=== PATIENT | female | born 1960 | race Caucasian/White ===

== ENCOUNTER 2023-12-28 15:01 | Inpatient (IN) | payer OTHER, MEDICARE, SELFPAY ==
[2023-12-28 15:03] VITALS: BP 130/53; PULSE 87; RESP 14; TEMP 36.1; O2SAT 96; BMI 45.8
--- NOTE | 2023-12-28 15:16 | ED.VIS.FALL ---
HPI <SAMREEN Guerrero - Last Filed: 12/28/23 17:33> HPI - Fall History of Present Illness Chief Complaint: Fall Narrative Narrative: Patient was cooking and cleaning in her kitchen when she slipped on the floor landing on her left hip. No head injury or LOC. She was on the floor for about 45 minutes and called out and the neighbor boy who was mowing her lawn came in and called the paramedics. Patient states she only injured her left hip and she has not been able to get up since then. She has no weakness or paresthesias. She is not on blood thinners. [facility] <SAMREEN Guerrero - Last Filed: 12/28/23 17:33> [facility] Medical History (Updated 12/28/23 @ 17:[address] Sean Velasquez, DO) Diabetes mellitus Hypertension Rheumatoid arthritis Sjogrens syndrome Home Medications albuterol sulfate 90 mcg/actuation aerosol inhaler 2 puff inhalation Q6H PRN wheezing 12/28/23 [History Last Taken Unknown] celecoxib 200 mg capsule 200 mg PO DAILY 12/28/23 [History Last Taken Unknown] cyclobenzaprine 10 mg tablet 10 mg PO QHS 12/28/23 [History Last Taken Unknown] dulaglutide 3 mg/0.5 mL subcutaneous pen injector (Trulicity) 3 mg subcut QWEEK 12/28/23 [History Last Taken Unknown] eszopiclone 2 mg tablet 2 mg PO QHS 12/28/23 [History Last Taken Unknown] hydroxyzine HCl 25 mg tablet 25 mg PO DAILY 12/28/23 [History Last Taken Unknown] levothyroxine 137 mcg tablet 137 mcg PO DAILY 12/28/23 [History Last Taken Unknown] metformin 500 mg tablet,extended release 24 hr 500 mg PO BID 12/28/23 [History Last Taken Unknown] omeprazole 20 mg capsule,delayed release 20 mg PO BID 12/28/23 [History Last Taken Unknown] simvastatin 40 mg tablet 40 mg PO QHS 12/28/23 [History Last Taken Unknown] Allergy/AdvReac Type Severity Reaction Status Date / Time acetaminophen [From Vicodin] Allergy Intermediate SOB Verified 12/28/23 15:08 butorphanol [From Stadol] Allergy Intermediate SOB Verified 12/28/23 15:08 hydrocodone [From Vicodin] Allergy Intermediate SOB Verified 12/28/23 15:08 Surgical History H/O thyroidectomy Social History Smoking Status: Former smoker ROS <SAMREEN Guerrero - Last Filed: 12/28/23 17:33> ROS ED ROS Narrative CVS: Negative for chest pain Respiratory: Negative for shortness of breath. GI: Negative for abdominal pain. Neuro: Negative for motor/sensory dysfunction. Skin: Negative for wound. Musc: Positive for left hip pain, trauma. EXAM <SAMREEN Guerrero - Last Filed: 12/28/23 17:33> Physical Exam Narrative Exam Narrative: CONST: Patient sitting in no acute distress. EYES: Normal inspection. HEAD: Head normocephalic atraumatic, no raccoon eyes or escalante sign, no hemotympanum, no nasal septal hematoma, no CSF otorrhea or rhinorrhea. NECK: Normal inspection. RESP: No respiratory distress, CTAB. Chest wall nontender. CVS: Regular rate and rhythm, no murmur, no gallop. ABD: Soft and nontender, no guarding or rebound, nondistended. Back: Normal inspection, no midline tenderness. SKIN: Color normal, no rash, warm, dry, intact. EXTREMITIES: Full ROM upper extremities, nontender, 2+ radial pulses. Pelvis stable, left leg slightly shortened and rotated with left hip pain with logroll. No tenderness of knee ankle or foot. 5/5 dorsiflexion/plantarflexion, sensation intact, 2+ DP pulses. NEURO: Alert and answering questions appropriately. PSYCH: Normal affect. Const Vital Signs: 12/28/23 15:03 12/28/23 15:08 12/28/23 17:02 Temperature 97.0 F L Temperature Source Temporal Pulse Rate 87 88 Respiratory Rate 14 16 Respiratory Effort Normal Respiratory Depth Normal Respiratory Pattern Normal Blood Pressure 130/53 H 146/64 H Blood Pressure Mean 78 91 Pulse Ox 96 96 Oxygen Delivery Method Room Air Room Air Room Air 12/28/23 17:22 Temperature 98.4 F Temperature Source Pulse Rate 92 Respiratory Rate 16 Respiratory Effort Respiratory Depth Respiratory Pattern Blood Pressure 140/91 H Blood Pressure Mean 107 Pulse Ox 97 Oxygen Delivery Method <Dr. Sean Velasquez DO - Last Filed: 12/28/23 17:26> Physical Exam Const Vital Signs: 12/28/23 15:03 12/28/23 15:08 12/28/23 17:02 Temperature 97.0 F L Temperature Source Temporal Pulse Rate 87 88 Respiratory Rate 14 16 Respiratory Effort Normal Respiratory Depth Normal Respiratory Pattern Normal Blood Pressure 130/53 H 146/64 H Blood Pressure Mean 78 91 Pulse Ox 96 96 Oxygen Delivery Method Room Air Room Air Room Air 12/28/23 17:22 Temperature 98.4 F Temperature Source Pulse Rate 92 Respiratory Rate 16 Respiratory Effort Respiratory Depth Respiratory Pattern Blood Pressure 140/91 H Blood Pressure Mean 107 Pulse Ox 97 Oxygen Delivery Method MDM <SAMREEN uGerrero - Last Filed: 12/28/23 17:33> [facility] MDM Narrative Medical decision making narrative: History gathered from: Patient and EMS Differential: Contusion versus pelvic or hip fracture Consults: Orthopedics, hospitalist Patient had a mechanical fall onto her left hip and was unable to get up. She has a stable pelvis with left lower extremity shortening and rotation. Distal pulses intact. There are no other injuries. X-ray shows left femoral neck fracture. Case was discussed with Dr. Temple and patient will be admitted to the medical team for care and planned surgery. Lab Data Labs: Laboratory Results - last 24 hr 12/28/23 15:58 WBC 12.0 H RBC 5.03 Hgb 14.2 Hct 43.5 MCV 86.5 MCH 28.2 MCHC 32.6 RDW Std Deviation 42.8 RDW Coeff of Tenisha 13.6 Plt Count 191 MPV 11.3 Immature Gran % (Auto) 0.700 Neut % (Auto) 85.0 H Lymph % (Auto) 9.0 L [place] % (Auto) 4.4 Eos % (Auto) 0.6 Baso % (Auto) 0.3 Absolute Neuts (auto) 10.2 H Absolute Lymphs (auto) 1.08 Nucleated RBC % 0 PT 12.7 INR 1.0 APTT 23.2 L Sodium 140 Potassium 3.8 Chloride 106 Carbon Dioxide 27.0 Anion Gap 7 BUN 25 H Creatinine 0.90 Estim Creat Clear Calc 88.66 Est GFR (MDRD) Af Amer 81 Est GFR (MDRD) Non-Af 67 BUN/Creatinine Ratio 27.9 H Glucose 165 H Calcium 9.4 Total Bilirubin 0.40 AST 27 ALT 35 Alkaline Phosphatase 108 Total Protein 7.7 Albumin 3.8 Globulin 3.9 Albumin/Globulin Ratio 1.0 Radiography Diagnostic Testing: Clinical Impression(s) from Imaging Studies Hip/Pelvis X-Ray 12/28/23 16:19 IMPRESSION: Left femoral neck fracture which is displaced. Electronically Signed: Michael Toussaint MD at 17:17 EDT , ED attending interpretation of left hip and pelvis shows a left femoral neck fracture. <Dr. Sean Velasquez, DO - Last Filed: 12/28/23 17:26> [facility] Lab Data Attestation: I reviewed the patient's lab results. Labs: Laboratory Results - last 24 hr 12/28/23 15:58 WBC 12.0 H RBC 5.03 Hgb 14.2 Hct 43.5 MCV 86.5 MCH 28.2 MCHC 32.6 RDW Std Deviation 42.8 RDW Coeff of Tenisha 13.6 Plt Count 191 MPV 11.3 Immature Gran % (Auto) 0.700 Neut % (Auto) 85.0 H Lymph % (Auto) 9.0 L [place] % (Auto) 4.4 Eos % (Auto) 0.6 Baso % (Auto) 0.3 Absolute Neuts (auto) 10.2 H Absolute Lymphs (auto) 1.08 Nucleated RBC % 0 PT 12.7 INR 1.0 APTT 23.2 L Sodium 140 Potassium 3.8 Chloride 106 Carbon Dioxide 27.0 Anion Gap 7 BUN 25 H Creatinine 0.90 Estim Creat Clear Calc 88.66 Est GFR (MDRD) Af Amer 81 Est GFR (MDRD) Non-Af 67 BUN/Creatinine Ratio 27.9 H Glucose 165 H Calcium 9.4 Total Bilirubin 0.40 AST 27 ALT 35 Alkaline Phosphatase 108 Total Protein 7.7 Albumin 3.8 Globulin 3.9 Albumin/Globulin Ratio 1.0 Radiography Diagnostic Testing: Clinical Impression(s) from Imaging Studies Hip/Pelvis X-Ray 12/28/23 16:19 IMPRESSION: Left femoral neck fracture which is displaced. Electronically Signed: Michael Toussaint MD at 17:17 EDT , EKG Initial EKG: Attestation: I personally reviewed and interpreted this EKG as follows: Comments: Normal sinus rhythm ventricular rate of 88 bpm Treatment and Re-Evaluation Narrative: I have personally performed a face to face assessment of the patient and have reviewed the TENA Note. I performed a substantive portion of the visit including all aspects of the following. My quigley findings include: History is 63-year-old female slipped and fell on some water in her kitchen. She landed on her left hip. She is unable to get up. She notes pain in the left hip with any type of movement. She denies other injuries. She is not on blood thinner. Exam is obese female laying on the bed. Left leg/hip is rotated laterally and held with flexion at the knee. Neurovascular intact. No open wounds noted. Medical Decison Making my independent interpretation of the plain films of the left hip and pelvis is an acute femoral neck fracture. Patient received pain medication. Preoperative labs will be obtained. Case will be discussed both with orthopedics and with medicine plan is admission. Discharge Plan Dx/Rx/DC Orders Clinical Impression: Closed fracture of left hip, Diabetes mellitus, Fall, Obesity Disposition Disposition: Acute Care Hospital [facility]
[2023-12-28] MEDS: Ondansetron 4 MG/2 ML Vial IV (15:57)
[2023-12-28] MEDS: Morphine 4 MG/ML Syringe IV ×2 (15:57→17:18)
--- NOTE | 2023-12-28 16:19 | RAD_ITS ---
EXAM: XR LEFT HIP WITH PELVIS WHEN PERFORMED, 2 OR 3 VIEWS CLINICAL INDICATION: pain TECHNIQUE: Two or three views of the left hip with pelvis when performed. COMPARISON: No relevant prior studies available. FINDINGS: BONES/JOINTS: Left femoral neck fracture which is displaced. Degenerative findings in the lumbar spine. No destructive or sclerotic lesions. Note that overlapping bowel shadows may however obscure fine detail. Sacroiliac joint is unremarkable. No widening of the pubic symphysis. SOFT TISSUES: Unremarkable. No soft tissue swelling or gas. RAD/HIP, UNI W/ Pelvis 2-3 Views IMPRESSION: Left femoral neck fracture which is displaced. Electronically Signed: Michael Toussaint MD at 17:17 EDT Reading Location ID and State: [facility] / [place] , Service support ,
--- NOTE | 2023-12-28 16:26 | EKG12_ITS ---
Test Reason : FALL Blood Pressure : / mmHG Vent. Rate : 088 BPM Atrial Rate : 088 BPM P-R Int : 144 ms QRS Dur : 084 ms QT Int : 376 ms P-R-T Axes : 048 038 050 degrees QTc Int : 454 ms Normal sinus rhythm Normal ECG Confirmed by George Moreau ([id number]), food editor RUBEN CLAUDIO ([id number]) on 12/30/2023 10:49:49 AM Referred By: WICHO Confirmed By:George Moreau
[2023-12-28 16:35] LABS: Absolute Lymphocyte Count 1.08 X10^3/uL (0.83-4.51); Absolute Neutrophil Count 10.2 X10^3/uL (2.0-7.7); Basophil# 0.03 X10^3/uL; Basophil% 0.3 % (0-1); Eosinophil# 0.07 X10^3/uL; Eosinophils% 0.6 % (0-5); Hematocrit 43.5 % (37-47); Hemoglobin 14.2 g/dL (12.0-15.0); Lymphocyte # 1.08 X10^3/ul (0.83-4.51); Mean Corp Hgb Conc 32.6 g/dL (32-36); Mean Corpuscular Hgb 28.2 pg (27.0-32.0); Mean Corpuscular Volume 86.5 fL (81-99); Mean Platelet Vol. 11.3 fl (6.2-12.0); Monocyte# 0.53 X10^3/uL; Monocyte% 4.4 % (0-10); NRBC Flagged by Analyzer 0 % (0-5); Platelet Count 191 K/mm3 (150-450); RBC Distribution Width CV 13.6 % (11.6-14.6); RBC Distribution Width SD 42.8 fl (35.1-43.9); Red Blood Count 5.03 M/mm3 (4.2-5.4)
[2023-12-28 16:49] LABS: AST(SGOT) 27 U/L (15-37); Alanine Aminotransfer ALT/SGPT 35 U/L (13-56); Albumin, Serum 3.8 g/dL (3.2-5.0); Alkaline Phosphatase 108 U/L (45-117); Anion Gap 7 (5-15); BUN 25 mg/dL (7-18); BUN/Creat Ratio 27.9 RATIO (10-20); Calcium,Total 9.4 mg/dL (8.5-10.1); Chloride 106 mmol/L (98-107); EST Glomerular Filtration Rate 67 mL/min (>60); Est Glom Filt Rate - Afr Amer 81 mL/min (>60); Estimated Creatinine Clearance 88.66 ml/min; Globulin 3.9 g/dL (2.2-4.2); Glucose 165 mg/dL (74-106); Potassium 3.8 mmol/L (3.5-5.1); Protein, Total 7.7 g/dL (6.4-8.2); Sodium Level 140 mmol/L (136-145)
[2023-12-28 17:02] VITALS: BP 146/64; PULSE 88; RESP 16; O2SAT 96
--- NOTE | 2023-12-28 17:21 | HP.PCM.HOS_ITS ---
HPI - General General Date of Admission: 12/28/23 Date of Service: 12/28/23 Chief Complaint: Left hip pain HPI Narrative JULIANNE CHUNG, is a 63 F who presents who presents with left hip pain. Patient was in her usual state of health till the afternoon of her presentation when she slipped and fell in her kitchen. Subsequently developed significant left hip pain. Presented to the emergency department imaging studies demonstrated left femoral neck fracture displaced. Patient did receive pain medication orthopedic surgeon on-call Dr. Goins was notified. Patient denied experiencing any lightheadedness prior to the fall. [facility] Medical History Diabetes mellitus Hypertension Rheumatoid arthritis Sjogrens syndrome Home Medications albuterol sulfate 90 mcg/actuation aerosol inhaler 2 puff inhalation Q6H PRN wheezing 12/28/23 [History Last Taken Unknown] celecoxib 200 mg capsule 200 mg PO DAILY 12/28/23 [History Last Taken Unknown] cyclobenzaprine 10 mg tablet 10 mg PO QHS 12/28/23 [History Last Taken Unknown] dulaglutide 3 mg/0.5 mL subcutaneous pen injector (Trulicity) 3 mg subcut QWEEK 12/28/23 [History Last Taken Unknown] eszopiclone 2 mg tablet 2 mg PO QHS 12/28/23 [History Last Taken Unknown] hydroxyzine HCl 25 mg tablet 25 mg PO DAILY 12/28/23 [History Last Taken Unknown] levothyroxine 137 mcg tablet 137 mcg PO DAILY 12/28/23 [History Last Taken Unknown] metformin 500 mg tablet,extended release 24 hr 500 mg PO BID 12/28/23 [History Last Taken Unknown] omeprazole 20 mg capsule,delayed release 20 mg PO BID 12/28/23 [History Last Taken Unknown] simvastatin 40 mg tablet 40 mg PO QHS 12/28/23 [History Last Taken Unknown] Allergy/AdvReac Type Severity Reaction Status Date / Time acetaminophen [From Vicodin] Allergy Intermediate SOB Verified 12/28/23 15:08 butorphanol [From Stadol] Allergy Intermediate SOB Verified 12/28/23 15:08 hydrocodone [From Vicodin] Allergy Intermediate SOB Verified 12/28/23 15:08 Surgical History H/O thyroidectomy Social History Smoking Status: Former smoker ROS ROS Narrative GENERAL: denies fever, chills, night sweats, weight loss, anorexia HEENT: denies headache, sinus congestion, or drainage, dysphagia RESPIRATORY: denies cough, sputum production, shortness of breath, dyspnea on exertion CARDIAC: denies chest pain, palpitations, orthopnea, PND GASTROINTESTINAL: denies abdominal pain, nausea, vomiting, melena, GENITOURINARY: denies dysuria, urgency, frequency, heamaturia EXTREMITY: denies swelling MUSCULOSKELETAL: Left hip pain NEUROLOGIC: denies focal numbness, weakness, tingling HEMATOLOGIC: denies easy bruising and/or hemorrhage INTEGUMENT: denies rashes PSYCHIATRIC: denies suicidal or homicidal ideation Vital Signs Vital Signs Vital Signs: 12/28/23 15:03 12/28/23 15:08 12/28/23 17:02 Temperature 97.0 F L Temperature Source Temporal Pulse Rate 87 88 Respiratory Rate 14 16 Respiratory Effort Normal Respiratory Depth Normal Respiratory Pattern Normal Blood Pressure 130/53 H 146/64 H Blood Pressure Mean 78 91 Pulse Ox 96 96 Oxygen Delivery Method Room Air Room Air Room Air Weight Weight: 132.9 kg Body Mass Index (BMI) 45.8 Physical Exam Narrative GENERAL: cooperative HEENT: Atraumatic; normocephalic EYES; Anicteric, Normal Conjunctiva NECK; supple, normal thyroid, RESPIRATORY: Diminished to auscultation CARDIOVASCULAR: Regular S1 S2, GI: soft, normoactive bowel sounds, : No Renal angle tenderness; EXTREMITIES: No edema, no clubbing, MUSCULOSKELETAL: Left lower extremity externally rotated NEURO: Awake; no lateralizing signs. SKIN: No Rash PSYCH; Flat affect Results Lab / Micro Data 12/28/23 15:58 12/28/23 15:58 Labs: Laboratory Results - last 24 hr 12/28/23 15:58: WBC 12.0 H, RBC 5.03, Hgb 14.2, Hct 43.5, MCV 86.5, MCH 28.2, MCHC 32.6, RDW Std Deviation 42.8, RDW Coeff of Tenisha 13.6, Plt Count 191, MPV 11.3, Immature Gran % (Auto) 0.700, Neut % (Auto) 85.0 H, Lymph % (Auto) 9.0 L, [place] % (Auto) 4.4, Eos % (Auto) 0.6, Baso % (Auto) 0.3, Absolute Neuts (auto) 10.2 H, Absolute Lymphs (auto) 1.08, Nucleated RBC % 0, Sodium 140, Potassium 3.8, Chloride 106, Carbon Dioxide 27.0, Anion Gap 7, BUN 25 H, Creatinine 0.90, Estim Creat Clear Calc 88.66, Est GFR (MDRD) Af Amer 81, Est GFR (MDRD) Non-Af 67, BUN/Creatinine Ratio 27.9 H, Glucose 165 H, Calcium 9.4, Total Bilirubin 0.40, AST 27, ALT 35, Alkaline Phosphatase 108, Total Protein 7.7, Albumin 3.8, Globulin 3.9, Albumin/Globulin Ratio 1.0 Imaging Radiology Impression Hip/Pelvis X-Ray 12/28/23 16:19 IMPRESSION: Left femoral neck fracture which is displaced. Electronically Signed: Michael Toussaint MD at 17:17 EDT Reading Location ID and State: [facility] / [place] , Service support , Assessment & Plan Assessment/Plan (1) Closed fracture of left hip: PLAN: Plan Patient is a 63-year-old lady who presented with left hip pain following fall 1. Fall with displaced left femoral neck fracture ? Patient has been admitted to regular nursing floor managed with immobilization, pain meds with consultation placed to orthopedic surgeon Dr. Temple. Plan is for patient to undergo surgical intervention in a.m. Patient perioperative risk with regards to morbidities and mortality deemed to be medium will advise proceeding with surgery without any further intervention 2. Hypothyroidism ? Iatrogenic following thyroid resection for thyroid cancer patient is on levothyroxine did continue home dose 3. Diabetes mellitus type II -patient's oral hypoglycemics held. Placed on long acting insulin, Accu-Cheks a.c. and at bedtime and covered with sliding scale insulin 4. History of breast cancer ? Status post partial right breast lumpectomy with lymph node dissection. Patient has remained in remission 5. Class III obesity with a BMI of 45.9 ? Complicating care weight loss advised 6. Generalized osteoarthritis ? With history of bilateral knee replacement 7. GERD ? Patient is on omeprazole did continue 8. Dyslipidemia -Patient is on statin therapy, continued at home dose 9. DVT prophylaxis ? SCDs for now with plans to initiate chemoprophylaxis following patient surgical intervention Time spent in the patient's overall evaluation,decision-making process, review of diagnostic data, adjustment of management, discussion with other providers, nursing nursing and ancillary staff involved in patient's care documentation,75 Minutes Advance planning; did discuss with the patient and family regarding advanced directives as well as CODE STATUS. Did explain the various scenarios involved ( FULL CODE, DNR CCA, DNR CCA with no intubation, and DNR CC and what each meant) patient elected remain full code with CPR intervention if needed. Order was placed. Time spent on discussion 18 minutes. Charges/Coding Visit Charges Inpatient E&M: 67174 Init Hosp L3 Procedures Hospitalists Procedures: 62171 Advncd Care Plan 30 Min
[2023-12-28 17:22] VITALS: BP 140/91; PULSE 92; RESP 16; TEMP 36.9; O2SAT 97
[2023-12-28 17:22] LABS: Prothrombin Time (Protime)PT. 12.7 SECONDS (11.7-14.9)
[2023-12-28 17:23] LABS: Partial Thromboplast Time 23.2 Seconds (24.1-36.2)
--- NOTE | 2023-12-28 17:57 | CONS.ORTHO ---
HPI Consult Data Date of Consult: 12/28/23 HPI Narrative HPI Narrative: JULIANNE CHUNG, is a 63 F who presents with left NOF. Fell in the kitchen. Unable to ambulate. per ED providers 63 F who presents who presents with left hip pain. Patient was in her usual state of health till the afternoon of her presentation when she slipped and fell in her kitchen. Subsequently developed significant left hip pain. Presented to the emergency department imaging studies demonstrated left femoral neck fracture displaced. Concur with the history. Here with and son who is a nurse. [facility] Medical History Diabetes mellitus Hypertension Rheumatoid arthritis Sjogrens syndrome Home Medications atenolol 25 mg tablet 25 mg PO DAILY 12/28/23 [History Last Taken Unknown] cyclobenzaprine 10 mg tablet 10 mg PO QHS 12/28/23 [History Last Taken Unknown] dulaglutide 3 mg/0.5 mL subcutaneous pen injector (Trulicity) 3 mg subcut QWEEK 12/28/23 [History Last Taken 12/21/23] eszopiclone 2 mg tablet 2 mg PO QHS 12/28/23 [History Last Taken Unknown] hydroxyzine HCl 25 mg tablet 25 mg PO DAILY PRN itching 12/28/23 [History Last Taken Unknown] levothyroxine 137 mcg tablet 137 mcg PO DAILY 12/28/23 [History Last Taken Unknown] metformin 1,000 mg 24 hr tablet,extended release (gastric reten.) (Glumetza) 1,000 mg PO DAILY 12/28/23 [History Last Taken Unknown] metformin 500 mg tablet,extended release 24 hr 500 mg PO QHS 12/28/23 [History Last Taken Unknown] omeprazole 20 mg capsule,delayed release 20 mg PO BID 12/28/23 [History Last Taken Unknown] simvastatin 40 mg tablet 40 mg PO QHS 12/28/23 [History Last Taken Unknown] triamterene 37.5 mg-hydrochlorothiazide 25 mg capsule 1 cap PO DAILY 12/28/23 [History Last Taken Unknown] Allergy/AdvReac Type Severity Reaction Status Date / Time acetaminophen [From Vicodin] Allergy Intermediate SOB Verified 12/28/23 15:08 butorphanol [From Stadol] Allergy Intermediate SOB Verified 12/28/23 15:08 hydrocodone [From Vicodin] Allergy Intermediate SOB Verified 12/28/23 15:08 Surgical History H/O thyroidectomy Social History Smoking Status: Former smoker Vital Signs Vital Signs Vital Signs: 12/28/23 15:03 12/28/23 15:08 12/28/23 17:02 Temperature 97.0 F L Temperature Source Temporal Pulse Rate 87 88 Respiratory Rate 14 16 Respiratory Effort Normal Respiratory Depth Normal Respiratory Pattern Normal Blood Pressure 130/53 H 146/64 H Blood Pressure Mean 78 91 Pulse Ox 96 96 Oxygen Delivery Method Room Air Room Air Room Air 12/28/23 17:22 Temperature 98.4 F Temperature Source Pulse Rate 92 Respiratory Rate 16 Respiratory Effort Respiratory Depth Respiratory Pattern Blood Pressure 140/91 H Blood Pressure Mean 107 Pulse Ox 97 Oxygen Delivery Method Weight Weight: 292 lb 15.909 oz Body Mass Index (BMI) 45.8 Physical Exam Const alert, oriented x3, no apparent distress and well nourished Constitutional Narrative: obese Resp normal respiratory effort Effort and Inspection: able to speak in complete sentences Extremity normal capillary refill and no clubbing, cyanosis or edema Extremity Narrative: normally has peripheral neuropathy, but no change to sensation. normal DP pulse, marked. wiggles toes and df/pf ankle. closed, external rotation and left hip pain. marked. Lab / Micro Data 12/28/23 15:58 12/28/23 15:58 Labs: Laboratory Results - last 24 hr 12/28/23 15:58: WBC 12.0 H, RBC 5.03, Hgb 14.2, Hct 43.5, MCV 86.5, MCH 28.2, MCHC 32.6, RDW Std Deviation 42.8, RDW Coeff of Tenisha 13.6, Plt Count 191, MPV 11.3, Immature Gran % (Auto) 0.700, Neut % (Auto) 85.0 H, Lymph % (Auto) 9.0 L, [place] % (Auto) 4.4, Eos % (Auto) 0.6, Baso % (Auto) 0.3, Absolute Neuts (auto) 10.2 H, Absolute Lymphs (auto) 1.08, Nucleated RBC % 0, PT 12.7, INR 1.0, APTT 23.2 L, Sodium 140, Potassium 3.8, Chloride 106, Carbon Dioxide 27.0, Anion Gap 7, BUN 25 H, Creatinine 0.90, Estim Creat Clear Calc 88.66, Est GFR (MDRD) Af Amer 81, Est GFR (MDRD) Non-Af 67, BUN/Creatinine Ratio 27.9 H, Glucose 165 H, Calcium 9.4, Total Bilirubin 0.40, AST 27, ALT 35, Alkaline Phosphatase 108, Total Protein 7.7, Albumin 3.8, Globulin 3.9, Albumin/Globulin Ratio 1.0 Imaging Radiology Impression Hip/Pelvis X-Ray 12/28/23 16:19 IMPRESSION: Left femoral neck fracture which is displaced. Electronically Signed: Michael Toussaint MD at 17:17 EDT Reading Location ID and State: [facility] / [place] , Service support , agree displaced base of neck fracture L hip. Assessment & Plan Assessment/Plan (1) Closed fracture of left hip: PLAN: 63-year-old female with a displaced left femoral neck fracture. Discussed the injury the pros and cons risk and benefits of nonoperative versus operative treatment of this. Discussed postoperative recovery. Typically these are indicated for surgery as the risks of nonoperative management generally outweigh the risks of surgery. Risks of nonoperative management would be pneumonia blood clots and other risks of the hip fracture not healing. That being said surgery has risks as well which are elevated in this patient with an elevated BMI and peripheral neuropathy and diabetes among other problems. Plan to have the patient be admitted under the hospitalist service bedrest for now. Diet as tolerated for now but n.p.o. overnight for planning for surgery. I marked the left hip. Explained to the patient as well as her family about surgery generally this should be done within 48 hours. Patient wants to go ahead and in my hands that would be in the form of left hip hemiarthroplasty. I generally do this cemented through a lateral approach there is a controversy among the approach, cementing vs not, as well as a hemiarthroplasty versus total hip but generally this is my preferred management. They understood wished to proceed signed the consent form for surgery left hip hemiarthroplasty. Let the nurse supervisor shaving and splitting Wilbert know as well as anesthesia plan for tomorrow at 9am. Pros and cons risks and benefits were discussed with the patient including but not limited to infection, pain, stiffness, bleeding, damage to surrounding structures, neurovascular injury, recurrence or retear, failure or wear of hardware or fixation, instability, fracture, deep vein thrombosis and pulmonary embolism, anesthetic risks, , patient dissatisfaction, need for further surgery and other risks. Patient understood and wished to proceed with surgery, and signed the informed consent documentation. (2) Obesity: (3) Fall: (4) Diabetes mellitus:
[2023-12-28 18:14] VITALS: BMI 41.5
[2023-12-28 18:30] VITALS: BP 117/80; PULSE 91; RESP 16; TEMP 36.4; O2SAT 95
[2023-12-28] MEDS: Lactated Ringers 1,000 ML 100 ML IV (18:51)
[2023-12-28] MEDS: oxyCODONE 5 MG Tablet 10 MG PO (18:54)
[2023-12-28 21:55] VITALS: BP 115/68; PULSE 82; RESP 18; TEMP 36.9; O2SAT 96
[2023-12-28] MEDS: Acetaminophen 500 MG Tablet 1000 MG PO (22:01)
[2023-12-28] MEDS: HYDROmorphone 1 MG/ML Syringe IV (22:16)
[2023-12-28] MEDS: 0.9% Saline Lock 10 ML Syringe IV (22:16)
[2023-12-28 22:53] LABS: Bedside Glucose 133 mg/dL (74-106)
[2023-12-29] VITALS (15 sets, daily range): BP systolic 114–174; BP diastolic 62–98; PULSE 70–99; RESP 12–20; TEMP 36–36.9; O2SAT 92–100; BMI 42.1; BMI 42.0
[2023-12-29] MEDS: oxyCODONE 5 MG Tablet 10 MG PO ×2 (02:59→22:10)
[2023-12-29] MEDS: Lactated Ringers 1,000 ML 100 ML IV ×3 (03:12→22:16)
[2023-12-29 05:24] LABS: Absolute Lymphocyte Count 1.91 X10^3/uL (0.83-4.51); Basophil# 0.03 X10^3/uL; Basophil% 0.3 % (0-1); Eosinophil# 0.13 X10^3/uL; Eosinophils% 1.5 % (0-5); Hematocrit 42.3 % (37-47); Hemoglobin 13.4 g/dL (12.0-15.0); Lymphocyte # 1.91 X10^3/ul (0.83-4.51); Lymphocyte % 21.7 % (19-41); Mean Corp Hgb Conc 31.7 g/dL (32-36); Mean Corpuscular Hgb 27.3 pg (27.0-32.0); Mean Corpuscular Volume 86.3 fL (81-99); Mean Platelet Vol. 10.7 fl (6.2-12.0); Monocyte# 0.75 X10^3/uL; Monocyte% 8.5 % (0-10); NRBC Flagged by Analyzer 0 % (0-5); Neutrophil # 5.96 X10^3/uL (2.7-7.7); Neutrophil % 67.8 % (47-70); Platelet Count 173 K/mm3 (150-450); RBC Distribution Width CV 13.8 % (11.6-14.6); White Blood Count 8.8 K/mm3 (4.4-11.0)
[2023-12-29 05:43] LABS: Anion Gap 5 (5-15); BUN 19 mg/dL (7-18); BUN/Creat Ratio 23.5 RATIO (10-20); Calcium,Total 9.4 mg/dL (8.5-10.1); Chloride 106 mmol/L (98-107); Creatinine, Serum 0.81 mg/dL (0.55-1.02); EST Glomerular Filtration Rate 75 mL/min (>60); Est Glom Filt Rate - Afr Amer 91 mL/min (>60); Estimated Creatinine Clearance 92.96 ml/min; Glucose 120 mg/dL (74-106); Magnesium 1.7 mg/dL (1.6-2.6); Sodium Level 140 mmol/L (136-145)
[2023-12-29 06:12] LABS: Phosphorus 3.2 mg/dL (2.5-4.9); Thyroid Stim Hormone (TSH) 0.99 uIU/mL (0.358-3.74)
[2023-12-29 07:14] LABS: Bedside Glucose 134 mg/dL (74-106)
--- NOTE | 2023-12-29 07:23 | PCM.PN.HOSP ---
Reason for Visit Reason for Visit: Diagnoses Type 2 diabetes mellitus without complications (12/28/23) Obesity, unspecified (12/28/23) Fracture of unspecified part of neck of left femur, initial encounter for closed fracture (12/28/23) Unspecified fall, initial encounter (12/28/23) Subjective Subjective Patient is a 63-year-old lady who presented with left hip pain following fall. Imaging studies demonstrated displaced left femoral neck fracture. Admitted to regular nursing floor with plans for patient to undergo ORIF Objective Data Objective Data Vital Signs: Vital Signs Temp Pulse Resp BP Pulse Ox O2 Del Method 98.2 F 77 18 118/72 94 Room Air 12/29/23 06:30 12/29/23 06:30 12/29/23 06:30 12/29/23 06:30 12/29/23 06:30 12/29/23 06:30 Oxygen Delivery Method Room Air Weight: 121.9 kg Body Mass Index (BMI) 42.1 Intake & Output: Intake and Output for Last 24 Hours 12/27/23 12/28/23 12/29/23 23:59 23:59 23:59 Intake Total 400 / 400 835 / 835 Output Total 600 / 600 650 / 650 Balance -200 / -200 185 / 185 Lab / Micro Data 12/29/23 04:55 12/29/23 04:55 Labs: Laboratory Results - last 24 hr 12/28/23 15:58: WBC 12.0 H, RBC 5.03, Hgb 14.2, Hct 43.5, MCV 86.5, MCH 28.2, MCHC 32.6, RDW Std Deviation 42.8, RDW Coeff of Tenisha 13.6, Plt Count 191, MPV 11.3, Immature Gran % (Auto) 0.700, Neut % (Auto) 85.0 H, Lymph % (Auto) 9.0 L, [place] % (Auto) 4.4, Eos % (Auto) 0.6, Baso % (Auto) 0.3, Absolute Neuts (auto) 10.2 H, Absolute Lymphs (auto) 1.08, Nucleated RBC % 0, PT 12.7, INR 1.0, APTT 23.2 L, Sodium 140, Potassium 3.8, Chloride 106, Carbon Dioxide 27.0, Anion Gap 7, BUN 25 H, Creatinine 0.90, Estim Creat Clear Calc 88.66, Est GFR (MDRD) Af Amer 81, Est GFR (MDRD) Non-Af 67, BUN/Creatinine Ratio 27.9 H, Glucose 165 H, Calcium 9.4, Total Bilirubin 0.40, AST 27, ALT 35, Alkaline Phosphatase 108, Total Protein 7.7, Albumin 3.8, Globulin 3.9, Albumin/Globulin Ratio 1.0, Blood Type O NEGATIVE, Antibody Screen NEGATIVE 12/28/23 21:58: POC Glucose 133 H 12/29/23 04:55: WBC 8.8, RBC 4.90, Hgb 13.4, Hct 42.3, MCV 86.3, MCH 27.3, MCHC 31.7 L, RDW Std Deviation 44.0 H, RDW Coeff of Tenisha 13.8, Plt Count 173, MPV 10.7, Immature Gran % (Auto) 0.200, Neut % (Auto) 67.8, Lymph % (Auto) 21.7, [place] % (Auto) 8.5, Eos % (Auto) 1.5, Baso % (Auto) 0.3, Absolute Neuts (auto) 6.0, Absolute Lymphs (auto) 1.91, Nucleated RBC % 0, Sodium 140, Potassium 4.0, Chloride 106, Carbon Dioxide 29.0, Anion Gap 5, BUN 19 H, Creatinine 0.81, Estim Creat Clear Calc 92.96, Est GFR (MDRD) Af Amer 91, Est GFR (MDRD) Non-Af 75, BUN/Creatinine Ratio 23.5 H, Glucose 120 H, Calcium 9.4, Phosphorus 3.2, Magnesium 1.7, TSH 0.99 12/29/23 06:28: POC Glucose 134 H Radiography Diagnostic Testing: Radiology Impression Hip/Pelvis X-Ray 12/28/23 16:19 IMPRESSION: Left femoral neck fracture which is displaced. Electronically Signed: Michael Toussaint MD at 17:17 EDT , Physical Exam Narrative GENERAL: cooperative HEENT: Atraumatic; normocephalic EYES; Anicteric, Normal Conjunctiva NECK; supple, normal thyroid, RESPIRATORY: Diminished to auscultation CARDIOVASCULAR: Regular S1 S2, GI: soft, normoactive bowel sounds, : No Renal angle tenderness; EXTREMITIES: No edema, no clubbing, MUSCULOSKELETAL: Left lower extremity externally rotated NEURO: Awake; no lateralizing signs. SKIN: No Rash PSYCH; Flat affect Assessment & Plan Assessment/Plan (1) Closed fracture of left hip: PLAN: Plan Patient is a 63-year-old lady who presented with left hip pain following fall 1. Fall with displaced left femoral neck fracture ? Patient has been admitted to regular nursing floor managed with immobilization, pain meds with consultation placed to orthopedic surgeon Dr. Temple. Plan is for patient to undergo surgical intervention in a.m. Patient perioperative risk with regards to morbidities and mortality deemed to be medium will advise proceeding with surgery without any further intervention ? 12/29/2023; patient scheduled to undergo surgical intervention by Dr. Manas Temple 2. Hypothyroidism ? Iatrogenic following thyroid resection for thyroid cancer patient is on levothyroxine did continue home dose 3. Diabetes mellitus type II -patient's oral hypoglycemics held. Placed on long acting insulin, Accu-Cheks a.c. and at bedtime and covered with sliding scale insulin 4. History of breast cancer ? Status post partial right breast lumpectomy with lymph node dissection. Patient has remained in remission 5. Class III obesity with a BMI of 45.9 ? Complicating care weight loss advised 6. Generalized osteoarthritis ? With history of bilateral knee replacement 7. GERD ? Patient is on omeprazole did continue 8. Dyslipidemia -Patient is on statin therapy, continued at home dose 9. DVT prophylaxis ? SCDs for now with plans to initiate chemoprophylaxis following patient surgical intervention Time spent in the patient's overall evaluation,decision-making process, review of diagnostic data, adjustment of management, discussion with other providers, nursing nursing and ancillary staff involved in patient's care documentation 50 minutes Charges/Coding Visit Charges Inpatient E&M: 40774 [facility] L3
[2023-12-29] MEDS: 0.9% Saline Lock 10 ML Syringe IV (07:48)
[2023-12-29] MEDS: HYDROmorphone 1 MG/ML Syringe IV (07:48)
[2023-12-29] MEDS: Levothyroxine 137 MCG Tablet PO (07:55)
[2023-12-29 08:32] LABS: Hemoglobin A1c 6.4 % (3.8-5.6)
--- NOTE | 2023-12-29 08:44 | PCM.PN.ORT ---
Subjective Subjective no concerns or further questions from the patient or family. Objective Data Objective Data Vital Signs: Vital Signs Temp Pulse Resp BP Pulse Ox O2 Del Method 98.2 F 77 18 118/72 94 Room Air 12/29/23 06:30 12/29/23 06:30 12/29/23 06:30 12/29/23 06:30 12/29/23 06:30 12/29/23 07:45 Oxygen Delivery Method Room Air Weight: 268 lb 11.896 oz Body Mass Index (BMI) 42.0 Intake & Output: Intake and Output for Last 24 Hours 12/27/23 12/28/23 12/29/23 23:59 23:59 23:59 Intake Total 400 / 400 835 / 835 Output Total 600 / 600 650 / 650 Balance -200 / -200 185 / 185 Lab / Micro Data 12/29/23 04:55 12/29/23 04:55 Labs: Laboratory Results - last 24 hr 12/28/23 15:58: WBC 12.0 H, RBC 5.03, Hgb 14.2, Hct 43.5, MCV 86.5, MCH 28.2, MCHC 32.6, RDW Std Deviation 42.8, RDW Coeff of Tenisha 13.6, Plt Count 191, MPV 11.3, Immature Gran % (Auto) 0.700, Neut % (Auto) 85.0 H, Lymph % (Auto) 9.0 L, [place] % (Auto) 4.4, Eos % (Auto) 0.6, Baso % (Auto) 0.3, Absolute Neuts (auto) 10.2 H, Absolute Lymphs (auto) 1.08, Nucleated RBC % 0, PT 12.7, INR 1.0, APTT 23.2 L, Sodium 140, Potassium 3.8, Chloride 106, Carbon Dioxide 27.0, Anion Gap 7, BUN 25 H, Creatinine 0.90, Estim Creat Clear Calc 88.66, Est GFR (MDRD) Af Amer 81, Est GFR (MDRD) Non-Af 67, BUN/Creatinine Ratio 27.9 H, Glucose 165 H, Calcium 9.4, Total Bilirubin 0.40, AST 27, ALT 35, Alkaline Phosphatase 108, Total Protein 7.7, Albumin 3.8, Globulin 3.9, Albumin/Globulin Ratio 1.0, Blood Type O NEGATIVE, Antibody Screen NEGATIVE 12/28/23 21:58: POC Glucose 133 H 12/29/23 04:55: WBC 8.8, RBC 4.90, Hgb 13.4, Hct 42.3, MCV 86.3, MCH 27.3, MCHC 31.7 L, RDW Std Deviation 44.0 H, RDW Coeff of Tenisha 13.8, Plt Count 173, MPV 10.7, Immature Gran % (Auto) 0.200, Neut % (Auto) 67.8, Lymph % (Auto) 21.7, [place] % (Auto) 8.5, Eos % (Auto) 1.5, Baso % (Auto) 0.3, Absolute Neuts (auto) 6.0, Absolute Lymphs (auto) 1.91, Nucleated RBC % 0, Sodium 140, Potassium 4.0, Chloride 106, Carbon Dioxide 29.0, Anion Gap 5, BUN 19 H, Creatinine 0.81, Estim Creat Clear Calc 92.96, Est GFR (MDRD) Af Amer 91, Est GFR (MDRD) Non-Af 75, BUN/Creatinine Ratio 23.5 H, Glucose 120 H, Hemoglobin A1c 6.4 H, Calcium 9.4, Phosphorus 3.2, Magnesium 1.7, TSH 0.99 12/29/23 06:28: POC Glucose 134 H Radiography Diagnostic Testing: Radiology Impression Hip/Pelvis X-Ray 12/28/23 16:19 IMPRESSION: Left femoral neck fracture which is displaced. Electronically Signed: Michael Toussaint MD at 17:17 EDT Reading Location ID and State: [facility] / [place] , Service support , Assessment & Plan Assessment/Plan (1) Closed fracture of left hip: PLAN: Will proceed with left hip nelda arthroplasty.
[2023-12-29] MEDS: Sugammadex Sodium 200 MG/2 ML VIAL IV (10:33)
[2023-12-29] MEDS: Bupivacaine 0.25% 30 ML Vial (11:38)
--- NOTE | 2023-12-29 11:43 | OP.PCM_ITS ---
Problems Associated Problem List Diagnoses (1) Closed fracture of left hip: Report of Operation Date of Procedure: 12/29/23 Pre-Operative Diagnosis: L NOF fracture Post-Operative Diagnosis: same Surgery/Procedure Performed:: L hip cemented nelda arthroplasty Surgeon: Manas Temple Type of Anesthesia: General and Local Anesthesiologist: Manas Andino Estimated Blood Loss (mL): 150 Description of Procedure: Patient brought to the operating room theater. Placed lateral decubitus [place] hip positioner. General anesthesia induced. 3 g IV Ancef administered prior to start the case. All bony prominences padded. SCDs on the legs. Left lower extremity prepped and draped in the usual sterile fashion allowing over 3 minutes drying time prior to draping. Preoperative timeout performed to confirm the site patient and surgery. Began by making a standard lateral approach to the proximal hip. Carried dissection down through skin and subcutaneous tissue achieved meticulous hemostasis. Incised the tensor fascia alfa in line with the skin incision. Sharply released the anterior one third of the abductors of the hip. Made a T- shaped capsulotomy tagged each limb with #1 Vicryl suture. Made my femoral neck cut approximately 10 mm above the level lesser trochanter. Remove the femoral head with the corkscrew device. Measured this to be a 50 mm. Next I flex the hip externally rotated it. Use sequential broaching up to a size 7 stem. Lateralized using box osteotome. I trialed with a size 7 stem +0 mm offset standard neck with a 50 mm head this was stable and solid in all directions normal shuck test normal leg lengths and equal on both sides no impingement. Thoroughly irrigated the acetabulum. Removed trials. Irrigated the femoral canal. Used Irrisept. Used pulse lavage. Use the padded suction device as well as the distal cement restrictor 15 mm placed that down distally 1 to 2 cm below the planned tip of the implant. Mixed cement using third- generation cement mixing technique. Cement to the canal. Patient stable throughout cementing. Place centralizer on implant, size 7, then implanted in appropriate version down to the calcar. Held firm until cement cured. Clean the trunion using wet and dry dressing followed by impaction to the Mosley taper of the +0 mm bipolar head with 50 mm outer head. Reduce this again and felt to be stable through range of motion normal leg lengths and no impingement. T shaped capsulotomy repaired with #1 Vicryl sutures as well as the abductors repaired using #2 FiberWire suture through bone tunnels. I then repaired the tensor fascia alfa using a running strata fix suture. Wound thoroughly irrigated throughout. Subcutaneous tissue closed with 2-0 Vicryl suture and skin with running 3-0 Monocryl. Skin cleaned with wet dry dressing 20 cc of quarter percent bupivacaine instilled in around the incision followed by cleaning of the skin Steri-Strips and silver Mepilex border dressing. Patient woken up from the general anesthetic transferred off the operating table and taken to postanesthetic care unit in stable condition. All sponge needle instrument counts were correct no complications. cpt 90058? Complications none Admit VTE Documentation VTE Present on Admission: No VTE Mechan Device Prophylaxis: SCD's VTE Pharm Prophylaxis ordered?: Yes Procedures Musculoskeletal [id number]-29xxx: Other Procedure See Report
--- NOTE | 2023-12-29 12:05 | RAD_ITS ---
INDICATION: post op nelda 1 view only AP EXAMINATION/TECHNIQUE: X-RAY - left hip 1 view COMPARISON: Prior study dated: 12/28/2023 FINDINGS: HIPS: Status post partial left hip arthroplasty. The alignment is grossly unremarkable as seen on this single view. SOFT TISSUES: Soft tissue swelling consistent with recent surgery. RAD/Hip 1 view with Pelvis IMPRESSION: Status post left hip arthroplasty. Electronically Signed: Frank Hazel MD at 12:43 EDT ,
[2023-12-29 12:31] LABS: Bedside Glucose 205 mg/dL (74-106)
[2023-12-29] MEDS: Acetaminophen 500 MG Tablet 1000 MG PO ×2 (13:32→22:12)
[2023-12-29] MEDS: Triamterene 37.5MG/Hctz 25MG Capsule 1 CAP PO (13:32)
[2023-12-29] MEDS: Atenolol 25 MG Tablet PO (13:32)
[2023-12-29 14:09] LABS: Bedside Glucose 183 mg/dL (74-106)
[2023-12-29 16:40] LABS: Bedside Glucose 176 mg/dL (74-106)
[2023-12-29] MEDS: Insulin Lispro 100 UNIT/ML INSULN.PEN SC ×2 (17:26→22:13)
[2023-12-29] MEDS: Zolpidem Tartrate 5 MG Tablet PO (22:10)
[2023-12-29] MEDS: Pantoprazole Sodium 20 MG Tablet PO (22:13)
[2023-12-29] MEDS: Atorvastatin Calcium 20 MG Tablet PO (22:13)
[2023-12-29] MEDS: cycloBENZAPRine HCl 10 MG Tablet PO (22:13)
[2023-12-30] VITALS (12 sets, daily range): BP systolic 102–126; BP diastolic 57–74; PULSE 81–94; RESP 16–18; TEMP 36.6–37.7; O2SAT 92–98
--- NOTE | 2023-12-30 | HIP_PTH ---
PATIENT: JULIANNE CHUNG LOC: MS3 U#:[id number] AGE/SX: 63/F ROOM: LA321 RE12/28/[address]: Dr. Nemesio Saravia MD : 1960 BED: 1 DIS: 12/31/2023 SPEC #: [id number] RECD: 12/30/23 12:56 STATUS: SHELBI REConstanza #: [id number] JULES: 12/30/23 00:[address]: Manas Temple DEPT: SURGICAL PATHOLOGY RECD BY: Lamin Moore ENTERED: 12/30/23 12:56 SP TYPE: TOTAL HIP OTHR DR: MD Dr. Moises Thapa MD Dr. Prakash Chand, MD Dr. Scott Mollison, MD Tissues: Hip, NOS Procedures: Decalcification bone/plaque Surgery Specimen Level IV Comments: @ Ordering doctor for DEC edited from to @ by REJI at 01/03/24 0859 @ Ordering doctor for SUIV edited from to @ by REJI at 01/03/24 0859 @ Submitting doctor edited from to @ brien MENDOZA at 01/03/24 0859 HEADER OPERATION: Hemiarthroplasty, Hip posterior PRE-OP DIAGNOSIS: Closed fracture of left hip TISSUE SUBMITTED: Left femoral head MICROSCOPIC DIAGNOSIS Left hip bone and soft tissue, total hip replacement/resection: Femoral head with focal area of hemorrhage, clinically fracture of left hip. SJ: 01/02/24 MICROSCOPIC DESCRIPTION Slides are reviewed. GROSS DESCRIPTION Received is one container labeled with the patient's name and designated femoral head and tissue. The specimen consists of a mcgill femoral head measuring 5.0 x 4.8 x 4.5 cm. The articular surface is grossly unremarkable. The non-articular surface is hemorrhagic and irregular consistent with fracture site. Clip Wrapper sections are submitted in two cassettes after decalcification. AM/ 12/30/23 TC:5 CPT: 93284, 13789
[2023-12-30 01:16] LABS: Bedside Glucose 193 mg/dL (74-106)
[2023-12-30 05:41] LABS: Absolute Lymphocyte Count 1.16 X10^3/uL (0.83-4.51); Absolute Neutrophil Count 9.2 X10^3/uL (2.0-7.7); Basophil# 0.04 X10^3/uL; Basophil% 0.4 % (0-1); Eosinophil# 0.04 X10^3/uL; Eosinophils% 0.4 % (0-5); Hematocrit 34.6 % (37-47); Lymphocyte # 1.16 X10^3/ul (0.83-4.51); Lymphocyte % 10.2 % (19-41); Mean Corp Hgb Conc 31.8 g/dL (32-36); Mean Corpuscular Hgb 27.5 pg (27.0-32.0); Mean Corpuscular Volume 86.5 fL (81-99); Mean Platelet Vol. 10.7 fl (6.2-12.0); Monocyte# 0.88 X10^3/uL; Monocyte% 7.8 % (0-10); NRBC Flagged by Analyzer 0 % (0-5); Neutrophil % 80.9 % (47-70); Platelet Count 193 K/mm3 (150-450); RBC Distribution Width CV 13.8 % (11.6-14.6); RBC Distribution Width SD 43.8 fl (35.1-43.9); White Blood Count 11.4 K/mm3 (4.4-11.0)
[2023-12-30 06:03] LABS: Anion Gap 4 (5-15); BUN 15 mg/dL (7-18); BUN/Creat Ratio 20.7 RATIO (10-20); Calcium,Total 8.7 mg/dL (8.5-10.1); Chloride 106 mmol/L (98-107); Creatinine, Serum 0.72 mg/dL (0.55-1.02); EST Glomerular Filtration Rate 86 mL/min (>60); Est Glom Filt Rate - Afr Amer 104 mL/min (>60); Estimated Creatinine Clearance 94.87 ml/min; Glucose 140 mg/dL (74-106); Potassium 3.9 mmol/L (3.5-5.1); Sodium Level 138 mmol/L (136-145)
[2023-12-30] MEDS: Levothyroxine 137 MCG Tablet PO (06:31)
[2023-12-30] MEDS: Acetaminophen 500 MG Tablet 1000 MG PO ×3 (06:31→21:14)
[2023-12-30] MEDS: Lactated Ringers 1,000 ML 100 ML IV (06:42)
[2023-12-30] MEDS: oxyCODONE 5 MG Tablet 10 MG PO ×3 (06:49→22:49)
[2023-12-30 06:56] LABS: Bedside Glucose 143 mg/dL (74-106)
[2023-12-30] MEDS: Triamterene 37.5MG/Hctz 25MG Capsule 1 CAP PO (08:50)
[2023-12-30] MEDS: Pantoprazole Sodium 20 MG Tablet PO ×2 (08:50→21:16)
[2023-12-30] MEDS: Atenolol 25 MG Tablet PO (08:51)
[2023-12-30] MEDS: Insulin Lispro 100 UNIT/ML INSULN.PEN SC ×3 (11:48→21:28)
[2023-12-30] MEDS: Senna/Docusate Sodium 1 Tablet 2 TABLET PO ×2 (11:53→21:14)
[2023-12-30] MEDS: Polyethylene Glycol 3350 17 GM PACKET PO ×2 (11:53→21:16)
[2023-12-30 11:54] LABS: Bedside Glucose 192 mg/dL (74-106)
--- NOTE | 2023-12-30 13:21 | CASEMGMT ---
PEEWEE AMBRIZ Assessment Face to Face with patient for initial transition planning/care coordination assessment. PEEWEE AMBRIZ introduced self and role at [facility], pt voices understanding. Pt is A&Ox4 and is resting comfortably in the chair and is calm. Care providers, pharmacy, and demographics verified. Admitting dx: Lt Hip Fx PCP: Palma Bruno Specialists: Denies Preferred Pharmacy: [facility] Insurance: MMO, MCR A Only Prescription Benefit: Yes LNOK: Lj De Souza (H), Vikas De Souza (Son) Living Arrangements: Pt lives with her in a single story home with a BM with a FFSU and a ramp to enter. ADLs/IADLs: Normally ind Transportation: Self, DME: Working [employer] and enough supplies. 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 Pt is requesting a FWW at time of DC. See below. HHC/SNF: [facility] (PT) x 15 years ago. History at [facility] Pt?s goal: Home with HHC (PT and OT) and FWW Plan: Pt 6-Click is 16. PT is recommending HHC. Pt states that she is agreeable with getting HHC set up. Pt denies wanting to see a list of local in-network HHC companies and states that she would prefer [facility] HH (PT and OT). TC to [facility]HC and referral made to [facility] at this time. Awaiting return call. In regard to the FWW, a verbal list of local in-network DME companies provided to the pt at this time, pt states she would like to go through [facility] for the DME. PEEWEE Ball CM updated. CM to follow for safe DC from [facility]. Arlyn Patel RN, CM
--- NOTE | 2023-12-30 13:28 | PN.HOSP_ITS ---
Reason for Visit Reason for Visit: Diagnoses Type 2 diabetes mellitus without complications (12/28/23) Obesity, unspecified (12/28/23) Fracture of unspecified part of neck of left femur, initial encounter for closed fracture (12/28/23) Unspecified fall, initial encounter (12/28/23) Objective Data Objective Data Vital Signs: Vital Signs Temp Pulse Resp BP Pulse Ox O2 Del Method O2 Flow Rate 98.3 F 85 18 112/74 92 Room Air 2 12/30/23 12:23 12/30/23 12:23 12/30/23 12:23 12/30/23 12:23 12/30/23 12:23 12/30/23 12:23 12/30/23 06:29 FiO2 97 12/29/23 12:57 Oxygen Flow Rate (L/min) 2 Oxygen Delivery Method Room Air Weight: 268 lb 11.896 oz Body Mass Index (BMI) 42.0 Intake & Output: Intake and Output for Last 24 Hours 12/28/23 12/29/23 12/30/23 23:59 23:59 23:59 Intake Total 400 / 400 3200 / 3200 1743.33 / 1743.33 Output Total 600 / 600 2250 / 2250 Balance -200 / -200 950 / 950 1743.33 / 1743.33 Lab / Micro Data 12/30/23 05:11 12/30/23 05:11 Labs: Laboratory Results - last 24 hr 12/29/23 13:46: POC Glucose 183 H 12/29/23 16:19: POC Glucose 176 H 12/29/23 22:00: POC Glucose 193 H 12/30/23 05:11: WBC 11.4 H, RBC 4.00 L, Hgb 11.0 L, Hct 34.6 L, MCV 86.5, MCH 27.5, MCHC 31.8 L, RDW Std Deviation 43.8, RDW Coeff of Tenisha 13.8, Plt Count 193, MPV 10.7, Immature Gran % (Auto) 0.300, Neut % (Auto) 80.9 H, Lymph % (Auto) 10.2 L, [place] % (Auto) 7.8, Eos % (Auto) 0.4, Baso % (Auto) 0.4, Absolute Neuts (auto) 9.2 H, Absolute Lymphs (auto) 1.16, Nucleated RBC % 0, Sodium 138, Potassium 3.9, Chloride 106, Carbon Dioxide 28.0, Anion Gap 4 L, BUN 15, Creatinine 0.72, Estim Creat Clear Calc 94.87, Est GFR (MDRD) Af Amer 104, Est GFR (MDRD) Non-Af 86, BUN/Creatinine Ratio 20.7 H, Glucose 140 H, Calcium 8.7 12/30/23 06:28: POC Glucose 143 H 12/30/23 11:26: POC Glucose 192 H Physical Exam Narrative Seen and examined. Patient is hard of hearing. Patient not moved bowel for last 2 days. Had left hip surgery. Physical exam General: Alert, Oriented x3, Cooperative HEENT: Atraumatic, PERRLA, EOMI, Normocephalic Oral: Oral mucosa moist. No Gingival or Mucosal Lesions/ Ulcerations Neck: Supple, No JVD, Negative Carotid Bruits Chest wall/Lungs: Air entry diminished in bilateral lung bases. No crepitation/rhonchi Cardiovascular: Regular rate, Regular Rhythm, Normal S1, Normal S2, No M/G/R Abdomen: Bowel Sounds Present, Soft, Non Tender, Non-Distended : No dysuria. No renal angle tenderness. No suprapubic tenderness. Extremities: No edema, Capillary Refill Less than 3 Seconds Skin: Left hip surgical dressing is dry. No hematoma or bruise. Musculoskeletal: Tenderness present over left hip surgical region. ROM restrict ed mild due to pain and stiffness, postop. Neurological: Cranial nerves II-XII grossly intact, DTR 2+/4. No acute focal neurological deficit. Psych/Mental Status: Normal Affect, Appropriate. Assessment & Plan Assessment/Plan (1) Closed fracture of left hip: PLAN: Plan Patient is a 63-year-old lady who presented with left hip pain following fall 1. Fall with displaced left femoral neck fracture ? Patient has been admitted to regular nursing floor managed with immobilization, pain meds with consultation placed to orthopedic surgeon Dr. Temple. Plan is for patient to undergo surgical intervention in a.m. Patient perioperative risk with regards to morbidities and mortality deemed to be medium will advise proceeding with surgery without any further intervention ? 12/29/2023; patient scheduled to undergo surgical intervention by Dr. Manas Temple 12/29: Patient had left hip cemented hemiarthroplasty. Patient doing well but has pain, stiffness postop. Undergoing physical therapy. Pain is controlled. Mild constipation. On senna S and MiraLAX. 2. Hypothyroidism ? Iatrogenic following thyroid resection for thyroid cancer patient is on levothyroxine did continue home dose 3. Diabetes mellitus type II -patient's oral hypoglycemics held. Placed on long acting insulin, Accu-Cheks a.c. and at bedtime and covered with sliding scale insulin 4. History of breast cancer ? Status post partial right breast lumpectomy with lymph node dissection. Patient has remained in remission 5. Class III obesity with a BMI of 45.9 ? Complicating care weight loss advised 6. Generalized osteoarthritis ? With history of bilateral knee replacement 7. GERD ? Patient is on omeprazole did continue 8. Dyslipidemia -Patient is on statin therapy, continued at home dose 9. DVT prophylaxis ? On rivaroxaban 10 mg daily Charges/Coding Visit Charges Inpatient E&M: 24025 Subs Hosp L2
--- NOTE | 2023-12-30 14:01 | CASEMGMT ---
Advance Directive Validation: This RN CM met with pt face to face at bedside. Pt states she has living will and HPOA documents at home. This travel writer encouraged pt to have these brought into the hospital to be scanned into her EMR. Pt expressed understanding and states she will do so. Lou Sheridan RN [facility]
[2023-12-30] MEDS: HYDROmorphone 1 MG/ML Syringe IV (14:25)
[2023-12-30] MEDS: 0.9% Saline Lock 10 ML Syringe IV (14:25)
--- NOTE | 2023-12-30 14:36 | CASEMGMT ---
Received tc from Eleonora at [facility], they will accept pt for SOC on Saturday.
--- NOTE | 2023-12-30 15:04 | CASEMGMT ---
PEEWEE CM into pt room, pt aware that [facility] has accepted her for services to start on Saturday.
[2023-12-30] MEDS: Rivaroxaban 10 MG Tablet PO (16:59)
[2023-12-30 17:12] LABS: Bedside Glucose 181 mg/dL (74-106)
[2023-12-30] MEDS: Atorvastatin Calcium 20 MG Tablet PO (21:15)
[2023-12-30] MEDS: cycloBENZAPRine HCl 10 MG Tablet PO (21:15)
[2023-12-30] MEDS: Zolpidem Tartrate 5 MG Tablet PO (21:28)
[2023-12-31] MEDS: HYDROmorphone 1 MG/ML Syringe IV (00:01)
[2023-12-31 00:24] LABS: Bedside Glucose 164 mg/dL (74-106)
[2023-12-31 02:10] VITALS: BMI 42.1
[2023-12-31 02:30] VITALS: BP 117/56; PULSE 95; RESP 16; TEMP 37; O2SAT 94
[2023-12-31] MEDS: Levothyroxine 137 MCG Tablet PO (05:39)
[2023-12-31] MEDS: Acetaminophen 500 MG Tablet 1000 MG PO ×2 (05:39→13:52)
[2023-12-31 05:48] VITALS: BP 112/65; PULSE 103; RESP 16; TEMP 37.3; O2SAT 91
[2023-12-31 05:49] VITALS: PULSE 103; RESP 16
[2023-12-31] MEDS: Insulin Lispro 100 UNIT/ML INSULN.PEN SC ×2 (06:54→12:23)
[2023-12-31 07:12] LABS: Bedside Glucose 162 mg/dL (74-106)
[2023-12-31 08:00] VITALS: BP 109/65; PULSE 91; RESP 15; TEMP 36.8; O2SAT 93
[2023-12-31] MEDS: Pantoprazole Sodium 20 MG Tablet PO (08:01)
[2023-12-31] MEDS: Senna/Docusate Sodium 1 Tablet 2 TABLET PO (08:01)
[2023-12-31] MEDS: Triamterene 37.5MG/Hctz 25MG Capsule 1 CAP PO (08:01)
[2023-12-31] MEDS: Atenolol 25 MG Tablet PO (08:01)
[2023-12-31] MEDS: Polyethylene Glycol 3350 17 GM PACKET PO (08:02)
[2023-12-31] MEDS: oxyCODONE 5 MG Tablet 10 MG PO ×2 (08:06→12:22)
--- NOTE | 2023-12-31 11:07 | DCINST_ITS ---
Discharge Instructions Diet Discharge Diet: No restrictions Activity Discharge Activity: Return to Normal Activity Weight Bearing Status: Weight bearing as tolerated Dressing / Incision Call your doctor if you observe: Fever of 101 or Higher, Coldness, Increased Pain, Numbness or Tingling, Change in Color, Inability to urinate, Inability to have a bowel movement, Using more than 1 pad per hour, Shortness of breath, Dizziness, Fainting spells, Swelling in the ankles, Chest pain, Prolonged hiccupping, Increased palpitations (irregular heartbeat) and Calf discomfort Follow Up Care When: IN 2 WEEKS Test Results: Test results from this visit will be discussed in further detail at your follow- up appointment, if applicable. Discharge Plan Admission Admit Date/Time: 12/28/23 17:17 Primary Reason for Your Visit: Left hip fracture. Attending Provider: Nemesio Saravia Primary Care Provider: Palma Bruno Consulting Providers: Manas Temple; Moises Coughlin Instructions Additional Instructions / Restrictions: Senna S, polyethylene glycol and Dulcolax suppository are available [id number] therefore prescription are given. Discharge Orders/Prescriptions Prescriptions: New acetaminophen 500 mg Tablet 1,000 mg PO Q8 Qty: 0 0RF sennosides-docusate sodium [Stool Softener-Stimulant Laxat] 8.6-50 mg Tablet 2 tab PO BID Qty: 0 0RF Rx Instructions: Osjl-nvo-pzhuiwn stool softener. Xarelto 10 mg Tablet 10 mg PO DINNER 30 Days Qty: 30 0RF oxycodone 5 mg Tablet 2.5 - 5 mg PO Q4H PRN PRN (Reason: Pain Score 4-10) 3 Days Qty: 10 0RF Rx Instructions: Oxycodone 2.5 mg for moderate pain and 5 mg for severe pain respectively. polyethylene glycol 3350 [Gavilax] 17 gram/dose powder 17 g PO DAILY 30 Days Qty: 510 0RF Rx Instructions: Idwf-xss-fpfzibe. bisacodyl [Dulcolax (bisacodyl)] 10 mg suppository 10 mg SC DAILY PRN (Reason: constipation) Qty: 30 0RF Continued cyclobenzaprine 10 mg tablet 10 mg PO QHS hydroxyzine HCl 25 mg tablet 25 mg PO DAILY PRN (Reason: itching) Patient Comments: RARELY TAKES eszopiclone 2 mg tablet 2 mg PO QHS Trulicity 3 mg/0.5 mL pen injector 3 mg subcut QWEEK Patient Comments: DUE TODAY (12/28/2023) levothyroxine 137 mcg tablet 137 mcg PO DAILY simvastatin 40 mg tablet 40 mg PO QHS omeprazole 20 mg capsule,delayed release(DR/EC) 20 mg PO BID metformin 500 mg tablet extended release 24 hr 500 mg PO QHS atenolol 25 mg tablet 25 mg PO DAILY triamterene-hydrochlorothiazid 37.5-25 mg capsule 1 cap PO DAILY metformin [Glumetza] 1,000 mg tablet,ER ronit.retention 24 hr 1,000 mg PO DAILY Referrals / Follow Up: Palma Bruno MD [Primary Care Provider] - Within 2 Weeks Manas Temple MD [Med Staff - Active Staff] - Within 2 Weeks (About 10 days) Disposition Disposition (needs filled in before D/C Order can be placed): Home Health Service
--- NOTE | 2023-12-31 11:17 | DS.PCM_ITS ---
Providers Date of Admission: 12/28/23 Date of Discharge: 12/31/23 Primary Care Physician: Dr. Palma Bruno MD Consultations 12/28/23 18:10 Consult: Orthopedics Routine Consulting Provider: Manas Temple Reason for Consult: Left hip fracture EMERGENT Consult: No MD Notified: Yes Date Notified: 12/28/23 Time Notified: 17:20 Method of Notification: ED Physician Initiated Reason For Visit: LEFT HIP FRACTURE Diagnosis Discharge Diagnosis (1) Closed fracture of left hip: Status: Acute Code(s): S72.002A - Fracture of unspecified part of neck of left femur, initial encounter for closed fracture Plan Patient is a 63-year-old lady who presented with left hip pain following fall 1. Fall with displaced left femoral neck fracture ? Patient has been admitted to regular nursing floor managed with immobilization, pain meds with consultation placed to orthopedic surgeon Dr. Temple. Plan is for patient to undergo surgical intervention in a.m. Patient perioperative risk with regards to morbidities and mortality deemed to be medium will advise proceeding with surgery without any further intervention ? 12/29/2023; patient scheduled to undergo surgical intervention by Dr. Manas Temple 12/29: Patient had left hip cemented hemiarthroplasty. Patient doing well but has pain, stiffness postop. Undergoing physical therapy. Pain is controlled. Mild constipation. On senna S and MiraLAX. 12/30:Patient is initiated on small bowel for 3 days even on MiraLAX and senna S. Dulcolax 10 mg oral 1 dose given. Patient is discharged on MiraLAX, senna S and Dulcolax suppository. Advised to follow with PCP. Patient had similar problem of constipation after previous surgery. Abdomen is soft and nontender. 2. Hypothyroidism ? Iatrogenic following thyroid resection for thyroid cancer patient is on levothyroxine did continue home dose 3. Diabetes mellitus type II -patient's oral hypoglycemics held. Placed on long acting insulin, Accu-Cheks a.c. and at bedtime and covered with sliding scale insulin 12/30: Glucose is reasonably well controlled. 4. History of breast cancer ? Status post partial right breast lumpectomy with lymph node dissection. P atient has remained in remission 5. Class III obesity with a BMI of 45.9 ? Complicating care weight loss advised 6. Generalized osteoarthritis ? With history of bilateral knee replacement 7. GERD ? Patient is on omeprazole did continue 8. Dyslipidemia -Patient is on statin therapy, continued at home dose 9. DVT prophylaxis ? On rivaroxaban 10 mg daily. Prescription given for apixaban Prescriptions given for oxycodone 2.5 mg for moderate pain and 5 mg for severe pain respectively, total 10 tablets. OARRS report checked. Unintentional overdose risk 200 below average. Advised to take Tylenol 1 g every 8 hourly for 1 week and then as needed. Stool softeners MiraLAX, senna as suppository available [id number]. Discharge medication reconciliation done. Discharge follow-up instructions completed. Discharge home with home health PT. Discharge process discussed with the patient and all questions were answered to patient's satisfaction. Follow with PCP in 1 to 2 weeks Total time spent, exact 35 minutes on discharge meds reconciliation, examination, coordination of care with nurses and ancillary staff, review of imaging and blood test and discussion with the patient on follow-up instructions. Medications at Discharge Home Medications atenolol 25 mg tablet 25 mg PO DAILY 12/28/23 cyclobenzaprine 10 mg tablet 10 mg PO QHS 12/28/23 dulaglutide 3 mg/0.5 mL subcutaneous pen injector (Trulicity) 3 mg subcut QWEEK 12/28/23 eszopiclone 2 mg tablet 2 mg PO QHS 12/28/23 hydroxyzine HCl 25 mg tablet 25 mg PO DAILY PRN itching 12/28/23 levothyroxine 137 mcg tablet 137 mcg PO DAILY 12/28/23 metformin 1,000 mg 24 hr tablet,extended release (gastric reten.) (Glumetza) 1,000 mg PO DAILY 12/28/23 metformin 500 mg tablet,extended release 24 hr 500 mg PO QHS 12/28/23 omeprazole 20 mg capsule,delayed release 20 mg PO BID 12/28/23 simvastatin 40 mg tablet 40 mg PO QHS 12/28/23 triamterene 37.5 mg-hydrochlorothiazide 25 mg capsule 1 cap PO DAILY 12/28/23 acetaminophen 500 mg tablet 1,000 mg (2 x 500 mg) PO Q8 #0 tabs 12/31/23 bisacodyl 10 mg rectal suppository (Dulcolax (bisacodyl)) 10 mg [place] DAILY PRN constipation #30 ea 12/31/23 oxycodone 5 mg tablet 2.5 - 5 mg (0.5 - 1 x 5 mg) PO Q4H PRN PRN Pain Score 4-10 3 days #10 tabs 12/31/23 polyethylene glycol 3350 17 gram/dose oral powder (Gavilax) 17 g PO DAILY 1 month #510 grams 12/31/23 rivaroxaban 10 mg tablet (Xarelto) 10 mg PO DINNER 1 month #30 tabs 12/31/23 sennosides 8.6 mg-docusate sodium 50 mg tablet (Stool Softener-Stimulant Laxative) 2 tab PO BID #0 tabs 12/31/23 Physical Exam Narrative Seen and examined on the day of discharge. Patient is hard of hearing. Patient not moved bowel for last 3 days. Had left hip surgery. Patient walked in the hallway. Physical exam General: Alert, Oriented x3, Cooperative HEENT: Atraumatic, PERRLA, EOMI, Normocephalic Oral: Oral mucosa moist. No Gingival or Mucosal Lesions/ Ulcerations Neck: Supple, No JVD, Negative Carotid Bruits Chest wall/Lungs: Air entry diminished in bilateral lung bases. No crepitation/rhonchi Cardiovascular: Regular rate, Regular Rhythm, Normal S1, Normal S2, No M/G/R Abdomen: Bowel Sounds Present, Soft, Non Tender, Non-Distended. No palpable mass. : No dysuria. No renal angle tenderness. No suprapubic tenderness. Extremities: No edema, Capillary Refill Less than 3 Seconds Skin: Left hip surgical dressing is dry. No hematoma or bruise. Musculoskeletal: Tenderness present over left hip surgical region. ROM restricted because of mild pain. Neurological: Cranial nerves II-XII grossly intact, DTR 2+/4. No acute focal neurological deficit. Psych/Mental Status: Normal Affect, Appropriate. Weight / BMI Weight Weight: 268 lb 8.368 oz Body Mass Index (BMI) 42.1 ABG / Lab / Microbiology Data 12/30/23 05:11 12/30/23 05:11 Laboratory: Laboratory Results - last 24 hr 12/30/23 11:26: POC Glucose 192 H 12/30/23 16:54: POC Glucose 181 H 12/30/23 21:28: POC Glucose 164 H 12/31/23 06:52: POC Glucose 162 H D/C Instructions Discharge Diet: No restrictions Weight Bearing Status: Weight bearing as tolerated Call your doctor if you observe: Fever of 101 or Higher, Coldness, Increased Pain, Numbness or Tingling, Change in Color, Inability to urinate, Inability to have a bowel movement, Using more than 1 pad per hour, Shortness of breath, Dizziness, Fainting spells, Swelling in the ankles, Chest pain, Prolonged hiccupping, Increased palpitations (irregular heartbeat) and Calf discomfort When: IN 2 WEEKS Meaningful Use Info Meaningful Use Diagnoses (Choose all that apply): None applicable Discharge Plan Admission Admit Date/Time: 12/28/23 17:17 Primary Reason for Your Visit: Left hip fracture. Attending Provider: Nemesio Saravia Primary Care Provider: Palma Bruno Consulting Providers: Manas Temple; Moises Coughlin Instructions Additional Instructions / Restrictions: Senna S, polyethylene glycol and Dulcolax suppository are available ov [id number] therefore prescription are given. Discharge Orders/Prescriptions Prescriptions: New acetaminophen 500 mg Tablet 1,000 mg PO Q8 Qty: 0 0RF sennosides-docusate sodium [Stool Softener-Stimulant Laxat] 8.6-50 mg Tablet 2 tab PO BID Qty: 0 0RF Rx Instructions: [id number]-pwy-[id number] stool softener. Xarelto 10 mg Tablet 10 mg PO DINNER 30 Days Qty: 30 0RF oxycodone 5 mg Tablet 2.5 - 5 mg PO Q4H PRN PRN (Reason: Pain Score 4-10) 3 Days Qty: 10 0RF Rx Instructions: Oxycodone 2.5 mg for moderate pain and 5 mg for severe pain respectively. polyethylene glycol 3350 [Gavilax] 17 gram/dose powder 17 g PO DAILY 30 Days Qty: 510 0RF Rx Instructions: Xxva-jqy-zomrxfw. bisacodyl [Dulcolax (bisacodyl)] 10 mg suppository 10 mg [place] DAILY PRN (Reason: constipation) Qty: 30 0RF Continued cyclobenzaprine 10 mg tablet 10 mg PO QHS hydroxyzine HCl 25 mg tablet 25 mg PO DAILY PRN (Reason: itching) Patient Comments: RARELY TAKES eszopiclone 2 mg tablet 2 mg PO QHS Trulicity 3 mg/0.5 mL pen injector 3 mg subcut QWEEK Patient Comments: DUE TODAY (12/28/2023) levothyroxine 137 mcg tablet 137 mcg PO DAILY simvastatin 40 mg tablet 40 mg PO QHS omeprazole 20 mg capsule,delayed release(DR/EC) 20 mg PO BID metformin 500 mg tablet extended release 24 hr 500 mg PO QHS atenolol 25 mg tablet 25 mg PO DAILY triamterene-hydrochlorothiazid 37.5-25 mg capsule 1 cap PO DAILY metformin [Glumetza] 1,000 mg tablet,ER ronit.retention 24 hr 1,000 mg PO DAILY Referrals / Follow Up: Palma Bruno MD [Primary Care Provider] - Within 2 Weeks Manas Temple MD [Med Staff - Active Staff] - Within 2 Weeks (About 10 days) Disposition Disposition (needs filled in before D/C Order can be placed): Home Health Service Charges/Coding Visit Charges Inpatient E&M: 40961 Disch Hosp >30min
--- NOTE | 2023-12-31 11:28 | CASEMGMT ---
Addendum entered by Lizzy Pendleton 12/31/23 11:50: TC to [facility] Retail, cost of pt dheeraj is $67.66 per Sep. Original Note: Updated Eleonora at [facility] that pt will dc today. Referral [place] to [facility] via [facility] for [facility]WW with request to take from stock. [employer] delivered FWW to pt room, pt signed consignment form. Pt is aware that HHC will start tomorrow. Pt denies any further homegoing needs at this time.
--- NOTE | 2023-12-31 11:38 | PHA.DC_ITS ---
Pharmacy [facility] has performed discharge medication reconciliation and counseling for this patient. The patient's discharge medication list was reviewed for discrepancies and discrepancies were resolved. The patient was counseled on the following discharge medications and changes in medications for homegoing were reviewed. The Reason for Use, instructions for use, and potential side effects were reviewed for all new medications. The patient's questions regarding all of their medications were answered. 1. Acetaminophen 1000 mg PO Q8H 2. Oxycodone 2.5-5 mg PO Q4H PRN pain 3. Senna/docusate 2 tablets PO BID 4. Polyethylene glycol 17 grams PO daily 5. Bisacodyl suppository 10 mg RC daily PRN constipation 6. Xarelto 10 mg PO daily The patient was able to verbally demonstrate an understanding of their discharge medications. Medications at Discharge Home Medications atenolol 25 mg tablet 25 mg PO DAILY 12/28/23 cyclobenzaprine 10 mg tablet 10 mg PO QHS 12/28/23 dulaglutide 3 mg/0.5 mL subcutaneous pen injector (Trulicity) 3 mg subcut QWEEK 12/28/23 eszopiclone 2 mg tablet 2 mg PO QHS 12/28/23 hydroxyzine HCl 25 mg tablet 25 mg PO DAILY PRN itching 12/28/23 levothyroxine 137 mcg tablet 137 mcg PO DAILY 12/28/23 metformin 1,000 mg 24 hr tablet,extended release (gastric reten.) (Glumetza) 1,000 mg PO DAILY 12/28/23 metformin 500 mg tablet,extended release 24 hr 500 mg PO QHS 12/28/23 omeprazole 20 mg capsule,delayed release 20 mg PO BID 12/28/23 simvastatin 40 mg tablet 40 mg PO QHS 12/28/23 triamterene 37.5 mg-hydrochlorothiazide 25 mg capsule 1 cap PO DAILY 12/28/23 acetaminophen 500 mg tablet 1,000 mg (2 x 500 mg) PO Q8 #0 tabs 12/31/23 bisacodyl 10 mg rectal suppository (Dulcolax (bisacodyl)) 10 mg [place] DAILY PRN constipation #30 ea 12/31/23 oxycodone 5 mg tablet 2.5 - 5 mg (0.5 - 1 x 5 mg) PO Q4H PRN PRN Pain Score 4-10 3 days #10 tabs 12/31/23 polyethylene glycol 3350 17 gram/dose oral powder (Gavilax) 17 g PO DAILY 1 month #510 grams 12/31/23 rivaroxaban 10 mg tablet (Xarelto) 10 mg PO DINNER 1 month #30 tabs 12/31/23 sennosides 8.6 mg-docusate sodium 50 mg tablet (Stool Softener-Stimulant Laxative) 2 tab PO BID #0 tabs 12/31/23
[2023-12-31] MEDS: Bisacodyl 5 MG Tablet 10 MG PO (12:17)
[2023-12-31 12:36] LABS: Bedside Glucose 202 mg/dL (74-106)
== END 2023-12-31 14:08 | disposition home health service (06) | DRG 522 ==
LOC: ED 17:37 → MS3 17:41
PROVIDERS: Emergency Medicine; Orthopaedic Surgery Sports Medicine; Admitting Provider Internal Medicine; Emergency Provider Emergency Medicine; PCP Internal Medicine; Visit Provider Internal Medicine
PROC: 0SRS019 Replacement of Left Hip Joint, Femoral Surface with Metal Synthetic Substitute, Cemented, Open Approach (ICD-10-PCS; CPT 27125; principal; 2023-12-29 09:00)
DX: S72.042A Displaced fracture of base of neck of left femur, initial encounter for closed fracture (principal); Z68.41 Body mass index [BMI] 40.0-44.9, adult; E66.01 Morbid (severe) obesity due to excess calories; E11.42 Type 2 diabetes mellitus with diabetic polyneuropathy; I10 Essential (primary) hypertension; E89.0 Postprocedural hypothyroidism; E78.5 Hyperlipidemia, unspecified; K21.9 Gastro-esophageal reflux disease without esophagitis; K59.09 Other constipation; W01.0XXA Fall on same level from slipping, tripping and stumbling without subsequent striking against object, initial encounter; Z96.653 Presence of artificial knee joint, bilateral; Z79.84 Long term (current) use of oral hypoglycemic drugs; Z79.85 Long-term (current) use of injectable non-insulin antidiabetic drugs; Z79.899 Other long term (current) drug therapy; Z85.3 Personal history of malignant neoplasm of breast; Z87.891 Personal history of nicotine dependence
CPT/HCPCS: 36415; 73501; 73502; 80048; 80053; 82962; 83036; 83735; 84100; 84443; 85025; 85610; 85730; 86850; 86900; 86901; 88305; 88311; 93005; 94668; 97162; 97166; 99285; C1776; J7120; A4216; J2405

== ENCOUNTER → 2024-02-04 | Outpatient (CLI) | payer OTHER, SELFPAY ==
[2024-02-04 12:26] LABS: Absolute Lymphocyte Count 1.58 X10^3/uL (0.83-4.51); Absolute Neutrophil Count 6.5 X10^3/uL (2.0-7.7); Basophil# 0.05 X10^3/uL; Basophil% 0.6 % (0-1); Eosinophil# 0.14 X10^3/uL; Eosinophils% 1.6 % (0-5); Hematocrit 41.9 % (37-47); Hemoglobin 12.5 g/dL (12.0-15.0); Lymphocyte # 1.58 X10^3/ul (0.83-4.51); Lymphocyte % 17.5 % (19-41); Mean Corp Hgb Conc 29.8 g/dL (32-36); Mean Corpuscular Hgb 25.6 pg (27.0-32.0); Mean Corpuscular Volume 85.9 fL (81-99); Mean Platelet Vol. 10.4 fl (6.2-12.0); Monocyte# 0.74 X10^3/uL; Monocyte% 8.2 % (0-10); NRBC Flagged by Analyzer 0 % (0-5); Neutrophil # 6.46 X10^3/uL (2.7-7.7); Neutrophil % 71.5 % (47-70); Platelet Count 378 K/mm3 (150-450); RBC Distribution Width CV 14.6 % (11.6-14.6); RBC Distribution Width SD 45.5 fl (35.1-43.9); Red Blood Count 4.88 M/mm3 (4.2-5.4)
== END | disposition home or self-care (01) ==
PROVIDERS: PCP Internal Medicine; Referring Provider Orthopaedic Surgery Sports Medicine; Visit Provider Orthopaedic Surgery Sports Medicine
DX: T81.89XA Other complications of procedures, not elsewhere classified, initial encounter (principal); X58.XXXA Exposure to other specified factors, initial encounter
CPT/HCPCS: 36415; 85025; 86140; 87070; 87075; 87077; 87186; 87205

== ENCOUNTER 2024-02-20 13:30 | Outpatient (RCR) | payer OTHER, SELFPAY ==
[2024-02-06 14:22] VITALS: BP 117/78; PULSE 79; RESP 18; TEMP 36.4; BMI 40.7
--- NOTE | 2024-02-06 16:57 | PCM.WC.HP ---
History of Present Illness Date of Service: 02/06/24 Chief Complaint: L hip postoperative wound History of Wound: Ever De Souza is a 63 y/o female who presents to the wound center today for evaluation and management of a L hip wound. She is accompanied to her appointment today by her who helps with wound care. She had a partial L hip replacement on 12/29/[address] Temple due to a displaced left femoral neck fracture she sustained when she fell at home. About 1-2 weeks after the surgery, the distal portion of this incision dehisced and drained copiously. This area then appeared to heal over before again re-opening a couple weeks ago and has again been draining copiously since then. The rest of the incision is well healed. She reports the drainage has been significant enough that a few nights ago it soaked through the dressing, through her clothes, and soaked her bed sheets. The drainage is mostly straw-colored, sometimes a pink/red tinge, but they have never noticed any purulence. They deny any associated foul odor. There is redness around the dehiscence. She has been closely following with Dr. Temple. She saw him in the office a few days ago and he treated the area with silver nitrate and Gabrieal packing. Since then, she has just been covering with a dry dressing. Dr. Temple did obtain wound cultures. She is currently on empiric Keflex. She did also have a CBC which showed normal WBC. She is diabetic, last A1c 6.4 in December. She does not smoke. [facility] Medical History (Updated 02/07/24 @ 07:35 by SAMREEN Izquierdo) Drainage from surgical wound Closed fracture of left hip Diabetes mellitus Hypertension Rheumatoid arthritis Sjogrens syndrome Home Medications ?Medication ?Instructions ?Recorded ?Last Taken ?Type atenolol 25 mg tablet 25 mg PO DAILY 12/28/23 Unknown History cyclobenzaprine 10 mg tablet 10 mg PO QHS 12/28/23 Unknown History dulaglutide 3 mg/0.5 mL 3 mg subcut QWEEK 12/28/23 12/21/23 History subcutaneous pen injector (Trulicity) eszopiclone 2 mg tablet 2 mg PO QHS 12/28/23 Unknown History hydroxyzine HCl 25 mg tablet 25 mg PO DAILY PRN itching 12/28/23 Unknown History levothyroxine 137 mcg tablet 137 mcg PO DAILY 12/28/23 Unknown History metformin 1,000 mg 24 hr 1,000 mg PO DAILY 12/28/23 Unknown History tablet,extended release (gastric reten.) (Glumetza) metformin 500 mg tablet,extended 500 mg PO QHS 12/28/23 Unknown History release 24 hr omeprazole 20 mg capsule,delayed 20 mg PO BID 12/28/23 Unknown History release simvastatin 40 mg tablet 40 mg PO QHS 12/28/23 Unknown History triamterene 37.5 1 cap PO DAILY 12/28/23 Unknown History mg-hydrochlorothiazide 25 mg capsule acetaminophen 500 mg tablet 1,000 mg (2 x 500 mg) PO Q8 #0 tabs 12/31/23 Unknown Rx bisacodyl 10 mg rectal suppository 10 mg [place] DAILY PRN constipation 12/31/23 Unknown Rx (Dulcolax (bisacodyl)) #30 ea polyethylene glycol 3350 17 17 g PO DAILY 1 month #510 grams 12/31/23 Unknown Rx gram/dose oral powder (Gavilax) rivaroxaban 10 mg tablet (Xarelto) 10 mg PO DINNER 1 month #30 tabs 12/31/23 Unknown Rx sennosides 8.6 mg-docusate sodium 2 tab PO BID #0 tabs 12/31/23 Unknown Rx 50 mg tablet (Stool Softener-Stimulant Laxative) cephalexin 500 mg capsule 500 mg PO Q6H infection 7 days #28 02/04/24 Unknown Rx caps sulfamethoxazole 800 1 tab PO BID 14 days #28 tabs 02/06/24 Unknown Rx mg-trimethoprim 160 mg tablet (Bactrim DS) Allergy/AdvReac Type Severity Reaction Status Date / Time acetaminophen (From Vicodin) Allergy Intermediate SOB Verified 02/04/24 09:45 butorphanol (From Stadol) Allergy Intermediate SOB Verified 02/04/24 09:45 hydrocodone (From Vicodin) Allergy Intermediate SOB Verified 02/04/24 09:45 Surgical History History of hip surgery H/O thyroidectomy Social History household members: spouse Smoking Status: Former smoker Vital Signs Vital Signs Vital Signs: 02/06/24 14:22 Temperature 97.6 F L Temperature Source Temporal Pulse Rate 79 Respiratory Rate 18 Blood Pressure 117/78 Blood Pressure Mean 91 Blood Pressure Source Monitor Weight Weight: 260 lb 3.23 oz Body Mass Index (BMI) 40.7 Physical Exam Const alert, oriented x3 and no apparent distress General Appearance: cooperative and comfortable HEENT normocephalic, head/scalp atraumatic and hearing grossly normal bilaterally Head and Scalp: normal to inspection and atraumatic Eyes EOMs intact bilaterally General Eye: normal appearance of both eyes Neck General: normal visual inspection and trachea midline Resp normal respiratory effort, normal air movement, no retractions and no use of accessory muscles Effort and Inspection: able to speak in complete sentences; Negative for labored, grunting, stridor or audible wheezes Cardio regular rate and regular rhythm Skin Wounds: wounds noted Wound Narrative: L hip with surgical incision which is well-healed with the exception of the most distal portion. This distal portion has dehisced with an open area of 0.7 x 0.5 cm which probes to a depth of 2.0 cm. Moderate serous drainage was noted, but no purulence was able to be expressed. There is erythema and slight induration around the wound, but no fluctuance. There is no foul odor. Neuro oriented x3, CN's II-XII intact bilaterally, moves all extremities and no focal motor deficits Speech: speech normal Debridement Note Debridement Note No debridement was completed: No debridement was completed today Post-Debridement Measurements and Additional Note: Post-Debridement Measurements/Treatment WC - Nurse 1 - General Ulcer Assessment Start: 02/06/24 14:22 Freq: Status: Active Protocol: GEE Activity Type Activity Date Activity User E-sign Co-sign Detail Recorded Client Recorded Date Recorded By Document 02/06/24 14:22 [email or web address] 02/06/24 14:37 DL 02/06/24 14:22 - Today's Visit Information Type of service Initial Visit Arrival Mode Ambulatory, Walker Transfer Assistance None Patient Identification Verified (Name & Yes ) Patient Requires Transmission-Based No Precautions Height and Weight Height 5 ft 7 in Weight 260 lb 3.23 oz Weight in Pounds 260.2 lbs Body Mass Index (BMI) 40.7 BMI Classification Obese BSA - Lisandra 2.26 Vital Signs Temperature (97.8 F-99.1 F) 97.6 F L Temperature Source Temporal Pulse Rate (60-100) 79 Pulse Location Monitor Respiratory Rate (12-18) 18 Respiratory rate source Observation Blood Pressure (90/60-120/80) 117/78 Blood Pressure Mean 91 Source Monitor Pain Scale: 0-10 Numeric Is Patient Pain Free? Yes Communication Assessment Preferred language Ukrainian Able to Read Yes Able to Write Yes Communication Tools None Right Hearing Abillity Use of Hearing Aid Left Hearing Abillity Use of Hearing Aid Visual Assistive Devices Glasses Teaching Assessment Preferences Verbal,Written Barriers to Learning None Readiness To Learn Good Willingness to Engage in Self Management Med Activies Readiness to Engage in Self Management Med Activities Anxiety Level Calm Cooperation Cooperative Perception Coherent Interest in Health Problem Asks Questions Education Importance Acknowledges Need Does Patient Smoke tobacco or other No substances Smoking Status Former smoker Is Patient Diabetic Yes Functional Assessment Recent Decline in Ability to Perform Denies Any Declines Culture/Muslim/Tower Helper Cultural/Muslim Needs that may affect No Treatment Plan Would you allow our [facility] drawing machine operator to No meet you for the purpose of spiritual/ emotional support? Tower Helper to contact place of jainism No Teaching: Wound Center Dressing Your Wound -Person Taught Patient *Welcome to the Wound Center -Person Taught Patient WC - Nurse 1 - General Ulcer Measurement Start: 02/06/24 14:22 Freq: Status: Active Protocol: Activity Type Activity Date Activity User E-sign Co-sign Detail Recorded Client Recorded Date Recorded By Document 02/06/24 14:22 DL [email or web address] 02/06/24 14:37 DL 02/06/24 14:22 Wound Center Nurse 1 #1 L Hip -Current Size (cm) - Length 0.8 -Current Size (cm) - Width 0.5 -Current Size (cm) - Depth 2 -Total Square Cm 0.40 -Photo Taken Yes -Maximum Distance #2 (cm) 0.5 -Circular Undermining Yes -Classification - Thickness Full Thickness without Exposed Support Structure -Exudate Amt Large -Exudate Type Serosanguineous -Wound Margin Distinct, Outline Attached -Granulation Amt Small (1-33%) -Granulation Quality Red -Necrosis Amt Small (1-33%) -Necrotic Tissue Type Adherent Slough -Structure Exposed N/A -Texture (Shelli-wound Skin Appearance) Localized Edema ,Scarring -Moisture (Shelli-wound Skin Appearance) No Abnormality -Color (Shelli-wound Skin Appearance) Erythema -Temperature (Shelli-wound Skin No Abnormality Appearance) (Pt Warm) -Tenderness on Palpation (Shelli-wound No Skin Appearance) -Ulcer Cleansing Soap and Water -Foul Odor after Cleansing No -Anesthetic Used 5% Lidocaine Gel - Nurse 2 - General Ulcer CM Notes Start: 02/06/24 14:22 Freq: Status: Active Protocol: Activity Type Activity Date Activity User E-sign Co-sign Detail Recorded Client Recorded Date Recorded By Document 02/06/24 14:55 [id number] 02/06/24 15:14 02/06/24 14:55 Wound Center Nurse 2 -Time 14:56 -Correct Patient Yes -Correct Side, Site, Position Yes -Tunneling No -Undermining/Tunneling No -Circular Undermining No -Wound/Ulcer Outcome Not Healed -Wound Comment(s) Wound is 0.7 x 0.5 x 2.0 Pain Scale: 0-10 Numeric Is Patient Pain Free? Yes - Nurse 3 - General Ulcer D/C NN Start: 02/06/24 14:22 Freq: Status: Active Protocol: Activity Type Activity Date Activity User E-sign Co-sign Detail Recorded Client Recorded Date Recorded By Document 02/06/24 15:18 [id number] 02/06/24 15:19 02/06/24 15:18 Wound Care Center Nurse 3 #1 L Hip -Ulcer Cleansing Rinsed/ Irrigated with Saline -Primary Dressing Applied Hysept ($), Mepilex Border, Nugauze, Iodoform 1/4in -Mepilex Border 1 -Nugauze, Iodoform 1/4in 1 Pain Scale: 0-10 Numeric Is Patient Pain Free? Yes - Visit Discharge Discharge Condition Stable Ambulatory Status Walker Transportation Private Auto Accompanied by Medication Reconcilliation completed & No provided to patient/care provider Clinical Summary of Care Provided Yes Charges/Coding Visit Charges Office Visits / Consults: [id number] OV L3 New 30min Assessment/Plan Assessment/Plan (1) Postoperative wound dehiscence: CODE(S): T81.31XA - Disruption of external operation (surgical) wound, not elsewhere classified, initial encounter PLAN: Plan There was no significant slough or nonviable tissue noted in the wound today so debridement was not performed. The drainage is serous consistent with suspected postoperative seroma. For wound care, I recommend packing with 1/2 inch Nugauze moistened with Dakins then cover with a super-absorbent dressing. The packing should be changed once daily, change the outer dressing more often as needed if it becomes soaked/soiled. Her and her son will be changing her dressings. Her son is an ICU nurse so as long as his schedule allows he will be more than capable of helping with her wound care. However, I did advise that if there were any difficulties, we could arrange for either nurse visits here or try to set up [facility] to help support wound care. I recommend protecting this area during showers to keep it dry. She does have a removable shower head so this will make it much easier. Always cleanse around the wound with antibacterial soap and water, pat well to dry, and change the dressings (packing and outer) after showers. Wound cultures were reviewed. Showed 3+ Staph aureus. Per sensitivity results, will treat with Bactrim DS BID x 14 days. She may stop the Keflex once she initiates Bactrim. Wound care supplies will be delivered to their home, typically this takes 3-4 days. They are advised to contact the wound center if they do not receive supplies by next Saturday or if they run out in the meantime. Please return to see me in 1 week. She will also continue follow-up with Dr. Temple's office.
[2024-02-13 13:42] VITALS: BP 125/77; PULSE 81; RESP 18; BMI 40.7
--- NOTE | 2024-02-13 16:48 | PCM.WC.PN ---
History of Present Illness Date of Service: 02/13/24 Chief Complaint: L hip postoperative wound History of Wound: Ever De Souza is a 63 y/o female who presents to the wound center today for evaluation and management of a L hip wound. She is accompanied to her appointment today by her who helps with wound care. She had a partial L hip replacement on 12/29/[address] Temple due to a displaced left femoral neck fracture she sustained when she fell at home. About 1-2 weeks after the surgery, the distal portion of this incision dehisced and drained copiously. This area then appeared to heal over before again re-opening a couple weeks ago and has again been draining copiously since then. The rest of the incision is well healed. She reports the drainage has been significant enough that a few nights ago it soaked through the dressing, through her clothes, and soaked her bed sheets. The drainage is mostly straw-colored, sometimes a pink/red tinge, but they have never noticed any purulence. They deny any associated foul odor. There is redness around the dehiscence. She has been closely following with Dr. Temple. She saw him in the office a few days ago and he treated the area with silver nitrate and Gabriela packing. Since then, she has just been covering with a dry dressing. Dr. Temple did obtain wound cultures. She is currently on empiric Keflex. She did also have a CBC which showed normal WBC. She is diabetic, last A1c 6.4 in December. She does not smoke. Subjective Subjective They have done well with dressing changes over the last week. They have noticed that the drainage seems to be slowing down. The redness also appears to be improving. They received supplies yesterday. She has been taking Bactrim as prescribed. She denies any GI upset or other side effects. Objective Data Objective Data Vital Signs: Vital Signs Temp Pulse Resp BP O2 Del Method 97.6 F L 81 18 125/77 H Room Air 02/06/24 14:22 02/13/24 13:42 02/13/24 13:42 02/13/24 13:42 02/13/24 13:42 Oxygen Delivery Method Room Air Weight: 260 lb 3.23 oz Body Mass Index (BMI) 40.7 Charges/Coding Procedures Integumentary 111xxx-113xx: [address] [place] musc/fascia 20 sq cm/< Physical Exam Const alert, oriented x3 and no apparent distress General Appearance: cooperative and comfortable HEENT normocephalic, head/scalp atraumatic and hearing grossly normal bilaterally Head and Scalp: normal to inspection and atraumatic Eyes EOMs intact bilaterally General Eye: normal appearance of both eyes Neck General: normal visual inspection and trachea midline Resp normal respiratory effort, normal air movement, no retractions and no use of accessory muscles Effort and Inspection: able to speak in complete sentences; Negative for labored, grunting, stridor or audible wheezes Cardio regular rate and regular rhythm Skin Wounds: wounds noted Wound Narrative: L hip with surgical incision which is well-healed with the exception of the most distal portion. This distal portion has dehisced with an open area which is enlarged this week to of 0.7 x 1.5 cm and which probes to a depth of 1.5 cm which is improved from last week. On exam today, a spitting suture was visible within the wound. This was removed easily Neuro oriented x3, CN's II-XII intact bilaterally, moves all extremities and no focal motor deficits Speech: speech normal Debridement Note Debridement Note Wound debrided: L hip Laterality: Left Type of Debridement: Excisional debridement Anesthesia Used: 5% Lidocaine Gel Depth: Down to and including healthy tissue, in the subcutaneous layer and to muscle Percentage of wound debrided: 100 Instrument Used: 5mm curette and Forceps Amount of bleeding with debridement: Mild Bleeding Controlled with: Pressure Patient tolerated procedure: Patient tolerated procedure well Post-Debridement Measurements and Additional Note: Post-Debridement Measurements/Treatment - Nurse 1 - General Ulcer Assessment Start: 02/06/24 14:22 Freq: Status: Active Protocol: GEE Activity Type Activity Date Activity User E-sign Co-sign Detail Recorded Client Recorded Date Recorded By Document 02/06/24 14:22 DL [email or web address] 02/06/24 14:37 DL Document 02/13/24 13:42 wound center 02/13/24 13:48 KW 02/06/24 02/13/24 14:22 13:42 - Today's Visit Information Type of service Initial Visit Follow-up Visit (Physician/BEAUTY DIRECTOR ) Arrival Mode Ambulatory, Ambulatory,Cane Walker Transfer Assistance None Accompanied by Patient Identification Verified (Name & Yes Yes ) Patient Requires Transmission-Based No Precautions Height and Weight Height 5 ft 7 in Weight 260 lb 3.23 oz Weight in Pounds 260.2 lbs Body Mass Index (BMI) 40.7 40.7 BMI Classification Obese Obese BSA - Lisandra 2.26 Vital Signs Temperature (97.8 F-99.1 F) 97.6 F L Temperature Source Temporal Pulse Rate (60-100) 79 81 Pulse Location Monitor Monitor Respiratory Rate (12-18) 18 18 Respiratory rate source Observation Observation Oxygen Delivery Method Room Air Blood Pressure (90/60-120/80) 117/78 125/77 H Blood Pressure Mean (mm Hg) 91 93 Source Monitor Monitor Position Sitting Blood Pressure Location Left Arm History Since Last Visit- (Skip if this is Patient's initial visit) Have you changed medications since your No last visit? Any new allergies or adverse reactions No Had a fall/change in ADL's that may No increase risk of falls Signs or symptoms of abuse and/or No neglect since last visit Have you been in the hospital since your No last visit? Has dressing in place as prescribed Yes Has compression in place as prescribed N/A Has offloadiing in place as prescribed N/A Experienced any changes in pain level or No management Left Footwear Regular Shoe Right Footwear Regular Shoe Pain Scale: 0-10 Numeric Is Patient Pain Free? Yes Yes Communication Assessment Preferred language Irish Able to Read Yes Able to Write Yes Communication Tools None Right Hearing Abillity Use of Hearing Aid Left Hearing Abillity Use of Hearing Aid Visual Assistive Devices Glasses Teaching Assessment Preferences Verbal,Written Barriers to Learning None Readiness To Learn Good Willingness to Engage in Self Management Med Activies Readiness to Engage in Self Management Med Activities Anxiety Level Calm Cooperation Cooperative Perception Coherent Interest in Health Problem Asks Questions Education Importance Acknowledges Need Does Patient Smoke tobacco or other No substances Smoking Status Former smoker Is Patient Diabetic Yes Functional Assessment Recent Decline in Ability to Perform Denies Any Declines 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 Mixer Operator to contact place of restorationist No Teaching: Wound Center Dressing Your Wound -Person Taught Patient *Welcome to the Wound Center -Person Taught Patient WC - Nurse 1 - General Ulcer Measurement Start: 02/06/24 14:22 Freq: Status: Active Protocol: Activity Type Activity Date Activity User E-sign Co-sign Detail Recorded Client Recorded Date Recorded By Document 02/06/24 14:22 DL [email or web address] 02/06/24 14:37 DL Document 02/13/24 13:42 KW wound center 02/13/24 13:48 KW 02/06/24 02/13/24 14:22 13:42 Wound Center Nurse 1 #1 L Hip -Current Size (cm) - Length 0.8 1.5 -Current Size (cm) - Width 0.5 0.6 -Current Size (cm) - Depth 2 1.8 -Total Square Cm 0.40 0.90 -Photo Taken Yes -Maximum Distance #2 (cm) 0.5 -Circular Undermining Yes -Classification - Thickness Full Thickness without Exposed Support Structure -Exudate Amt Large Small -Exudate Type Serosanguineous Serosanguineous -Wound Margin Distinct, Distinct, Outline Outline Attached Attached -Granulation Amt Small (1-33%) Medium (34-66%) -Granulation Quality Red Red -Necrosis Amt Small (1-33%) Medium (34-66%) -Necrotic Tissue Type Adherent Slough Adherent Slough -Structure Exposed N/A -Texture (Shelli-wound Skin Appearance) Localized Edema Assessed ,Scarring -Moisture (Shelli-wound Skin Appearance) No Abnormality Assessed -Color (Shelli-wound Skin Appearance) Erythema Assessed, Erythema -Temperature (Shelli-wound Skin No Abnormality No Abnormality Appearance) (Pt Warm) (Pt Warm) -Tenderness on Palpation (Shelli-wound No No Skin Appearance) -Ulcer Cleansing Soap and Water Rinsed/ Irrigated with Saline -Foul Odor after Cleansing No No -Anesthetic Used 5% Lidocaine 5% Lidocaine Gel Gel WC - Nurse 2 - General Ulcer CM Notes Start: 02/06/24 14:22 Freq: Status: Active Protocol: Activity Type Activity Date Activity User E-sign Co-sign Detail Recorded Client Recorded Date Recorded By Document 02/06/24 14:55 [id number] 02/06/24 15:14 Document 02/13/24 14:07 wound center 02/13/24 14:09 02/06/24 02/13/24 14:55 14:07 Wound Center Nurse 2 #1 L Hip -Time 14:56 14:08 -Correct Patient Yes Yes -Correct Side, Site, Position Yes Yes -Correct Procedure Yes -Procedure Performed Yes -Type of Procedure Debridement -Clinical Debridement Subcutaneous -Tissue Removed Subcutaneous -Post Debridement (cm) - Length 0.7 -Post Debridement (cm) - Width 1.5 -Post Debridement (cm) - Depth 1.7 -Total Square (Post) (cm) 1.05 -Area of Debridement (cm) - Length 0.7 -Area of Debridement (cm) - Width 1.5 -Total Square (Area) (cm) 1.05 -Tunneling No No -Undermining/Tunneling No No -Circular Undermining No No -Wound/Ulcer Outcome Not Healed Not Healed -Ulcer Cleansing Rinsed/ Irrigated with Saline -Foul Odor after Cleansing No -Bioengineered Tissue No -Bleeding Controlled with Pressure -Treatment Response Procedure Tolerated Well -Debridement - Subq, 1st 20sq cm Yes -Wound Comment(s) Wound is 0.7 x 0.5 x 2.0 Pain Scale: 0-10 Numeric Is Patient Pain Free? Yes Yes - Nurse 3 - General Ulcer D/C NN Start: 02/06/24 14:22 Freq: Status: Active Protocol: Activity Type Activity Date Activity User E-sign Co-sign Detail Recorded Client Recorded Date Recorded By Document 02/06/24 15:18 [id number] 02/06/24 15:19 KW Document 02/13/24 14:34 KW wound center 02/13/24 14:35 KW 02/06/24 02/13/24 15:18 14:34 Wound Care Center Nurse 3 #1 L Hip -Ulcer Cleansing Rinsed/ Irrigated with Saline -Primary Dressing Applied Hysept ($), Mepilex Border, Mepilex Border, Nugauze, Plain Nugauze, 1/2in Iodoform 1/4in -Mepilex Border 1 1 -Nugauze, Iodoform 1/4in 1 -Nugauze, Plain 1/2in 1 Pain Scale: 0-10 Numeric Is Patient Pain Free? Yes Yes - Visit Discharge Discharge Condition Stable Stable Ambulatory Status Walker Ambulatory Transportation Private Auto Private Auto Accompanied by Medication Reconcilliation completed & No No provided to patient/care provider Clinical Summary of Care Provided Yes Yes Assessment/Plan Assessment/Plan (1) Postoperative wound dehiscence: CODE(S): T81.31XA - Disruption of external operation (surgical) wound, not elsewhere classified, initial encounter PLAN: Plan Debridement was performed today to remove slough/nonviable tissue from the wound bed. Additionally, a spitting suture was removed. She tolerated this well. The base of the wound is noted to be pink and well-bleeding. There was no significant drainage noted on exam today. The erythema around the wound is improved from last week. For wound care, continue to pack with 1/2 inch Nugauze moistened with Dakins then cover with a super-absorbent dressing. The packing should be changed once daily, change the outer dressing more often as needed if it becomes soaked/soiled. I recommend protecting this area during showers to keep it dry. She does have a removable shower head so this will make it much easier. Always cleanse around the wound with antibacterial soap and water, pat well to dry, and change the dressings (packing and outer) after showers. Continue Bactrim. Will reassess next week and determine if continued antibiotic therapy past 14 days is appropriate. Please return to see me in 1 week.
[2024-02-20 13:36] VITALS: BP 125/77; PULSE 86; RESP 18; TEMP 36.2; BMI 40.7
--- NOTE | 2024-02-20 17:02 | PN.PCM_ITS ---
History of Present Illness Date of Service: 02/20/24 Chief Complaint: L hip postoperative wound History of Wound: Ever De Souza is a 63 y/o female who presents to the wound center today for evaluation and management of a L hip wound. She is accompanied to her appointment today by her who helps with wound care. She had a partial L hip replacement on 12/29/[address] Temple due to a displaced left femoral neck fracture she sustained when she fell at home. About 1-2 weeks after the surgery, the distal portion of this incision dehisced and drained copiously. This area then appeared to heal over before again re-opening a couple weeks ago and has again been draining copiously since then. The rest of the incision is well healed. She reports the drainage has been significant enough that a few nights ago it soaked through the dressing, through her clothes, and soaked her bed sheets. The drainage is mostly straw-colored, sometimes a pink/red tinge, but they have never noticed any purulence. They deny any associated foul odor. There is redness around the dehiscence. She has been closely following with Dr. Temple. She saw him in the office a few days ago and he treated the area with silver nitrate and Gabriela packing. Since then, she has just been covering with a dry dressing. Dr. Temple did obtain wound cultures. She is currently on empiric Keflex. She did also have a CBC which showed normal WBC. She is diabetic, last A1c 6.4 in December. She does not smoke. Subjective Subjective Unfortunately, this week she has developed increased redness/swelling/warmth now along the superior aspect of her incision. They have noticed it develop over the last 3 days. The swelling/redness/warmth remains resolved around the inferior wound we have been caring for. Drainage also remains significantly lessened from her initial visit. She has not had any fevers, chills, nausea, vomiting. She just finished Bactrim today. Objective Data Objective Data Vital Signs: Vital Signs Temp Pulse Resp BP O2 Del Method 97.2 F L 86 18 125/77 H Room Air 02/20/24 13:36 02/20/24 13:36 02/20/24 13:36 02/20/24 13:36 02/13/24 13:42 Oxygen Delivery Method Room Air Weight: 260 lb 3.23 oz Body Mass Index (BMI) 40.7 Charges/Coding Visit Charges Office Visits / Consults: 54514 OV L3 Est 20min Physical Exam Const alert, oriented x3 and no apparent distress General Appearance: cooperative and comfortable HEENT normocephalic, head/scalp atraumatic and hearing grossly normal bilaterally Head and Scalp: normal to inspection and atraumatic Eyes EOMs intact bilaterally General Eye: normal appearance of both eyes Neck General: normal visual inspection and trachea midline Resp normal respiratory effort, normal air movement, no retractions and no use of accessory muscles Effort and Inspection: able to speak in complete sentences; Negative for labored, grunting, stridor or audible wheezes Cardio regular rate and regular rhythm Skin Wounds: wounds noted Wound Narrative: L hip with surgical incision with dehisced/open area 0.7 x 1.5 cm and which probes to a depth of 0.7 cm which is improved from last week. There was a long track noted this week following superficially along the incision which may be typical postoperative change but will monitor. There is no drainage noted on exam today. There is no surrounding erythema, warmth, focal swelling. There is now an area of erythema, warmth, induration along the superior aspect of the incision. No significant fluctuance today. No skin opening or drainage today. Neuro oriented x3, CN's II-XII intact bilaterally, moves all extremities and no focal motor deficits Speech: speech normal Debridement Note Debridement Note No debridement was completed: No debridement was completed today Post-Debridement Measurements and Additional Note: Post-Debridement Measurements/Treatment WC - Nurse 1 - General Ulcer Assessment Start: 02/06/24 14:22 Freq: Status: Active Protocol: GEE Activity Type Activity Date Activity User E-sign Co-sign Detail Recorded Client Recorded Date Recorded By Document 02/06/24 14:22 DL 10..25.7 02/06/24 14:37 DL Document 02/13/24 13:42 KW wound center 02/13/24 13:48 KW Document 02/20/24 13:36 DL 10..25.7 02/20/24 13:44 DL 02/06/24 02/13/24 02/20/24 14:22 13:42 13:36 - Today's Visit Information Type of service Initial Visit Follow-up Visit Follow-up Visit (Physician/IS/IT PROJECT MANAGER (Physician/IS/IT PROJECT MANAGER ) ) Arrival Mode Ambulatory, Ambulatory,Cane Ambulatory,Cane Walker Transfer Assistance None None Accompanied by Patient Identification Verified (Name & Yes Yes Yes ) Patient Requires Transmission-Based No No Precautions Height and Weight Height 5 ft 7 in Weight 260 lb 3.23 oz Weight in Pounds 260.2 lbs Body Mass Index (BMI) 40.7 40.7 40.7 BMI Classification Obese Obese Obese BSA - Lisandra 2.26 Vital Signs Temperature (97.8 F-99.1 F) 97.6 F L 97.2 F L Temperature Source Temporal Temporal Pulse Rate (60-100) 79 81 86 Pulse Location Monitor Monitor Monitor Respiratory Rate (12-18) 18 18 18 Respiratory rate source Observation Observation Observation Oxygen Delivery Method Room Air Blood Pressure (90/60-120/80) 117/78 125/77 H 125/77 H Blood Pressure Mean (mm Hg) 91 93 93 Source Monitor Monitor Monitor Position Sitting Blood Pressure Location Left Arm History Since Last Visit- (Skip if this is Patient's initial visit) Have you changed medications since your No No last visit? Any new allergies or adverse reactions No No Had a fall/change in ADL's that may No No increase risk of falls Signs or symptoms of abuse and/or No No neglect since last visit Have you been in the hospital since your No No last visit? Has dressing in place as prescribed Yes Yes Has compression in place as prescribed N/A Has offloadiing in place as prescribed N/A Yes Experienced any changes in pain level or No No management Left Footwear Regular Shoe Right Footwear Regular Shoe Pain Scale: 0-10 Numeric Is Patient Pain Free? Yes Yes Yes Communication Assessment Preferred language Kinyarwanda Able to Read Yes Able to Write Yes Communication Tools None Right Hearing Abillity Use of Hearing Aid Left Hearing Abillity Use of Hearing Aid Visual Assistive Devices Glasses Teaching Assessment Preferences Verbal,Written Barriers to Learning None Readiness To Learn Good Willingness to Engage in Self Management Med Activies Readiness to Engage in Self Management Med Activities Anxiety Level Calm Cooperation Cooperative Perception Coherent Interest in Health Problem Asks Questions Education Importance Acknowledges Need Does Patient Smoke tobacco or other No substances Smoking Status Former smoker Is Patient Diabetic Yes Functional Assessment Recent Decline in Ability to Perform Denies Any Declines Culture/Baptist/General Store Manager Cultural/Baptist Needs that may affect No Treatment Plan Would you allow our hospital technology integration specialist to No meet you for the purpose of spiritual/ emotional support? General Store Manager to contact place of mu-ism No Teaching: Wound Center Dressing Your Wound -Person Taught Patient *Welcome to the Wound Center -Person Taught Patient WC - Nurse 1 - General Ulcer Measurement Start: 02/06/24 14:22 Freq: Status: Active Protocol: Activity Type Activity Date Activity User E-sign Co-sign Detail Recorded Client Recorded Date Recorded By Document 02/06/24 14:22 DL [email or web address] 02/06/24 14:37 DL Document 02/13/24 13:42 KW wound center 02/13/24 13:48 KW Document 02/20/24 13:36 DL [email or web address] 02/20/24 13:44 DL 02/06/24 02/13/24 02/20/24 14:22 13:42 13:36 Wound Center Nurse 1 #1 L Hip -Current Size (cm) - Length 0.8 1.5 1.8 -Current Size (cm) - Width 0.5 0.6 0.8 -Current Size (cm) - Depth 2 1.8 1.1 -Total Square Cm 0.40 0.90 1.44 -Photo Taken Yes Yes -Tunneling Position (O'clock) 12 -Tunneling Distance (cm) 8 -Maximum Distance #2 (cm) 0.5 0.2 -Circular Undermining Yes Yes -Classification - Thickness Full Thickness without Exposed Support Structure -Exudate Amt Large Small Medium -Exudate Type Serosanguineous Serosanguineous Serosanguineous -Wound Margin Distinct, Distinct, Distinct, Outline Outline Outline Attached Attached Attached -Granulation Amt Small (1-33%) Medium (34-66%) Medium (34-66%) -Granulation Quality Red Red Red -Necrosis Amt Small (1-33%) Medium (34-66%) Medium (34-66%) -Necrotic Tissue Type Adherent Slough Adherent Slough Adherent Slough -Structure Exposed N/A N/A -Texture (Shelli-wound Skin Appearance) Localized Edema Assessed Localized Edema ,Scarring ,Scarring -Moisture (Shelli-wound Skin Appearance) No Abnormality Assessed No Abnormality -Color (Shelli-wound Skin Appearance) Erythema Assessed, Erythema Erythema -Temperature (Shelli-wound Skin No Abnormality No Abnormality No Abnormality Appearance) (Pt Warm) (Pt Warm) (Pt Warm) -Tenderness on Palpation (Shelli-wound No No No Skin Appearance) -Ulcer Cleansing Soap and Water Rinsed/ Soap and Water Irrigated with Saline -Foul Odor after Cleansing No No No -Anesthetic Used 5% Lidocaine 5% Lidocaine 5% Lidocaine Gel Gel Gel - Nurse 2 - General Ulcer CM Notes Start: 02/06/24 14:22 Freq: Status: Active Protocol: Activity Type Activity Date Activity User E-sign Co-sign Detail Recorded Client Recorded Date Recorded By Document 02/06/24 14:55 [id number] 02/06/24 15:14 Document 02/13/24 14:07 wound center 02/13/24 14:09 Document 02/20/24 13:49 [facility] 02/20/24 13:56 02/06/24 02/13/24 02/20/24 14:55 14:07 13:49 Wound Center Nurse 2 #1 L Hip -Time 14:56 14:08 13:49 -Correct Patient Yes Yes Yes -Correct Side, Site, Position Yes Yes Yes -Correct Procedure Yes -Procedure Performed Yes -Type of Procedure Debridement -Clinical Debridement Subcutaneous -Tissue Removed Subcutaneous -Post Debridement (cm) - Length 0.7 0.7 -Post Debridement (cm) - Width 1.5 1.8 -Post Debridement (cm) - Depth 1.7 0.7 -Total Square (Post) (cm) 1.05 1.26 -Area of Debridement (cm) - Length 0.7 -Area of Debridement (cm) - Width 1.5 -Total Square (Area) (cm) 1.05 -Tunneling No No Yes -Tunneling Position (O'clock) 3 -Tunneling Distance (cm) 1.8 -Undermining/Tunneling No No -Circular Undermining No No -Wound/Ulcer Outcome Not Healed Not Healed Not Healed -Ulcer Cleansing Rinsed/ Irrigated with Saline -Foul Odor after Cleansing No -Bioengineered Tissue No -Bleeding Controlled with Pressure -Treatment Response Procedure Tolerated Well -Debridement - Subq, 1st 20sq cm Yes -Wound Comment(s) Wound is 0.7 x wound not 0.5 x 2.0 debrided Pain Scale: 0-10 Numeric Is Patient Pain Free? Yes Yes Yes TAISHA - Nurse 3 - General Ulcer D/C NN Start: 02/06/24 14:22 Freq: Status: Active Protocol: Activity Type Activity Date Activity User E-sign Co-sign Detail Recorded Client Recorded Date Recorded By Document 02/06/24 15:18 [id number] 02/06/24 15:19 KW Document 02/13/24 14:34 KW wound center 02/13/24 14:35 KW Document 02/20/24 14:04 [facility] 02/20/24 14:08 02/06/24 02/13/24 02/20/24 15:18 14:34 14:04 Wound Care Center Nurse 3 #1 L Hip -Ulcer Cleansing Rinsed/ Not Cleansed Irrigated with Saline -Foul Odor after Cleansing No -Primary Dressing Applied Hysept ($), Mepilex Border, Mepilex Border, Mepilex Border, Nugauze, Plain Nugauze, Nugauze, 1/2in Iodoform 1in Iodoform 1/4in -Mepilex Border 1 1 1 -Nugauze, Iodoform 1/4in 1 -Nugauze, Iodoform 1in 1 -Nugauze, Plain 1/2in 1 Pain Scale: 0-10 Numeric Is Patient Pain Free? Yes Yes Yes WC - Visit Discharge Discharge Condition Stable Stable Stable Ambulatory Status Walker Ambulatory Ambulatory Transportation Private Auto Private Auto Private Auto Accompanied by Medication Reconcilliation completed & No No provided to patient/care provider Clinical Summary of Care Provided Yes Yes Yes Assessment/Plan Assessment/Plan (1) Postoperative wound dehiscence: CODE(S): T81.31XA - Disruption of external operation (surgical) wound, not elsewhere classified, initial encounter PLAN: Plan The base of the wound is noted to be pink and well-bleeding. There was no significant drainage noted on exam today. No debridement was needed today. For wound care, continue to pack with 1/2 inch Nugauze moistened with Dakins then cover with a super-absorbent dressing. The packing should be changed once daily, change the outer dressing more often as needed if it becomes soaked/soiled. I recommend protecting this area during showers to keep it dry. She does have a removable shower head so this will make it much easier. Always cleanse around the wound with antibacterial soap and water, pat well to dry, and change the dressings (packing and outer) after showers. She just completed Bactrim. There is a new area concerning for cellulitis or possible deeper infection on the superior aspect of the incision site. There is no open area/draiange to culture. This has developed despite her being on Bactrim so I have elected to switch to Clindamycin at this time for broader coverage include both staph (which was cultured from the dehisced portion) and strep. Dr. Temple's office has referred her to ID for their input. Please return to see me in 1 week. Please keep your appt with Dr. Temple next week as well. Please call/return sooner if needed. We also discussed signs/sy mptoms of progressive infection which should lead her to present to the ER.
== END 2024-02-21 23:59 | disposition home or self-care (01) ==
LOC: WC 13:30
PROVIDERS: PCP Internal Medicine; Referring Provider Orthopaedic Surgery Sports Medicine; Visit Provider Physician Assistant
DX: T81.31XA Disruption of external operation (surgical) wound, not elsewhere classified, initial encounter (principal); M06.9 Rheumatoid arthritis, unspecified; E11.9 Type 2 diabetes mellitus without complications; Z79.01 Long term (current) use of anticoagulants; I10 Essential (primary) hypertension; Z87.891 Personal history of nicotine dependence; Z79.84 Long term (current) use of oral hypoglycemic drugs; Z79.899 Other long term (current) drug therapy; T84.021S Dislocation of internal left hip prosthesis, sequela; Y79.2 Prosthetic and other implants, materials and accessory orthopedic devices associated with adverse incidents
CPT/HCPCS: 11042; 99213; G0463

== ENCOUNTER 2024-03-16 10:30 | Inpatient (IN) | payer OTHER, MEDICARE, SELFPAY ==
[2024-03-06 10:50] LABS: Absolute Lymphocyte Count 1.58 X10^3/uL (0.83-4.51); Basophil# 0.05 X10^3/uL; Basophil% 0.5 % (0-1); Eosinophil# 0.32 X10^3/uL; Eosinophils% 3.3 % (0-5); Hematocrit 42.5 % (37-47); Hemoglobin 12.8 g/dL (12.0-15.0); Lymphocyte # 1.58 X10^3/ul (0.83-4.51); Lymphocyte % 16.3 % (19-41); Mean Corp Hgb Conc 30.1 g/dL (32-36); Mean Corpuscular Hgb 24.6 pg (27.0-32.0); Mean Corpuscular Volume 81.6 fL (81-99); Mean Platelet Vol. 10.3 fl (6.2-12.0); Monocyte% 7.2 % (0-10); NRBC Flagged by Analyzer 0 % (0-5); Neutrophil % 72.4 % (47-70); Platelet Count 324 K/mm3 (150-450); RBC Distribution Width CV 14.4 % (11.6-14.6); Red Blood Count 5.21 M/mm3 (4.2-5.4); White Blood Count 9.7 K/mm3 (4.4-11.0)
[2024-03-06 11:27] LABS: Albumin, Serum 3.3 g/dL (3.2-5.0); Anion Gap 12 (5-15); BUN 29 mg/dL (7-18); BUN/Creat Ratio 36.9 RATIO (10-20); Chloride 101 mmol/L (98-107); Creatinine, Serum 0.78 mg/dL (0.55-1.02); EST Glomerular Filtration Rate 78 mL/min (>60); Est Glom Filt Rate - Afr Amer 94 mL/min (>60); Glucose 144 mg/dL (74-106); Potassium 3.4 mmol/L (3.5-5.1); Sodium Level 139 mmol/L (136-145)
[2024-03-06 11:36] LABS: Magnesium 1.7 mg/dL (1.6-2.6); Thyroid Stim Hormone (TSH) 1.38 uIU/mL (0.358-3.74)
[2024-03-06 21:12] LABS: Hemoglobin A1c 6.2 % (3.8-5.6)
--- NOTE | 2024-03-12 15:49 | HP.PCM_ITS ---
History and Physical History and Physical Patient Name: Ever De Souza : 1960From:? CADE HIGH PA-C DATE OF PRE-OPERATIVE EXAM: 03/11/2024 DATE OF SURGERY:? 03/16/2024 SCHEDULED PROCEDURE:? Removal previous left total hip replacement with irrigation debridement of left hip and placement of left hip articulating antibiotic spacer HISTORY OF PRESENT ILLNESS: Preoperative history and physical exam was performed on March 11, 2024.? This is a 63-year-old female who was being treated by outside orthopedic provider at [facility] Dr. Temple.? Patient had a cemented hemiarthroplasty on December 29, 2023.? She had drainage postoperatively and the wound postsurgically.? After 2 weeks postoperatively she did develop a draining sinus.? She was sent to the wound center for wound care at that time.? They have been doing wound changes daily.? Patient does have an open wound and she has been on oral and about a clindamycin.? She was initially on Bactrim and other antibiotic.? She does complain that the antibiotic does upset her stomach.? She has also had intermittent fevers over the past several weeks.? Patient also has previous history of bilateral total knee arthroplasty done by Dr. Roberts in [facility].? She does report requiring transfusions after those surgeries.? Patient states she has continued pain in her left hip.? She has been using a walker.? Patient's pain can reach 6/10.? She has obtain surgical clearance from the primary care provider Palma Bruno.? Patient has medical history pertinent for gastroesophageal reflux disease, type 2 diabetes mellitus, hypertension, hypercholesterolemia, rheumatoid arthritis, thyroid disease, history of stomach and esophageal ulcers, Sjogren syndrome, Lawrence's esophagitis.? Patient denies past history of DVT or pulmonary embolism.? She denies any recent chest pain, shortness of breath, or calf pain.? After failing conservative measures and discussion was Dr. Man Cary, the patient does wish to proceed with the removal previous total hip arthroplasty and irrigation debridement left hip with placement of left hip articulating antibiotic spacer. REVIEW OF SYSTEMS: Review Of Systems: Constitutional: Reports change in appetite, but denies fever and weight change. Cardiovasular: Denies chest pain, heart murmur and irregular heartbeat. Respiratory: Denies cough, pneumonia, shortness of breath, tuberculosis and wheezing. Gastrointestinal: Reports constipation, heartburn, nausea and vomiting, but denies diarrhea, rectal itching and bloody stools. Genitourinary: Reports daytime and nighttime incontinence. Musculoskeletal: Reports leg swelling, pain, trouble walking and weakness. Skin: Reports tattoo, but denies Raynaud's and history of shingles. Neurological: Reports ambulatory dysfunction but denies dizziness, numbness/tingling and tremor. Psychiatric: Denies anxiety, insomnia and stress. Hematologic/Lymphatic: Reports anemia and past transfusion, but denies bleeding/bruising tendency. Reviewed and updated. PAST MEDICAL HISTORY: Advance Care Plan: Other Directive, LIVING WILL Effective Date: 02/28/2024 Other Directive, POA Effective Date: 02/28/2024 Past Medical History: Medical Problems: Acid Reflux, Arthritis Cancer - history of breast cancer Diabetes, Hard of Hearing, High Blood Pressure, Hypercholesterolemia, Osteoporosis, Rheumatoid Arthritis, Thyroid Disease Ulcers - stomach and esophagus Covid-19 Vaccine, Covid- 19, sjogren syndrome, Lawrence's esophagus history of a previous blood transfusion - (2008) after bilateral total knee arthroplasties Accidents: Fracture - left hip 12-28-23 Surgical Hx: Section, Mastectomy, Tubal Ligation Hip Replacement Lt - (12/2023) Knee Replacement Lt - (2008) Knee Replacement Rt - (2008) thyroidectomy - (2008) Anesthesia Complications: None Assistive Devices: Cane, Glasses, Contacts, Hearing Aid Reviewed and updated. 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 Personal Habits:? Cigarette Use: Former.Smokeless Tobacco: Never Used Smokeless Tobacco.E-Cigarette Use: Never used.Alcohol: Denies use.Drug Use: Denies Use.Enjoy Exercising: Exercises 1-3 x/month. Reviewed, no changes. VITALS: Ht: 67 Wt: 242lb Wt k.771 BMI: 37.9 BP: 124/76 Pulse: 92 Resp: 16 T: 97.6 T: 36.4C Pain Level: 6 O2SatR: 98 ALLERGIES: Stadol Hydrocodone MEDICATIONS: Hydroxyzine HCL 25 mg prn, Levothyroxine Sodium 137 mcg daily, Atenolol 25 mg daily, Cyclobenzaprine HCL 10 mg daily, Eszopiclone 2 mg daily, Metformin HCL 500 mg 1 by mouth every day, Doxycycline Hyclate 100 mg 1 by mouth twice a day, Ozempic (0.25 Or 0.5 MG/Dose) 2 mg/3ml once weekly, Omeprazole 20 mg 1 po tid, Vitamin D3 25 mcg (1000 Ut) 1 a day, Celebrex 50 mg 1 x day prn, Triamterene/Hydrochlorothiazide 37.5-25 mg 1 by mouth every day, Hydrocortisone 1 % prn, Ondansetron HCL 4 mg 1q 8 hours as needed nausea, Senna-Docusate Sodium 8.6-50 mg 1 po qdaily, Acetaminophen 500 mg 2 tablets as needed PRE-OP EXAM: General appearance:NORMAL? Other: Eyes: Conjunctivae and lids: NORMAL? Pupils: ERR Ears, Nose, Mouth, and Throat: NORMAL? Other: Inspection of lips, teeth and gums: NORMAL?? Other: Neck: Examination of neck: no masses noted. Respiratory: Assessment of respiratory effort: NORMAL?? Other: ? Auscultation of lungs: clear to auscultation no wheezes, rhonchi or rales. Cardiovascular:? Auscultation of heart: regular rate and rhythm, positive systolic murmur PHYSICAL EXAMINATION: On exam patient is currently using a walker.? The overall left hip is without significant erythema however she does have 2 areas of drainage from open wound.? There is a draining sinus in the midportion of the incision.? There is minimal erythema surrounding the incision.? She has pain with any associated range of motion of the left hip.? Sensation intact to light touch. IMAGING STUDIES: Previous x-rays reveal a cemented left hip hemiarthroplasty.? There is significant long cement mantle.? No appreciable fractures or bony lesions. IMPRESSION: 1.? 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 Hypertension 3.? Type 2 diabetes mellitus 4.? Hypercholesterolemia 5.? Rheumatoid arthritis 6.? Thyroid disease 7.? Sjogren syndrome 8.? Lawrence's esophagitis 9.? History of previous breast cancer 10.? History of previous blood transfusion after bilateral total knee 11.? Obesity with BMI 37.9 PLAN: Dr. Man Cary did discuss and review with the patient all treatment options including surgical versus nonsurgical options.? Patient does wish to proceed with the above-stated procedure.? Potential risks, benefits, and complications of the procedure were discussed in detail including but not limited to , infection, nerve and blood vessel damage, persistent pain, numbness, tingling, paresthesias, blood clot, pulmonary embolism, and requirement for possible further surgery.? The patient expressed full understanding and has no further questions for the doctor.? Patient does agree to proceed with the above-stated procedure and has signed the surgery consent form. POST-OP MEDICATION PLAN: Pain Medications:? Postoperative pain regimen will be initiated by Dr. Man Cary in the hospital.? Patient was advised on postoperative course of treatment involving IV antibiotics and consultation with infectious disease.? I did explain to the patient that infectious disease will ultimately be involved for appropriate IV antibiotics.? She will require assistance post whether home health versus custodial facility.? I did discuss with him case management/social worker masters will be involved with appropriate discharge planning.? She does have a walker that she will bring to the hospital for postoperative use. DVT Prophylaxis:? Aspirin 81 mg twice daily for 4 weeks postoperatively.? Denies past history of DVT or pulmonary embolism This dictation was created using voice recognition software. Phonetic and/or grammatical errors may exist. ___? I have re-examined the patient.? There are no clinical changes since date of exam. ___? See progress notes for changes. ___? Dictated on admission Date: ? Time: Signature:
[2024-03-16] VITALS (15 sets, daily range): BP systolic 110–146; BP diastolic 70–90; PULSE 78–86; RESP 16–18; TEMP 36.2–36.9; O2SAT 96–100; BMI 40.5
--- NOTE | 2024-03-16 | BON_PTH ---
PATIENT: JULIANNE CHUNG LOC: [facility] U#:[id number] AGE/SX: 63/F [place] [facility] [place]03/16/[address]: Dr. Man Cary MD : 1960 BED: 1 DIS: 03/18/2024 SPEC #: [id number] RECD: 03/16/24 16:10 STATUS: SHELBI HENSLEY #: [id number] JULES: 03/16/24 00:[address]: Man Cary DEPT: SURGICAL PATHOLOGY RECD BY: Arlene Garcia ENTERED: 03/17/24 08:48 SP TYPE: Bone OTHR DR: MD Dr. Dayan Thapa MD Dr. Robert Leininger, MD Tissues: A - Hip, NOS B - Hip, NOS Procedures: Decalcification bone/plaque Surgery Specimen Level IV HEADER OPERATION: ERAS, removal previous total hip replacement, irrigation PRE-OP DIAGNOSIS: Infected left hip hemiarthroplasty with draining TISSUE SUBMITTED: A. Left hip proximal sinus, B. Left hip distal sinus MICROSCOPIC DIAGNOSIS A. Left hip proximal sinus, excision: Consistent with sinus tract with associated acute and chronic inflammation. B. Left hip distal sinus, excision: Consistent with sinus tract with associated acute and chronic inflammation. [facility] 03/18/2024 MICROSCOPIC DESCRIPTION Slides are reviewed. GROSS DESCRIPTION A. Received in fixative is one container labeled with the patient's name and designated Left hip proximal sinus. The specimen consists of a piece of skin with underlying tissue measuring 5.0 x 1.5cm and up to 2.5cm in thickness. A congested area is noted on the surface measuring 1.0cm in diameter. Sections do not reveal any mass lesions. Catalyst Plant Supervisor sections are submitted in two cassettes. B. Received in fixative is one container labeled with the patient's name and designated Left hip distal sinus. The specimen consists of a piece of mcgill-white skin with underlying tissue measuring 3.0 x 1.0cm and up to 1.5cm in thickness. A central area of ulceration is noted with underlying sinus tract. No mass lesion is identified. Catalyst Plant Supervisor sections are submitted in two cassettes. [facility] 03/17/2024 TC:5 CPT:10451p7
[2024-03-16] MEDS: Magnesium 2 GM for ERAS IV (11:17)
[2024-03-16] MEDS: Gabapentin 600 MG Tablet PO (11:17)
[2024-03-16] MEDS: Lactated Ringers 1,000 ML 999 ML IV (11:17)
[2024-03-16] MEDS: Celecoxib 200 MG Capsule 400 MG PO (11:17)
[2024-03-16] MEDS: Acetaminophen 500 MG Tablet 1000 MG PO ×2 (11:18→22:13)
--- NOTE | 2024-03-16 12:02 | PRE.ANES_ITS ---
ASA Classification* ASA Classification ASA Classification: 3 Assessment & Plan Anesthesia* Anesthesia Assessment Anesthesia Assessment: Discussed sedation and/or anesthesia options, risks, benefits, and alternatives with patient/parents/legal guardian/POA. Questions invited. The patient/parents/legal guardian/POA seems to understand and agrees to proceed with anesthesia plan. Reviewed the physical assessment, medical history, allergy history and patient home medications list prior to surgery/procedure/anesthetic and documented any changes. Performed airway and anesthesia risk assessments. Anesthesia Type Anesthesia Type: General History Source History Obtained from:: Patient and Chart Pre-Assessment Diagnosis/Proposed Procedure Planned Operative Procedure(s): REMOVAL PREVIOUS LEFT TOTAL HIP REPLACEMENT,I&D LEFT HIP,AND PLACEMENT OF LEFT HIP ARTICULATION ANTIBIOTIC SPACER Anesthesia History Anesthesia History - bed placement coordinator: Anesthesia History - bed placement coordinator Hx Hospitalization No 03/05/24 08:25 Any Problems With Anesthesia Yes: N,V 03/05/24 08:25 Cholinesterase deficiency No 03/05/24 08:25 You/Your Family Experience No 03/05/24 08:25 fever (hyperthermia) with Relationship Recent Exposure to Contagious No 03/16/24 11:21 Disease Does patient have nerve No 03/05/24 08:25 stimulator Patient instructed to have device shut off --Does patient have Pacemaker No 03/16/24 11:21 or ICD? When Was Last Pacemaker Check QUESTION #4 FULL TEXT: You/Your Family Experience fever (hyperthermia) with Anesthesia Last Oral Intake Last Oral intake: Last Oral Intake NPO since 00:00 03/16/24 11:21 Meds taken in AM with sips of Yes 03/16/24 11:21 water? Meds patient instructed to take am of surgery PONV PONV - bed placement coordinator: PONV - bed placement coordinator Female Yes 03/05/24 08:25 HX of Motion Sickness No 03/05/24 08:25 HX of N/V After Surgery Yes 03/05/24 08:25 Non-Smoker Yes 03/05/24 08:25 Duration of Surgery greater Yes 03/05/24 08:25 than 60 minutes Number of Risk Factors 4 03/05/24 08:25 PONV Score Severe Risk 03/05/24 08:25 Height & Weight Height & Weight: Anesthesia: Height & Weight Height 5 ft 7 in 03/16/24 11:21 Weight: 117.344 kg 03/16/24 11:21 Body Mass Index (BMI) 40.5 03/16/24 11:21 Respiratory Assessment Respiratory Assessment - bed placement coordinator: Respiratory Tract Infection Hx - bed placement coordinator Hx Respiratory Tract Infection No 03/05/24 08:25 STOP Sleep Apnea STOP Sleep Apnea - bed placement coordinator: STOP Sleep Apnea - bed placement coordinator Hx Hypertension Yes: CONTROLLED WITH MED 03/05/24 08:25 Hx Sleep Apnea No 03/05/24 08:25 CPAP BIPAP Do you snore loudly (louder Yes 03/05/24 08:25 than talking or can be heard Do you often feel tired/ No 03/05/24 08:25 fatigued/ sleepy during daytime? Has anyone observed you stop No 03/05/24 08:25 breathing during sleep? STOP Results Positive 03/05/24 08:25 QUESTION #5 FULL TEXT : Do you snore loudly (louder than talking or can be heard through closed doors)? 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 Specify any problems UNSURE 03/05/24 08:25 Hx of Preganancy in last 3 No 03/05/24 08:25 Months Nurse Filling Out Transfusion DSCHRIBER 03/05/24 08:25 & Questions: Date: 03/05/24 03/05/24 08:25 Time: 08:27 03/05/24 08:25 Patient unable to answer at this time (ie. confused, unrespo /Reproduction History /Reproductive History - bed placement coordinator: /Reproductive Hx- bed placement coordinator Hx Now No 03/05/24 08:25 Gestational Age (in weeks): EDC: Hx Hx Para Hx Section SAB No 03/05/24 08:25 Active Medications Active Medications: Current Medications Generic Name Dose Route Start Last Admin Trade Name Mathew PRN Reason Stop Dose Admin Acetaminophen 1,000 mg 03/16/24 13:50 03/16/24 11:18 Acetaminophen 500 Mg Tablet PO 03/16/24 13:51 1,000 mg X1 ONE Administration Celecoxib 400 mg 03/16/24 13:50 03/16/24 11:17 Celecoxib 200 Mg Capsule PO 03/16/24 13:51 400 mg X1 ONE Administration Sodium Chloride 77.9 ml/ 0 ml 03/16/24 13:50 Ropivacaine 200 mg/ OPERA.SITE 03/16/24 13:51 Epinephrine HCl 0.6 mg/ X1 ONE Ketorolac Tromethamine 30 mg/ Morphine Sulfate 5 mg Dexamethasone Sodium Phosphate 10 mg 03/16/24 13:50 Dexamethasone 10 Mg/Ml Vial IV 03/16/24 13:51 X1 ONE Gabapentin 600 mg 03/16/24 13:50 03/16/24 11:17 Gabapentin 600 Mg Tablet PO 03/16/24 13:51 600 mg X1 ONE Administration Cefazolin Sodium 2 gm/ Sodium 110 mls @ 150 mls/hr 03/16/24 13:50 Chloride IV 03/16/24 14:33 PREOP ONE Tranexamic Acid 1,000 mg/ 110 mls @ 660 mls/hr 03/16/24 13:50 Sodium Chloride IV 03/16/24 13:59 X1 ONE Tranexamic Acid 1,000 mg/ 110 mls @ 660 mls/hr 03/16/24 13:50 Sodium Chloride IV 03/16/24 13:59 X1 ONE Lactated Ringer's 1,000 mls @ 999 mls/hr 03/16/24 13:50 03/16/24 11:17 IV 03/16/24 14:50 999 mls/hr .Q1H1M ROBERTA Administration Lactated Ringer's 1,000 mls @ 125 mls/hr 03/16/24 13:50 IV 03/16/24 21:49 .Q8H ROBERTA Magnesium Sulfate 2 gm/ 104 mls @ 208 mls/hr 03/16/24 13:50 03/16/24 11:17 Dextrose IV 03/16/24 14:19 208 mls/hr X1 ONE Administration Insulin Human Lispro 1 - 6 unit 03/16/24 13:50 Insulin Lispro 100 Unit/Ml Insuln.Pen SC 03/16/24 18:00 Q4H PRN PRN BG>/= 180, SEE PROTOCOL Protocol Sodium Chloride 5 - 15 ml 03/16/24 13:50 0.9% Nacl Peripheral Flush Adult/Peds IV UD PRN SALINE FLUSH Anesthesia Focused Assessment* Temperature: 98.5 F Pulse Rate: 84 Blood Pressure: 110/78 Respiratory Rate: 16 Pulse Ox: 100 Oxygen Delivery Method: Room Air Airway Assessment Mouth opens: >3 cm Mallampati Score: IV Teeth Condition: Caps/Crowns (Several crowns all tight) Neck Range of motion (ROM): Limited ROM (Slightly decreased extension) Pertinent Findings EKG Pertinent Findings:: December 28, 2023 normal sinus rhythm Focused Labs Anesthesia Preop lab: CBC WBC 9.7 K/mm3 (4.4-11.0) 03/06/24 10:22 RBC 5.21 M/mm3 (4.2-5.4) 03/06/24 10:22 Hgb 12.8 g/dL (12.0-15.0) 03/06/24 10:22 Hct 42.5 % (37-47) 03/06/24 10:22 Plt Count 324 K/mm3 (150-450) 03/06/24 10:22 CHEMISTRY Potassium 3.4 mmol/L (3.5-5.1) L 03/06/24 10:22 Sodium 139 mmol/L (136-145) 03/06/24 10:22 Magnesium 1.7 mg/dL (1.6-2.6) 03/06/24 10:22 Phosphorus 3.2 mg/dL (2.5-4.9) 12/29/23 04:55 BUN 29 mg/dL (7-18) H 03/06/24 10:22 Creatinine 0.78 mg/dL (0.55-1.02) 03/06/24 10:22 Glucose 144 mg/dL (74-106) H 03/06/24 10:22 POC Glucose 202 mg/dL (74-106) H 12/31/23 12:17 TSH 1.38 uIU/mL (0.358-3.74) 03/06/24 10:22 COAG PT 12.7 SECONDS (11.7-14.9) 12/28/23 15:58 Review of Systems (Anesthesia) ROS Narrative System reviewed and no additional complaints, except as documented. [facility] Medical History (Updated 03/05/24 @ 08:38 by Suki Fam) Wears hearing aid Wears glasses Post-menopausal Cancer Depression Anxiety Open wound Ambulates with cane Low iron High cholesterol Restless legs Dietary restriction History of ulceration Gastric reflux Former smoker Shortness of breath on exertion Leg cramps History of pain when walking History of edema Osteoporosis Drainage from surgical wound Closed fracture of left hip Hypertension Rheumatoid arthritis Sjogrens syndrome Home Medications ?Medication ?Instructions ?Recorded ?Last Taken ?Type atenolol 25 mg tablet 25 mg PO DAILY BP 12/28/23 03/16/24 History cyclobenzaprine 10 mg tablet 10 mg PO QHS MUSCLE SPASMS 12/28/23 03/15/24 History eszopiclone 2 mg tablet 2 mg PO QHS SLEEP 12/28/23 03/15/24 History hydroxyzine HCl 25 mg tablet 25 mg PO DAILY PRN itching 12/28/23 Unknown History levothyroxine 137 mcg tablet 137 mcg PO DAILY THYROID 12/28/23 03/16/24 History metformin 1,000 mg 24 hr 1,000 mg PO DAILY DIABETES 12/28/23 03/15/24 History tablet,extended release (gastric reten.) (Glumetza) metformin 500 mg tablet,extended 500 mg PO QHS DIABETES 12/28/23 03/15/24 History release 24 hr omeprazole 20 mg capsule,delayed 20 mg PO BID GERD 12/28/23 03/16/24 History release simvastatin 40 mg tablet 40 mg PO QHS CHOLESTEROL 12/28/23 03/15/24 History triamterene 37.5 1 cap PO DAILY BP 12/28/23 03/15/24 History mg-hydrochlorothiazide 25 mg capsule celecoxib 200 mg capsule 200 mg PO DAILY ARTHRITIS 03/05/24 03/02/24 History polyethylene glycol 3350 17 17 g PO DAILY PRN PRN constipation 03/05/24 Unknown History gram/dose oral powder (Gavilax) semaglutide 1 mg/dose (4 mg/3 mL) 1 mg subcut SA DIABETES 03/05/24 03/08/24 History subcutaneous pen injector (Ozempic) Allergy/AdvReac Type Severity Reaction Status Date / Time butorphanol (From Stadol) Allergy Intermediate SOB Verified 03/16/24 11:14 hydrocodone (From Vicodin) Allergy Intermediate SOB Verified 03/16/24 11:14 Surgical History (Updated 03/05/24 @ 08:38 by Suki aFm) History of esophagogastroduodenoscopy (EGD) Hx of colonoscopy Hx of total knee arthroplasty Hx of right mastectomy Hx of tubal ligation History of Hx of total hip arthroplasty H/O thyroidectomy Social History household members: spouse Smoking Status: Former smoker
[2024-03-16 12:24] LABS: Bedside Glucose 116 mg/dL (74-106)
[2024-03-16] MEDS: Cefazolin 2 GM in 0.9% Normal Saline (100mL Bag) 100 ML IV (12:54)
[2024-03-16] MEDS: dexAMETHasone 10 MG/ML Vial IV (13:18)
[2024-03-16] MEDS: TXA 1000mg in NS100 100ml (IVPB at Closure) 660 MG IV (13:32)
[2024-03-16] MEDS: Cefazolin 1 GM/5 ML Vial 2 GM OPERA.SITE (14:00)
[2024-03-16] MEDS: Vancomycin IV 1,000 MG/20 ML Vial 2000 MG OPERA.SITE (14:38)
[2024-03-16] MEDS: TXA 1000mg in NS100 100ml (IVPB at Incision) 660 MG IV (16:24)
--- NOTE | 2024-03-16 16:55 | OP.PCM_ITS ---
Report of Operation Date of Procedure: 03/16/24 Pre-Operative Diagnosis: Periprosthetic joint infection left hip Post-Operative Diagnosis: Periprosthetic joint infection left hip Surgery/Procedure Performed:: Removal left hip replacement, placement of antibiotic spacer Description of Surgical Findings:: Patient had hemiarthroplasty. Previous similar plasty looked small did use a 1 mm size larger head. Osteotomy had to be performed due to extensive cement mantle. Stable hip. Leg lengths equal. Surgeon: [employer] plumber: Christopher Jackson Type of Anesthesia: General Anesthesiologist: Ralph Estrada Special Medications: Ancef, 1 g TXA at incision, 1 g TXA closure Specimen's removed: 3 separate specimens were sent to microbiology Estimated Blood Loss (mL): 700 Fluids Replaced: 2000 mL crystalloid Description of Procedure: On the date of the procedure patient was seen and evaluated in the preoperative area. They were then brought back to the operating room where anesthesia assu med control C-spine and airway. Patient was transferred the table in the supine position. Anesthesia administered anesthetic. All bony prominences identified well-padded. Patient was taken and placed in the lateral cubitus position. Axillary roll was placed. Pegboard was used to secure the patient appropriate position. Left lower extremities then prepped in sterile fashion Upon reentering the room the surgery was then done sterile gown and gloves and patient was draped in standard orthopedic fashion. Timeout was called and agreed upon the site, the site, the procedure to be performed, patient's identity and advice given. Incision was marked out using previous incision. Incision was then taken down through skin subtenons tissue fat down to fascia. Hemostasis was obtained as best possible due to the inflamed tissue. There were 2 sinus tracts that were excised 1 was 10 x 15 mm and was distal of the abdomen was 10 x 12 mm and was more proximal. These were ellipsed out after they were appropriate ellipsed and then dissected down and noted that they tracked through the fascia. There was direct contact with the skin and joint at this time. TFL was then identified and cleaned up and superficial debridement was performed. At this time we then incised the TFL and noted that as noted in the previous operative report there was a direct lateral approach. Previous abductors repair had failed and we elected to go to the same approach. We carefully debrided anteriorly and did a complete synovectomy. Once you are done we dislocated the hip. Trunnion was dissociated from the joint. At this time we then used osteotomes to break up the implant cement interface. Implant was removed easily however based on x-rays there was a large cement mantle. Based on the depth the cement mantle and concerns for further fractures we then elected to proceed with an osteotomy. The osteotomy was measured out to be did make the osteotomy midway down the cement mantle. The leg was internally rotated and we drilled holes posteriorly and then anteriorly and made our osteotomy. We carefully clamshell did open. We removed cement from the anterior fragment and we directed our attention to the more posterior medial fragment. Cement was removed. We then did address the canal where cement was removed we did use a centralizing drill in order to drill the central hole and make it more accessible to debriding the cement. Once all the cement was removed the cement restrictor was removed. At this time the wound was copiously irrigated with 6 L of normal saline after thorough debridement. We then used 4 cables to repair the osteotomy in anatomic position. We then broached for a size 3 44 [place] stem. Based on the length of the osteotomy redrew the longest possible stem. Cement was mixed on the back table with 2 g of Ancef and 2 g of vancomycin using tobramycin cement. Once the cement was mixed it was placed around the proximal portion of the stem and the stem was potted in place. Once the cemented cured we then trialed for a +4 mm femoral neck length which was appropriate. Prior to this we did not like the appearance of the 50 millimeter femoral head on the x- rays and elected to trial a 51 mm and 52 mm. 51 mm gave us good fit and really good suction fit. We used a 51 mm head. Once we trialed leg lengths were equal. Hip was stable with anterior posterior testing. Hip was dislocated. Final femoral head was dissociated on the back table trunnion was cleaned and femoral head was impacted in place. Wound was then copiously irrigated out with a 3 L dilute Betadine lavage we performed drill holes and repaired the abductor tendons appropriately. We did this was #2 FiberWire sutures. Once we are happy with this we then did a [id number] repair of the anterior and posterior abductors which were still in place. Once this was completed the wound was lalo. Out with a chlorhexidine solution and finally with copious amounts of saline. Fascia was closed with #1 Vicryl. Deep layer was closed with #1 Vicryl. Skin was closed using 2-0 Vicryl sutures and final closure was done with nylon sutures. Wound VAC was placed. Patient was placed in supine position. Awakened by anesthesia and transferred to the PACU for recovery. During the course of the procedure the physician steelscope operator (PE) played a vital role. Their intimate knowledge of my steps in the procedure aided in safe and expedient completion of the procedure. The PE played a vital rolls in positioning particularly in obtaining the appropriate lateral decubitus position. The PE was also vital in the retraction of soft tissues during the exposure and especially the femoral work as this is a vital part of the procedure to prevent complications and fractures. The PE was also vital and protecting soft tissues during times of bony cuts and reaming. He also played a vital role in closure with my direct supervision. The PE was also important during reduction and dislocation of the joint and trials intraoperatively. Plan: Toe-touch weightbearing for a total of 6 weeks then progressive weightbearing as x-rays permit. Initial plan was for 81 mg aspirin however with patient's limited mobility at this time we are going to use Xarelto as our DVT prophylaxis for the first 2 weeks 10 mg daily. Infectious disease will be consulted. Patient is a patient of the wound center we will appreciate help in managing her wound VAC and wound healing in this manner. Complications No intraoperative complications were encountered Admit VTE Documentation VTE Present on Admission: No VTE Mechan Device Prophylaxis: SCD's and Thigh High CAROLINE Hose VTE Pharm Prophylaxis ordered?: Yes
--- NOTE | 2024-03-16 17:57 | PCM.POST.ANE ---
Anesthesia: Postop Eval I Current Vital Signs Temperature: 97.4 F Pulse Rate: 82 Blood Pressure: 134/83 Respiratory Rate: 16 Pulse Ox: 100 Oxygen Delivery Method: Simple Mask Oxygen Flow Rate (L/min): 6 Assessment Airway patent: Yes Spontaneous unlabored respirations: Yes Mental status: Asleep nausea: No Vomiting: No Anesthesia Complication: No Fluid Hydration Crystalloid volume administer (ml): 2,000 Total IV fluid infused: 2,000 Progress Note Anesthesia document: Postop Eval 1 completed: Yes
--- NOTE | 2024-03-16 18:01 | PCM.POST.ANE ---
Anesthesia: Postop Eval I Current Vital Signs Temperature: 97.4 F Pulse Rate: 82 Blood Pressure: 134/83 Respiratory Rate: 16 Pulse Ox: 100 Oxygen Delivery Method: Simple Mask Oxygen Flow Rate (L/min): 6 Assessment Airway patent: Yes Spontaneous unlabored respirations: Yes Mental status: Asleep nausea: No Vomiting: No Anesthesia Complication: No Fluid Hydration Crystalloid volume administer (ml): 2,000 Total IV fluid infused: 2,000 Progress Note Post-operative progress note: original postop 1 note signed in error by Zev Fonseca, done by Zev Curiel CRNA Anesthesia document: Postop Eval 1 completed: Yes
--- NOTE | 2024-03-16 19:00 | RAD_ITS ---
INDICATION: Post Op -- AP both hips on single elvis/lateral of op hip PACU EXAMINATION/TECHNIQUE: X-RAY - LEFT XR Hip Unilateral with Pelvis when performed; 2-3 Views COMPARISON: 02/27/2024. FINDINGS: No acute fracture or malalignment. Status post total hip arthroplasty. No blastic or lytic lesions. No degenerative changes are seen. The soft tissues are unremarkable. RAD/Hip Min 2 Views (Portable) IMPRESSION: No acute radiographic abnormalities. Status post total hip arthroplasty. Electronically Signed: Art Olivas MD at 20:41 EDT ,
--- NOTE | 2024-03-16 19:49 | PCM.PN.HOSP ---
Reason for Visit Reason for Visit: Diagnoses Encounter for other preprocedural examination (03/16/24) Subjective Subjective Patient was seen at the request of orthopedic surgery for medical management, patient underwent a removal of left hip replacement and placement of antibiotic spacer was performed-this was due to a periprosthetic joint infection of the left hip. Medical problems include type 2 diabetes, morbid obesity, hypothyroidism, GERD, hyperlipidemia, and essential hypertension. At the time my examination, patient is in PACU and is complaining of some postop left hip pain, I talked briefly with the patient's family who were in the waiting room. Objective Data Objective Data Vital Signs: Vital Signs Temp Pulse Resp BP Pulse Ox O2 Del Method O2 Flow Rate 97.7 F L 82 16 127/90 H 97 Nasal Cannula 3 03/16/24 19:23 03/16/24 19:23 03/16/24 19:23 03/16/24 19:23 03/16/24 19:23 03/16/24 19:23 03/16/24 19:23 Oxygen Flow Rate (L/min) 3 Oxygen Delivery Method Nasal Cannula Weight: 117.344 kg Body Mass Index (BMI) 40.5 Intake & Output: Intake and Output for Last 24 Hours 03/14/24 03/15/24 03/16/24 23:59 23:59 23:59 Intake Total 1434 / 1434 Balance 1434 / 1434 Lab / Micro Data 03/06/24 10:22 03/06/24 10:22 Labs: Laboratory Results - last 24 hr 03/16/24 11:12: POC Glucose 116 H Micro: Microbiology 03/06/24 10:22 Swab (Method) Nasal Screen MRSA/MSSA - Final Physical Exam Const alert, oriented x3, no apparent distress and healthy appearing Constitutional Narrative: Patient is morbidly obese General Appearance: cooperative, well kempt and well developed Orientation / Consciousness: awake, oriented to person, oriented to place and oriented to time HEENT normocephalic, head/scalp atraumatic and moist oral mucous membranes Eyes PERRL, EOMs intact bilaterally and conjunctivae normal Neck supple, no JVD, thyroid normal and no carotid bruits General: trachea midline Resp normal respiratory effort, no retractions, no use of accessory muscles and clear to auscultation bilaterally Auscultation: Negative for rales, rhonchi or wheezes Cardio regular rate, regular rhythm, S1 normal heart sound, S2 normal heart sound, no murmurs, no rub and no gallops GI normal to inspection, nondistended, normoactive bowel sounds, soft to palpation, non-tender and non-distended Extremity no clubbing, cyanosis or edema Neuro oriented x3, CN's II-XII intact bilaterally, no focal motor deficits and no sensory deficits noted Sensorium / Orientation: awake and alert Speech: speech normal Psych affect normal Assessment & Plan Assessment/Plan (1) Diabetes mellitus: PLAN: Plan 1. Type 2 diabetes-patient is currently on metformin, she will be placed on sliding scale insulin with Humalog per fingerstick blood sugars. #2 essential hypertension-patient will remain on her home medications, medicine will be adjusted as needed #3 GERD-patient will be placed on Protonix at equivalent dosage to her omeprazole #4 hyperlipidemia-patient will remain on a statin #5 morbid obesity-complicates care, management, recovery, and prognosis #6 hypothyroidism-patient is on Synthroid Total clinical time spent by myself addressing the patient's medical issues, reviewing all of her data, and collaborating with patient's care team: 30 minutes Charges/Coding Visit Charges Office Visits / Consults: 26496 OV L4 Est 30min
[2024-03-16] MEDS: cycloBENZAPRine HCl 10 MG Tablet PO (22:11)
[2024-03-16] MEDS: Senna/Docusate Sodium 1 Tablet 2 TABLET PO (22:12)
[2024-03-16] MEDS: Atorvastatin Calcium 20 MG Tablet PO (22:12)
[2024-03-16] MEDS: Pantoprazole Sodium 20 MG Tablet PO (22:12)
[2024-03-16] MEDS: Zolpidem Tartrate 5 MG Tablet PO (22:17)
[2024-03-16] MEDS: Ketorolac 15 MG/ML Vial IV (22:51)
[2024-03-16] MEDS: Cefazolin 1 GM/50 ML BAG IV (22:51)
[2024-03-16] MEDS: oxyCODONE 5 MG Tablet PO (23:05)
[2024-03-17] MEDS: Rivaroxaban 10 MG Tablet PO (05:00)
[2024-03-17] MEDS: Cefazolin 1 GM/50 ML BAG IV (05:00)
[2024-03-17] MEDS: Levothyroxine 137 MCG Tablet PO (05:00)
[2024-03-17] MEDS: Acetaminophen 500 MG Tablet 1000 MG PO ×3 (05:00→22:41)
[2024-03-17 07:11] LABS: Bedside Glucose 170 mg/dL (74-106)
[2024-03-17 07:11] LABS: Bedside Glucose 119 mg/dL (74-106)
[2024-03-17 07:15] VITALS: O2SAT 99
[2024-03-17 08:00] VITALS: RESP 18
[2024-03-17 08:03] LABS: Anion Gap 5 (5-15); BUN 24 mg/dL (7-18); BUN/Creat Ratio 30.3 RATIO (10-20); Calcium,Total 8.7 mg/dL (8.5-10.1); Chloride 104 mmol/L (98-107); Creatinine, Serum 0.79 mg/dL (0.55-1.02); EST Glomerular Filtration Rate 77 mL/min (>60); Est Glom Filt Rate - Afr Amer 93 mL/min (>60); Estimated Creatinine Clearance 92.86 ml/min; Glucose 122 mg/dL (74-106); Potassium 4.3 mmol/L (3.5-5.1); Sodium Level 135 mmol/L (136-145)
[2024-03-17] MEDS: oxyCODONE 5 MG Tablet PO ×3 (09:55→22:40)
[2024-03-17] MEDS: Triamterene 37.5MG/Hctz 25MG Capsule 1 CAP PO (09:55)
[2024-03-17] MEDS: Famotidine 20 MG Tablet PO (09:56)
[2024-03-17] MEDS: Pantoprazole Sodium 20 MG Tablet PO ×2 (09:56→22:41)
[2024-03-17] MEDS: Celecoxib 200 MG Capsule PO (09:56)
[2024-03-17 09:57] LABS: Hemoglobin 10.6 g/dL (12.0-15.0); Mean Corp Hgb Conc 30.3 g/dL (32-36); Mean Corpuscular Volume 82.5 fL (81-99); Platelet Count 321 K/mm3 (150-450); RBC Distribution Width CV 14.7 % (11.6-14.6); RBC Distribution Width SD 44.8 fl (35.1-43.9); Red Blood Count 4.24 M/mm3 (4.2-5.4); White Blood Count 12.6 K/mm3 (4.4-11.0)
[2024-03-17] MEDS: metFORMIN (XR) 500 MG Tablet PO ×2 (10:02→18:11)
--- NOTE | 2024-03-17 10:56 | CASEMGMT ---
Discharge Planning A list of?SNF providers including quality and resource use data and consistent with the patient's preferred geographic region, medical needs, and insurance network was created in [employer].? This list was provided to the SW. Jaqui Stephens Discharge Planning Asst.
--- NOTE | 2024-03-17 11:03 | PN.HOSP_ITS ---
Reason for Visit Reason for Visit: Diagnoses Type 2 diabetes mellitus without complications (03/16/24) Encounter for other preprocedural examination (03/16/24) Subjective Subjective Patient feels like her left leg is heavy but since she feels better than she did after her initial surgery and has no other complaints at this time Objective Data Objective Data Vital Signs: Vital Signs Temp Pulse Resp BP Pulse Ox O2 Del Method O2 Flow Rate 97.8 F 84 16 127/75 H 97 Room Air 3 03/16/24 23:24 03/16/24 23:24 03/16/24 23:24 03/16/24 23:24 03/16/24 23:24 03/16/24 23:24 03/16/24 19:56 Oxygen Flow Rate (L/min) 3 Oxygen Delivery Method Room Air Weight: 117.344 kg Body Mass Index (BMI) 40.5 Intake & Output: Intake and Output for Last 24 Hours 03/15/24 03/16/24 03/17/24 23:59 23:59 23:59 Intake Total 1484 / 1484 50 / 50 Output Total 650 / 650 Balance 834 / 834 50 / 50 Lab / Micro Data 03/17/24 06:50 03/17/24 06:50 Labs: Laboratory Results - last 24 hr 03/16/24 11:12: POC Glucose 116 H 03/16/24 21:59: POC Glucose 170 H 03/17/24 06:28: POC Glucose 119 H 03/17/24 06:50: WBC 12.6 H, RBC 4.24, Hgb 10.6 L, Hct 35.0 L, MCV 82.5, MCH 25.0 L, MCHC 30.3 L, RDW Std Deviation 44.8 H, RDW Coeff of Tenihsa 14.7 H, Plt Count 321, MPV 11.0, Sodium 135 L, Potassium 4.3, Chloride 104, Carbon Dioxide 26.0, Anion Gap 5, BUN 24 H, Creatinine 0.79, Estim Creat Clear Calc 92.86, Est GFR (MDRD) Af Amer 93, Est GFR (MDRD) Non-Af 77, BUN/Creatinine Ratio 30.3 H, G lucose 122 H, Calcium 8.7 Micro: Microbiology 03/16/24 15:07 Tissue - Hip Femoral Membrane Wound Culture - Preliminary No growth-Final to follow 03/16/24 15:07 Tissue - Hip Wound Culture - Preliminary No growth-Final to follow 03/16/24 15:07 Tissue - Bursa Wound Culture - Preliminary No growth-Final to follow 03/06/24 10:22 Swab (Method) Nasal Screen MRSA/MSSA - Final Radiography Diagnostic Testing: Radiology Impression Hip X-Ray 03/16/24 19:00 IMPRESSION: No acute radiographic abnormalities. Status post total hip arthroplasty. Electronically Signed: Art Olivas MD at 20:41 EDT , Physical Exam Narrative General: Alert, oriented, no apparent distress HEENT: Atraumatic, normocephalic Eyes: Anicteric, normal conjunctiva, extraocular movements grossly intact Neck: Supple Respiratory: Clear to auscultation bilaterally, normal respiratory effort Cardiovascular: Regular rate and rhythm GI: Soft, nontender, nondistended Extremities: No edema Musculoskeletal: Left extremity laying straight in bed, SCDs noted Neuro: No overt focal neurological deficits Skin: No rashes appreciated Psych: Cooperative Assessment & Plan Assessment/Plan (1) Diabetes mellitus: PLAN: Plan #Type 2 diabetes mellitus -Glucose checks and sliding scale insulin -Additionally patient is on metformin #Hypertension -Most recent BP 127/75 -Patient is on atenolol and triamterene/hydrochlorothiazide #GERD -Continue PPI #Hypothyroidism -Continue Synthroid #Morbid obesity -BMI 40.5 kg/m? -Complicates treatment, prognosis, outcomes -Recommend weight loss and lifestyle changes # Periprosthetic joint infection of left hip -Status post left hip replacement removal and antibiotic spacer 03/16/[address] Cary -Management per primary -ID consulted -Pain control per primary -Cultures pending #DVT ppx: Per primary Dayan Marshall MD Time spent in the patient's overall evaluation,decision-making process, review of diagnostic data, adjustment of management, discussion with other providers, nursing nursing and ancillary staff involved in patient's care documentation, 26 Minutes Charges/Coding Visit Charges Inpatient E&M: 115[address] [facility] Hosp L1
--- NOTE | 2024-03-17 11:05 | POSTOPAN2_ITS ---
Anesthesia Postop Eval I Sum Postop Eval Completion status Anesthesia document: Postop Eval 1 completed: Yes Anesthesia Postop Eval I Summary Anesthesia Postop Eval I Summary: Anesthesia Postop Eval I: Assessment Summary Airway patent Yes 03/16/24 18:02 EMBOSSER [email or web address].EMANUELOBRobin Spontaneous unlabored Yes 03/16/24 18:02 TAMMIE respirations Mental status Asleep 03/16/24 18:02 EMBOSSER APPRENTICE.NAGI nausea No 03/16/24 18:02 EMBOSSER APPRENTICE.NAGI Vomiting No 03/16/24 18:02 TAMMIE Anesthesia Postop Eval I: Fluid Summary Crystalloid volume administer 2,000 03/16/24 18:02 TAMMIE (ml) Colloids volume administered ( ml) Blood Product volume administered (ml) Total IV fluid infused 2,000 03/16/24 18:02 TAMMIE Anesthesia Postop Eval I: Summary Notes Anesthesia Complication No 03/16/24 18:02 TAMMIE Anesthesia Complication Comment: Post-operative progress note original postop 1 03/16/24 18:02 TAMMIE note signed in error by Zev Fonseca, done by Zev Curiel CRNA Anesthesia: Postop Eval II Evaluation Mental status: Awake and Calm Pain Level: 2 nausea: No Vomiting: No Complications Anesthesia Complication: No
[2024-03-17 11:06] VITALS: BP 114/74; PULSE 77; RESP 18; TEMP 37.2; O2SAT 97
--- NOTE | 2024-03-17 11:28 | CASEMGMT ---
PEEWEE AMBRIZ Assessment Face to Face with patient for initial transition planning/care coordination assessment. PEEWEE AMBRIZ introduced self and role at [facility], pt voices understanding. Pt is A&Ox4 and is resting comfortably in the chair and is calm. Pt at bedside. Care providers, pharmacy, and demographics verified. Admitting dx: Type 2 diabetes mellitus without complications, Encounter for other preprocedural examination LACE Strata:1 PCP: Damion Specialists: Raeann Preferred Pharmacy: [facility] Insurance: [employer] [facility] (A) Prescription Benefit: Yes LNOK: [facility] (H) Living Arrangements: Pt lives with her in a single story home with a FFSU and a ramp to enter ADLs/IADLs: States independent at baseline. Pt is currently requiring assistance Transportation: Self, DME: Working [employer] and supplies. Lift Chair. shower bench. Grab bars. [employer] Inspector. FWW. BP Cuff. HHC/SNF: Hx with [facility] and [facility] (x15 years ago). Hx at [facility] Pt?s goal: Home Plan: Anticipate Home with IV ATBs. After PT/OT evaluation, pt appears adamant about returning home at time of DC and is refusing SNF. Pt states that she was very satisfied with the care she received from [facility] and would like their services again. Pt is planned to get a PICC line. Cx are pending. ID is consulted and to see. Pt states that she was told that she will need at least 6-weeks of IV ATB infusions after DC. A list of local in-network home infusion companies provided to the pt at this time. Pt states that she would prefer to use [facility]. Pt states that he or their son can be the teachable caregiver. Pt states that her son is a critical care nurse. DC date is TBD. CM to follow to ensure a safe DC home from [facility]. Arlyn Patel RN, CM
[2024-03-17] MEDS: Senna/Docusate Sodium 1 Tablet 2 TABLET PO ×2 (11:58→22:41)
[2024-03-17] MEDS: Atenolol 25 MG Tablet PO (11:58)
[2024-03-17] MEDS: Insulin Lispro 100 UNIT/ML INSULN.PEN SC ×2 (12:08→16:55)
[2024-03-17 12:35] LABS: Bedside Glucose 180 mg/dL (74-106)
[2024-03-17] MEDS: Cefazolin 2 GM in 0.9% Normal Saline (100mL Bag) 100 ML IV ×2 (14:44→22:41)
--- NOTE | 2024-03-17 15:14 | PCM.CONS.GEN ---
Assessment & Plan Assessment/Plan (1) Prosthetic joint infection of left hip: PLAN: Outpt cx with [facility]. On po doxy prior to surgery now. Taken to OR 03/16/[address] Cary for I&D and spacer placement. Surg cx pending. Will plan on single lumen picc and 6 weeks iv cefazolin, stop date 04/27/24 with weekly labs, ID followup in 3 weeks. Will follow, thank you HPI Consult Data Date of Consult: 03/17/24 HPI Narrative Reason for Consultation: PJI HPI Narrative: JULIANNE CHUNG, is a 63 F who had L hip replacement 12/2023, complicated by chronic drainage, pain, redness. Did not improve with several courses outpt po abx. Developed some associated chills, fatigue, nausea. Saw ID, started po doxy for past 7-10 days, then taken to OR 03/16/[address] Cary for I&D and spacer placement. Feeling ok, pain controlled, no fever. Full ROS performed and neg except as noted above. [facility] Medical History Wears hearing aid Wears glasses Post-menopausal Cancer Depression Anxiety Open wound Ambulates with cane Low iron High cholesterol Restless legs Dietary restriction History of ulceration Gastric reflux Former smoker Shortness of breath on exertion Leg cramps History of pain when walking History of edema Osteoporosis Drainage from surgical wound Closed fracture of left hip Hypertension Rheumatoid arthritis Sjogrens syndrome Home Medications ?Medication ?Instructions ?Recorded ?Last Taken ?Type atenolol 25 mg tablet 25 mg PO DAILY BP 12/28/23 03/16/24 History cyclobenzaprine 10 mg tablet 10 mg PO QHS MUSCLE SPASMS 12/28/23 03/15/24 History eszopiclone 2 mg tablet 2 mg PO QHS SLEEP 12/28/23 03/15/24 History hydroxyzine HCl 25 mg tablet 25 mg PO DAILY PRN itching 12/28/23 Unknown History levothyroxine 137 mcg tablet 137 mcg PO DAILY THYROID 12/28/23 03/16/24 History metformin 1,000 mg 24 hr 1,000 mg PO DAILY DIABETES 12/28/23 03/15/24 History tablet,extended release (gastric reten.) (Glumetza) metformin 500 mg tablet,extended 500 mg PO QHS DIABETES 12/28/23 03/15/24 History release 24 hr omeprazole 20 mg capsule,delayed 20 mg PO BID GERD 12/28/23 03/16/24 History release simvastatin 40 mg tablet 40 mg PO QHS CHOLESTEROL 12/28/23 03/15/24 History triamterene 37.5 1 cap PO DAILY BP 12/28/23 03/15/24 History mg-hydrochlorothiazide 25 mg capsule celecoxib 200 mg capsule 200 mg PO DAILY ARTHRITIS 03/05/24 03/02/24 History polyethylene glycol 3350 17 17 g PO DAILY PRN PRN constipation 03/05/24 Unknown History gram/dose oral powder (Gavilax) semaglutide 1 mg/dose (4 mg/3 mL) 1 mg subcut SA DIABETES 03/05/24 03/08/24 History subcutaneous pen injector (Ozempic) cefazolin 2 gram intravenous 2 g IV Q8H 40 days 03/17/24 Unknown Rx solution Allergy/AdvReac Type Severity Reaction Status Date / Time butorphanol (From Stadol) Allergy Intermediate SOB Verified 03/16/24 11:14 hydrocodone (From Vicodin) Allergy Intermediate SOB Verified 03/16/24 11:14 Surgical History (Updated 03/05/24 @ 08:38 by Suki Fam) History of esophagogastroduodenoscopy (EGD) Hx of colonoscopy Hx of total knee arthroplasty Hx of right mastectomy Hx of tubal ligation History of Hx of total hip arthroplasty H/O thyroidectomy Social History household members: spouse Smoking Status: Former smoker Physical Exam Const alert, oriented x3 and no apparent distress General Appearance: cooperative HEENT normocephalic and head/scalp atraumatic Eyes PERRL and EOMs intact bilaterally Neck supple and No nodes Resp normal air movement and clear to auscultation bilaterally Cardio regular rate and regular rhythm GI soft to palpation, non-tender and non-distended Extremity General Extremity: Negative for edema Skin Skin Narrative: wound vac in place, no rash Neuro CN's II-XII intact bilaterally Lab / Micro Data Attestation: I reviewed the patient's lab results. 03/17/24 06:50 03/17/24 06:50 Labs: Laboratory Results - last 24 hr 03/16/24 21:59: POC Glucose 170 H 03/17/24 06:28: POC Glucose 119 H 03/17/24 06:50: WBC 12.6 H, RBC 4.24, Hgb 10.6 L, Hct 35.0 L, MCV 82.5, MCH 25.0 L, MCHC 30.3 L, RDW Std Deviation 44.8 H, RDW Coeff of Tenisha 14.7 H, Plt Count 321, MPV 11.0, Sodium 135 L, Potassium 4.3, Chloride 104, Carbon Dioxide 26.0, Anion Gap 5, BUN 24 H, Creatinine 0.79, Estim Creat Clear Calc 92.86, Est GFR (MDRD) Af Amer 93, Est GFR (MDRD) Non-Af 77, BUN/Creatinine Ratio 30.3 H, Glucose 122 H, Calcium 8.7 03/17/24 12:07: POC Glucose 180 H Micro: Microbiology 03/16/24 15:07 Tissue - Hip Femoral Membrane Gram Stain - Final 03/16/24 15:07 Tissue - Hip Femoral Membrane Wound Culture - Preliminary No growth-Final to follow 03/16/24 15:07 Tissue - Hip Gram Stain - Final 03/16/24 15:07 Tissue - Hip Wound Culture - Preliminary No growth-Final to follow 03/16/24 15:07 Tissue - Bursa Gram Stain - Final 03/16/24 15:07 Tissue - Bursa Wound Culture - Preliminary No growth-Final to follow Imaging Radiology Impression Hip X-Ray 03/16/24 19:00 IMPRESSION: No acute radiographic abnormalities. Status post total hip arthroplasty. Electronically Signed: Art Olivas MD at 20:41 EDT ,
--- NOTE | 2024-03-17 15:24 | NURSING ---
talked with Patsy regarding picc aware will do in am since not discharging tonight.
[2024-03-17 16:00] VITALS: BP 102/58; PULSE 93; RESP 18; TEMP 37.1; O2SAT 97
--- NOTE | 2024-03-17 16:11 | CASEMGMT ---
Spoke with Christopher JOLLEY regarding pt care. PEEWEE AMBRIZ into pt room, pt states she still would like to go home with [facility]. Discussed frequency of antibiotic. Pt has a wound vac that SAMREEN states will need maintained at [place]. Pt reports she had been going to the [facility] and seeing Katia JOLLEY when under 's care. She states she is willing to return there. PEEWEE AMBRIZ to follow therapy tomorrow. Currently plan is dc home with [facility].
[2024-03-17 16:31] LABS: Bedside Glucose 219 mg/dL (74-106)
--- NOTE | 2024-03-17 16:46 | PN.ORTHO_ITS ---
Subjective Subjective The patient was sitting in bed upon examination with her present. Patient denies any chest pain, shortness of breath, dizziness, lightheadedness, nausea or vomiting, or calf pain. Pain is controlled on medications. No adverse overnight events. Patient states she did have a more difficult day especially with therapy. They are trying to make sure patient has understanding of restrictions. Patient is toe-touch weightbearing for 6 weeks postoperatively. She also has wound VAC in place. Infectious disease has been consulted. Patient is adamant that she does wish to try to go home as she does feel she can handle the restrictions and does have help with regards to her and her son who is a nurse. Case management is currently involved for home health and home health physical therapy. Objective Data Objective Data Vital Signs: Vital Signs Temp Pulse Resp BP Pulse Ox O2 Del Method O2 Flow Rate 98.9 F 77 18 114/74 97 Room Air 3 03/17/24 11:06 03/17/24 11:06 03/17/24 11:06 03/17/24 11:06 03/17/24 11:06 03/17/24 11:06 03/16/24 19:56 Oxygen Flow Rate (L/min) 3 Oxygen Delivery Method Room Air Weight: 117.344 kg Body Mass Index (BMI) 40.5 Intake & Output: Intake and Output for Last 24 Hours 03/15/24 03/16/24 03/17/24 23:59 23:59 23:59 Intake Total 1484 / 1484 50 / 50 Output Total 650 / 650 Balance 834 / 834 50 / 50 Lab / Micro Data 03/17/24 06:50 03/17/24 06:50 Labs: Laboratory Results - last 24 hr 03/16/24 21:59: POC Glucose 170 H 03/17/24 06:28: POC Glucose 119 H 03/17/24 06:50: WBC 12.6 H, RBC 4.24, Hgb 10.6 L, Hct 35.0 L, MCV 82.5, MCH 25.0 L, MCHC 30.3 L, RDW Std Deviation 44.8 H, RDW Coeff of Tenisha 14.7 H, Plt Count 321, MPV 11.0, Sodium 135 L, Potassium 4.3, Chloride 104, Carbon Dioxide 26.0, Anion Gap 5, BUN 24 H, Creatinine 0.79, Estim Creat Clear Calc 92.86, Est GFR (MDRD) Af Amer 93, Est GFR (MDRD) Non-Af 77, BUN/Creatinine Ratio 30.3 H, G lucose 122 H, Calcium 8.7 03/17/24 12:07: POC Glucose 180 H 03/17/24 16:09: POC Glucose 219 H Micro: Microbiology 03/16/24 15:07 Tissue - Hip Femoral Membrane Gram Stain - Final 03/16/24 15:07 Tissue - Hip Femoral Membrane Wound Culture - Preliminary No growth-Final to follow 03/16/24 15:07 Tissue - Hip Gram Stain - Final 03/16/24 15:07 Tissue - Hip Wound Culture - Preliminary No growth-Final to follow 03/16/24 15:07 Tissue - Bursa Gram Stain - Final 03/16/24 15:07 Tissue - Bursa Wound Culture - Preliminary No growth-Final to follow 03/06/24 10:22 Swab (Method) Nasal Screen MRSA/MSSA - Final Radiography Diagnostic Testing: Radiology Impression Hip X-Ray 03/16/24 19:00 IMPRESSION: No acute radiographic abnormalities. Status post total hip arthroplasty. Electronically Signed: Art Olivas MD at 20:41 EDT , Physical Exam Narrative Vital signs stable and afebrile. SCDs and CAROLINE hose are in place bilaterally Patient is able to plantarflex and dorsiflex actively. Sensation is intact to light touch to saphenous, sural, superficial and deep peroneal, and tibial distribution. Patient currently has wound VAC in place with no output and canister or tubing Negative Homans bilaterally, negative signs and symptoms of DVT. Const alert, oriented x3 and no apparent distress Assessment & Plan Assessment/Plan (1) Prosthetic joint infection of left hip: PLAN: 1. S/P removal left hip replacement with placement of antibiotic spacer and wound VAC POD #1 2. Continue Pain Medications: Tylenol and oxycodone 3. DVT Prophylaxis: Patient denies past history of DVT or pulmonary embolism. Initial plan was for 81 mg aspirin however due to patient's limited mobility Dr. Man Cary will place patient on Xarelto for the first 2 weeks postoperatively 10 mg daily for DVT prophylaxis. After 2 weeks she will then be placed on aspirin 81 mg twice daily for an additional 2 weeks. 4. PT/OT: Patient is currently toe-touch weightbearing for a total of 6 weeks postoperatively. Progression of weightbearing status will be determined based on x-ray findings. I did discuss this with the patient. Patient states she has been working on these restrictions preoperatively and does feel she can go home. I would like physical therapy to continue to work with her with regards to use of walker and wheelchair. 5. H & H: 10.6/35.0, asymptomatic. Labs have been reviewed 6. Reactive leukocytosis: 12.6, Afebrile. Patient did receive Decadron intraoperatively. No clinical signs of infection. 7. Continue wound VAC: Consult for wound nurse was placed. Plan will be for continuous setting at 125 mmHg. Twice weekly changes on Saturday and . Plan will be to continue with the wound VAC until no drainage for a minimum of 72 hours. Patient is a high risk due to tissue and previous draining sinuses from previous surgery and infection. 8. Appreciate consultation from infectious disease: Infectious disease is currently recommending PICC line for 6 weeks with IV cefazolin with weekly labs and follow-up with infectious disease in 3 weeks. Current cultures have no growth on preliminary findings. Will continue to monitor. 9. Encouraged Incentive Spirometry 10. Patient is aware of postoperative constipation that can occur from 1-3 days postoperatively. Will continue with senna 2 tablets twice daily until first bowel movement. Patient was advised if not having a bowel movement after day 3 she is to contact orthopedics so appropriate change can be made. Patient voiced understanding. 11. Continue postoperative medical treatment per medicine 12. Disposition: Patient will require additional night stay as patient does need established PICC line prior to discharge. Case management is currently involved for appropriate discharge planning with setting up for home health and home health physical therapy. Patient and feel they can handle the restrictions from therapy as well as managing the wound VAC and PICC line at home. Patient's son is a nurse who can also help out. I did discuss with the patient that she will require twice weekly changes with the wound VAC. She has been a patient at the wound center in which case management will assist with setting up for changes. I did approximately 20 minutes with the patient today discussing postoperative course of treatment. She is aware of the 6 weeks of IV antibiotics as well as toe-touch weightbearing. Case was discussed with Dr. Man Cary. I have reviewed the [place] Automated Rx Reporting System (OARRS) report for this patient for refill pattern and other prescriber involvement as part of the appropriate surveillance for the provision of acute and chronic controlled medications. The report was requested and reviewed on the date of this entry and was considered in the prescribing process. This dictation was created using voice recognition software. Phonetic and/or grammatical errors may exist. (2) Postoperative wound dehiscence:
[2024-03-17 17:11] VITALS: BP 102/58; PULSE 93; RESP 18; TEMP 37.1; O2SAT 98
[2024-03-17] MEDS: Ketorolac 15 MG/ML Vial IV (21:02)
[2024-03-17 22:10] VITALS: BP 116/49; PULSE 82; RESP 16; TEMP 36.7; O2SAT 100
[2024-03-17] MEDS: Zolpidem Tartrate 5 MG Tablet PO (22:41)
[2024-03-17] MEDS: cycloBENZAPRine HCl 10 MG Tablet PO (22:42)
[2024-03-17] MEDS: Atorvastatin Calcium 20 MG Tablet PO (22:42)
[2024-03-17 23:09] LABS: Bedside Glucose 112 mg/dL (74-106)
[2024-03-18 04:10] VITALS: BP 92/53; PULSE 88; RESP 18; TEMP 36.9; O2SAT 94
[2024-03-18] MEDS: Levothyroxine 137 MCG Tablet PO (06:04)
[2024-03-18] MEDS: Acetaminophen 500 MG Tablet 1000 MG PO ×2 (06:14→15:40)
[2024-03-18] MEDS: Rivaroxaban 10 MG Tablet PO (06:15)
[2024-03-18] MEDS: Cefazolin 2 GM in 0.9% Normal Saline (100mL Bag) 100 ML IV ×2 (06:15→14:41)
[2024-03-18 06:41] LABS: Bedside Glucose 117 mg/dL (74-106)
[2024-03-18 07:49] LABS: Hematocrit 31.7 % (37-47); Hemoglobin 9.5 g/dL (12.0-15.0); Mean Corpuscular Hgb 25.1 pg (27.0-32.0); Mean Corpuscular Volume 83.9 fL (81-99); Mean Platelet Vol. 10.6 fl (6.2-12.0); Platelet Count 250 K/mm3 (150-450); RBC Distribution Width CV 14.9 % (11.6-14.6); RBC Distribution Width SD 45.2 fl (35.1-43.9); Red Blood Count 3.78 M/mm3 (4.2-5.4); White Blood Count 9.3 K/mm3 (4.4-11.0)
[2024-03-18] MEDS: oxyCODONE 5 MG Tablet PO ×2 (08:36→15:37)
[2024-03-18] MEDS: hydrOXYzine PAM 25 MG Capsule PO (08:36)
[2024-03-18] MEDS: Famotidine 20 MG Tablet PO (08:37)
[2024-03-18] MEDS: metFORMIN (XR) 500 MG Tablet PO (08:37)
[2024-03-18] MEDS: Pantoprazole Sodium 20 MG Tablet PO (08:38)
[2024-03-18] MEDS: Atenolol 25 MG Tablet PO (08:38)
[2024-03-18] MEDS: Senna/Docusate Sodium 1 Tablet 2 TABLET PO (08:38)
[2024-03-18 09:00] VITALS: BP 100/56; PULSE 93; RESP 18; TEMP 36.6; O2SAT 98
--- NOTE | 2024-03-18 09:33 | CASEMGMT ---
Addendum entered by Lizzy Pendleton 03/18/24 15:54: TC to [facility], spoke with Ever, she is aware that pt can be dc'd. Requested to let Christopher JOLLEY know. Addendum entered by Lizzy Pendleton 03/18/24 15:51: Picc report and dc instructions sent to I at this time via careport. Addendum entered by Lizzy Pendleton 03/18/24 15:31: Sent IV rx to [facility] via careport at this time. Addendum entered by Lizzy Pendleton 03/18/24 14:49: Pt picc line placed. PEEWEE AMBRIZ into pt room, pt is aware that there will be no cost for IV infusion, HHC will start in the morning and the wound vac has been approved. Answered pt questions. Pt to receive the second dose of medication prior to dc. ID ok for pt to miss evening dose and HHC to start tommorrow am. TC to [facility], spoke with Ryanne, she is aware of pt dc today and that wound vac needs changed tomorrow as well as IV to start in am. Updated Christopher JOLLEY via backline. Updated [facility] of dc today as well. Addendum entered by Lizzy Pendleton 03/18/24 13:27: Received notification that pt is covered 100% for IV and supplies, [facility] can deliver tonight for SOC for HH tomorrow pending picc line insertion. Nikole wound nurse notified wound vac approved. Addendum entered by iLzzy Pendleton 03/18/24 10:57: PEEWEE AMBRIZ into pt room to make aware that [facility] has accepted her but that they do not have OT to offer currently. Pt states she is fine with this and wants to proceed with this agency and prefers to have the same therapists as before. Pt present. Discussed that we are awaiting wound vac approval, cost of med and availability for delivery from [facility] as well as her picc line. Discussed what the expectations for HH are. Pt planning on learning the IV. Answered all of pt and 's questions at this time. Wrote PEEWEE AMBRIZ contact information on pt white board for any needs. Addendum entered by Lizzy Pendleton 03/18/24 10:25: Received tc back from [facility] that they can start care tomorrow. She is aware we are pending wound vac authorization as well. Message sent to [facility] to check on benefits and question if feasible to have med delivered in the morning. Pt to get picc today. Original Note: TC to [facility], spoke with Eleon[facility], made referral for SN, PT. They do not have OT services at this time. PT will eval for OT. Will await acceptance.
--- NOTE | 2024-03-18 09:57 | WOUNDNOTE ---
Home VAC form initiated. plan is for twice weekly VAC changes over incision. Pt still in moderate pain today. no drainage noted in the canister. will monitor.
--- NOTE | 2024-03-18 11:08 | PN.HOSP_ITS ---
Reason for Visit Reason for Visit: Diagnoses Type 2 diabetes mellitus without complications (03/16/24) Disruption of external operation (surgical) wound, not elsewhere classified, initial encounter (03/16/24) Infection and inflammatory reaction due to internal left hip prosthesis, initial encounter (03/16/24) Encounter for other preprocedural examination (03/16/24) Subjective Subjective Patient was having some increased pain this morning but is improving at this time, plan is for patient to go home pending approval of her wound VAC and PICC line Objective Data Objective Data Vital Signs: Vital Signs Temp Pulse Resp BP Pulse Ox O2 Del Method O2 Flow Rate 97.8 F 93 18 100/56 L 98 Room Air 3 03/18/24 09:00 03/18/24 09:00 03/18/24 09:00 03/18/24 09:00 03/18/24 09:00 03/18/24 09:00 03/16/24 19:56 Oxygen Flow Rate (L/min) 3 Oxygen Delivery Method Room Air Weight: 117.344 kg Body Mass Index (BMI) 40.5 Intake & Output: Intake and Output for Last 24 Hours 03/16/24 03/17/24 03/18/24 23:59 23:59 23:59 Intake Total 1484 / 1484 2020 / 2020 110 / 110 Output Total 650 / 650 1500 / 1500 Balance 834 / 834 520 / 520 110 / 110 Lab / Micro Data 03/18/24 06:45 03/17/24 06:50 Labs: Laboratory Results - last 24 hr 03/17/24 12:07: POC Glucose 180 H 03/17/24 16:09: POC Glucose 219 H 03/17/24 22:10: POC Glucose 112 H 03/18/24 06:20: POC Glucose 117 H 03/18/24 06:45: WBC 9.3, RBC 3.78 L, Hgb 9.5 L, Hct 31.7 L, MCV 83.9, MCH 25.1 L , MCHC 30.0 L, RDW Std Deviation 45.2 H, RDW Coeff of Tenisha 14.9 H, Plt Count 250, MPV 10.6 Micro: Microbiology 03/16/24 15:07 Tissue - Hip Femoral Membrane Gram Stain - Final 03/16/24 15:07 Tissue - Hip Femoral Membrane Wound Culture - Preliminary No growth-Final to follow 03/16/24 15:07 Tissue - Hip Femoral Membrane Anaerobic Culture - Preliminary No growth in 48 hours. 03/16/24 15:07 Tissue - Bursa Gram Stain - Final 03/16/24 15:07 Tissue - Bursa Wound Culture - Preliminary No growth-Final to follow 03/16/24 15:07 Tissue - Bursa Anaerobic Culture - Preliminary No growth in 48 hours. 03/16/24 15:07 Tissue - Hip Gram Stain - Final 03/16/24 15:07 Tissue - Hip Wound Culture - Preliminary No growth-Final to follow 03/16/24 15:07 Tissue - Hip Anaerobic Culture - Preliminary No growth in 48 hours. 03/06/24 10:22 Swab (Method) Nasal Screen MRSA/MSSA - Final Physical Exam Narrative General: Alert, oriented, no apparent distress HEENT: Atraumatic, normocephalic Eyes: extraocular movements grossly intact Neck: Supple Respiratory: normal respiratory effort Cardiovascular: no edema appreciated GI: nondistended Extremities: Left extremity turned outward in bed and right extremity straight this time Neuro: No overt focal neurological deficits Psych: Cooperative Assessment & Plan Assessment/Plan (1) Prosthetic joint infection of left hip: (2) Postoperative wound dehiscence: (3) Diabetes mellitus: PLAN: Plan #Type 2 diabetes mellitus -Glucose checks and sliding scale insulin -Additionally patient is on metformin -03/18: Fairly good control postop, follow-up outpatient #Hypertension -Most recent BP 127/75 -Patient is on atenolol and triamterene/hydrochlorothiazide -03/18: Was somewhat low this morning, suspect this is secondary to pain medication, did hold the triamterene/hydrochlorothiazide this a.m., suspect blood pressure will increase as patient has decreased need for pain medication and when she is more mobile and further out from surgery #GERD -Continue PPI #Hypothyroidism -Continue Synthroid #Morbid obesity -BMI 40.5 kg/m? -Complicates treatment, prognosis, outcomes -Recommend weight loss and lifestyle changes # Periprosthetic joint infection of left hip -Status post left hip replacement removal and antibiotic spacer 03/16/[address] Cary -Management per primary -ID consulted -Pain control per primary -Cultures pending -03/18: Patient for PICC and antibiotics as well as wound VAC #DVT ppx: Per primary Dayan Marshall MD Time spent in the patient's overall evaluation,decision-making process, review of diagnostic data, adjustment of management, discussion with other providers, nursing nursing and ancillary staff involved in patient's care documentation, 26 Minutes Charges/Coding Visit Charges Inpatient E&M: 55175 Subs Hosp L1
[2024-03-18] MEDS: Insulin Lispro 100 UNIT/ML INSULN.PEN SC (11:59)
[2024-03-18] MEDS: Ketorolac 15 MG/ML Vial IV (12:00)
[2024-03-18] MEDS: Celecoxib 200 MG Capsule PO (12:00)
--- NOTE | 2024-03-18 12:00 | PN.ORTHO_ITS ---
Subjective Subjective The patient was sitting in bed upon examination with her and daughter present. Patient denies any chest pain, shortness of breath, dizziness, lightheadedness, nausea or vomiting, or calf pain. Patient states she let her pain get out of control overnight. She did not request for any narcotics. She states today it is getting better now that she is taking the narcotics. Patient is planned to have PICC line established today around 12. Case management has been involved and does have home health established. She is currently waiting on approval for the wound VAC. Infectious disease has established antibiotics and will continue with weekly labs. Patient did have a drop in her hemoglobin and currently 9.5. She is asymptomatic and denies any dizziness or lightheadedness. Patient does wish to go home and at this time we are awaiting approval of the wound VAC. Objective Data Objective Data Vital Signs: Vital Signs Temp Pulse Resp BP Pulse Ox O2 Del Method O2 Flow Rate 97.8 F 93 18 100/56 L 98 Room Air 3 03/18/24 09:00 03/18/24 09:00 03/18/24 09:00 03/18/24 09:00 03/18/24 09:00 03/18/24 09:00 03/16/24 19:56 Oxygen Flow Rate (L/min) 3 Oxygen Delivery Method Room Air Weight: 117.344 kg Body Mass Index (BMI) 40.5 Intake & Output: Intake and Output for Last 24 Hours 03/16/24 03/17/24 03/18/24 23:59 23:59 23:59 Intake Total 1484 / 1484 2019 / 2019 110 / 110 Output Total 650 / 650 1500 / 1500 Balance 834 / 834 520 / 520 110 / 110 Lab / Micro Data 03/18/24 06:45 03/17/24 06:50 Labs: Laboratory Results - last 24 hr 03/17/24 12:07: POC Glucose 180 H 03/17/24 16:09: POC Glucose 219 H 03/17/24 22:10: POC Glucose 112 H 03/18/24 06:20: POC Glucose 117 H 03/18/24 06:45: WBC 9.3, RBC 3.78 L, Hgb 9.5 L, Hct 31.7 L, MCV 83.9, MCH 25.1 L , MCHC 30.0 L, RDW Std Deviation 45.2 H, RDW Coeff of Tenisha 14.9 H, Plt Count 250, MPV 10.6 Micro: Microbiology 03/16/24 15:07 Tissue - Hip Femoral Membrane Gram Stain - Final 03/16/24 15:07 Tissue - Hip Femoral Membrane Wound Culture - Preliminary No growth-Final to follow 03/16/24 15:07 Tissue - Hip Femoral Membrane Anaerobic Culture - Preliminary No growth in 48 hours. 03/16/24 15:07 Tissue - Bursa Gram Stain - Final 03/16/24 15:07 Tissue - Bursa Wound Culture - Preliminary No growth-Final to follow 03/16/24 15:07 Tissue - Bursa Anaerobic Culture - Preliminary No growth in 48 hours. 03/16/24 15:07 Tissue - Hip Gram Stain - Final 03/16/24 15:07 Tissue - Hip Wound Culture - Preliminary No growth-Final to follow 03/16/24 15:07 Tissue - Hip Anaerobic Culture - Preliminary No growth in 48 hours. 03/06/24 10:22 Swab (Method) Nasal Screen MRSA/MSSA - Final Physical Exam Narrative Vital signs stable and afebrile. Patient did have soft blood pressure but currently is asymptomatic. Left thigh is soft and supple. CAROLINE hose and SCDs are in place bilaterally Patient is able to plantarflex and dorsiflex actively. Sensation is intact to light touch to saphenous, sural, superficial and deep peroneal, and tibial distribution. Wound VAC is in place with no drainage or output in the canister or tubing. Negative Homans bilaterally, negative signs and symptoms of DVT. Const alert, oriented x3 and no apparent distress Assessment & Plan Assessment/Plan (1) Prosthetic joint infection of left hip: PLAN: 1. S/P removal left hip replacement with placement of antibiotic spacer and wound VAC POD #2 2. Continue Pain Medications: Tylenol and oxycodone 3. DVT Prophylaxis: Patient denies past history of DVT or pulmonary embolism. Initial plan was for 81 mg aspirin however due to patient's limited mobility Dr. Man Cary will place patient on Xarelto for the first 2 weeks postoperatively 10 mg daily for DVT prophylaxis. After 2 weeks she will then be placed on aspirin 81 mg twice daily for an additional 2 weeks. I did recommend to the patient to avoid Celebrex while using the Xarelto due to bleeding risk. She voiced understanding. 4. PT/OT: Patient is currently toe-touch weightbearing for a total of 6 weeks postoperatively. Progression of weightbearing status will be determined based on x-ray findings. I did discuss this with the patient. Patient states she has been working on these restrictions preoperatively and does feel she can go home. I would like physical therapy to continue to work with her with regards to use of walker and wheelchair. Patient has been doing well with the pivot maneuver using walker over to wheelchair. She states she has been working on this at home as well. Patient feels comfortable that she can go home at this time. 5. H & H: 9.5/31.7, patient denies any dizziness, lightheadedness or feelings of syncope. She does have some soft blood pressures. Labs have been reviewed. Drop in her hemoglobin is most likely secondary to extent of surgery with possible from intraoperative blood loss versus dilutional component. Estimated blood loss was 700 mL with fluid replacement of 2000 mL perioperatively. We will place patient on ferrous sulfate and folic acid. Also discussed with the patient the potential for constipation with the ferrous sulfate. If she is experiencing problems with constipation I would have her reduce it from twice daily down to once daily. She will be getting follow-up labs from infectious disease for CBC. I did advise the patient that may require follow-up with the primary care physician in the future for continued management. 6. Reactive leukocytosis: Resolved currently 9.3, Afebrile. Patient did receive Decadron intraoperatively. 7. Continue wound VAC: Wound nurse was consulted. We are awaiting approval from insurance for discharge planning. There is concern with wound healing and potential drainage as preoperatively patient had to draining sinus. Plan will be for continuous setting at 125 mmHg. Twice weekly changes on Saturday and . Plan will be to continue with the wound VAC until no drainage for a minimum of 72 hours. Patient is a high risk due to tissue and previous draining sinuses from previous surgery and infection. Wound changes will be twice weekly and will be managed by home health. If there is no drainage on Saturday with wound VAC change, we will discontinue the use however they do have the ability over the next week to place the wound VAC back on if drainage would occur. Case was discussed with Dr. Man Cary. 8. Appreciate consultation from infectious disease: Infectious disease is currently recommending PICC line for 6 weeks with IV cefazolin with weekly labs and follow-up with infectious disease in 3 weeks. Current cultures have no growth on preliminary findings. Will continue to monitor. 9. Encouraged Incentive Spirometry 10. Patient is aware of postoperative constipation that can occur from 1-3 days postoperatively. Will continue with senna 2 tablets twice daily until first bowel movement. Patient was advised if not having a bowel movement after day 3 she is to contact orthopedics so appropriate change can be made. Patient voiced understanding. 11. Continue postoperative medical treatment per medicine 12. Disposition: Patient will be getting her PICC line placement today. Infectious disease has plan set forth for IV antibiotics. I would defer to infectious disease with regards to antibiotics. Patient does appear to be managing the restriction and feels comfortable going home. She would like to go home. We are awaiting approval with regards to the wound VAC. If we do get approval today plan will be for discharge home today. However this may keep her overnight if we are not able to get approval today. Patient will continue above pain medications. Patient states she let her pain get out of control and she is afraid of potential constipation. She will use the stool softeners. I did emphasize the importance of staying ahead for pain control. Patient was started on ferrous sulfate and folic acid. We will monitor these and I did advise patient she may have to see primary care physician in the future. She would like her prescriptions E scribed to [facility] in [facility]. She does have postoperative follow-up appointment scheduled. Patient was instructed to contact our office with any concerns or questions. I also advised her if she is running low on her narcotics she is to contact our office for appropriate refills. She did voiced understanding. I did have lengthy discussion with the patient and family members with regards postoperative course of treatment. She is wishing to go home as long as everything is approved. I have reviewed the [place] Automated Rx Reporting System (OARRS) report for this patient for refill pattern and other prescriber involvement as part of the appropriate surveillance for the provision of acute and chronic controlled medications. The report was requested and reviewed on the date of this entry and was considered in the prescribing process. This dictation was created using voice recognition software. Phonetic and/or grammatical errors may exist. (2) Postoperative wound dehiscence:
--- NOTE | 2024-03-18 12:14 | DCINST_ITS ---
Discharge Instructions Diet Discharge Diet: No restrictions Activity Discharge Activity: May Not Drive May shower in (days): 1 (only if incision is dry and without drainage. Do NOT soak/submerge in tub/pool/camara/stream/hot tub.)) Ice area for (Minutes): 20 (Every 1-2 hours [address] barrier between ice and skin.) Weight Bearing Status: Toe touch weight bearing (Toe-touch weightbearing with walker for 6 weeks postoperatively and further weightbearing status will be determined based on x-ray findings) Keep extremity elevated above heart level: Operative Extremity Dressing / Incision Call your doctor if your incision/area has: Continuous Slow Oozing, Sudden Increased Bleeding, Increased Pain/ Swelling, Increased Redness and Foul Smelling Discharge Call your doctor if you observe: Fever of 101 or Higher, Shortness of breath, Chest pain, Calf discomfort and Uncontrolled pain Cleanse incision/area with: Do not get Incision Wet Additional Dressing/Incision Instructions:: Continue wound VAC with twice weekly changes on Saturday and . Continuous setting at 125 mmHg. If there is no drainage on March 23, 2024 okay to discontinue the wound VAC with home health. We will still have the ability to place the wound VAC back on over the next 1 week if there would be any further drainage. Follow [facility] Post-op Instructions. Continue with CAROLINE hose/elastic stockings for 2 weeks postoperatively. May remove at nighttime but needs to be placed back on the leg during the day. Do NOT use alcohol with narcotic pain medication. Do NOT make important decisions while taking narcotic medication. If you have problems with taking your medication (rash, itching, nausea, etc.) call the office at once. Follow Up Care Test Results: Test results from this visit will be discussed in further detail at your follow- up appointment, if applicable. Discharge Plan Admission Admit Date/Time: 03/16/24 10:30 Attending Provider: Man Cary Primary Care Provider: Palma Bruno Consulting Providers: Lj Quiroga; Dayan Marshall Discharge Orders/Prescriptions Prescriptions: New cefazolin 2 gram recon soln 2 g IV Q8H 40 Days Rx Instructions: stop date 04/27/24. Dx: prosthetic joint infection. Weekly bmp, cbc, and esr. Fax to [phone]. Routine picc care per protocol. acetaminophen 500 mg Tablet 1,000 mg PO Q8 Qty: 0 0RF Rx Instructions: Do not take more than 3000 mg Tylenol in a 24-hour period. ferrous sulfate [FeroSul] 325 mg (65 mg iron) Tablet 325 mg PO 1200,1700 21 Days Qty: 42 0RF folic acid 1 mg Tablet 1 mg PO BREAKFAST 21 Days Qty: 21 0RF oxycodone 5 mg Tablet 5 - 10 mg PO Q4H PRN PRN (Reason: Pain Score 4-10) 7 Days Qty: 52 0RF sennosides-docusate sodium [Stool Softener-Stimulant Laxat] 8.6-50 mg Tablet 2 tab PO BID 5 Days Qty: 20 0RF Rx Instructions: Take until first bowel movement, then as needed Xarelto 10 mg Tablet 10 mg PO DAILY@0600 13 Days Qty: 13 0RF Rx Instructions: Take for 2 weeks postoperatively Continued cyclobenzaprine 10 mg tablet 10 mg PO QHS hydroxyzine HCl 25 mg tablet 25 mg PO DAILY PRN (Reason: itching) Patient Comments: RARELY TAKES eszopiclone 2 mg tablet 2 mg PO QHS levothyroxine 137 mcg tablet 137 mcg PO DAILY simvastatin 40 mg tablet 40 mg PO QHS omeprazole 20 mg capsule,delayed release(DR/EC) 20 mg PO BID metformin 500 mg tablet extended release 24 hr 500 mg PO QHS atenolol 25 mg tablet 25 mg PO DAILY triamterene-hydrochlorothiazid 37.5-25 mg capsule 1 cap PO DAILY metformin [Glumetza] 1,000 mg tablet,ER ronit.retention 24 hr 1,000 mg PO DAILY Ozempic 1 mg/dose (4 mg/3 mL) pen injector 1 mg subcut SA polyethylene glycol 3350 [Gavilax] 17 gram/dose powder 17 g PO DAILY PRN PRN (Reason: constipation) Rx Instructions: Gxus-ocy-bwkkrab. Held celecoxib 200 mg capsule 200 mg PO DAILY Hold Instructions: Resume on 03/31/24. Do not take Celebrex while using Xarelto. Once finished with Xarelto can resume Celebrex as needed Referrals / Follow Up: Palma Bruno MD [Primary Care Provider] - Reynaldo House PA-C [Med Staff - [facility]] - 03/30/24 10:15 am Disposition Disposition (needs filled in before D/C Order can be placed): Home Health Service
[2024-03-18 12:25] LABS: Bedside Glucose 161 mg/dL (74-106)
--- NOTE | 2024-03-18 15:26 | PRO.PCM_ITS ---
Procedure Report Date of Procedure: 03/18/24 Assessment & Plan Assessment/Plan (1) Prosthetic joint infection of left hip: QUALIFIERS: Encounter type: initial encounter Qualified Code(s): T84.52XA - Infection and inflammatory reaction due to internal left hip prosthesis, initial encounter Procedures Radiology Radiology Access Procedures: PICC Procedure Time Out Time Out Informed consent given: Yes Consent signed: Yes Time out checklist: patient, procedure, site marked/identified, positioning of patient, supplies available and allergies confirmed Time out verified: Yes Time out date: 03/18/24 Time out time: 13:45 PICC Line Consent Screening tool completed:: Yes Consent obtained:: Yes Consent given by (patient or responsible republican):: PATIENTY Line successful (if no, document why in comments):: Yes Insertion Reason for Insertion: Medical Nurse Medication Date of Insertion: 03/18/24 Ok to use: Yes Type of PICC inserted: Single Power PICC PICC Lot #: [id number] PICC Reference #: [id number] Microintroducer Used: Yes (in kit) Ultrasound/Equipment Used: Probe Cover Kit Trimmed Length (cm): 50 Insertion Length (cm): 50 Exposed Length (cm): 0 Placement Confirmation: 3CG Insertion Vein: Left Basilic Insertion Attempts: 1 Local Anesthesia Used: Lidocaine 1% (in kit) Dressing Applied: Statlock and Tegaderm CHG Arm Measurement above site (in cm): 36 Patient Tolerated Procedure: Well Threading Difficulties: No Comments Comment: Patient identity was verified with two patient identifiers. Informed consent was obtained and time-out was completed. Hands were sanitized. The patient was positioned supine with left arm at 90 degrees. The patient's upper arm vasculature was assessed using ultrasound. Patency of the left basilic vein was confirmed and the vein was externally marked. An external measurement was obtained of 50 cm. External leads were applied to the patient's right upper chest and laterally and inferior of the umbilicus on the mid axillary line. Cap, mask, and prep gloves were donned. The underdrape was placed under the patient's arm. The site was prepped with chlorhexidine, and tourniquet was loosely applied. Prep gloves were discarded, and hands were sanitized. The sterile kit was opened with additional supplies dropped in. Sterile gown and gloves were donned, and the patient was draped. The sterile kit was assembled with needle, introducer, needless connector, and catheter lumen flushed with sterile normal saline. The marked site of insertion was anesthetized with 1% lidocaine from the kit. Patient tolerated well. The left basilic vein was then accessed using ultrasound guidance and guidewire was inserted to safety patrick. The tourniquet was released. The access needle was removed while securing the guidewire in place. The site was again anesthetized with 1% lidocaine, prior to insertion of introducer sheath and dilator. Patient tolerated the insertion well. The catheter was trimmed to a length of 50 cm. Using 3C guidance, the catheter was then inserted through the introducer sheath, slowly. There was no resistance on insertion. The catheter followed the expected course of the vessel using 3CG tracking. The introducer sheath was retracted and peeled away, incrementally, while keeping the catheter secured. Maximal p-wave, without deflection, confirming placement in the cavoatrial junction, was obtained at an insertion length of 50 cm, leaving 0 cm external. The stylet was removed. A flushed needleless connector was attached to the lumen. Aspiration of the lumen was performed to remove any air and confirm blood return. Blood return was verified and the lumen was flushed with 10 ml of sterile normal saline in a pulsatile fashion. The lumen was clamped with the last pulsed flush. Total sterile flushes used for the insertion was 6 10 ml syringes, 1 from the kit. Finally, the insertion site was cleaned with chlorhexidine, and the catheter was secured using a StatLock. The site was covered with a Tegaderm CHG Dressing and disinfecting caps were applied. Baseline arm circumference was obtained at the insertion site and measured 36 cm. The patient was provided with a patient education handout on PICC line care of infection prevention, heavy lifting restriction, maintaining mobility, and watching for any signs of infection. The charge nurses aware that the PICC line is ready for use.
[2024-03-18] MEDS: Ferrous Sulfate 325 MG Tablet PO (15:37)
--- NOTE | 2024-03-18 15:46 | WOUNDNOTE ---
Home VAC approved. Pt switched over to the home unit. Reviewed alarms, how to change canister, how to return the VAC, etc. with patient and . both deny questions. plan is for home health to change the dressing tomorrow. Pt denies further needs at this time.
--- NOTE | 2024-03-18 15:56 | CASEMGMT ---
Addendum entered by Estefanía Urbina 03/18/24 16:22: Social Work Pt provided copy of health care POA naming her spouse Lj De Souza. Copy placed on pt chart. EMMA Lynne Original Note: Social Work SW met with pt to discuss advance directives.? Pt confirms she has completed a living will and health care POA naming her spouse Lj De Souza.? Pt notified that documents are not on file at [facility] and SW requested they be brought in for scanning into the EMR.? EMMA Cloud
[2024-03-18 16:03] VITALS: BP 130/70; PULSE 70; RESP 18; TEMP 36.8; O2SAT 98
== END 2024-03-18 17:25 | disposition home health service (06) | DRG 481 ==
LOC: ACINP 10:35 → MS3 16:59
PROVIDERS: Anesthesiology; Admitting Provider Specialist; PCP Internal Medicine; Referring Provider Specialist; Visit Provider Specialist
PROC: 0SHB08Z Insertion of Spacer into Left Hip Joint, Open Approach (ICD-10-PCS; CPT 20704; principal; 2024-03-16 13:25)
DX: T84.52XA Infection and inflammatory reaction due to internal left hip prosthesis, initial encounter (principal); Z68.41 Body mass index [BMI] 40.0-44.9, adult; E11.9 Type 2 diabetes mellitus without complications; E66.01 Morbid (severe) obesity due to excess calories; E78.5 Hyperlipidemia, unspecified; M35.00 Sjogren syndrome, unspecified; M06.9 Rheumatoid arthritis, unspecified; E89.0 Postprocedural hypothyroidism; I10 Essential (primary) hypertension; M19.90 Unspecified osteoarthritis, unspecified site; K22.70 Barrett's esophagus without dysplasia; K21.9 Gastro-esophageal reflux disease without esophagitis; Z96.653 Presence of artificial knee joint, bilateral; M81.0 Age-related osteoporosis without current pathological fracture; Z68.37 Body mass index [BMI] 37.0-37.9, adult; Z79.84 Long term (current) use of oral hypoglycemic drugs; H91.90 Unspecified hearing loss, unspecified ear; Z79.1 Long term (current) use of non-steroidal anti-inflammatories (NSAID); Z87.891 Personal history of nicotine dependence; Z85.3 Personal history of malignant neoplasm of breast
CPT/HCPCS: 36415; 36569; 73502; 80048; 82040; 82962; 83036; 83735; 84443; 85025; 85027; 87015; 87070; 87075; 87081; 87102; 87116; 87176; 87205; 87206; 88305; 88311; 94668; 97162; 97166; 97530; 97535; 99252; C1776; J7120; G0463; J2405

== ENCOUNTER 2024-04-16 12:17 | Outpatient (RCR) | payer OTHER, SELFPAY ==
[2024-03-25 10:51] LABS: Erythrocyte Sedimentation Rate 24 mm/hr (0-30)
[2024-03-25 10:53] LABS: Hematocrit 30.7 % (37-47); Hemoglobin 8.8 g/dL (12.0-15.0); Mean Corp Hgb Conc 28.7 g/dL (32-36); Mean Corpuscular Hgb 24.2 pg (27.0-32.0); Mean Corpuscular Volume 84.3 fL (81-99); Mean Platelet Vol. 10.1 fl (6.2-12.0); Platelet Count 343 K/mm3 (150-450); RBC Distribution Width CV 15.9 % (11.6-14.6); RBC Distribution Width SD 47.8 fl (35.1-43.9); Red Blood Count 3.64 M/mm3 (4.2-5.4); White Blood Count 11.7 K/mm3 (4.4-11.0)
[2024-03-25 11:03] LABS: Anion Gap 8 (5-15); BUN 13 mg/dL (7-18); BUN/Creat Ratio 15.3 RATIO (10-20); Calcium,Total 9.1 mg/dL (8.5-10.1); Chloride 102 mmol/L (98-107); Creatinine, Serum 0.85 mg/dL (0.55-1.02); EST Glomerular Filtration Rate 71 mL/min (>60); Est Glom Filt Rate - Afr Amer 86 mL/min (>60); Glucose 177 mg/dL (74-106); Potassium 3.6 mmol/L (3.5-5.1); Sodium Level 136 mmol/L (136-145)
[2024-04-02 17:06] LABS: ALB/GLOB Ratio 0.8 RATIO (0.9-2.4); AST(SGOT) 14 U/L (15-37); Alanine Aminotransfer ALT/SGPT 11 U/L (13-56); Albumin, Serum 3.1 g/dL (3.2-5.0); Alkaline Phosphatase 138 U/L (45-117); Anion Gap 10 (5-15); BUN 27 mg/dL (7-18); BUN/Creat Ratio 33.3 RATIO (10-20); Calcium,Total 9.3 mg/dL (8.5-10.1); Chloride 103 mmol/L (98-107); Creatinine, Serum 0.81 mg/dL (0.55-1.02); EST Glomerular Filtration Rate 75 mL/min (>60); Est Glom Filt Rate - Afr Amer 91 mL/min (>60); Globulin 3.8 g/dL (2.2-4.2); Glucose 155 mg/dL (74-106); Iron 41 ug/dL (50-170); Iron Binding Capacity,Total 355 ug/dL (250-450); Potassium 3.9 mmol/L (3.5-5.1); Protein, Total 6.9 g/dL (6.4-8.2); Sodium Level 138 mmol/L (136-145); Thyroid Stim Hormone (TSH) 4.94 uIU/mL (0.358-3.74)
[2024-04-02 19:19] LABS: Erythrocyte Sedimentation Rate 21 mm/hr (0-30)
[2024-04-03 10:44] LABS: Hematocrit 34.4 % (37-47); Hemoglobin 9.7 g/dL (12.0-15.0); Mean Corp Hgb Conc 28.2 g/dL (32-36); Mean Corpuscular Hgb 24.5 pg (27.0-32.0); Mean Corpuscular Volume 86.9 fL (81-99); Mean Platelet Vol. 10.5 fl (6.2-12.0); Platelet Count 313 K/mm3 (150-450); RBC Distribution Width SD 55.7 fl (35.1-43.9); Red Blood Count 3.96 M/mm3 (4.2-5.4); White Blood Count 10.1 K/mm3 (4.4-11.0)
[2024-04-09 13:16] LABS: Anion Gap 12 (5-15); BUN 23 mg/dL (7-18); BUN/Creat Ratio 27.3 RATIO (10-20); Calcium,Total 9.2 mg/dL (8.5-10.1); Chloride 102 mmol/L (98-107); Creatinine, Serum 0.84 mg/dL (0.55-1.02); EST Glomerular Filtration Rate 72 mL/min (>60); Est Glom Filt Rate - Afr Amer 87 mL/min (>60); Glucose 234 mg/dL (74-106); Potassium 3.8 mmol/L (3.5-5.1); Sodium Level 137 mmol/L (136-145)
[2024-04-09 21:50] LABS: Erythrocyte Sedimentation Rate 12 mm/hr (0-30)
[2024-04-09 21:52] LABS: Hematocrit 35.9 % (37-47); Hemoglobin 10.2 g/dL (12.0-15.0); Mean Corp Hgb Conc 28.4 g/dL (32-36); Mean Corpuscular Hgb 25.2 pg (27.0-32.0); Mean Corpuscular Volume 88.6 fL (81-99); Mean Platelet Vol. 10.7 fl (6.2-12.0); Platelet Count 217 K/mm3 (150-450); RBC Distribution Width SD 58.2 fl (35.1-43.9); Red Blood Count 4.05 M/mm3 (4.2-5.4); White Blood Count 7.9 K/mm3 (4.4-11.0)
[2024-04-16 13:15] LABS: Anion Gap 5 (5-15); BUN 29 mg/dL (7-18); BUN/Creat Ratio 43.8 RATIO (10-20); Calcium,Total 9.4 mg/dL (8.5-10.1); Chloride 106 mmol/L (98-107); Creatinine, Serum 0.66 mg/dL (0.55-1.02); EST Glomerular Filtration Rate 95 mL/min (>60); Est Glom Filt Rate - Afr Amer 115 mL/min (>60); Glucose 123 mg/dL (74-106); Potassium 3.7 mmol/L (3.5-5.1); Sodium Level 140 mmol/L (136-145)
[2024-04-16 13:38] LABS: Erythrocyte Sedimentation Rate 17 mm/hr (0-30)
[2024-04-16 13:39] LABS: Hematocrit 39.7 % (37-47); Hemoglobin 11.6 g/dL (12.0-15.0); Mean Corp Hgb Conc 29.2 g/dL (32-36); Mean Corpuscular Hgb 25.3 pg (27.0-32.0); Mean Corpuscular Volume 86.7 fL (81-99); Platelet Count 228 K/mm3 (150-450); RBC Distribution Width CV 17.7 % (11.6-14.6); RBC Distribution Width SD 55.5 fl (35.1-43.9); Red Blood Count 4.58 M/mm3 (4.2-5.4); White Blood Count 8.8 K/mm3 (4.4-11.0)
== END 2024-04-22 18:00 | disposition home or self-care (01) ==
LOC: HHLAB 12:17
PROVIDERS: PCP Internal Medicine
DX: T84.52XA Infection and inflammatory reaction due to internal left hip prosthesis, initial encounter (principal); Z45.2 Encounter for adjustment and management of vascular access device; Z79.2 Long term (current) use of antibiotics; E11.9 Type 2 diabetes mellitus without complications
CPT/HCPCS: 80048; 80053; 83540; 83550; 84443; 85027; 85652

== ENCOUNTER 2024-05-11 14:59 | Inpatient (IN) | payer OTHER, MEDICARE, SELFPAY ==
[2024-05-11] VITALS (13 sets, daily range): BP systolic 105–133; BP diastolic 50–83; PULSE 70–81; RESP 14–18; TEMP 36.1–36.8; O2SAT 14–100; BMI 36.6
--- NOTE | 2024-05-11 11:45 | PCM.PRE.AN2 ---
ASA Classification* ASA Classification ASA Classification: 3 Assessment & Plan Anesthesia* Anesthesia Assessment Anesthesia Assessment: Discussed sedation and/or anesthesia options, risks, benefits, and alternatives with patient/parents/legal guardian/POA. Questions invited. The patient/parents/legal guardian/POA seems to understand and agrees to proceed with anesthesia plan. Reviewed the physical assessment, medical history, allergy history and patient home medications list prior to surgery/procedure/anesthetic and documented any changes. Performed airway and anesthesia risk assessments. Anesthesia Type Anesthesia Type: General (see written pre anesthesia record for full assessment) Anesthesia Focused Assessment* Airway Assessment Mouth opens: >3 cm Mallampati Score: II Focused Labs Anesthesia Preop lab: CBC WBC 10.8 K/mm3 (4.4-11.0) 05/07/24 11:35 RBC 4.66 M/mm3 (4.2-5.4) 05/07/24 11:35 Hgb 11.7 g/dL (12.0-15.0) L 05/07/24 11:35 Hct 40.0 % (37-47) 05/07/24 11:35 Plt Count 304 K/mm3 (150-450) 05/07/24 11:35 CHEMISTRY Potassium 3.7 mmol/L (3.5-5.1) 05/07/24 11:35 Sodium 139 mmol/L (136-145) 05/07/24 11:35 Magnesium 1.7 mg/dL (1.6-2.6) 03/06/24 10:22 Phosphorus 3.2 mg/dL (2.5-4.9) 12/29/23 04:55 BUN 26 mg/dL (7-18) H 05/07/24 11:35 Creatinine 0.73 mg/dL (0.55-1.02) 05/07/24 11:35 Glucose 163 mg/dL (74-106) H 05/07/24 11:35 POC Glucose 161 mg/dL (74-106) H 03/18/24 11:58 TSH 4.94 uIU/mL (0.358-3.74) H 04/02/24 11:50 COAG PT 12.7 SECONDS (11.7-14.9) 12/28/23 15:58 Pre-Assessment Diagnosis/Proposed Procedure Planned Operative Procedure(s): I&D OF LEFT HIP WITH REPEAT ANTIBIOTIC SPACER Anesthesia History Anesthesia History - dental mechanic: Anesthesia History - dental mechanic Hx Hospitalization No 05/07/24 10:29 Any Problems With Anesthesia Yes: N,V 05/07/24 10:29 Cholinesterase deficiency No 05/07/24 10:29 You/Your Family Experience No 05/07/24 10:29 fever (hyperthermia) with Relationship Recent Exposure to Contagious No 03/16/24 11:21 Disease Does patient have nerve No 05/07/24 10:29 stimulator Patient instructed to have device shut off --Does patient have Pacemaker or ICD? When Was Last Pacemaker Check QUESTION #4 FULL TEXT: You/Your Family Experience fever (hyperthermia) with Anesthesia Last Oral Intake Last Oral intake: Last Oral Intake NPO since Meds taken in AM with sips of water? Meds patient instructed to take am of surgery PONV PONV - dental mechanic: PONV - dental mechanic Female Yes 05/07/24 10:29 HX of Motion Sickness No 05/07/24 10:29 HX of N/V After Surgery Yes 05/07/24 10:29 Non-Smoker Yes 05/07/24 10:29 Duration of Surgery greater Yes 05/07/24 10:29 than 60 minutes Number of Risk Factors 4 05/07/24 10:29 PONV Score Severe Risk 05/07/24 10:29 Height & Weight Height & Weight: Anesthesia: Height & Weight Height 5 ft 7 in 03/16/24 19:56 Respiratory Assessment Respiratory Assessment - dental mechanic: Respiratory Tract Infection Hx - dental mechanic Hx Respiratory Tract Infection No 05/07/24 10:29 STOP Sleep Apnea STOP Sleep Apnea - dental mechanic: STOP Sleep Apnea - dental mechanic Hx Hypertension Yes: CONTROLLED WITH MED 05/07/24 10:29 Hx Sleep Apnea No 05/07/24 10:29 CPAP No 05/07/24 10:29 BIPAP Do you snore loudly (louder Yes 05/07/24 10:29 than talking or can be heard Do you often feel tired/ No 05/07/24 10:29 fatigued/ sleepy during daytime? Has anyone observed you stop No 05/07/24 10:29 breathing during sleep? STOP Results Positive 05/07/24 10:29 QUESTION #5 FULL TEXT : Do you snore loudly (louder than talking or can be heard through closed doors)? 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 Specify any problems FEVER 05/07/24 10:29 Hx of Preganancy in last 3 No 05/07/24 10:29 Months Nurse Filling Out Transfusion DSCHRIBER 05/07/24 10:29 & Questions: Date: 05/07/24 05/07/24 10:29 Time: 10:31 05/07/24 10:29 Patient unable to answer at this time (ie. confused, unrespo /Reproduction History /Reproductive History - dental mechanic: /Reproductive Hx- dental mechanic Hx Now Gestational Age (in weeks): EDC: Hx Hx Para Hx Section SAB No 05/07/24 10:29 Active Medications Active Medications: Current Medications Generic Name Dose Route Start Last Admin Trade Name Freq PRN Reason Stop Dose Admin Cefazolin Sodium 2 gm/ Sodium 110 mls @ 150 mls/hr 05/11/24 11:15 Chloride IV 05/11/24 11:58 PREOP ONE Tranexamic Acid 1,000 mg/ 110 mls @ 660 mls/hr 05/11/24 12:15 Sodium Chloride IV 05/11/24 12:24 X1 ONE Lactated Ringer's 1,000 mls @ 15 mls/hr 05/11/24 11:15 IV .Q48H ROBERTA Insulin Human Lispro 1 - 6 unit 05/11/24 11:15 Insulin Lispro 100 Unit/Ml Insuln.Pen SC 05/11/24 17:15 Q4H PRN PRN BG>/= 180, SEE PROTOCOL Protocol PFSH Medical History PICC (peripherally inserted central catheter) in place Uses wheelchair Walker as ambulation aid Wears hearing aid Wears glasses Post-menopausal Cancer Depression Anxiety Open wound Low iron High cholesterol Restless legs Dietary restriction History of ulceration Gastric reflux Former smoker Shortness of breath on exertion Leg cramps History of pain when walking History of edema Osteoporosis Drainage from surgical wound Closed fracture of left hip Hypertension Rheumatoid arthritis Sjogrens syndrome Home Medications ?Medication ?Instructions ?Recorded ?Last Taken ?Type atenolol 25 mg tablet 25 mg PO DAILY BP 12/28/23 03/16/24 History eszopiclone 2 mg tablet 2 mg PO QHS SLEEP 12/28/23 03/15/24 History levothyroxine 137 mcg tablet 137 mcg PO DAILY THYROID 12/28/23 03/16/24 History metformin 500 mg tablet,extended 500 mg PO BID DIABETES 12/28/23 03/15/24 History release 24 hr omeprazole 20 mg capsule,delayed 20 mg PO BID GERD 12/28/23 03/16/24 History release simvastatin 40 mg tablet 40 mg PO QHS CHOLESTEROL 12/28/23 03/15/24 History triamterene 37.5 1 cap PO DAILY BP 12/28/23 03/15/24 History mg-hydrochlorothiazide 25 mg capsule celecoxib 200 mg capsule 200 mg PO DAILY ARTHRITIS 03/05/24 03/02/24 History polyethylene glycol 3350 17 17 g PO BID constipation 03/05/24 Unknown History gram/dose oral powder (Gavilax) semaglutide 1 mg/dose (4 mg/3 mL) 1 mg subcut SA DIABETES 03/05/24 05/02/24 History subcutaneous pen injector (Ozempic) cefazolin 2 gram intravenous 2 g IV Q8H 40 days 03/17/24 Unknown Rx solution acetaminophen 500 mg tablet 1,000 mg (2 x 500 mg) PO Q8 #0 tabs 03/18/24 Unknown Rx ferrous sulfate 325 mg (65 mg 325 mg PO 1200,1700 21 days #42 03/18/24 Unknown Rx iron) tablet (FeroSul) tabs folic acid 1 mg tablet 1 mg PO BREAKFAST 21 days #21 tabs 03/18/24 Unknown Rx oxycodone 5 mg tablet 5 - 10 mg (1 - 2 x 5 mg) PO Q4H 03/18/24 Unknown Rx PRN PRN Pain Score 4-10 7 days #52 tabs sennosides 8.6 mg-docusate sodium 2 tab PO BID 5 days #20 tabs 03/18/24 Unknown Rx 50 mg tablet (Stool Softener-Stimulant Laxative) sertraline 25 mg tablet 25 mg PO QHS 05/07/24 Unknown History Allergy/AdvReac Type Severity Reaction Status Date / Time butorphanol (From Stadol) Allergy Intermediate SOB Verified 05/07/24 10:21 hydrocodone (From Vicodin) Allergy Intermediate SOB Verified 05/07/24 10:21 Surgical History History of incision and drainage History of esophagogastroduodenoscopy (EGD) Hx of colonoscopy Hx of total knee arthroplasty Hx of right mastectomy Hx of tubal ligation History of Hx of total hip arthroplasty H/O thyroidectomy Social History household members: spouse Smoking Status: Former smoker Review of Systems (Anesthesia) ROS Narrative System reviewed and no additional complaints, except as documented.
[2024-05-11] MEDS: Lactated Ringers 1,000 ML 15 ML IV ×2 (11:49→14:02)
[2024-05-11] MEDS: Magnesium 2 GM for ERAS IV (11:49)
[2024-05-11] MEDS: Acetaminophen 500 MG Tablet 1000 MG PO ×2 (11:50→21:13)
[2024-05-11] MEDS: Gabapentin 600 MG Tablet PO (11:50)
[2024-05-11 12:15] LABS: Bedside Glucose 114 mg/dL (74-106)
--- NOTE | 2024-05-11 12:30 | TISS_PTH ---
PATIENT: JULIANNE CHUNG LOC: MS3 U#:[id number] AGE/SX: 64/F ROOM: [facility] RE05/11/[address]: Dr. Man Cary MD : 1960 BED: 1 DIS: 05/14/2024 SPEC #: [id number] RECD: 05/11/24 18:01 STATUS: SHELBI HENSLEY #: [id number] JULES: 05/11/24 12:[address]: Man Cary DEPT: SURGICAL PATHOLOGY RECD BY: Arlene Garcia ENTERED: 05/12/24 07:02 SP TYPE: Tissue Bx [facility] DR: MD Dr. Nemesio Thapa MD Dr. Robert Leininger, MD Tissues: A - TISSUE SURGICALLY REMOVED B - TISSUE SURGICALLY REMOVED Procedures: Surgery Specimen Level IV HEADER OPERATION: Irrigation and debridement of left hip with head exchange PRE-OP DIAGNOSIS: Presence of left artificial hip joint, aftercare following joint replacement surgery, pain due to internal orthopedic prosthetic devices, implants and grafts, subsequent, infection and inflammatory reaction due to internal left hip prothesis, subsequent TISSUE SUBMITTED: A- Distal sinus, B- Proximal sinus MICROSCOPIC DIAGNOSIS A. Distal sinus, excision: Skin and soft tissue with ulceration, associated with acute and chronic inflammation and granulation. Suture material. B. Proximal sinus, excision: Skin and soft tissue with ulceration, associated with acute and chronic inflammation and granulation. Suture material. [facility] 05/13/2024 MICROSCOPIC DESCRIPTION Slides are reviewed. GROSS DESCRIPTION A. Received in fixative is one container labeled with the patient's name and designated Distal sinus. The specimen consists of a piece of mcgill-white skin ellipse measuring 5.8 x 2.0cm and up to 0.7cm in thickness. Focal area of ulceration is noted and the center measuring 1.0 x 0.5cm. No mass lesion is identified. Quality Control Tester sections are submitted in two cassettes. B. Received in fixative is one container labeled with the patient's name and designated Proximal sinus. The specimen consists of a piece of skin ellipse with underlying tissue measuring 6.0 x 1.3cm and up to 3.0cm in thickness and focal area of ulceration is noted measuring 2.0 x 0.2cm. Sections reveal a sinus tract underneath the area of ulceration. No mass lesion is identified. Quality Control Tester sections are submitted in two cassettes. 05/12/2024 TC:2 CPT:[id number]
[2024-05-11] MEDS: Cefazolin 2 GM in 0.9% Normal Saline (100mL Bag) 100 ML IV ×2 (12:50→22:50)
[2024-05-11] MEDS: TXA 1000mg in NS100 100ml (IVPB at Incision) 660 MG IV (13:14)
[2024-05-11] MEDS: TXA 1000mg in NS100 100ml (IVPB at Closure) 660 MG IV (14:15)
--- NOTE | 2024-05-11 14:39 | OP.PCM_ITS ---
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 Fascia was intact. Draining sinus proximally did communicate with a superficial seroma in the mid to distal portion of the wound. There was an additional superficial seroma proximally. The seroma was communicating with the sinus tract did not communicate deep to the fascia. Surgeon: Man Cary construction scheduler: Christopher Jackson Type of Anesthesia: General Anesthesiologist: Fam Mabry Special Medications: 2 g of Ancef Specimen's removed: 2 separate spinous tracts were removed via lips. The proximal sinus tract was was 2 cm x 5 mm, the distal sinus tract was 1.5 cm x 4 mm Estimated Blood Loss (mL): 400 mL Fluids Replaced: 1200 mm crystalloid Description of Procedure: On the date of the procedure patient was seen and evaluated in the preoperative area where the left hip was marked after both parties agreed on the appropriate operative extremity. Patient was brought back to the operating room where they were transferred to the to the table in the supine position. Patient did receive anesthesia prior prior to being transferred to the table and anesthesia remained in control of the C-spine and airway after administering anesthetic. Once the patient was on the table all bony prominences identified well-padded. Patient was transferred to the lateral decubitus position with the left hip and ear. Axillary roll was placed. All bony prominences were again identified and well-padded. Patient was secured to the table using the pegboard. After patient was adequately secured left lower extremity was then prepped in sterile fashion. Mr. Mackenzie Collins reported router in the room with the assistant professor of biology the left lower extremity was draped in the standard orthopedic fashion. Incision was marked out using the previous incision and timeout was called. Upon agreed upon the side, the site, and the procedure to be performed, patient's identity and antibiotics given. Incision was taken down through skin subtenons tissue fat down to fascia. For the initial skin incision we did ellipse out 3 separate areas where there was slow wound healing and compromised skin. To these areas were deemed to be draining sinuses. The distal draining sinus had minimal tracking. The proximal draining sinus did track to a underlying seroma with serous fluid. Not grossly purulent. We carefully debrided the synovial lining around the seroma down to fatty healthy tissue. We then completed the fatty part of the incision and noted there was also a proximal seroma with some darker fluid however not grossly purulent. The fascia was intact and did not communicate with the superficial seromas. Fascia was then incised in line with the wound. Deep there was a large seroma which was evacuated again not grossly purulent fluid consistent with a deep postsurgical seroma. Synovial lining around this area was debrided and some was sent for culture. 2 more deep cultures were sent and the hip was dislocated after completing the synovectomy. The bone tamp was used to separate the femoral head from the trunnion. In doing so the femoral stem remained stable. The stem was tested and the cement mantle also remained stable. We were able to identify and review parts of the proximal osteotomy which appear to be healing well and was stable. Based on this we elected to leave the stem. The wound was copiously irrigated out with 6 L of normal saline under low-pressure lavage. After we carefully irrigated out the wound the trunnion was cleaned and the 51 mm with +4 mm head was put back in place and the hip was again reduced. At this time the wound was irrigated out with a dilute 3-minute Betadine lavage followed by chlorhexidine lavage. The anterior portions of the abductors had some torn fibers we elected to repair this with #1 Vicryl. The previous abductor takedown from her anterior lateral approach showed reconstructed atrophied abductor tendons at this point we elected not to repair these fibers. After the wound was irrigated out with chlorhexidine copious amounts of normal saline were used to irrigate out the wound and the fascia was closed initially with #1 Vicryl interrupted sutures and finally with strata fix #1 proximally and distally. The deep fatty layer was carefully closed trying to close down all areas of free space as well as we could using strata fix running sutures. Once this was completed the skin was closed using 2-0 Vicryl and final sponge was done with nylon sutures. Sterile dressing was placed. Patient was awakened anesthesia and transferred the PACU for recovery in stable condition. During the course of the procedure the physician copper plate lithographer (MARTIR) played a vital role. Their intimate knowledge of my steps in the procedure aided in safe and expedient completion of the procedure. The PE played a vital rolls in positioning particularly in obtaining the appropriate lateral decubitus position. The PE was also vital in the retraction of soft tissues during the exposure and especially the femoral work as this is a vital part of the procedure to prevent complications and fractures. The PE was also vital and protecting soft tissues during times of bony cuts and reaming. He also played a vital role in closure with my direct supervision. The PE was also important during reduction and dislocation of the joint and trials intraoperatively. Postop plan: Therapy: 50% weightbearing partial weightbearing left lower extremity patient must use walker IV antibiotics: Case was discussed infectious disease recommended Ancef and vancomycin overnight until we can identify cultures based on patient's previous staph positive cultures DVT prophylaxis: Due to patient's limited mobility Xarelto 10 mg daily for at least the following 2 weeks. Wound care: Incisional wound VAC will be placed to help with wound healing. Grafts/Implants Used: Kennedy cobalt chromium Unitrax femoral head 51 mm, 4 mm sleeve Complications No intraoperative complications were encountered Admit VTE Documentation VTE Present on Admission: No VTE Mechan Device Prophylaxis: SCD's and Thigh High CAROLINE Hose VTE Pharm Prophylaxis ordered?: Yes
--- NOTE | 2024-05-11 15:54 | PCM.POST.ANE ---
Anesthesia: Postop Eval I Current Vital Signs Temperature: 97 F Pulse Rate: 78 Blood Pressure: 128/83 Respiratory Rate: 16 Pulse Ox: 98 Oxygen Delivery Method: Room Air Assessment Airway patent: Yes Spontaneous unlabored respirations: Yes Mental status: Awake and Calm nausea: No Vomiting: No Anesthesia Complication: No Fluid Hydration Crystalloid volume administer (ml): 1,800 Total IV fluid infused: 1,800 Progress Note Anesthesia document: Postop Eval 1 completed: Yes
--- NOTE | 2024-05-11 15:55 | RAD_ITS ---
INDICATION: Post Op EXAMINATION/TECHNIQUE: X-RAY - XR Hip Unilateral with Pelvis when performed; 2-3 Views COMPARISON: Prior study dated: 03/16/2024 FINDINGS: Stable appearance left hip prosthesis without abnormal lucency or acute fracture. Persistent lucency in the fracture at the proximal femur laterally. RAD/Hip Min 2 Views (Portable) IMPRESSION: Stable examination. No acute bony abnormalities. Electronically Signed: Santiago Dennis MD at 17:21 EDT ,
--- NOTE | 2024-05-11 16:17 | PCM.POSTANE2 ---
Anesthesia Postop Eval I Sum Postop Eval Completion status Anesthesia document: Postop Eval 1 completed: Yes Anesthesia Postop Eval I Summary Anesthesia Postop Eval I Summary: Anesthesia Postop Eval I: Assessment Summary Airway patent Yes 05/11/24 15:55 [email or web address] Spontaneous unlabored Yes 05/11/24 15:55 [email or web address] respirations Mental status Awake,Calm 05/11/24 15:55 [email or web address] nausea No 05/11/24 15:55 [email or web address] Vomiting No 05/11/24 15:55 [email or web address] Anesthesia Postop Eval I: Fluid Summary Crystalloid volume administer 1,800 05/11/24 15:55 [email or web address] (ml) Colloids volume administered ( ml) Blood Product volume administered (ml) Total IV fluid infused 1,800 05/11/24 15:55 [email or web address] Anesthesia Postop Eval I: Summary Notes Anesthesia Complication No 05/11/24 15:55 [email or web address] Anesthesia Complication Comment: Post-operative progress note Anesthesia: Postop Eval II Evaluation Mental status: Awake Pain Level: 0 nausea: No Vomiting: No Complications Anesthesia Complication: No
--- NOTE | 2024-05-11 17:26 | CON.PCM.HO_ITS ---
Assessment & Plan Assessment/Plan (1) Prosthetic joint infection of left hip: QUALIFIERS: Encounter type: initial encounter Qualified Code(s): T84.52XA - Infection and inflammatory reaction due to internal left hip prosthesis, initial encounter PLAN: Plan This 64-year-old female being admitted for elective after recent prosthetic joint infection of left hip 1. Chronic draining sinus of left hip with recent prosthetic joint infection of left hip. Patient was admitted after elective irrigation and debridement of left hip with excision sinus tract x 2 with femoral head component revision of the articulating partial hip placement antibiotic spacer. Patient having muscle spasm of left hip and buttock region. Started on low-dose Zanaflex 2 mg every 8 hourly. Continue pain control. Operative tissue cultures were sent. Patient has PICC line over left arm, no signs of DVT. ID is consulted. On cefazolin 2 g IV every 8 hourly. On February 04, 2024 wound culture showed MSSA. But tissue culture from 03/16/2024 does not show any organism. AFB and fungal culture negative. 2. Type 2 diabetes mellitus: Accu-Chek before meals and at bedtime with Humalog sliding scale coverage and hypoglycemia protocol. Last glucose 163 and A1c 5.9% on 05/07/2024. 3. Hypertension: Blood pressure 109/50. Hold antihypertensive medications. Patient on atenolol and triamterene/HCTZ with holding. 4. GERD -Continue PPI 5. Hypothyroidism -Continue Synthroid 6. Morbid obesity: BMI 36.6 kg/m?. 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 HPI Consult Data Date of Consult: 05/11/24 HPI Narrative Reason for Consultation: Perioperative management of draining sinus of left hip HPI Narrative: JULIANNE BRIANNAGEORGE, is a 64 F with history of PJI left hip was found to have draining sinus of left hip. Patient was admitted after elective irrigation and debridement of left hip with excision sinus tract x 2 with femoral head component revision of the articulating partial hip placement antibiotic spacer. Patient was last admitted in February 2024 for prosthetic joint infection of left hip. At that time patient had left hip prosthetic joint removal and antibiotic spacer on 03/16/[address] Cary, ID was consulted and PICC line was placed. Patient was on antibiotic and wound VAC. Patient was discharged on 6 weeks IV cefazolin with stop date 04/27/2024. Today, patient complaining of intermittent muscle spasm of left hip and buttock region but this is her ongoing chronic problem for about 1 month. Patient is states she is not on muscle relaxant [facility] Medical History PICC (peripherally inserted central catheter) in place Uses wheelchair Walker as ambulation aid Wears hearing aid Wears glasses Post-menopausal Cancer Depression Anxiety Open wound Low iron High cholesterol Restless legs Dietary restriction History of ulceration Gastric reflux Former smoker Shortness of breath on exertion Leg cramps History of pain when walking History of edema Osteoporosis Drainage from surgical wound Closed fracture of left hip Hypertension Rheumatoid arthritis Sjogrens syndrome Home Medications ?Medication ?Instructions ?Recorded ?Last Taken ?Type atenolol 25 mg tablet 25 mg PO DAILY BP 12/28/23 05/11/24 08:00 History eszopiclone 2 mg tablet 2 mg PO QHS SLEEP 12/28/23 03/15/24 History levothyroxine 137 mcg tablet 137 mcg PO DAILY THYROID 12/28/23 05/11/24 07:30 History metformin 500 mg tablet,extended 500 mg PO BID DIABETES 12/28/23 03/15/24 History release 24 hr omeprazole 20 mg capsule,delayed 20 mg PO BID GERD 12/28/23 03/16/24 History release simvastatin 40 mg tablet 40 mg PO QHS CHOLESTEROL 12/28/23 03/15/24 History triamterene 37.5 1 cap PO DAILY BP 12/28/23 03/15/24 History mg-hydrochlorothiazide 25 mg capsule celecoxib 200 mg capsule 200 mg PO DAILY ARTHRITIS 03/05/24 03/02/24 History polyethylene glycol 3350 17 17 g PO BID constipation 03/05/24 Unknown History gram/dose oral powder (Gavilax) semaglutide 1 mg/dose (4 mg/3 mL) 1 mg subcut SA DIABETES 03/05/24 05/02/24 History subcutaneous pen injector (Ozempic) cefazolin 2 gram intravenous 2 g IV Q8H 40 days 03/17/24 Unknown Rx solution acetaminophen 500 mg tablet 1,000 mg (2 x 500 mg) PO Q8 #0 tabs 03/18/24 Unknown Rx ferrous sulfate 325 mg (65 mg 325 mg PO 1200,1700 21 days #42 03/18/24 Unknown Rx iron) tablet (FeroSul) tabs folic acid 1 mg tablet 1 mg PO BREAKFAST 21 days #21 tabs 03/18/24 Unknown Rx oxycodone 5 mg tablet 5 - 10 mg (1 - 2 x 5 mg) PO Q4H 03/18/24 Unknown Rx PRN PRN Pain Score 4-10 7 days #52 tabs sennosides 8.6 mg-docusate sodium 2 tab PO BID 5 days #20 tabs 03/18/24 Unknown Rx 50 mg tablet (Stool Softener-Stimulant Laxative) sertraline 25 mg tablet 25 mg PO QHS 05/07/24 Unknown History cholecalciferol (vitamin D3) 125 5,000 unit PO DAILY 05/11/24 Unknown History mcg (5,000 unit) tablet Allergy/AdvReac Type Severity Reaction Status Date / Time butorphanol (From Stadol) Allergy Intermediate SOB Verified 05/11/24 12:04 hydrocodone (From Vicodin) Allergy Intermediate SOB Verified 05/11/24 12:04 Surgical History History of incision and drainage History of esophagogastroduodenoscopy (EGD) Hx of colonoscopy Hx of total knee arthroplasty Hx of right mastectomy Hx of tubal ligation History of Hx of total hip arthroplasty H/O thyroidectomy Social History household members: spouse Smoking Status: Former smoker ROS ROS Narrative Constitutional: Reports chronic fatigue and weakness. No fever. HEENT: Reports systems reviewed and no addt'l complaints, except as documented Respiratory/Chest: No acute shortness of breath or respiratory distress or wheezing. CVS: No chest pain pressure or tightness. Gastrointestinal: Denies coffee ground emesis, hematemesis or vomiting Genitourinary: Denies burning urination or new urinary tract symptoms Musculoskeletal: Chronic left hip joint PJI with draining sinus as described in HPI. Neurologic: Denies seizure-like symptoms. skin: Had surgery today Endocrinology: Reports systems reviewed and no addt'l complaints, except as documented Hematologic/Lymphatic: Reports systems reviewed and no addt'l complaints, except as documented Rest 14 ROS are negative except as mentioned in HPI Physical Exam Narrative General: Alert, Oriented x3, Cooperative HEENT: Atraumatic, PERRLA, EOMI, Normocephalic Oral: Oral mucosa moist no Gingival or Mucosal Lesions/ Ulcerations Neck: Supple, No JVD, Negative Carotid Bruits Chest wall/Lungs: Air entry diminished in bilateral lung bases. No crepitation/rhonchi Cardiovascular: Regular rate, Regular Rhythm, Normal S1, Normal S2, No M/G/R Abdomen: Bowel Sounds Present, Soft, Non Tender, Non-Distended : No dysuria. No renal angle tenderness. No suprapubic tenderness. Extremities: No edema, Capillary Refill Less than 3 Seconds Skin: Surgical dressing over left hip, long incision line dry. No surrounding hematoma or bruise. Musculoskeletal: Mild muscle tenderness over left hip region. No Tenderness to Palpation of other joints or Extremities Neurological: Cranial nerves II-XII grossly intact, DTR 2+/4. No acute focal neurological deficit. Psych/Mental Status: Flat affect. Lab / Micro Data Labs: Laboratory Results - last 24 hr 05/11/24 11:44: POC Glucose 114 H Imaging Radiology Impression Hip X-Ray 05/11/24 15:55 IMPRESSION: Stable examination. No acute bony abnormalities. Electronically Signed: Santiago Dennis MD at 17:21 EDT Reading Location ID and State: [id number] / MD Tel , Service support , Charges/Coding Visit Charges Office Visits / Consults: [id number] IP Consult L4
[2024-05-11] MEDS: oxyCODONE 5 MG Tablet PO (18:46)
[2024-05-11] MEDS: Ferrous Sulfate 325 MG Tablet PO (18:47)
[2024-05-11] MEDS: Vancomycin HCl 1,500 MG in 0.9% Normal Saline (500mL Bag) 500 ML 250 MG IV (19:54)
[2024-05-11] MEDS: Polyethylene Glycol 3350 17 GM PACKET PO (21:13)
[2024-05-11] MEDS: Senna/Docusate Sodium 1 Tablet 2 TABLET PO (21:14)
[2024-05-11] MEDS: Pantoprazole Sodium 20 MG Tablet PO (21:14)
[2024-05-11] MEDS: Atorvastatin Calcium 20 MG Tablet PO (21:14)
[2024-05-11] MEDS: Sertraline 50 MG Tablet 25 MG PO (21:14)
[2024-05-11 21:16] LABS: Anion Gap 4 (5-15); BUN 17 mg/dL (7-18); BUN/Creat Ratio 20.5 RATIO (10-20); Calcium,Total 9.1 mg/dL (8.5-10.1); Chloride 103 mmol/L (98-107); Creatinine, Serum 0.83 mg/dL (0.55-1.02); EST Glomerular Filtration Rate 73 mL/min (>60); Est Glom Filt Rate - Afr Amer 88 mL/min (>60); Estimated Creatinine Clearance 83.59 ml/min; Glucose 207 mg/dL (74-106); Potassium 4.7 mmol/L (3.5-5.1); Sodium Level 135 mmol/L (136-145)
[2024-05-11] MEDS: Zolpidem Tartrate 5 MG Tablet PO (21:22)
[2024-05-11] MEDS: Morphine 2 MG/ML Syringe IV (21:23)
[2024-05-11] MEDS: Insulin Lispro 100 UNIT/ML INSULN.PEN SC (21:46)
--- NOTE | 2024-05-11 22:50 | PCM.RX.CS ---
Consult Antibiotic Management Pharmacy has been consulted to manage selected antibiotic: Vancomycin Type of Intervention Type of Consult: New start Labs Labs: Sodium 135 mmol/L (136-145) L 05/11/24 20:35 Potassium 4.7 mmol/L (3.5-5.1) 05/11/24 20:35 Chloride 103 mmol/L (98-107) 05/11/24 20:35 Carbon Dioxide 28.0 mmol/L (21.0-32.0) 05/11/24 20:35 Anion Gap 4 (5-15) L 05/11/24 20:35 BUN 17 mg/dL (7-18) 05/11/24 20:35 Creatinine 0.83 mg/dL (0.55-1.02) 05/11/24 20:35 Est GFR (MDRD) Af Amer 88 mL/min (>60) 05/11/24 20:35 Est GFR (MDRD) Non-Af 73 mL/min (>60) 05/11/24 20:35 BUN/Creatinine Ratio 20.5 RATIO (10-20) H 05/11/24 20:35 Glucose 207 mg/dL (74-106) H 05/11/24 20:35 Dosing Weight Weight used for dosin kg Estimated Creatinine Clearance Estimated Creatinine Clearance: 84 Goal Trough Goal Trough: 15-20 mcg/mL Pharmacy Plan for Drug Dosing Pharmacy Plan for Drug Dosing: Pharmacy Service will continue to monitor and adjust dosing as required. Follow-Up Labs Follow-Up Labs: Trough: Vancomycin Date/Time Labs Ordered Labs to be done on [date and time ordered]: 05/13/24 @7557
[2024-05-11 23:30] LABS: Bedside Glucose 216 mg/dL (74-106)
[2024-05-12] VITALS (12 sets, daily range): BP systolic 82–119; BP diastolic 41–81; PULSE 68–97; RESP 16–18; TEMP 36.6–37.4; O2SAT 94–100
[2024-05-12] MEDS: cycloBENZAPRine HCl 10 MG Tablet PO (00:07)
[2024-05-12] MEDS: oxyCODONE 5 MG Tablet PO ×5 (00:11→22:56)
[2024-05-12] MEDS: Morphine 2 MG/ML Syringe IV ×2 (03:51→08:44)
[2024-05-12] MEDS: Levothyroxine 137 MCG Tablet PO (06:05)
[2024-05-12] MEDS: Cefazolin 2 GM in 0.9% Normal Saline (100mL Bag) 100 ML IV (06:05)
[2024-05-12] MEDS: Rivaroxaban 10 MG Tablet PO (06:05)
[2024-05-12] MEDS: Acetaminophen 500 MG Tablet 1000 MG PO ×3 (06:06→20:59)
[2024-05-12] MEDS: tiZANidine HCl 2 MG Tablet PO ×3 (06:06→22:55)
[2024-05-12] MEDS: Insulin Lispro 100 UNIT/ML INSULN.PEN SC ×4 (06:46→21:08)
[2024-05-12] MEDS: Ketorolac 15 MG/ML Vial IV ×3 (06:50→21:09)
[2024-05-12 07:37] LABS: Hemoglobin 9.6 g/dL (12.0-15.0); Mean Corpuscular Hgb 25.7 pg (27.0-32.0); Mean Corpuscular Volume 85.6 fL (81-99); Platelet Count 337 K/mm3 (150-450); RBC Distribution Width CV 15.6 % (11.6-14.6); RBC Distribution Width SD 49.1 fl (35.1-43.9); Red Blood Count 3.74 M/mm3 (4.2-5.4)
[2024-05-12] MEDS: Vancomycin HCl 1,750 MG in 0.9% Normal Saline (500mL Bag) 500 ML 250 MG IV ×2 (07:51→20:38)
[2024-05-12] MEDS: Pantoprazole Sodium 20 MG Tablet PO ×2 (08:01→21:00)
[2024-05-12] MEDS: Folic Acid 1 MG Tablet PO (08:01)
[2024-05-12] MEDS: Cholecalciferol (Vit D3) 125 MCG CAPSULE (5,000 UNITS) PO (08:01)
[2024-05-12] MEDS: Polyethylene Glycol 3350 17 GM PACKET PO ×2 (08:01→20:59)
[2024-05-12] MEDS: Senna/Docusate Sodium 1 Tablet 2 TABLET PO ×2 (08:01→20:59)
[2024-05-12 08:02] LABS: Anion Gap 5 (5-15); BUN 16 mg/dL (7-18); BUN/Creat Ratio 22.3 RATIO (10-20); Calcium,Total 9.1 mg/dL (8.5-10.1); Chloride 104 mmol/L (98-107); Creatinine, Serum 0.72 mg/dL (0.55-1.02); EST Glomerular Filtration Rate 86 mL/min (>60); Est Glom Filt Rate - Afr Amer 104 mL/min (>60); Estimated Creatinine Clearance 86.72 ml/min; Glucose 172 mg/dL (74-106); Potassium 4.3 mmol/L (3.5-5.1); Sodium Level 137 mmol/L (136-145)
--- NOTE | 2024-05-12 08:19 | CASEMGMT ---
Social Work- SW has directives on chart naming son, daughter, spouse as agents. EMMA Albarran
--- NOTE | 2024-05-12 08:28 | PCM.PN.ORT ---
Subjective Subjective The patient was sitting in bed upon examination. Patient denies any chest pain, shortness of breath, dizziness, lightheadedness, nausea or vomiting, or calf pain. Pain is controlled on medications. No adverse overnight events. Patient has had some spasms in her left hip muscles that she has taken some muscle relaxers which has been helpful. Wound nurse is currently consulted and placement of wound VAC will occur this morning. Infectious disease is also currently on board and we appreciate recommendations with antibiotics. She currently does have a PICC line. Objective Data Objective Data Vital Signs: Vital Signs Temp Pulse Resp BP Pulse Ox O2 Del Method O2 Flow Rate 98.1 F 70 18 89/56 L 95 Room Air 2 05/12/24 08:00 05/12/24 08:00 05/12/24 08:00 05/12/24 08:00 05/12/24 08:00 05/12/24 08:00 05/12/24 03:18 Oxygen Flow Rate (L/min) 2 Oxygen Delivery Method Room Air Weight: 106.141 kg Body Mass Index (BMI) 36.6 Intake & Output: Intake and Output for Last 24 Hours 05/10/24 05/11/24 05/12/24 23:59 23:59 23:59 Intake Total 2073 / 2273 310 / 310 Output Total 0 / 250 550 / 550 Balance 2073 / 2023 -240 / -240 Lab / Micro Data 05/12/24 07:00 05/12/24 07:00 Labs: Laboratory Results - last 24 hr 05/11/24 11:44: POC Glucose 114 H 05/11/24 20:35: Sodium 135 L, Potassium 4.7, Chloride 103, Carbon Dioxide 28.0, Anion Gap 4 L, BUN 17, Creatinine 0.83, Estim Creat Clear Calc 83.59, Est GFR (MDRD) Af Amer 88, Est GFR (MDRD) Non-Af 73, BUN/Creatinine Ratio 20.5 H, Glucose 207 H, Calcium 9.1 05/11/24 21:28: POC Glucose 216 H 05/12/24 07:00: WBC 13.0 H, RBC 3.74 L, Hgb 9.6 L, Hct 32.0 L, MCV 85.6, MCH 25.7 L, MCHC 30.0 L, RDW Std Deviation 49.1 H, RDW Coeff of Tenisha 15.6 H, Plt Count 337, MPV 10.0, Sodium 137, Potassium 4.3, Chloride 104, Carbon Dioxide 28.0, Anion Gap 5, BUN 16, Creatinine 0.72, Estim Creat Clear Calc 86.72, Est GFR (MDRD) Af Amer 104, Est GFR (MDRD) Non-Af 86, BUN/Creatinine Ratio 22.3 H, Glucose 172 H, Calcium 9.1 Micro: Microbiology 05/11/24 15:32 Tissue - Hip Wound Culture - Preliminary Gram negative ana Radiography Diagnostic Testing: Radiology Impression Hip X-Ray 05/11/24 15:55 IMPRESSION: Stable examination. No acute bony abnormalities. Electronically Signed: Santiago Dennis MD at 17:21 EDT , Physical Exam Narrative Vital signs stable and afebrile. Patient has had some lower blood pressure but currently is asymptomatic. Left hip is soft and supple SCDs and CAROLINE hose are in place Patient is able to plantarflex and dorsiflex actively. Sensation is intact to light touch to saphenous, sural, superficial and deep peroneal, and tibial distribution. Dressing is clean dry and intact. Negative Homans bilaterally, negative signs and symptoms of DVT. Const alert, oriented x3 and no apparent distress Assessment & Plan Assessment/Plan (1) Postoperative wound dehiscence: PLAN: 1. S/P irrigation debridement left hip with excision sinus tract x 2 with femoral head component revision of the articulating partial hip placement antibiotic spacer POD #1 2. Continue Pain Medications: Tylenol and oxycodone 3. DVT Prophylaxis: Patient is currently on Xarelto 10 mg once daily for 2 weeks postoperatively for DVT prophylaxis. After 2 weeks patient will switch over to aspirin 81 mg twice daily for an additional 2 weeks 4. PT/OT: Patient will be 50% partial weightbearing left lower extremity with use of walker 5. H & H: 9.6/32.0, asymptomatic. Patient has been using ferrous sulfate and folic acid as she has been dealing with some postoperative anemia. Preoperatively hemoglobin/hematocrit was 11.7/40.0 and currently 9.6/32.0. She has had some soft blood pressure readings but currently is asymptomatic with no dizziness or lightheadedness. Will repeat lab work tomorrow 6. Consultation infectious disease: Patient is currently on Ancef and vancomycin while following cultures. She currently has a PICC line. Appreciate recommendations from infectious disease for discharge with antibiotics. 7. Complex wound closure: Patient will have wound VAC placed today by the wound nurse. Plan will be for changes twice weekly with wound VAC settings at 75 mmHg continuous setting. 8. Encouraged Incentive Spirometry 9. Patient is aware of postoperative constipation that can occur from 1-3 days postoperatively. Will continue with senna 2 tablets twice daily until first bowel movement. Patient was advised if not having a bowel movement after day 3 she is to contact orthopedics so appropriate change can be made. Patient voiced understanding. 10. Continue postoperative medical treatment per medicine 11. Disposition: We are currently awaiting on cultures for appropriate antibiotics. Appreciate recommendations from infectious disease with discharge planning. Case management will be on board for appropriate discharge planning as well. Patient will require wound VAC for the left hip incision which will be placed this morning. We will continue to follow the patient while in the hospital and repeat lab tomorrow. Patient will require postoperative follow-ups with infectious disease. I have reviewed the [place] Automated Rx Reporting System (OARRS) report for this patient for refill pattern and other prescriber involvement as part of the appropriate surveillance for the provision of acute and chronic controlled medications. The report was requested and reviewed on the date of this entry and was considered in the prescribing process. This dictation was created using voice recognition software. Phonetic and/or grammatical errors may exist. (2) Prosthetic joint infection of left hip: QUALIFIERS: Encounter type: initial encounter Qualified Code(s): T84.52XA - Infection and inflammatory reaction due to internal left hip prosthesis, initial encounter
[2024-05-12] MEDS: 0.9% Saline Lock 10 ML Syringe IV ×2 (08:44→13:44)
--- NOTE | 2024-05-12 09:27 | CASEMGMT ---
Addendum entered by Lizzy Pendleton 05/12/24 10:28: Spoke with ID, plan to write rx for atb tomorrow for homegoing on . TC to [facility], spoke with Eleonora, she is aware plan is for dc on with resumption of SN and adding PT and OT. Pt is getting cefazolin 2 grams IV push 3x/day at home now per Eleonora. PEEWEE AMBRIZ to coordinate tomorrow with [facility] if atb changes and when SN needed should administration type change from push. Original Note: PEEWEE AMBRIZ Assessment: Face to Face with pt for initial transition planning/care coordination assessment. PEEWEE AMBRIZ introduced self and role at [facility], pt voices understanding and consents to assessment. Pt is A&O x4 and answers all questions appropriately at this time. Pt lying in bed in no distress. Care providers, pharmacy, and demographics verified/updated. Admitting Dx: MIRA revision Strata Score: 2 PCP:Damion Specialists:antony Cary; RAJEEV Quiroga Preferred Pharmacy: [facility] Insurance: MMO, MCR A Prescription Benefit: yes LNOK: Lj De Souza, Living Arrangements: Pt lives with in a single story home with a ramp to enter. Pt reports her assists with all ADL and IADLs. Pt denies concerns at home. Transportation: Pt transports pt to medical appts. DME:walker, reachers, w/c, toilet handrails HHC/SNF: [facility] is active with SN, denies SNF stays Pt states no concerns with going home at time of dc. Pt has not yet worked with therapy. Pt is doing IV infusions at home with [employer] being the infusion company and [facility] performing labs and picc dressing changes and wound vac. Pt would like all of this to continue and denies need for a list of other options for [facility]. Pt states no further concerns/needs. CM to follow. Advised pt to ask CM if any further question/concerns/needs arise, voices understanding. Pt Goal: Home with [facility] resuming and adding therapy Plan: Home with [facility] resuming and adding therapy, follow for change in IV atb. Radha VIDES CM
--- NOTE | 2024-05-12 09:34 | WOUNDNOTE ---
wound photo: left hip
--- NOTE | 2024-05-12 10:34 | CON.PCM.ID_ITS ---
Assessment & Plan Assessment/Plan (1) Prosthetic joint infection of left hip: QUALIFIERS: Encounter type: initial encounter Qualified Code(s): T84.52XA - Infection and inflammatory reaction due to internal left hip prosthesis, initial encounter PLAN: admitted in February with L hip PJI. Had outpt cx with MSSA. On po doxy prior to being taken to OR 03/16/[address] Cary for I&D and spacer placement. Surg cx neg at that time. Discharged from here with single lumen picc and 6 weeks iv cefazolin, stop date 04/27/24 with weekly labs. Course was extended due to ongoing drainage and sinus tracts. Taken back to OR 05/11/[address] Cary for I&D, no deeper involvement seen. Now surg cx x2 with GNR. On vanc/cefazolin, will change to vanc/zosyn. Will follow, thank you HPI Consult Data Date of Consult: 05/12/24 HPI Narrative Reason for Consultation: PJI HPI Narrative: JULIANNE CHUNG, is a 64 F who was admitted in February with L hip PJI. Had outpt cx with MSSA. On po doxy prior to being taken to OR 03/16/[address] Cary for I&D and spacer placement. Surg cx neg at that time. Discharged from here with single lumen picc and 6 weeks iv cefazolin, stop date 04/27/24 with weekly labs. Course was extended due to ongoing drainage and sinus tracts. Had ongoing pain in hip, no redness, no n/v/d, no issues with picc. Taken back to OR 05/11/[address] Cary for I&D. Now c/o muscle spasms, otherwise feeling ok. Full ROS performed and neg except as noted above. [facility] Medical History PICC (peripherally inserted central catheter) in place Uses wheelchair Walker as ambulation aid Wears hearing aid Wears glasses Post-menopausal Cancer Depression Anxiety Open wound Low iron High cholesterol Restless legs Dietary restriction History of ulceration Gastric reflux Former smoker Shortness of breath on exertion Leg cramps History of pain when walking History of edema Osteoporosis Drainage from surgical wound Closed fracture of left hip Hypertension Rheumatoid arthritis Sjogrens syndrome Home Medications ?Medication ?Instructions ?Recorded ?Last Taken ?Type atenolol 25 mg tablet 25 mg PO DAILY BP 12/28/23 05/11/24 08:00 History eszopiclone 2 mg tablet 2 mg PO QHS SLEEP 12/28/23 03/15/24 History levothyroxine 137 mcg tablet 137 mcg PO DAILY THYROID 12/28/23 05/11/24 07:30 History metformin 500 mg tablet,extended 500 mg PO BID DIABETES 12/28/23 03/15/24 History release 24 hr omeprazole 20 mg capsule,delayed 20 mg PO BID GERD 12/28/23 03/16/24 History release simvastatin 40 mg tablet 40 mg PO QHS CHOLESTEROL 12/28/23 03/15/24 History triamterene 37.5 1 cap PO DAILY BP 12/28/23 03/15/24 History mg-hydrochlorothiazide 25 mg capsule celecoxib 200 mg capsule 200 mg PO DAILY ARTHRITIS 03/05/24 03/02/24 History polyethylene glycol 3350 17 17 g PO BID constipation 03/05/24 Unknown History gram/dose oral powder (Gavilax) semaglutide 1 mg/dose (4 mg/3 mL) 1 mg subcut SA DIABETES 03/05/24 05/02/24 History subcutaneous pen injector (Ozempic) cefazolin 2 gram intravenous 2 g IV Q8H 40 days 03/17/24 Unknown Rx solution acetaminophen 500 mg tablet 1,000 mg (2 x 500 mg) PO Q8 #0 tabs 03/18/24 Unknown Rx ferrous sulfate 325 mg (65 mg 325 mg PO 1200,1700 21 days #42 03/18/24 Unknown Rx iron) tablet (FeroSul) tabs folic acid 1 mg tablet 1 mg PO BREAKFAST 21 days #21 tabs 03/18/24 Unknown Rx oxycodone 5 mg tablet 5 - 10 mg (1 - 2 x 5 mg) PO Q4H 03/18/24 Unknown Rx PRN PRN Pain Score 4-10 7 days #52 tabs sennosides 8.6 mg-docusate sodium 2 tab PO BID 5 days #20 tabs 03/18/24 Unknown Rx 50 mg tablet (Stool Softener-Stimulant Laxative) sertraline 25 mg tablet 25 mg PO QHS 05/07/24 Unknown History cholecalciferol (vitamin D3) 125 5,000 unit PO DAILY 05/11/24 Unknown History mcg (5,000 unit) tablet cyclobenzaprine 10 mg tablet 10 mg PO QHS MUSCLE SPASMS 05/11/24 Unknown History Allergy/AdvReac Type Severity Reaction Status Date / Time butorphanol (From Stadol) Allergy Intermediate SOB Verified 05/11/24 12:04 hydrocodone (From Vicodin) Allergy Intermediate SOB Verified 05/11/24 12:04 Surgical History History of incision and drainage History of esophagogastroduodenoscopy (EGD) Hx of colonoscopy Hx of total knee arthroplasty Hx of right mastectomy Hx of tubal ligation History of Hx of total hip arthroplasty H/O thyroidectomy Social History household members: spouse Smoking Status: Former smoker Physical Exam Const alert, oriented x3 and no apparent distress General Appearance: cooperative HEENT normocephalic and head/scalp atraumatic Eyes PERRL and EOMs intact bilaterally Neck supple and No nodes Resp normal air movement and clear to auscultation bilaterally Cardio regular rate and regular rhythm GI soft to palpation, non-tender and non-distended Skin no rashes or lesions noted Skin Narrative: L hip wound vac in place Neuro CN's II-XII intact bilaterally Lab / Micro Data Attestation: I reviewed the patient's lab results. 05/12/24 07:00 05/12/24 07:00 Labs: Laboratory Results - last 24 hr 05/11/24 11:44: POC Glucose 114 H 05/11/24 20:35: Sodium 135 L, Potassium 4.7, Chloride 103, Carbon Dioxide 28.0, Anion Gap 4 L, BUN 17, Creatinine 0.83, Estim Creat Clear Calc 83.59, Est GFR (MDRD) Af Amer 88, Est GFR (MDRD) Non-Af 73, BUN/Creatinine Ratio 20.5 H, G lucose 207 H, Calcium 9.1 05/11/24 21:28: POC Glucose 216 H 05/12/24 07:00: WBC 13.0 H, RBC 3.74 L, Hgb 9.6 L, Hct 32.0 L, MCV 85.6, MCH 25.7 L, MCHC 30.0 L, RDW Std Deviation 49.1 H, RDW Coeff of Tenisha 15.6 H, Plt Count 337, MPV 10.0, Sodium 137, Potassium 4.3, Chloride 104, Carbon Dioxide 28.0, Anion Gap 5, BUN 16, Creatinine 0.72, Estim Creat Clear Calc 86.72, Est GFR (MDRD) Af Amer 104, Est GFR (MDRD) Non-Af 86, BUN/Creatinine Ratio 22.3 H, G lucose 172 H, Calcium 9.1 Micro: Microbiology 05/11/24 15:32 Tissue - Hip Wound Culture - Preliminary Gram negative ana 05/11/24 15:32 Tissue - Hip Aceabular Membrane Wound Culture - Preliminary Gram negative ana Imaging Radiology Impression Hip X-Ray 05/11/24 15:55 IMPRESSION: Stable examination. No acute bony abnormalities. Electronically Signed: Santiago Dennis MD at 17:21 EDT Reading Location ID and State: [facility] / [place] Tel , Service support ,
[2024-05-12] MEDS: Piperacil/Tazobactam 3.375 GM in 0.9% Normal Saline (50mL MB+) 50 ML IV ×2 (11:10→23:23)
[2024-05-12] MEDS: Ferrous Sulfate 325 MG Tablet PO ×2 (11:46→17:16)
--- NOTE | 2024-05-12 15:48 | PN.HOSP_ITS ---
Reason for Visit Reason for Visit: Diagnoses Disruption of external operation (surgical) wound, not elsewhere classified, initial encounter (05/11/24) Infection and inflammatory reaction due to internal left hip prosthesis, initial encounter (05/11/24) Subjective Subjective Patient lying in bed, reports earlier should feel little bit dizzy when she stood up but is not feeling that way while sitting down, has pain when she is moving but finds the pain been somewhat helpful Objective Data Objective Data Vital Signs: Vital Signs Temp Pulse Resp BP Pulse Ox O2 Del Method O2 Flow Rate 98.1 F 70 18 100/48 L 98 Room Air 2 05/12/24 11:53 05/12/24 11:53 05/12/24 11:53 05/12/24 11:53 05/12/24 11:53 05/12/24 11:53 05/12/24 03:18 Oxygen Flow Rate (L/min) 2 Oxygen Delivery Method Room Air Weight: 106.141 kg Body Mass Index (BMI) 36.6 Intake & Output: Intake and Output for Last 24 Hours 05/10/24 05/11/24 05/12/24 23:59 23:59 23:59 Intake Total 4 / 2274 995 / 995 Output Total 0 / 250 550 / 550 Balance 2073 / 2023 445 / 445 Lab / Micro Data 05/12/24 07:00 05/12/24 07:00 Labs: Laboratory Results - last 24 hr 05/11/24 20:35: Sodium 135 L, Potassium 4.7, Chloride 103, Carbon Dioxide 28.0, Anion Gap 4 L, BUN 17, Creatinine 0.83, Estim Creat Clear Calc 83.59, Est GFR (MDRD) Af Amer 88, Est GFR (MDRD) Non-Af 73, BUN/Creatinine Ratio 20.5 H, G lucose 207 H, Calcium 9.1 05/11/24 21:28: POC Glucose 216 H 05/12/24 07:00: WBC 13.0 H, RBC 3.74 L, Hgb 9.6 L, Hct 32.0 L, MCV 85.6, MCH 25.7 L, MCHC 30.0 L, RDW Std Deviation 49.1 H, RDW Coeff of Tenisha 15.6 H, Plt Count 337, MPV 10.0, Sodium 137, Potassium 4.3, Chloride 104, Carbon Dioxide 28.0, Anion Gap 5, BUN 16, Creatinine 0.72, Estim Creat Clear Calc 86.72, Est GFR (MDRD) Af Amer 104, Est GFR (MDRD) Non-Af 86, BUN/Creatinine Ratio 22.3 H, G lucose 172 H, Calcium 9.1 Micro: Microbiology 05/11/24 15:32 Wound - Leg, Left Gram Stain - Final 05/11/24 15:32 Tissue - Hip Aceabular Membrane Gram Stain - Final 05/11/24 15:32 Tissue - Hip Aceabular Membrane Wound Culture - Preliminary Gram negative ana 05/11/24 15:32 Tissue - Hip Gram Stain - Final 05/11/24 15:32 Tissue - Hip Wound Culture - Preliminary Gram negative ana Radiography Diagnostic Testing: Radiology Impression Hip X-Ray 05/11/24 15:55 IMPRESSION: Stable examination. No acute bony abnormalities. Electronically Signed: Santiago Dennis MD at 17:21 EDT Reading Location ID and State: [address] [place] [address] Tel , Service support , Physical Exam Narrative General: Alert, oriented, no apparent distress HEENT: Atraumatic, normocephalic Eyes: Anicteric, normal conjunctiva, extraocular movements grossly intact Neck: Supple Respiratory: Clear to auscultation bilaterally, normal respiratory effort Cardiovascular: Regular rate and rhythm GI: Soft, nontender, nondistended Extremities: No edema Musculoskeletal: Moving all extremities Neuro: No overt focal neurological deficits Skin: No rashes appreciated, wound VAC in place left Psych: Cooperative Assessment & Plan Assessment/Plan (1) Prosthetic joint infection of left hip: QUALIFIERS: Encounter type: initial encounter Qualified Code(s): T84.52XA - Infection and inflammatory reaction due to internal left hip prosthesis, initial encounter PLAN: Plan This 64-year-old female being admitted for elective after recent 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 Patient having muscle spasm of left hip and buttock region. Started on low-dose Zanaflex 2 mg every 8 hourly. Continue pain control. Operative tissue cultures were sent. Patient has PICC line over left arm, no signs of DVT. ID is consulted. On cefazolin 2 g IV every 8 hourly. On February 04, 2024 wound culture showed MSSA. But tissue culture from 03/16/2024 does not show any organism. AFB and fungal culture negative. -05/12: Cultures thus far growing gram-negative rods, patient on vancomycin and Zosyn, further cultures pending, wound VAC in place. ID managing antibiotics. # Anemia -Hemoglobin on 04/1511.7, postop hemoglobin 9.6 -Repeat in the a.m. -Continue iron supplementation -Patient on Xarelto for DVT prophylaxis, no evidence of ongoing blood loss #Hypertension -Blood pressure 109/50. Hold antihypertensive medications. Patient on atenolol and triamterene/HCTZ with holding. -05/12: Blood pressure this a.m. down to 83/42 and patient was dizzy when she stood up. Suspect this is in part due to combination of tizanidine with pain medication in setting of chronic blood pressure medications and patient also takes Ambien nightly. Holding home blood pressure medications, may need to DC tizanidine if blood pressure remains low and patient becomes symptomatic. Blood pressure is improving throughout the day so we will continue at this time Chronic medical problems: #GERD -Continue PPI #Hypothyroidism -Continue Synthroid #Type 2 diabetes mellitus -Accu-Chek before meals and at bedtime with Humalog sliding scale coverage and hypoglycemia protocol. Last glucose 163 and A1c 5.9% on 05/07/2024. DVT prophylaxis: Patient on rivaroxaban 10 mg daily. Time spent in the patient's overall evaluation,decision-making process, review of diagnostic data, adjustment of management, discussion with other providers, nursing nursing and ancillary staff involved in patient's care documentation, 30 minutes Charges/Coding Visit Charges Inpatient E&M: 16868 [facility] Hosp L1
[2024-05-12 16:54] LABS: Bedside Glucose 172 mg/dL (74-106)
[2024-05-12] MEDS: Glucerna Shake 120 ML LIQUID PO ×2 (17:16→21:07)
[2024-05-12 17:28] LABS: Bedside Glucose 193 mg/dL (74-106)
[2024-05-12] MEDS: Atorvastatin Calcium 20 MG Tablet PO (21:00)
[2024-05-12] MEDS: Sertraline 50 MG Tablet 25 MG PO (21:00)
[2024-05-12] MEDS: Zolpidem Tartrate 5 MG Tablet PO (21:08)
[2024-05-12 21:36] LABS: Bedside Glucose 158 mg/dL (74-106)
[2024-05-12 21:36] LABS: Bedside Glucose 298 mg/dL (74-106)
[2024-05-13] VITALS (7 sets, daily range): BP systolic 106–136; BP diastolic 52–73; PULSE 62–88; RESP 16–18; TEMP 36.6–37.4; O2SAT 94–98
[2024-05-13] MEDS: Levothyroxine 137 MCG Tablet PO (05:10)
[2024-05-13] MEDS: Piperacil/Tazobactam 3.375 GM in 0.9% Normal Saline (50mL MB+) 50 ML IV (05:10)
[2024-05-13] MEDS: Rivaroxaban 10 MG Tablet PO (05:11)
[2024-05-13] MEDS: Acetaminophen 500 MG Tablet 1000 MG PO ×3 (05:11→22:32)
[2024-05-13] MEDS: Ketorolac 15 MG/ML Vial IV ×3 (05:48→22:33)
[2024-05-13] MEDS: oxyCODONE 5 MG Tablet PO ×3 (06:57→19:08)
[2024-05-13 07:12] LABS: Bedside Glucose 128 mg/dL (74-106)
--- NOTE | 2024-05-13 07:41 | PN.HOSP_ITS ---
Reason for Visit Reason for Visit: Diagnoses Disruption of external operation (surgical) wound, not elsewhere classified, initial encounter (05/11/24) Infection and inflammatory reaction due to internal left hip prosthesis, initial encounter (05/11/24) Subjective Subjective Patient is a 64-year-old female being admitted for elective after Irrigation debridement left hip with excision sinus tract x 2 with femoral head component revision of the articulating partial hip placement antibiotic spacer recent prosthetic joint infection of left hip Objective Data Objective Data Vital Signs: Vital Signs Temp Pulse Resp BP Pulse Ox O2 Del Method O2 Flow Rate 98 F 78 16 106/52 L 97 Room Air 2 05/13/24 05:15 05/13/24 05:15 05/13/24 05:15 05/13/24 05:15 05/13/24 05:15 05/13/24 05:15 05/12/24 03:18 Oxygen Flow Rate (L/min) 2 Oxygen Delivery Method Room Air Weight: 106.141 kg Body Mass Index (BMI) 36.6 Intake & Output: Intake and Output for Last 24 Hours 05/11/24 05/12/24 05/13/24 23:59 23:59 23:59 Intake Total 2073 / 2273 1650 / 1950 350 / 350 Output Total 0 / 250 950 / 1150 500 / 500 Balance 2073 700 / 800 -150 / -150 Lab / Micro Data 05/13/24 08:05 05/13/24 08:05 Labs: Laboratory Results - last 24 hr 05/12/24 06:46: POC Glucose 158 H 05/12/24 07:00: Sodium 137, Potassium 4.3, Chloride 104, Carbon Dioxide 28.0, Anion Gap 5, BUN 16, Creatinine 0.72, Estim Creat Clear Calc 86.72, Est GFR (MDRD) Af Amer 104, Est GFR (MDRD) Non-Af 86, BUN/Creatinine Ratio 22.3 H, G lucose 172 H, Calcium 9.1 05/12/24 11:29: POC Glucose 172 H 05/12/24 17:09: POC Glucose 193 H 05/12/24 20:55: POC Glucose 298 H 05/13/24 06:53: POC Glucose 128 H Micro: Microbiology 05/11/24 15:32 Wound - Leg, Left Gram Stain - Final 05/11/24 15:32 Tissue - Hip Aceabular Membrane Gram Stain - Final 05/11/24 15:32 Tissue - Hip Aceabular Membrane Wound Culture - Preliminary Gram negative ana 05/11/24 15:32 Tissue - Hip Gram Stain - Final 05/11/24 15:32 Tissue - Hip Wound Culture - Preliminary Gram negative ana Physical Exam Narrative GENERAL: cooperative HEENT: Atraumatic; normocephalic EYES; Anicteric, Normal Conjunctiva NECK; supple, normal thyroid, RESPIRATORY: Diminished to auscultation CARDIOVASCULAR: Regular S1 S2, GI: soft, normoactive bowel sounds, : No Renal angle tenderness; EXTREMITIES: Wound VAC in place MUSCULOSKELETAL: no muscle wasting NEURO: Awake; no lateralizing signs. SKIN: No Rash PSYCH; Flat affect Assessment & Plan Assessment/Plan (1) Prosthetic joint infection of left hip: QUALIFIERS: Encounter type: initial encounter Qualified Code(s): T84.52XA - Infection and inflammatory reaction due to internal left hip prosthesis, initial encounter PLAN: Plan Patient is a 64-year-old female being admitted for elective after Irrigation debridement left hip with excision sinus tract x 2 with femoral head component revision of the articulating partial hip placement antibiotic spacer recent prosthetic joint infection of left hip 1. Status post irrigation debridement left hip with excision sinus tract x 2 with femoral head component revision of the articulating partial hip placement antibiotic spacer recent prosthetic joint infection of left hip. Procedure was performed on 05/11/2024. Blood tested for positive for Serratia patient is on vancomycin and Zosyn with ID consultation obtained on admission. Subsequent adjustment of antibiotic therapy deferred to ID 2. Anemia ? Secondary to chronic disorder monitoring H&H and transfuse if patient becomes symptomatic or hemoglobin falls below 7 3. Essential hypertension As patient blood pressure was low on admission antihypertensives held with subsequent monitoring of vitals ordered 4. Class II obesity with BMI of 37 ? Complicating care weight loss advised patient is on Ozempic 5. GERD ? Patient is on PPI 6. Hypothyroidism ? Patient is on levothyroxine home dose continued 7. Diabetes mellitus type II -patient's oral hypoglycemics held. Placed on , Accu-Cheks a.c. and at bedtime and covered with sliding scale insulin 8. Depression ? Patient is on sertraline 9. History of breast cancer ? Status post partial right breast lumpectomy with lymph node dissection. Patient has remained in remission 10. Generalized osteoarthritis ? With history of bilateral knee replacement 11. DVT prophylaxis ? Rivaroxaban Time spent in the patient's overall evaluation,decision-making process, review of diagnostic data, adjustment of management, discussion with other providers, nursing nursing and ancillary staff involved in patient's care documentation, 38 minutes Charges/Coding Visit Charges Inpatient E&M: 44667 Subs Hosp L2
[2024-05-13 08:22] LABS: Hematocrit 30.3 % (37-47); Mean Corp Hgb Conc 29.7 g/dL (32-36); Mean Corpuscular Hgb 25.4 pg (27.0-32.0); Mean Corpuscular Volume 85.6 fL (81-99); Platelet Count 285 K/mm3 (150-450); RBC Distribution Width CV 15.9 % (11.6-14.6); RBC Distribution Width SD 50.4 fl (35.1-43.9); Red Blood Count 3.54 M/mm3 (4.2-5.4); White Blood Count 9.7 K/mm3 (4.4-11.0)
[2024-05-13] MEDS: Polyethylene Glycol 3350 17 GM PACKET PO (08:31)
[2024-05-13] MEDS: Cholecalciferol (Vit D3) 125 MCG CAPSULE (5,000 UNITS) PO (08:31)
[2024-05-13] MEDS: Senna/Docusate Sodium 1 Tablet 2 TABLET PO (08:31)
[2024-05-13] MEDS: Folic Acid 1 MG Tablet PO (08:31)
[2024-05-13] MEDS: Pantoprazole Sodium 20 MG Tablet PO ×2 (08:31→22:31)
[2024-05-13] MEDS: Celecoxib 200 MG Capsule PO (08:31)
[2024-05-13] MEDS: Glucerna Shake 120 ML LIQUID PO ×2 (08:38→22:32)
[2024-05-13 08:50] LABS: Vancomycin, Trough Level 15.1 ug/mL (5.0-15.0)
[2024-05-13 08:56] LABS: Anion Gap 5 (5-15); BUN 15 mg/dL (7-18); BUN/Creat Ratio 20.7 RATIO (10-20); Calcium,Total 8.9 mg/dL (8.5-10.1); Chloride 110 mmol/L (98-107); Creatinine, Serum 0.72 mg/dL (0.55-1.02); EST Glomerular Filtration Rate 86 mL/min (>60); Est Glom Filt Rate - Afr Amer 104 mL/min (>60); Estimated Creatinine Clearance 86.72 ml/min; Glucose 133 mg/dL (74-106); Potassium 4.3 mmol/L (3.5-5.1); Sodium Level 140 mmol/L (136-145)
--- NOTE | 2024-05-13 09:14 | PCM.RX.CS ---
Consult Antibiotic Management Pharmacy has been consulted to manage selected antibiotic: Vancomycin Type of Intervention Type of Consult: Follow-up Suspected Infection Suspected Infection: Skin/Soft tissue Prior Doses of Antibiotics Prior Doses of Antibiotics Received/Current Regimen: 1750mg iv q12h Labs Labs: Sodium 140 mmol/L (136-145) 05/13/24 08:05 Potassium 4.3 mmol/L (3.5-5.1) 05/13/24 08:05 Chloride 110 mmol/L (98-107) H 05/13/24 08:05 Carbon Dioxide 25.0 mmol/L (21.0-32.0) 05/13/24 08:05 Anion Gap 5 (5-15) 05/13/24 08:05 BUN 15 mg/dL (7-18) 05/13/24 08:05 Creatinine 0.72 mg/dL (0.55-1.02) 05/13/24 08:05 Est GFR (MDRD) Af Amer 104 mL/min (>60) 05/13/24 08:05 Est GFR (MDRD) Non-Af 86 mL/min (>60) 05/13/24 08:05 BUN/Creatinine Ratio 20.7 RATIO (10-20) H 05/13/24 08:05 Glucose 133 mg/dL (74-106) H 05/13/24 08:05 Vancomycin Trough 15.1 ug/mL (5.0-15.0) H 05/13/24 08:02 Microbiology Microbiology: Microbiology 05/11/24 15:32 Tissue - Hip Aceabular Membrane Gram Stain - Final 05/11/24 15:32 Tissue - Hip Aceabular Membrane Wound Culture - Final Serratia marcescens 05/11/24 15:32 Tissue - Hip Gram Stain - Final 05/11/24 15:32 Tissue - Hip Wound Culture - Final Serratia marcescens 05/11/24 15:32 Wound - Leg, Left Gram Stain - Final Dosing Weight Weight used for dosin kg Estimated Creatinine Clearance Estimated Creatinine Clearance: 87ml/min Pharmacy Plan for Drug Dosing Pharmacy Plan for Drug Dosing: Trough today 15.1 and in therapeutic range of 15-20mcg/ml. Will continue same dose and get repeat trough before another 4th dose per protocol. Pharmacy Service will continue to monitor and adjust dosing as required. Follow-Up Labs Follow-Up Labs: Trough: Vancomycin (8.. 1929)
--- NOTE | 2024-05-13 09:32 | PN.ORTHO_ITS ---
Subjective Subjective The patient was sitting in bed upon examination. Patient denies any chest pain, shortness of breath, dizziness, lightheadedness, nausea or vomiting, or calf pain. Pain is controlled on medications. No adverse overnight events. Patient states the spasms are improving and she did have some Toradol which was helpful. Patient did struggle with some physical therapy yesterday and did require max assist x 2. The plan is for patient to do home health with IV antibiotics x 6 weeks. Case management is currently on board for setting up home health. Infectious disease is currently on board. Antibiotics have been changed as 2 of the 3 cultures grew out gram-negative ana. Objective Data Objective Data Vital Signs: Vital Signs Temp Pulse Resp BP Pulse Ox O2 Del Method O2 Flow Rate 98.6 F 72 16 122/72 H 96 Room Air 2 05/13/24 08:23 05/13/24 08:23 05/13/24 08:23 05/13/24 08:23 05/13/24 08:23 05/13/24 08:23 05/12/24 03:18 Oxygen Flow Rate (L/min) 2 Oxygen Delivery Method Room Air Weight: 106.141 kg Body Mass Index (BMI) 36.6 Intake & Output: Intake and Output for Last 24 Hours 05/11/24 05/12/24 05/13/24 23:59 23:59 23:59 Intake Total 4 / 2274 1650 / 1950 350 / 350 Output Total 0 / 250 950 / 1150 500 / 500 Balance 2073 700 / 800 -150 / -150 Lab / Micro Data 05/13/24 08:05 05/13/24 08:05 Labs: Laboratory Results - last 24 hr 05/12/24 06:46: POC Glucose 158 H 05/12/24 11:29: POC Glucose 172 H 05/12/24 17:09: POC Glucose 193 H 05/12/24 20:55: POC Glucose 298 H 05/13/24 06:53: POC Glucose 128 H 05/13/24 08:02: Vancomycin Trough 15.1 H 05/13/24 08:05: WBC 9.7, RBC 3.54 L, Hgb 9.0 L, Hct 30.3 L, MCV 85.6, MCH 25.4 L , MCHC 29.7 L, RDW Std Deviation 50.4 H, RDW Coeff of Tenisha 15.9 H, Plt Count 285, MPV 10.0, Sodium 140, Potassium 4.3, Chloride 110 H, Carbon Dioxide 25.0, Anion Gap 5, BUN 15, Creatinine 0.72, Estim Creat Clear Calc 86.72, Est GFR (MDRD) Af Amer 104, Est GFR (MDRD) Non-Af 86, BUN/Creatinine Ratio 20.7 H, Glucose 133 H, Calcium 8.9 Micro: Microbiology 05/11/24 15:32 Tissue - Hip Aceabular Membrane Gram Stain - Final 05/11/24 15:32 Tissue - Hip Aceabular Membrane Wound Culture - Final Serratia marcescens 05/11/24 15:32 Tissue - Hip Gram Stain - Final 05/11/24 15:32 Tissue - Hip Wound Culture - Final Serratia marcescens 05/11/24 15:32 Wound - Leg, Left Gram Stain - Final Physical Exam Narrative Vital signs stable and afebrile. SCDs and CAROLINE hose are in place bilaterally Patient is able to plantarflex and dorsiflex actively. Sensation is intact to light touch to saphenous, sural, superficial and deep peroneal, and tibial distribution. Wound VAC in place with no drainage in canister or tubing Negative Homans bilaterally, negative signs and symptoms of DVT. Const alert, oriented x3 and no apparent distress Assessment & Plan Assessment/Plan (1) Postoperative wound dehiscence: PLAN: 1. S/P irrigation debridement left hip with excision sinus tract x 2 with femoral head component revision of the articulating partial hip placement antibiotic spacer POD #2 2. Continue Pain Medications: Tylenol and oxycodone 3. DVT Prophylaxis: Patient is currently on Xarelto 10 mg once daily for 2 weeks postoperatively for DVT prophylaxis. After 2 weeks patient will switch over to aspirin 81 mg twice daily for an additional 2 weeks 4. PT/OT: Patient will be 50% partial weightbearing left lower extremity with use of walker 5. H & H: 9.0/30.3, asymptomatic. Patient has been using ferrous sulfate and folic acid as she has been dealing with some postoperative anemia. Preoperatively hemoglobin/hematocrit was 11.7/40.0 and currently 9.6/32.0. Blood pressure has improved. Will repeat CBC tomorrow 6. Consultation infectious disease: Patient had 2 of 3 cultures grow out gram- negative ana Serratia marcescens on acetabular membrane and femoral head membrane. Yesterday infectious disease did change antibiotics to vancomycin and Zosyn. Appreciate final recommendations from infectious disease prior to discharge. Patient will require follow-up with infectious disease as well as recommended lab work. 7. Complex wound closure: Wound VAC was placed yesterday. There is no output today. Plan will be for changes twice weekly with wound VAC settings at 75 mmHg continuous setting. 8. Encouraged Incentive Spirometry 9. Patient is aware of postoperative constipation that can occur from 1-3 days postoperatively. Will continue with senna 2 tablets twice daily until first bowel movement. Patient was advised if not having a bowel movement after day 3 she is to contact orthopedics so appropriate change can be made. Patient voiced understanding. 10. Continue postoperative medical treatment per medicine 11. Disposition: At this time we will continue to follow cultures. Appreciate final recommendations from infectious disease for discharge planning. I would like patient to continue to work with physical therapy. She did struggle yesterday in which she required max assist x 2. Plan will be for discharge home with home health and family assisting with IV antibiotic infusions. Patient will continue with current medications above. Plan will be for probable discharge tomorrow as long as patient is medically stable and recommendations from infectious disease has been established. I have reviewed the [place] Automated Rx Reporting System (OARRS) report for this patient for refill pattern and other prescriber involvement as part of the appropriate surveillance for the provision of acute and chronic controlled medications. The report was requested and reviewed on the date of this entry and was considered in the prescribing process. This dictation was created using voice recognition software. Phonetic and/or grammatical errors may exist. (2) Prosthetic joint infection of left hip: QUALIFIERS: Encounter type: initial encounter Qualified Code(s): T84.52XA - Infection and inflammatory reaction due to internal left hip prosthesis, initial encounter
[2024-05-13] MEDS: Vancomycin HCl 1,750 MG in 0.9% Normal Saline (500mL Bag) 500 ML 250 MG IV (10:22)
[2024-05-13] MEDS: Ferrous Sulfate 325 MG Tablet PO ×2 (11:46→17:31)
[2024-05-13] MEDS: Insulin Lispro 100 UNIT/ML INSULN.PEN SC ×3 (11:50→22:37)
[2024-05-13 12:15] LABS: Bedside Glucose 237 mg/dL (74-106)
[2024-05-13] MEDS: Ceftriaxone 2 GM in 0.9% Normal Saline (50mL MB+) 50 ML IV (12:59)
--- NOTE | 2024-05-13 13:25 | PCM.PN.ID ---
Physical Exam Narrative Feeling ok, pain controlled better today, no fever, no n/v Const alert and no apparent distress Resp normal air movement and clear to auscultation bilaterally Cardio regular rate and regular rhythm GI soft to palpation, non-tender and non-distended Skin no rashes or lesions noted Skin Narrative: wound vac in place ID ID: Route of nutrition/ use of supplements: [] Nutritional Intake: [] IV Site: [] Zamora Catheter: [] Assessment & Plan Assessment/Plan (1) Prosthetic joint infection of left hip: QUALIFIERS: Encounter type: initial encounter Qualified Code(s): T84.52XA - Infection and inflammatory reaction due to internal left hip prosthesis, initial encounter PLAN: admitted in February with L hip PJI. Had outpt cx with MSSA. On po doxy prior to being taken to OR 03/16/[address] Cary for I&D and spacer placement. Surg cx neg at that time. Discharged from here with single lumen picc and 6 weeks iv cefazolin, stop date 04/27/24 with weekly labs. Course was extended due to ongoing drainage and sinus tracts. Taken back to OR 05/11/[address] Cary for I&D and revision of femoral head. Now surg cx x3 with GNR, identified in two samples as serratia. On vanc/zosyn, will narrow to ceftriaxone 2gm daily, plan on 6 week course. ID followup in 2 weeks. Will follow
[2024-05-13] MEDS: 0.9% Saline Lock 10 ML Syringe IV (15:07)
--- NOTE | 2024-05-13 15:09 | WOUNDNOTE ---
Home VAC approved.
--- NOTE | 2024-05-13 16:02 | CASEMGMT ---
Discharge Planning Clinicals sent to [facility] via [facility]. Jaqui Stephens DC Planning Asst.
[2024-05-13 16:40] LABS: Bedside Glucose 223 mg/dL (74-106)
--- NOTE | 2024-05-13 16:48 | CASEMGMT ---
Addendum entered by Etta Romeo 05/13/24 17:02: Per Nikole, wound nurse, wound vac has been approved. Original Note: PEEWEE AMBRIZ NOTE: Per Dr Quiroga, pt to discharge home on IV ceftriaxone daily. Script received and sent to [facility] via [employer] and also faxed to [facility]. Per Berta @ [facility], ceftriaxone is also given IVP for home administration. Taylor @ [facility] and Eleonora @ [facility] both aware plan is for pt to receive IV ceftriaxone tomorrow and anticipate discharge home tomorrow w/QUINTIN C on Saturday, 1st home dose of ceftriaxone will be due Saturday AM @ 1000. DC plan updated. PEEWEE AMBRIZ to room. Pt and aware of this plan as well. They deny having further discharge needs/concerns at this time. Kenia ELIZABETHN PEEWEE CM
--- NOTE | 2024-05-13 20:31 | EKG12_ITS ---
Test Reason : CP Blood Pressure : / mmHG Vent. Rate : 086 BPM Atrial Rate : 086 BPM P-R Int : 140 ms QRS Dur : 084 ms QT Int : 354 ms P-R-T Axes : -01 027 044 degrees QTc Int : 423 ms Normal sinus rhythm Low voltage QRS Borderline ECG When compared with ECG of 28-DEC-2023 16:37, No significant change was found Confirmed by JA KANG, SABINE ([id number]), mapping editor ILYA STOVER ([id number]) on 05/15/2024 7:21:08 AM Referred By: Man Cary Confirmed By:CLARIBEL PERES MD
[2024-05-13] MEDS: tiZANidine HCl 2 MG Tablet PO (20:56)
[2024-05-13] MEDS: Sertraline 50 MG Tablet 25 MG PO (22:31)
[2024-05-13] MEDS: Atorvastatin Calcium 20 MG Tablet PO (22:32)
[2024-05-13] MEDS: Zolpidem Tartrate 5 MG Tablet PO (22:32)
[2024-05-14 00:10] LABS: Bedside Glucose 283 mg/dL (74-106)
[2024-05-14 02:24] VITALS: BP 132/60; PULSE 95; RESP 20; TEMP 36.7; O2SAT 95
[2024-05-14] MEDS: oxyCODONE 5 MG Tablet PO ×2 (04:10→14:48)
[2024-05-14] MEDS: tiZANidine HCl 2 MG Tablet PO (04:15)
[2024-05-14] MEDS: Ketorolac 15 MG/ML Vial IV ×2 (04:16→11:55)
[2024-05-14] MEDS: 0.9% Normal Saline (250mL Bag) 250 ML 15 ML IV (04:18)
[2024-05-14 04:22] VITALS: BP 136/80; PULSE 85; RESP 18; TEMP 37.1; O2SAT 96
[2024-05-14] MEDS: Rivaroxaban 10 MG Tablet PO (04:28)
[2024-05-14] MEDS: Acetaminophen 500 MG Tablet 1000 MG PO ×2 (04:28→14:48)
[2024-05-14] MEDS: Levothyroxine 137 MCG Tablet PO (04:28)
[2024-05-14] MEDS: Insulin Lispro 100 UNIT/ML INSULN.PEN SC ×2 (07:00→11:14)
[2024-05-14 07:07] VITALS: TEMP 36.7
[2024-05-14 07:26] LABS: Bedside Glucose 155 mg/dL (74-106)
--- NOTE | 2024-05-14 07:27 | PN.HOSP_ITS ---
Reason for Visit Reason for Visit: Diagnoses Disruption of external operation (surgical) wound, not elsewhere classified, initial encounter (05/11/24) Infection and inflammatory reaction due to internal left hip prosthesis, initial encounter (05/11/24) Subjective Subjective Patient seen had a relatively uneventful night. ID was recommending discharging home with ceftriaxone for 6 weeks Objective Data Objective Data Vital Signs: Vital Signs Temp Pulse Resp BP Pulse Ox O2 Del Method O2 Flow Rate 98.1 F 85 18 136/80 H 96 Room Air 2 05/14/24 07:07 05/14/24 04:22 05/14/24 04:22 05/14/24 04:22 05/14/24 04:22 05/14/24 04:22 05/12/24 03:18 Oxygen Flow Rate (L/min) 2 Oxygen Delivery Method Room Air Weight: 106.141 kg Body Mass Index (BMI) 36.6 Intake & Output: Intake and Output for Last 24 Hours 05/12/24 05/13/24 05/14/24 23:59 23:59 23:59 Intake Total 1650 / 1950 1550.08 / 2150.08 600 / 600 Output Total 950 / 1150 500 / 500 Balance 700 / 800 1050.08 / 1650.08 600 / 600 Lab / Micro Data 05/13/24 08:05 05/13/24 08:05 Labs: Laboratory Results - last 24 hr 05/13/24 08:02: Vancomycin Trough 15.1 H 05/13/24 08:05: WBC 9.7, RBC 3.54 L, Hgb 9.0 L, Hct 30.3 L, MCV 85.6, MCH 25.4 L , MCHC 29.7 L, RDW Std Deviation 50.4 H, RDW Coeff of Tenisha 15.9 H, Plt Count 285, MPV 10.0, Sodium 140, Potassium 4.3, Chloride 110 H, Carbon Dioxide 25.0, Anion Gap 5, BUN 15, Creatinine 0.72, Estim Creat Clear Calc 86.72, Est GFR (MDRD) Af Amer 104, Est GFR (MDRD) Non-Af 86, BUN/Creatinine Ratio 20.7 H, Glucose 133 H, Calcium 8.9 05/13/24 11:48: POC Glucose 237 H 05/13/24 16:19: POC Glucose 223 H 05/13/24 22:36: POC Glucose 283 H 05/14/24 06:59: POC Glucose 155 H Micro: Microbiology 05/11/24 15:32 Tissue - Hip Aceabular Membrane Gram Stain - Final 05/11/24 15:32 Tissue - Hip Aceabular Membrane Wound Culture - Final Serratia marcescens 05/11/24 15:32 Tissue - Hip Aceabular Membrane Anaerobic Culture - Final No anaerobic bacteria isolated. 05/11/24 15:32 Tissue - Hip Gram Stain - Final 05/11/24 15:32 Tissue - Hip Wound Culture - Final Serratia marcescens 05/11/24 15:32 Tissue - Hip Anaerobic Culture - Final No anaerobic bacteria isolated. 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 SKIN: No Rash PSYCH; Flat affect Assessment & Plan Assessment/Plan (1) Prosthetic joint infection of left hip: QUALIFIERS: Encounter type: initial encounter Qualified Code(s): T84.52XA - Infection and inflammatory reaction due to internal left hip prosthesis, initial encounter PLAN: Plan Patient is a 64-year-old female being admitted for elective after Irrigation debridement left hip with excision sinus tract x 2 with femoral head component revision of the articulating partial hip placement antibiotic spacer recent prosthetic joint infection of left hip 1. Status post irrigation debridement left hip with excision sinus tract x 2 with femoral head component revision of the articulating partial hip placement antibiotic spacer recent prosthetic joint infection of left hip. -Procedure was performed on 05/11/2024. Blood tested for positive for Serratia patient is on vancomycin and Zosyn with ID consultation obtained on admission. Subsequent adjustment of antibiotic therapy deferred to ID ? 05/14/24. Patient was on vancomycin and Zosyn discontinued ID narrowed antibiotic therapy to ceftriaxone with plan for patient to be treated for total of 6 weeks. 2. Anemia ? Secondary to chronic disorder monitoring H&H and transfuse if patient becomes symptomatic or hemoglobin falls below 7 3. Essential hypertension As patient blood pressure was low on admission antihypertensives held with subsequent monitoring of vitals ordered 4. Class II obesity with BMI of 37 ? Complicating care weight loss advised patient is on Ozempic 5. GERD ? Patient is on PPI 6. Hypothyroidism ? Patient is on levothyroxine home dose continued 7. Diabetes mellitus type II -patient's oral hypoglycemics held. Placed on , Accu-Cheks a.c. and at bedtime and covered with sliding scale insulin 8. Depression ? Patient is on sertraline 9. History of breast cancer ? Status post partial right breast lumpectomy with lymph node dissection. Patient has remained in remission 10. Generalized osteoarthritis ? With history of bilateral knee replacement 11. DVT prophylaxis ? Rivaroxaban Time spent in the patient's overall evaluation,decision-making process, review of diagnostic data, adjustment of management, discussion with other providers, nursing nursing and ancillary staff involved in patient's care documentation, 38 minutes Charges/Coding Visit Charges Inpatient E&M: 13410 Subs Hosp L2
[2024-05-14 08:00] VITALS: BP 124/81; PULSE 75; RESP 18; TEMP 36.7; O2SAT 98
[2024-05-14] MEDS: Folic Acid 1 MG Tablet PO (08:07)
[2024-05-14] MEDS: Cholecalciferol (Vit D3) 125 MCG CAPSULE (5,000 UNITS) PO (08:07)
[2024-05-14] MEDS: Pantoprazole Sodium 20 MG Tablet PO (08:07)
[2024-05-14] MEDS: Celecoxib 200 MG Capsule PO (08:07)
[2024-05-14] MEDS: 0.9% Saline Lock 10 ML Syringe IV ×4 (08:42→14:48)
[2024-05-14 08:50] LABS: Absolute Lymphocyte Count 1.56 X10^3/uL (0.83-4.51); Absolute Neutrophil Count 6.4 X10^3/uL (2.0-7.7); Basophil# 0.03 X10^3/uL; Basophil% 0.3 % (0-1); Eosinophil# 0.34 X10^3/uL; Eosinophils% 3.7 % (0-5); Hematocrit 30.4 % (37-47); Hemoglobin 8.9 g/dL (12.0-15.0); Lymphocyte # 1.56 X10^3/ul (0.83-4.51); Mean Corp Hgb Conc 29.3 g/dL (32-36); Mean Corpuscular Hgb 25.1 pg (27.0-32.0); Mean Corpuscular Volume 85.6 fL (81-99); Mean Platelet Vol. 9.9 fl (6.2-12.0); Monocyte# 0.77 X10^3/uL; Monocyte% 8.4 % (0-10); NRBC Flagged by Analyzer 0 % (0-5); Neutrophil # 6.41 X10^3/uL (2.7-7.7); Neutrophil % 69.9 % (47-70); Platelet Count 286 K/mm3 (150-450); RBC Distribution Width CV 15.6 % (11.6-14.6); RBC Distribution Width SD 49.2 fl (35.1-43.9); Red Blood Count 3.55 M/mm3 (4.2-5.4); White Blood Count 9.2 K/mm3 (4.4-11.0)
[2024-05-14] MEDS: Glucerna Shake 120 ML LIQUID PO (09:07)
[2024-05-14] MEDS: Ceftriaxone 2 GM in 0.9% Normal Saline (50mL MB+) 50 ML IV (09:07)
[2024-05-14 09:15] LABS: Anion Gap 5 (5-15); BUN 11 mg/dL (7-18); Calcium,Total 8.9 mg/dL (8.5-10.1); Chloride 107 mmol/L (98-107); Creatinine, Serum 0.69 mg/dL (0.55-1.02); EST Glomerular Filtration Rate 91 mL/min (>60); Est Glom Filt Rate - Afr Amer 110 mL/min (>60); Estimated Creatinine Clearance 86.72 ml/min; Glucose 161 mg/dL (74-106); Magnesium 1.8 mg/dL (1.6-2.6); Phosphorus 2.9 mg/dL (2.5-4.9); Potassium 4.2 mmol/L (3.5-5.1); Sodium Level 138 mmol/L (136-145)
--- NOTE | 2024-05-14 10:54 | PCM.PN.ID ---
Physical Exam Narrative Feeling better, no fever, no n/v/d, pain improved Const alert and no apparent distress Resp normal air movement and clear to auscultation bilaterally Cardio regular rate and regular rhythm GI soft to palpation, non-tender and non-distended Skin no rashes or lesions noted ID ID: Route of nutrition/ use of supplements: [] Nutritional Intake: [] IV Site: [] Zamora Catheter: [] Assessment & Plan Assessment/Plan (1) Prosthetic joint infection of left hip: QUALIFIERS: Encounter type: initial encounter Qualified Code(s): T84.52XA - Infection and inflammatory reaction due to internal left hip prosthesis, initial encounter PLAN: admitted in February with L hip PJI. Had outpt cx with [facility]. On po doxy prior to being taken to OR 03/16/[address] Cary for I&D and spacer placement. Surg cx neg at that time. Discharged from here with single lumen picc and 6 weeks iv cefazolin, stop date 04/27/24 with weekly labs. Course was extended due to ongoing drainage and sinus tracts. Taken back to OR 05/11/[address] Cary for I&D and revision of femoral head. Now surg cx x3 with serratia. Cont ceftriaxone 2gm daily, plan on 6 week course with stop date 06/24/24 and weekly labs. ID followup in 2 weeks. Will follow
[2024-05-14] MEDS: Ferrous Sulfate 325 MG Tablet PO (11:14)
[2024-05-14 11:48] LABS: Bedside Glucose 189 mg/dL (74-106)
--- NOTE | 2024-05-14 12:01 | CASEMGMT ---
Addendum entered by Etta Romeo 05/14/24 14:24: Eleonora @ [facility] aware pt has wound vac, schedule is for change every Saturday and Saturday, and she is due for vac change tomorrow. Addendum entered by Etta Romeo 05/14/24 14:22: Xarelto has been e-scribed to [facility]. Call placed to [facility] pharmacy and they state there is no co-pay for this medication. Pt and made aware. They verify they have spoke w/[facility] and arrangements have been made for delivery this PM. They deny having further discharge needs/concerns. Original Note: PEEWEE AMBRIZ NOTE: New IV atb script received from Dr Quiroga for IV ceftriaxone Q 24 hrs x 39 days. Prior script was for same atb but for 14 days. New script faxed to [facility] and Eleonora verified she received it. New script also faxed to [facility] and sent via [facility] to [facility] and confirmation received from [facility] this was received. Eleonora @ [facility] aware pt is discharging home today. QUINTIN is tomorrow AM for 1st home dose IV ceftriaxone. Call placed to [facility] and spoke w/Taylor. She was made aware pt is being discharged today and QUINTIN w/[facility] will be tomorrow AM w/1st home dose IV ceftriaxone being due @ 10 AM. She states she will contact pt to coordinate delivery of IV atb's this PM. PEEWEE AMBRIZ to room. Pt and aware of above and voices understanding. They deny having other discharge needs/concerns. eKnia STOCK RN, CM
--- NOTE | 2024-05-14 12:18 | PCM.PN.ORT ---
Subjective Subjective The patient was sitting in bedside chair with present upon examination. Patient denies any chest pain, shortness of breath, dizziness, lightheadedness, nausea or vomiting, or calf pain. Pain is controlled on medications. No adverse overnight events. Patient states she did have some trouble last night with her pain trying to sleep. The pain eventually did get under better control. They have been using a muscle relaxer at times here. She quit taking the muscle relaxer at home as she was concerned with interaction from other medications. Patient has had some drop in her hemoglobin and which had similar pattern after her previous surgery. She is currently taking ferrous sulfate and folic acid. She has been in discussion with her PCP through [facility]. She also had Zoom appointments when she was at home from her previous postoperative follow-up care. Plan is for patient to go home today with home health. Infectious disease has established antibiotic plan including ceftriaxone for 6 weeks. She will require 2-week follow-up with infectious disease and weekly labs. Objective Data Objective Data Vital Signs: Vital Signs Temp Pulse Resp BP Pulse Ox O2 Del Method O2 Flow Rate 98.1 F 75 18 124/81 H 98 Room Air 2 05/14/24 08:00 05/14/24 08:00 05/14/24 08:00 05/14/24 08:00 05/14/24 08:00 05/14/24 08:17 05/12/24 03:18 Oxygen Flow Rate (L/min) 2 Oxygen Delivery Method Room Air Weight: 106.141 kg Body Mass Index (BMI) 36.6 Intake & Output: Intake and Output for Last 24 Hours 05/12/24 05/13/24 05/14/24 23:59 23:59 23:59 Intake Total 1650 / 1950 1550.08 / 2150.08 650 / 650 Output Total 950 / 1150 500 / 500 Balance 700 / 800 1050.08 / 1650.08 650 / 650 Lab / Micro Data 05/14/24 08:34 05/14/24 08:34 Labs: Laboratory Results - last 24 hr 05/13/24 16:19: POC Glucose 223 H 05/13/24 22:36: POC Glucose 283 H 05/14/24 06:59: POC Glucose 155 H 05/14/24 08:34: WBC 9.2, RBC 3.55 L, Hgb 8.9 L, Hct 30.4 L, MCV 85.6, MCH 25.1 L, MCHC 29.3 L, RDW Std Deviation 49.2 H, RDW Coeff of Tenisha 15.6 H, Plt Count 286, MPV 9.9, Immature Gran % (Auto) 0.700, Neut % (Auto) 69.9, Lymph % (Auto) 17.0 L, [place] % (Auto) 8.4, Eos % (Auto) 3.7, Baso % (Auto) 0.3, Absolute Neuts (auto) 6.4, Absolute Lymphs (auto) 1.56, Nucleated RBC % 0, Sodium 138, Potassium 4.2, Chloride 107, Carbon Dioxide 26.0, Anion Gap 5, BUN 11, Creatinine 0.69, Estim Creat Clear Calc 86.72, Est GFR (MDRD) Af Amer 110, Est GFR (MDRD) Non-Af 91, BUN/Creatinine Ratio 16.0, Glucose 161 H, Calcium 8.9, Phosphorus 2.9, Magnesium 1.8 05/14/24 11:14: POC Glucose 189 H Micro: Microbiology 05/11/24 15:32 Wound - Leg, Left Gram Stain - Final 05/11/24 15:32 Wound - Leg, Left Wound Culture - Final Serratia marcescens 05/11/24 15:32 Tissue - Hip Aceabular Membrane Gram Stain - Final 05/11/24 15:32 Tissue - Hip Aceabular Membrane Wound Culture - Final Serratia marcescens 05/11/24 15:32 Tissue - Hip Aceabular Membrane Anaerobic Culture - Final No anaerobic bacteria isolated. 05/11/24 15:32 Tissue - Hip Gram Stain - Final 05/11/24 15:32 Tissue - Hip Wound Culture - Final Serratia marcescens 05/11/24 15:32 Tissue - Hip Anaerobic Culture - Final No anaerobic bacteria isolated. Physical Exam Narrative Vital signs stable and afebrile. Patient's blood pressure has been stable over the past 2 days. There is no tachycardia. SCDs and CAROLINE hose are in place bilaterally Patient is able to plantarflex and dorsiflex actively. Sensation is intact to light touch to saphenous, sural, superficial and deep peroneal, and tibial distribution. Wound VAC in place with no drainage or output into canister or tubing Negative Homans bilaterally, negative signs and symptoms of DVT. Const alert, oriented x3 and no apparent distress Assessment & Plan Assessment/Plan (1) Postoperative wound dehiscence: PLAN: 1. S/P irrigation debridement left hip with excision sinus tract x 2 with femoral head component revision of the articulating partial hip placement antibiotic spacer POD #3 2. Continue Pain Medications: Tylenol and oxycodone. Patient will hold off of her Celebrex at home until she finishes the Xarelto. 3. DVT Prophylaxis: Patient is currently on Xarelto 10 mg once daily for 2 weeks postoperatively for DVT prophylaxis. After 2 weeks patient will switch over to aspirin 81 mg twice daily for an additional 2 weeks 4. PT/OT: Patient will be 50% partial weightbearing left lower extremity with use of walker 5. H & H: 8.9/30.4, asymptomatic. Patient has been using ferrous sulfate and folic acid as she has been dealing with some postoperative anemia. Preoperatively hemoglobin/hematocrit was 11.7/40.0 and currently 9.6/32.0. Vitals have been stable in which patient's blood pressure has been well and she has no tachycardia. Patient will be getting weekly labs including CBC, BMP and ESR from infectious disease. Patient has been in contact with her primary care provider through [employer]. I did offer her our socially responsible investment adviser setting up a 2-week follow-up appointment. I do feel would be easier for patient to do zoom meeting in which she did that after her previous postoperative care. I would like the primary care physician to monitor and continue to treat her anemia. Patient did voiced understanding and agreement. 6. Consultation infectious disease: Patient now has growth on 3 of 3 cultures including gram-negative ana Serratia marcescens. Infectious disease is having patient use ceftriaxone for 6 weeks postoperatively. Patient will require 2-week follow-up with infectious disease. grounds maintenance worker will establish this appointment. Patient will also require weekly labs including CBC, BMP, and ESR. Lab work has already been placed by infectious disease. 7. Complex wound closure: Wound VAC was placed yesterday. There is no output today. Plan will be for changes twice weekly with wound VAC settings at 75 mmHg continuous setting. 8. Encouraged Incentive Spirometry 9. Postoperative constipation: Patient has had a bowel movement yesterday and at this time will only use stool softener on an as-needed basis. 10. Continue postoperative medical treatment per medicine 11. Disposition: Plan is for discharge home with home health and IV antibiotics for 6 weeks postoperatively. Patient has wound VAC in place with orders for changes twice weekly at 75 mmHg continuous setting. Antibiotic prescriptions have been written by infectious disease as well as lab work and has been placed on chart. Patient would like her prescriptions E scribed to [facility] in [facility]. Patient will follow-up per postoperative instructions. She has been instructed to contact our office upon discharge with any concerns or questions. I did spend extended time with the patient and her discussing postoperative treatment. She will continue with use of the walker at 50% weightbearing on the left lower extremity. Patient did mention that they bought SCDs online that they will use at home. She will continue with the CAROLINE hose. She is not to get the wound VAC dressing wet. Follow-up will occur in 2 weeks with [facility] in which x-rays will be obtained and possible suture removal depending upon healing of the incision. Patient has been instructed to contact her PCP through [employer] as she can get Zoom meeting to follow her anemia. Patient voiced understanding and agreement with treatment plan above. I have reviewed the [place] Automated Rx Reporting System (OARRS) report for this patient for refill pattern and other prescriber involvement as part of the appropriate surveillance for the provision of acute and chronic controlled medications. The report was requested and reviewed on the date of this entry and was considered in the prescribing process. This dictation was created using voice recognition software. Phonetic and/or grammatical errors may exist. (2) Prosthetic joint infection of left hip: QUALIFIERS: Encounter type: initial encounter Qualified Code(s): T84.52XA - Infection and inflammatory reaction due to internal left hip prosthesis, initial encounter
--- NOTE | 2024-05-14 12:31 | DCINST_ITS ---
Discharge Instructions Diet Discharge Diet: No restrictions Activity Discharge Activity: May Not Drive (while taking narcotic pain medications.) May shower in (days): 1 (only if incision is dry and without drainage. Do NOT soak/submerge in tub/pool/camara/stream/hot tub.)) Ice area for (Minutes): 20 (Every 1-2 hours [address] barrier between ice and skin.) Weight Bearing Status: Partial weight bearing (50% weightbearing left lower extremity with use of walker) Keep extremity elevated above heart level: Operative Extremity Dressing / Incision Call your doctor if your incision/area has: Continuous Slow Oozing, Sudden Increased Bleeding, Increased Pain/ Swelling, Increased Redness and Foul Smelling Discharge Call your doctor if you observe: Fever of 101 or Higher, Shortness of breath, Chest pain, Calf discomfort and Uncontrolled pain Additional Dressing/Incision Instructions:: Follow [facility] Post-op Instructions. Continue wound VAC at home with changes with home health nurse. Dressing changes twice weekly and settings for wound VAC 75 mmHg continuous setting DVT prophylaxis: Continue the Xarelto for 2 weeks postoperatively. Once finished with the Xarelto he will then switch over to aspirin 81 mg twice daily for an additional 2 weeks. Pain medications: Continue Tylenol and oxycodone as prescribed. Hold off of taking the Celebrex at home until you have finished the Xarelto Continue with CAROLINE hose/elastic stockings for 2 weeks postoperatively. May remove at nighttime but needs to be placed back on the leg during the day. Do NOT use alcohol with narcotic pain medication. Do NOT make important decisions while taking narcotic medication. If you have problems with taking your medication (rash, itching, nausea, etc.) call the office at once. Follow Up Care Test Results: Test results from this visit will be discussed in further detail at your follow- up appointment, if applicable. Discharge Plan Admission Admit Date/Time: 05/11/24 14:59 Attending Provider: Man Cary Primary Care Provider: Palma Bruno Consulting Providers: Lj Quiroga; Dayan Marshall; Man Cary Discharge Orders/Prescriptions Prescriptions: New ceftriaxone 2 gram recon soln 2 g IV Q24H 39 Days Rx Instructions: stop date 06/24/24. Dx: L hip PJI weekly bmp, cbc, and esr. Fax to [phone]. routine picc care per protocol. oxycodone 5 mg Tablet 5 - 10 mg PO Q4H PRN PRN (Reason: as needed for pain) 7 Days Qty: 48 0RF Xarelto 10 mg Tablet 10 mg PO DAILY@0600 11 Days Qty: 11 0RF Rx Instructions: Take Xarelto 10 mg once daily for DVT prophylaxis Continued sertraline 25 mg tablet 25 mg PO QHS cholecalciferol (vitamin D3) 125 mcg (5,000 unit) tablet 5,000 unit PO DAILY cyclobenzaprine 10 mg tablet 10 mg PO QHS eszopiclone 2 mg tablet 2 mg PO QHS levothyroxine 137 mcg tablet 137 mcg PO DAILY simvastatin 40 mg tablet 40 mg PO QHS omeprazole 20 mg capsule,delayed release(DR/EC) 20 mg PO BID metformin 500 mg tablet extended release 24 hr 500 mg PO BID atenolol 25 mg tablet 25 mg PO DAILY triamterene-hydrochlorothiazid 37.5-25 mg capsule 1 cap PO DAILY Ozempic 1 mg/dose (4 mg/3 mL) pen injector 1 mg subcut SA polyethylene glycol 3350 [Gavilax] 17 gram/dose powder 17 g PO BID Rx Instructions: [id number]. acetaminophen 500 mg Tablet 1,000 mg PO Q8 Qty: 0 0RF Rx Instructions: Do not take more than 3000 mg Tylenol in a 24-hour period. ferrous sulfate [FeroSul] 325 mg (65 mg iron) Tablet 325 mg PO 1200,1700 21 Days Qty: 42 0RF folic acid 1 mg Tablet 1 mg PO BREAKFAST 21 Days Qty: 21 0RF oxycodone 5 mg Tablet 5 - 10 mg PO Q4H PRN PRN (Reason: Pain Score 4-10) 7 Days Qty: 52 0RF Held celecoxib 200 mg capsule 200 mg PO DAILY Hold Instructions: Resume on 05/26/24. Hold Celebrex until you are finished with the Xarelto Discontinued cefazolin 2 gram recon soln 2 g IV Q8H 40 Days Rx Instructions: stop date 04/27/24. Dx: prosthetic joint infection. Weekly bmp, cbc, and esr. Fax to [phone]. Routine picc care per protocol. sennosides-docusate sodium [Stool Softener-Stimulant Laxat] 8.6-50 mg Tablet 2 tab PO BID 5 Days Qty: 20 0RF Rx Instructions: Take until first bowel movement, then as needed Referrals / Follow Up: Palma Bruno MD [Primary Care Provider] - Lj Quiroga MD [Med Staff - Active Staff] - (f/u 2 weeks ) Christopher Jackson PA-C [Med Staff - Adv Practice Prof] - 05/27/24 3:15 pm Disposition Disposition (needs filled in before D/C Order can be placed): Home Health Service
--- NOTE | 2024-05-14 12:41 | DS.PCM_ITS ---
Providers Date of Admission: 05/11/24 Date of Discharge: 05/14/24 Primary Care Physician: Dr. Palma Bruno MD Consultations 05/11/24 14:59 Consult: Infectious Disease Routine Consulting Provider: Lj Quiroga Reason for Consult: pji EMERGENT Consult: No Notified: Yes Date Notified: 05/11/24 Time Notified: 17:10 Method of Notification: Text 05/11/24 15:02 Consult: Hospitalist Routine Consulting Provider: Nemesio Saravia Reason for Consult: post op med management EMERGENT Consult: No Notified: Yes Date Notified: 05/11/24 Time Notified: 17:09 Method of Notification: Text 05/12/24 04:35 Consult: Onc/Wound/communication assistant Routine Comment: Reason For Visit: Irrigation and Debridement of Left Diagnosis Discharge Diagnosis (1) Postoperative wound dehiscence: Status: Acute Code(s): T81.31XA - Disruption of external operation (surgical) wound, not elsewhere classified, initial encounter Plan: 1. S/P irrigation debridement left hip with excision sinus tract x 2 with femoral head component revision of the articulating partial hip placement antibiotic spacer POD #3 2. Continue Pain Medications: Tylenol and oxycodone. Patient will hold off of her Celebrex at home until she finishes the Xarelto. 3. DVT Prophylaxis: Patient is currently on Xarelto 10 mg once daily for 2 weeks postoperatively for DVT prophylaxis. After 2 weeks patient will switch over to aspirin 81 mg twice daily for an additional 2 weeks 4. PT/OT: Patient will be 50% partial weightbearing left lower extremity with use of walker 5. H & H: 8.9/30.4, asymptomatic. Patient has been using ferrous sulfate and folic acid as she has been dealing with some postoperative anemia. Preoperatively hemoglobin/hematocrit was 11.7/40.0 and currently 9.6/32.0. Vitals have been stable in which patient's blood pressure has been well and she has no tachycardia. Patient will be getting weekly labs including CBC, BMP and ESR from infectious disease. Patient has been in contact with her primary care provider through [email or web address]. I did offer her our perinatal social worker setting up a 2-week follow-up appointment. I do feel would be easier for patient to do zoom meeting in which she did that after her previous postoperative care. I would like the primary care physician to monitor and continue to treat her anemia. Patient did voiced understanding and agreement. 6. Consultation infectious disease: Patient now has growth on 3 of 3 cultures including gram-negative ana Serratia marcescens. Infectious disease is having patient use ceftriaxone for 6 weeks postoperatively. Patient will require 2- week follow-up with infectious disease. dobie worker will establish this appointment. Patient will also require weekly labs including CBC, BMP, and ESR. Lab work has already been placed by infectious disease. 7. Complex wound closure: Wound VAC was placed yesterday. There is no output today. Plan will be for changes twice weekly with wound VAC settings at 75 mmHg continuous setting. 8. Encouraged Incentive Spirometry 9. Postoperative constipation: Patient has had a bowel movement yesterday and at this time will only use stool softener on an as-needed basis. 10. Continue postoperative medical treatment per medicine 11. Disposition: Plan is for discharge home with home health and IV antibiotics for 6 weeks postoperatively. Patient has wound VAC in place with orders for changes twice weekly at 75 mmHg continuous setting. Antibiotic prescriptions have been written by infectious disease as well as lab work and has been placed on chart. Patient would like her prescriptions E scribed to [facility] in [facility]. Patient will follow-up per postoperative instructions. She has been instructed to contact our office upon discharge with any concerns or questions. I did spend extended time with the patient and her discussing postoperative treatment. She will continue with use of the walker at 50% weightbearing on the left lower extremity. Patient did mention that they bought SCDs online that they will use at home. She will continue with the CAROLINE hose. She is not to get the wound VAC dressing wet. Follow-up will occur in 2 weeks with [facility] in which x-rays will be obtained and possible suture removal depending upon healing of the incision. Patient has been instructed to contact her PCP through [email or web address] as she can get Zoom meeting to follow her anemia. Patient voiced understanding and agreement with treatment plan above. I have reviewed the [place] Automated Rx Reporting System (OARRS) report for this patient for refill pattern and other prescriber involvement as part of the appropriate surveillance for the provision of acute and chronic controlled medications. The report was requested and reviewed on the date of this entry and was considered in the prescribing process. This dictation was created using voice recognition software. Phonetic and/or grammatical errors may exist. (2) Prosthetic joint infection of left hip: Status: Acute Code(s): T84.52XA - Infection and inflammatory reaction due to internal left hip prosthesis, initial encounter Qualifiers: Encounter type: initial encounter Qualified Code(s): T84.52XA - Infection and inflammatory reaction due to internal left hip prosthesis, initial encounter Medications at Discharge Home Medications atenolol 25 mg tablet 25 mg PO DAILY BP 12/28/23 eszopiclone 2 mg tablet 2 mg PO QHS SLEEP 12/28/23 levothyroxine 137 mcg tablet 137 mcg PO DAILY THYROID 12/28/23 metformin 500 mg tablet,extended release 24 hr 500 mg PO BID DIABETES 12/28/23 omeprazole 20 mg capsule,delayed release 20 mg PO BID GERD 12/28/23 simvastatin 40 mg tablet 40 mg PO QHS CHOLESTEROL 12/28/23 triamterene 37.5 mg-hydrochlorothiazide 25 mg capsule 1 cap PO DAILY BP 12/28/23 celecoxib 200 mg capsule 200 mg PO DAILY ARTHRITIS 03/05/24 polyethylene glycol 3350 17 gram/dose oral powder (Gavilax) 17 g PO BID constipation 03/05/24 semaglutide 1 mg/dose (4 mg/3 mL) subcutaneous pen injector (Ozempic) 1 mg subcut SA DIABETES 03/05/24 acetaminophen 500 mg tablet 1,000 mg (2 x 500 mg) PO Q8 #0 tabs 03/18/24 ferrous sulfate 325 mg (65 mg iron) tablet (FeroSul) 325 mg PO 1200,1700 21 days #42 tabs 03/18/24 folic acid 1 mg tablet 1 mg PO BREAKFAST 21 days #21 tabs 03/18/24 oxycodone 5 mg tablet 5 - 10 mg (1 - 2 x 5 mg) PO Q4H PRN PRN Pain Score 4-10 7 days #52 tabs 03/18/24 sertraline 25 mg tablet 25 mg PO QHS 05/07/24 cholecalciferol (vitamin D3) 125 mcg (5,000 unit) tablet 5,000 unit PO DAILY 05/11/24 cyclobenzaprine 10 mg tablet 10 mg PO QHS MUSCLE SPASMS 05/11/24 ceftriaxone 2 gram intravenous solution 2 g IV Q24H 39 days 05/14/24 oxycodone 5 mg tablet 5 - 10 mg (1 - 2 x 5 mg) PO Q4H PRN PRN as needed for pain 7 days #48 tabs 05/14/24 rivaroxaban 10 mg tablet (Xarelto) 10 mg PO DAILY@0600 11 days #11 tabs 05/14/24 Hospital Course Operations - (Irrigation debridement left hip with excision sinus tract x 2 with femoral head component revision of the articulating partial hip placement antibiotic spacer) Summary of Care Provided Minutes Spent on Discharge: 30 Hospital Course: Patient is a 64-year-old female who underwent a previous left hip cemented hemiarthroplasty by Dr. Manas Temple on December 29, 2023. Postoperatively patient developed drainage with the wound postsurgically. She developed a draining sinus. Patient at that time initially went to the wound center for wound care. They were doing daily wound changes. Patient had an open wound and was initially using oral clindamycin. She had issues with Bactrim in which this upset her stomach. She continued to have fevers for several weeks. At that time patient underwent a removal previous left total hip replacement with irrigation debridement of the left hip and placement of left hip articulating antibiotic spacer by Man Cary on March 16, 2024. Patient was initially doing well postoperatively until she developed continued drainage at the midportion of the wound. She was being treated with a wound VAC. Patient was treated initially after the surgery by Man Cary with infectious disease with IV antibiotics. Due to the continued drainage and wound dehiscence patient opted to undergo a irrigation debridement with excision sinus tract x 2 with femoral head component revision of the articulating partial hip placement antibiotic spacer. Procedure took place on May 11, 2024. Patient did receive perioperative antibiotics. Intraoperatively was uneventful. For details please see dictated operative note. The patient was placed in thigh-high teds, bilateral SCDs, remained stable in recovery. Patient was admitted to the 3rd floor at [facility]. The patient's pain was managed with the use of IV and p.o. pain medications. Patient participated in physical therapy. Patient is currently 50% weightbearing on the left lower extremity with use of the walker. Patient did require regular wound VAC in which dressing changes will occur twice weekly with wound VAC settings at 75 mmHg continuous setting. Infectious disease was also consulted in which she had 3 of 3 cultures grow out gram-negative ana Serratia marcescens. Plan will be for 6 weeks of IV antibiotics. Patient will get home health nursing and IV antibiotic infusion in which family members will assist. Patient will require 2-week follow-up with infectious disease. She will get weekly labs including CBC, BMP, and ESR. Patient has also been dealing with ongoing acute on chronic anemia in which she is currently taking ferrous sulfate and folic acid. Patient has been in talks with her primary care provider who will continue to manage this postoperatively. After her previous surgery Zoom meetings were held and patient will make sure she has appointment so the primary care physician can continue to monitor and treat. I would appreciate any further treatment from the primary care provider. Patient was discharged on postoperative day # 3 to home with home health. Patient was given medications stated below. Patient will follow up with [facility] per postop instructions with repeat x-rays and possible suture removal depending upon incision healing. Physical Exam Narrative Vital signs stable and afebrile. Patient's blood pressure has been stable over the past 2 days. There is no tachycardia. SCDs and CAROLINE hose are in place bilaterally Patient is able to plantarflex and dorsiflex actively. Sensation is intact to light touch to saphenous, sural, superficial and deep peroneal, and tibial distribution. Wound VAC in place with no drainage or output into canister or tubing Negative Homans bilaterally, negative signs and symptoms of DVT. Const alert, oriented x3 and no apparent distress Weight / BMI Weight Weight: 106.141 kg Body Mass Index (BMI) 36.6 ABG / Lab / Microbiology Data 05/14/24 08:34 05/14/24 08:34 Laboratory: Laboratory Results - last 24 hr 05/13/24 16:19: POC Glucose 223 H 05/13/24 22:36: POC Glucose 283 H 05/14/24 06:59: POC Glucose 155 H 05/14/24 08:34: WBC 9.2, RBC 3.55 L, Hgb 8.9 L, Hct 30.4 L, MCV 85.6, MCH 25.1 L , MCHC 29.3 L, RDW Std Deviation 49.2 H, RDW Coeff of Tenisha 15.6 H, Plt Count 286, MPV 9.9, Immature Gran % (Auto) 0.700, Neut % (Auto) 69.9, Lymph % (Auto) 17.0 L , [place] % (Auto) 8.4, Eos % (Auto) 3.7, Baso % (Auto) 0.3, Absolute Neuts (auto) 6.4, Absolute Lymphs (auto) 1.56, Nucleated RBC % 0, Sodium 138, Potassium 4.2, Chloride 107, Carbon Dioxide 26.0, Anion Gap 5, BUN 11, Creatinine 0.69, Estim Creat Clear Calc 86.72, Est GFR (MDRD) Af Amer 110, Est GFR (MDRD) Non-Af 91, BUN/Creatinine Ratio 16.0, Glucose 161 H, Calcium 8.9, Phosphorus 2.9, Magnesium 1.8 05/14/24 11:14: POC Glucose 189 H Microbiology: Microbiology 05/11/24 15:32 Wound - Leg, Left Gram Stain - Final 05/11/24 15:32 Wound - Leg, Left Wound Culture - Final Serratia marcescens 05/11/24 15:32 Tissue - Hip Aceabular Membrane Gram Stain - Final 05/11/24 15:32 Tissue - Hip Aceabular Membrane Wound Culture - Final Serratia marcescens 05/11/24 15:32 Tissue - Hip Aceabular Membrane Anaerobic Culture - Final No anaerobic bacteria isolated. 05/11/24 15:32 Tissue - Hip Gram Stain - Final 05/11/24 15:32 Tissue - Hip Wound Culture - Final Serratia marcescens 05/11/24 15:32 Tissue - Hip Anaerobic Culture - Final No anaerobic bacteria isolated. D/C Instructions Discharge Diet: No restrictions May shower in (days): 1 (only if incision is dry and without drainage. Do NOT soak/submerge in tub/pool/camara/stream/hot tub.)) Ice area for (Minutes): 20 (Every 1-2 hours [address] barrier between ice and skin.) Weight Bearing Status: Partial weight bearing (50% weightbearing left lower extremity with use of walker) Keep extremity elevated above heart level: Operative Extremity Call your doctor if your incision/area has: Continuous Slow Oozing, Sudden Increased Bleeding, Increased Pain/ Swelling, Increased Redness and Foul Smelling Discharge Call your doctor if you observe: Fever of 101 or Higher, Shortness of breath, Chest pain, Calf discomfort and Uncontrolled pain Additional Dressing/Incision Instructions: Follow [facility] Post-op Instructions. Continue wound VAC at home with changes with home health nurse. Dressing changes twice weekly and settings for wound VAC 75 mmHg continuous setting DVT prophylaxis: Continue the Xarelto for 2 weeks postoperatively. Once finished with the Xarelto he will then switch over to aspirin 81 mg twice daily for an additional 2 weeks. Pain medications: Continue Tylenol and oxycodone as prescribed. Hold off of taking the Celebrex at home until you have finished the Xarelto Continue with CAROLINE hose/elastic stockings for 2 weeks postoperatively. May remove at nighttime but needs to be placed back on the leg during the day. Do NOT use alcohol with narcotic pain medication. Do NOT make important decisions while taking narcotic medication. If you have problems with taking your medication (rash, itching, nausea, etc.) call the office at once. Meaningful Use Info Meaningful Use Meaningful Use Diagnoses (Choose all that apply): None applicable Ischemic Stroke Statin Dosing Therapy Reference: STATIN DOSE THERAPY REFERENCE: * Patients > 75 years receive moderate or high dose statin therapy. * Patients 75 years or YOUNGER should receive HIGH intensity statin dose unless contraindicated. You will be required to document reason for non-treatment if statin daily dose does not meet guidelines. HIGH DOSE STATIN THERAPY DAILY Atorvastatin > than or = to 40 mg Rosuvastatin > than or = to 20 mg Amlodipine + Atorvastatin > than or = to 2.5/40 mg Ezetimibe + Simvastatin 10/80 mg Simvastatin 80mg Discharge Plan Admission Admit Date/Time: 05/11/24 14:59 Attending Provider: Man Cary Primary Care Provider: Palma Bruno Consulting Providers: Lj Quiroga; Dayan Marshall; Man Cary Discharge Orders/Prescriptions Prescriptions: New ceftriaxone 2 gram recon soln 2 g IV Q24H 39 Days Rx Instructions: stop date 06/24/24. Dx: L hip PJI weekly bmp, cbc, and esr. Fax to [phone]. routine picc care per protocol. oxycodone 5 mg Tablet 5 - 10 mg PO Q4H PRN PRN (Reason: as needed for pain) 7 Days Qty: 48 0RF Xarelto 10 mg Tablet 10 mg PO DAILY@0600 11 Days Qty: 11 0RF Rx Instructions: Take Xarelto 10 mg once daily for DVT prophylaxis Continued sertraline 25 mg tablet 25 mg PO QHS cholecalciferol (vitamin D3) 125 mcg (5,000 unit) tablet 5,000 unit PO DAILY cyclobenzaprine 10 mg tablet 10 mg PO QHS eszopiclone 2 mg tablet 2 mg PO QHS levothyroxine 137 mcg tablet 137 mcg PO DAILY simvastatin 40 mg tablet 40 mg PO QHS omeprazole 20 mg capsule,delayed release(DR/EC) 20 mg PO BID metformin 500 mg tablet extended release 24 hr 500 mg PO BID atenolol 25 mg tablet 25 mg PO DAILY triamterene-hydrochlorothiazid 37.5-25 mg capsule 1 cap PO DAILY Ozempic 1 mg/dose (4 mg/3 mL) pen injector 1 mg subcut SA polyethylene glycol 3350 [Gavilax] 17 gram/dose powder 17 g PO BID Rx Instructions: [id number]. acetaminophen 500 mg Tablet 1,000 mg PO Q8 Qty: 0 0RF Rx Instructions: Do not take more than 3000 mg Tylenol in a 24-hour period. ferrous sulfate [FeroSul] 325 mg (65 mg iron) Tablet 325 mg PO 1200,1700 21 Days Qty: 42 0RF folic acid 1 mg Tablet 1 mg PO BREAKFAST 21 Days Qty: 21 0RF oxycodone 5 mg Tablet 5 - 10 mg PO Q4H PRN PRN (Reason: Pain Score 4-10) 7 Days Qty: 52 0RF Held celecoxib 200 mg capsule 200 mg PO DAILY Hold Instructions: Resume on 05/26/24. Hold Celebrex until you are finished with the Xarelto Discontinued cefazolin 2 gram recon soln 2 g IV Q8H 40 Days Rx Instructions: stop date 04/27/24. Dx: prosthetic joint infection. Weekly bmp, cbc, and esr. Fax to [phone]. Routine picc care per protocol. sennosides-docusate sodium [Stool Softener-Stimulant Laxat] 8.6-50 mg Tablet 2 tab PO BID 5 Days Qty: 20 0RF Rx Instructions: Take until first bowel movement, then as needed Referrals / Follow Up: Palma Bruno MD [Primary Care Provider] - Lj Quiroga MD [Med Staff - Active Staff] - (f/u 2 weeks ) Christopher Jackson PA-C [Med Staff - Adv Practice Prof] - 05/27/24 3:15 pm Disposition Disposition (needs filled in before D/C Order can be placed): Home Health Service
--- NOTE | 2024-05-14 13:28 | WOUNDNOTE ---
Pt switched over to the home VAC for discharge home. Home health to change the VAC dressing tomorrow. Pt and deny questions. pt has had home wound VAC previously.
[2024-05-14 15:00] VITALS: BP 152/89; PULSE 92; RESP 18; TEMP 36.8; O2SAT 98
== END 2024-05-14 15:10 | disposition home health service (06) | DRG 481 ==
LOC: SDC 16:55 → MS3 16:55
PROVIDERS: Internal Medicine; Admitting Provider Specialist; PCP Internal Medicine; Referring Provider Specialist; Visit Provider Specialist
PROC: 0SWB08Z Revision of Spacer in Left Hip Joint, Open Approach (ICD-10-PCS; principal; 2024-05-11 12:05)
DX: T84.52XA Infection and inflammatory reaction due to internal left hip prosthesis, initial encounter (principal); T81.31XA Disruption of external operation (surgical) wound, not elsewhere classified, initial encounter; L76.34 Postprocedural seroma of skin and subcutaneous tissue following other procedure; E11.9 Type 2 diabetes mellitus without complications; D64.89 Other specified anemias; B96.89 Other specified bacterial agents as the cause of diseases classified elsewhere; E89.0 Postprocedural hypothyroidism; I10 Essential (primary) hypertension; E66.9 Obesity, unspecified; E78.00 Pure hypercholesterolemia, unspecified; K21.9 Gastro-esophageal reflux disease without esophagitis; K59.09 Other constipation; Z68.36 Body mass index [BMI] 36.0-36.9, adult; X58.XXXA Exposure to other specified factors, initial encounter; Z96.642 Presence of left artificial hip joint; Z79.84 Long term (current) use of oral hypoglycemic drugs; Z79.85 Long-term (current) use of injectable non-insulin antidiabetic drugs; Z79.890 Hormone replacement therapy; Z79.899 Other long term (current) drug therapy; Z87.891 Personal history of nicotine dependence
CPT/HCPCS: 73502; 80048; 80202; 82962; 83735; 84100; 85025; 85027; 87015; 87070; 87075; 87077; 87102; 87116; 87176; 87186; 87205; 87206; 88305; 93005; 94668; 97116; 97162; 97166; 97530; 97535; 97802; C1776; J7040; J7050; J7120; A4216; J0696; J2405

== ENCOUNTER 2024-05-22 10:35 | Outpatient (RCR) | payer OTHER, SELFPAY ==
[2024-04-23 14:45] LABS: Erythrocyte Sedimentation Rate 20 mm/hr (0-30)
[2024-04-23 14:46] LABS: Hematocrit 39.8 % (37-47); Hemoglobin 11.6 g/dL (12.0-15.0); Mean Corp Hgb Conc 29.1 g/dL (32-36); Mean Corpuscular Hgb 25.4 pg (27.0-32.0); Mean Corpuscular Volume 87.3 fL (81-99); Mean Platelet Vol. 11.1 fl (6.2-12.0); Platelet Count 251 K/mm3 (150-450); RBC Distribution Width CV 17.1 % (11.6-14.6); Red Blood Count 4.56 M/mm3 (4.2-5.4); White Blood Count 9.1 K/mm3 (4.4-11.0)
[2024-04-23 14:52] LABS: Anion Gap 4 (5-15); BUN 25 mg/dL (7-18); BUN/Creat Ratio 37.9 RATIO (10-20); Calcium,Total 9.7 mg/dL (8.5-10.1); Chloride 106 mmol/L (98-107); Creatinine, Serum 0.66 mg/dL (0.55-1.02); EST Glomerular Filtration Rate 95 mL/min (>60); Est Glom Filt Rate - Afr Amer 115 mL/min (>60); Glucose 127 mg/dL (74-106); Potassium 3.9 mmol/L (3.5-5.1); Sodium Level 139 mmol/L (136-145)
[2024-05-07 13:29] LABS: Absolute Lymphocyte Count 1.31 X10^3/uL (0.83-4.51); Absolute Neutrophil Count 8.7 X10^3/uL (2.0-7.7); Basophil# 0.04 X10^3/uL; Basophil% 0.4 % (0-1); Eosinophil# 0.12 X10^3/uL; Eosinophils% 1.1 % (0-5); Hemoglobin 11.7 g/dL (12.0-15.0); Lymphocyte # 1.31 X10^3/ul (0.83-4.51); Lymphocyte % 12.1 % (19-41); Mean Corp Hgb Conc 29.3 g/dL (32-36); Mean Corpuscular Hgb 25.1 pg (27.0-32.0); Mean Corpuscular Volume 85.8 fL (81-99); Mean Platelet Vol. 10.6 fl (6.2-12.0); Monocyte# 0.63 X10^3/uL; Monocyte% 5.8 % (0-10); NRBC Flagged by Analyzer 0 % (0-5); Neutrophil # 8.67 X10^3/uL (2.7-7.7); Neutrophil % 80.2 % (47-70); Platelet Count 304 K/mm3 (150-450); RBC Distribution Width CV 15.7 % (11.6-14.6); RBC Distribution Width SD 49.2 fl (35.1-43.9); Red Blood Count 4.66 M/mm3 (4.2-5.4); White Blood Count 10.8 K/mm3 (4.4-11.0)
[2024-05-07 13:42] LABS: Albumin, Serum 2.7 g/dL (3.2-5.0); Anion Gap 8 (5-15); BUN 26 mg/dL (7-18); BUN/Creat Ratio 35.6 RATIO (10-20); Calcium,Total 9.5 mg/dL (8.5-10.1); Chloride 102 mmol/L (98-107); Creatinine, Serum 0.73 mg/dL (0.55-1.02); EST Glomerular Filtration Rate 85 mL/min (>60); Est Glom Filt Rate - Afr Amer 103 mL/min (>60); Glucose 163 mg/dL (74-106); Potassium 3.7 mmol/L (3.5-5.1); Sodium Level 139 mmol/L (136-145)
[2024-05-07 13:53] LABS: Hemoglobin A1c 5.9 % (3.8-5.6)
[2024-05-22 13:14] LABS: Anion Gap 5 (5-15); BUN 22 mg/dL (7-18); BUN/Creat Ratio 34.3 RATIO (10-20); Calcium,Total 9.5 mg/dL (8.5-10.1); Chloride 103 mmol/L (98-107); Creatinine, Serum 0.64 mg/dL (0.55-1.02); EST Glomerular Filtration Rate 99 mL/min (>60); Est Glom Filt Rate - Afr Amer 119 mL/min (>60); Glucose 154 mg/dL (74-106); Potassium 3.7 mmol/L (3.5-5.1); Sodium Level 137 mmol/L (136-145)
[2024-05-22 13:23] LABS: Hemoglobin 9.3 g/dL (12.0-15.0); Mean Corp Hgb Conc 29.1 g/dL (32-36); Mean Corpuscular Hgb 25.1 pg (27.0-32.0); Mean Corpuscular Volume 86.3 fL (81-99); Mean Platelet Vol. 10.2 fl (6.2-12.0); Platelet Count 388 K/mm3 (150-450); RBC Distribution Width CV 15.7 % (11.6-14.6); RBC Distribution Width SD 49.6 fl (35.1-43.9); Red Blood Count 3.71 M/mm3 (4.2-5.4); White Blood Count 10.9 K/mm3 (4.4-11.0)
[2024-05-22 13:31] LABS: Erythrocyte Sedimentation Rate 45 mm/hr (0-30)
== END 2024-05-22 18:00 | disposition home or self-care (01) ==
LOC: HHLAB 10:35
PROVIDERS: PCP Internal Medicine; Visit Provider Internal Medicine Infectious Disease
DX: T84.52XA Infection and inflammatory reaction due to internal left hip prosthesis, initial encounter (principal)
CPT/HCPCS: 80048; 82040; 83036; 85025; 85027; 85652

== ENCOUNTER 2024-06-19 10:11 | Outpatient (RCR) | payer OTHER, SELFPAY ==
[2024-05-29 10:55] LABS: Hematocrit 33.5 % (37-47); Hemoglobin 9.6 g/dL (12.0-15.0); Mean Corp Hgb Conc 28.7 g/dL (32-36); Mean Corpuscular Hgb 24.8 pg (27.0-32.0); Mean Corpuscular Volume 86.6 fL (81-99); Mean Platelet Vol. 10.1 fl (6.2-12.0); Platelet Count 339 K/mm3 (150-450); RBC Distribution Width CV 15.7 % (11.6-14.6); RBC Distribution Width SD 49.3 fl (35.1-43.9); Red Blood Count 3.87 M/mm3 (4.2-5.4); White Blood Count 8.4 K/mm3 (4.4-11.0)
[2024-05-29 11:07] LABS: Erythrocyte Sedimentation Rate 45 mm/hr (0-30)
[2024-05-29 11:27] LABS: Anion Gap 7 (5-15); BUN 26 mg/dL (7-18); BUN/Creat Ratio 38.4 RATIO (10-20); Calcium,Total 9.9 mg/dL (8.5-10.1); Chloride 104 mmol/L (98-107); Creatinine, Serum 0.68 mg/dL (0.55-1.02); EST Glomerular Filtration Rate 93 mL/min (>60); Est Glom Filt Rate - Afr Amer 112 mL/min (>60); Glucose 162 mg/dL (74-106); Potassium 3.8 mmol/L (3.5-5.1); Sodium Level 138 mmol/L (136-145)
[2024-06-05 10:55] LABS: Erythrocyte Sedimentation Rate 26 mm/hr (0-30)
[2024-06-05 10:56] LABS: Hematocrit 34.1 % (37-47); Hemoglobin 9.8 g/dL (12.0-15.0); Mean Corp Hgb Conc 28.7 g/dL (32-36); Mean Platelet Vol. 10.5 fl (6.2-12.0); Platelet Count 260 K/mm3 (150-450); RBC Distribution Width CV 16.8 % (11.6-14.6); RBC Distribution Width SD 53.6 fl (35.1-43.9); Red Blood Count 3.92 M/mm3 (4.2-5.4); White Blood Count 8.5 K/mm3 (4.4-11.0)
[2024-06-05 11:18] LABS: Anion Gap 8 (5-15); BUN 26 mg/dL (7-18); BUN/Creat Ratio 34.9 RATIO (10-20); Calcium,Total 9.7 mg/dL (8.5-10.1); Chloride 104 mmol/L (98-107); Creatinine, Serum 0.74 mg/dL (0.55-1.02); EST Glomerular Filtration Rate 83 mL/min (>60); Est Glom Filt Rate - Afr Amer 100 mL/min (>60); Glucose 130 mg/dL (74-106); Sodium Level 138 mmol/L (136-145)
[2024-06-12 10:43] LABS: Hematocrit 34.9 % (37-47); Hemoglobin 10.2 g/dL (12.0-15.0); Mean Corp Hgb Conc 29.2 g/dL (32-36); Mean Corpuscular Hgb 25.4 pg (27.0-32.0); Mean Corpuscular Volume 86.8 fL (81-99); Mean Platelet Vol. 10.5 fl (6.2-12.0); Platelet Count 270 K/mm3 (150-450); RBC Distribution Width CV 16.8 % (11.6-14.6); RBC Distribution Width SD 53.5 fl (35.1-43.9); Red Blood Count 4.02 M/mm3 (4.2-5.4); White Blood Count 8.3 K/mm3 (4.4-11.0)
[2024-06-12 10:45] LABS: Anion Gap 10 (5-15); BUN 23 mg/dL (7-18); BUN/Creat Ratio 31.7 RATIO (10-20); Chloride 102 mmol/L (98-107); Creatinine, Serum 0.73 mg/dL (0.55-1.02); EST Glomerular Filtration Rate 85 mL/min (>60); Est Glom Filt Rate - Afr Amer 103 mL/min (>60); Glucose 142 mg/dL (74-106); Potassium 4.1 mmol/L (3.5-5.1); Sodium Level 138 mmol/L (136-145)
[2024-06-12 11:15] LABS: Erythrocyte Sedimentation Rate 41 mm/hr (0-30)
[2024-06-19 10:41] LABS: Hemoglobin 10.4 g/dL (12.0-15.0); Mean Corp Hgb Conc 28.9 g/dL (32-36); Mean Corpuscular Hgb 25.2 pg (27.0-32.0); Mean Corpuscular Volume 87.2 fL (81-99); Mean Platelet Vol. 9.9 fl (6.2-12.0); Platelet Count 282 K/mm3 (150-450); RBC Distribution Width CV 16.3 % (11.6-14.6); RBC Distribution Width SD 51.9 fl (35.1-43.9); Red Blood Count 4.13 M/mm3 (4.2-5.4); White Blood Count 7.6 K/mm3 (4.4-11.0)
[2024-06-19 10:57] LABS: Erythrocyte Sedimentation Rate 31 mm/hr (0-30)
[2024-06-19 11:43] LABS: Anion Gap 9 (5-15); BUN 26 mg/dL (7-18); BUN/Creat Ratio 33.1 RATIO (10-20); Calcium,Total 9.9 mg/dL (8.5-10.1); Chloride 101 mmol/L (98-107); Creatinine, Serum 0.79 mg/dL (0.55-1.02); EST Glomerular Filtration Rate 78 mL/min (>60); Est Glom Filt Rate - Afr Amer 94 mL/min (>60); Glucose 126 mg/dL (74-106); Sodium Level 137 mmol/L (136-145)
== END 2024-06-19 18:00 | disposition home or self-care (01) ==
LOC: HHLAB 10:11
PROVIDERS: PCP Internal Medicine; Referring Provider Internal Medicine Infectious Disease; Visit Provider Internal Medicine Infectious Disease
DX: T84.52XA Infection and inflammatory reaction due to internal left hip prosthesis, initial encounter (principal)
CPT/HCPCS: 80048; 85027; 85652

== ENCOUNTER 2024-06-22 22:07 | Inpatient (IN) | payer OTHER, MEDICARE, SELFPAY ==
[2024-06-22 22:09] VITALS: BP 136/83; PULSE 79; RESP 18; TEMP 37.1; O2SAT 98; BMI 43.0
[2024-06-22 22:14] VITALS: BP 136/83; PULSE 79; RESP 16; TEMP 37.1; O2SAT 98
[2024-06-22 23:14] VITALS: BP 144/67; PULSE 88; RESP 16; TEMP 36.8; O2SAT 98
[2024-06-22] MEDS: Morphine 4 MG/ML Syringe IV (23:27)
[2024-06-22] MEDS: Ondansetron 4 MG/2 ML Vial IV (23:27)
[2024-06-22] MEDS: diazePAM 5 MG Tablet PO (23:28)
--- NOTE | 2024-06-22 23:33 | EDS_ITS ---
HPI History of Present Illness Chief Complaint: Lower Extremity Injury Informant: patient, spouse/S.O., family and EMS Narrative Narrative: 64-year-old female brought to the emergency room with continued worsening left hip pain and inability to care for self at home. Patient reportedly underwent hip surgery with Dr. Sheppard in December of this year. This was complicated with infection and the patient has had 2 surgeries with spacers. Patient tells me that her cultures have not grown Serratia marcens and she is currently receiving antibiotics through a left PICC line. Patient states that they have been having fairly frequent contact with her orthopedic surgeons. He states that he spoke with them yesterday as well as today. She is having muscle spasms of the hip. She states that she feels very swollen with fluid. She is no longer able to sit on the commode due to pain. She is unable to get into her bed. She cannot move around the house. Family states it is now gotten to a point where they cannot care for her at home and called EMS to bring her to the emergency department tonight. Arriving here at around 2230 hrs. patient notes no recent fevers. PFSH PFSH Home Medications ?Medication ?Instructions ?Recorded ?Last Taken ?Type alprazolam 0.25 mg tablet PO TID PRN anxiety 06/23/24 Unknown History atenolol 25 mg tablet 25 mg PO DAILY 06/23/24 Unknown History celecoxib 200 mg capsule 200 mg PO DAILY 06/23/24 Unknown History cyclobenzaprine 10 mg tablet 10 mg PO QHS 06/23/24 Unknown History eszopiclone 2 mg tablet 2 mg PO QHS 06/23/24 Unknown History ferrous sulfate 325 mg (65 mg 325 mg PO BID 06/23/24 Unknown History iron) tablet folic acid 1 mg tablet 1 mg PO DAILY 06/23/24 Unknown History levothyroxine 137 mcg tablet 137 mcg PO DAILY 06/23/24 Unknown History metformin 500 mg tablet,extended 500 mg PO BID 06/23/24 Unknown History release 24 hr omeprazole 20 mg capsule,delayed 20 mg PO BID 06/23/24 Unknown History release oxycodone 5 mg tablet 10 mg PO Q4H PRN pain 06/23/24 Unknown History sertraline 25 mg tablet 50 mg PO DAILY 06/23/24 Unknown History simvastatin 40 mg tablet 40 mg PO QHS 06/23/24 Unknown History triamterene 37.5 1 cap PO DAILY 06/23/24 Unknown History mg-hydrochlorothiazide 25 mg capsule Allergy/AdvReac Type Severity Reaction Status Date / Time acetaminophen (From Vicodin) Allergy Intermediate Shortness Verified 06/22/24 22:15 of breath hydrocodone (From Vicodin) Allergy Intermediate Shortness Verified 06/22/24 22:15 of breath butorphanol (From Stadol) AdvReac Intermediate Shortness Verified 06/22/24 22:15 of breath Social History Smoking Status: Never smoker ROS ROS ED Constitutional Constitutional ED: Denies chills, fever(s) or weight loss Eyes Eyes: Denies change in vision or diplopia ENT ENT ED: Denies ear pain, rhinorrhea or sore throat Cardiovascular Cardiovascular: Denies chest pain, orthopnea, palpitations or racing heartbeat Respiratory/Chest Respiratory/Chest: Denies cough, dyspnea or orthopnea Gastrointestinal Gastrointestinal: Denies abdominal pain, diarrhea, nausea or vomiting Genitourinary Genitourinary ED: Denies dysuria, hematuria or urinary frequency Musculoskeletal Musculoskeletal: Reports other Details: Left hip pain left hip muscle spasms ; Denies arthralgias or myalgias Integumentary Denies abscess or rash Neurologic Neurologic: Denies headache(s) or weakness Psychiatric Psychiatric: Denies anxiety, depression, suicidal ideation or suicidal thoughts Endocrine Endocrinology: Denies polydipsia, polyphagia or polyuria Allergic/Immunologic Allergic/Immunologic ED: Denies mouth swelling, tongue swelling or urticaria EXAM Physical Exam Const Vital Signs: 06/22/24 22:09 06/22/24 22:14 06/22/24 23:14 Temperature 98.8 F 98.8 F 98.2 F Temperature Source Oral Oral Oral Pulse Rate 79 79 88 Respiratory Rate 18 16 16 Blood Pressure 136/83 H 136/83 H 144/67 H Blood Pressure Mean 100 100 92 Pulse Ox 98 98 98 Oxygen Delivery Method Room Air Room Air 06/23/24 00:00 Temperature 98.3 F Temperature Source Oral Pulse Rate 77 Respiratory Rate 16 Blood Pressure 128/81 H Blood Pressure Mean 96 Pulse Ox 98 Oxygen Delivery Method Room Air Positive well nourished, well developed and obese General Appearance ED: well developed and NAD Nutritional Appearance: obese HEENT Reports normocephalic, head/scalp atraumatic and moist mucous membranes Eyes PERRL and EOMs intact bilaterally Neck no lymphadenopathy, supple and no JVD Resp normal respiratory effort and clear to auscultation bilaterally Cardio regular rate, regular rhythm and no murmurs GI normal to inspection, nondistended, normoactive bowel sounds and non-tender Palpation: soft Back/Spine no CVA tenderness and normal ROM Extremity Extremity Narrative: Long lateral left hip incision without significant erythema or notable drainage. Patient is laying more on her right side than left. Legs are diffusely edematous. She does not wish me to touch them because she states that she is experiencing severe pain with any touch. General Extremety ED: Yes edema General Extremity: edema bilateral lower extremity Details: moderate Neuro oriented x3 and CN's II-XII intact bilaterally Sensorium / Orientation: alert Motor Exam: strength 5/5 throughout Psych mental status grossly normal Mood & Affect: Negative for depressed or tearful Skin no rashes or lesions noted and no wounds MDM MDM MDM Narrative Medical decision making narrative: Differential diagnosis includes but not limited to volume overload/lymphedema sepsis continued infection failure to thrive DVT renal failure White count 11.1 with 71.8 neutrophils hemoglobin 11.3 platelet count is 301 normal electrolytes BUN is 26 creatinine 0.80 lactic acid is normal at 1.8 BNP 18.3 normal LFTs. Patient received Valium and morphine. Patient was unable to be transferred out of the bed to get an x-ray or to have her legs touched. I am hesitant to continue to provide large amounts of pain medication as I do not wish to cause oversedation hypotension or respiratory failure. Given her age comorbidities I think that this could be a real possibility so we need to be judicious in her pain medication. I feel that the patient needs to be admitted for orthopedics evaluation and for probable placement. Hospitalist was lani breen History & Record Review Discussion w/independent historian: Patient and Family Lab Data Attestation: I reviewed the patient's lab results. Labs: Laboratory Results - last 24 hr 06/22/24 23:43 WBC 11.1 H RBC 4.49 Hgb 11.3 L Hct 38.2 MCV 85.1 MCH 25.2 L MCHC 29.6 L RDW Std Deviation 50.4 H RDW Coeff of Tenisha 16.2 H Plt Count 301 MPV 9.9 Immature Gran % (Auto) 0.400 Neut % (Auto) 71.8 H Lymph % (Auto) 16.1 L [place] % (Auto) 8.9 Eos % (Auto) 2.4 Baso % (Auto) 0.4 Absolute Neuts (auto) 8.0 H Absolute Lymphs (auto) 1.79 Nucleated RBC % 0 PT 14.5 INR 1.1 APTT 26.6 Sodium 138 Potassium 3.8 Chloride 102 Carbon Dioxide 28.0 Anion Gap 9 BUN 26 H Creatinine 0.80 Estim Creat Clear Calc 94.83 Est GFR (MDRD) Af Amer 93 Est GFR (MDRD) Non-Af 77 BUN/Creatinine Ratio 32.7 H Glucose 99 Lactic Acid 1.8 Calcium 10.5 H Total Bilirubin 0.20 Direct Bilirubin 0.09 AST 9 L ALT 14 Alkaline Phosphatase 109 B-Natriuretic Peptide 18.3 Total Protein 7.5 Albumin 3.2 Globulin 4.3 H Management Discussion w/another healthcare provider: Hospitalist (Dr. Elkins) Discharge Plan Dx/Rx/DC Orders Clinical Impression: Fluid overload, Acute pain of left hip, Diabetes mellitus, Left hip prosthetic joint infection Disposition Disposition: [facility] Discharge Date/Time: 06/23/24 01:18
[2024-06-22 23:52] LABS: Absolute Lymphocyte Count 1.79 X10^3/uL (0.83-4.51); Basophil# 0.05 X10^3/uL; Basophil% 0.4 % (0-1); Eosinophil# 0.27 X10^3/uL; Eosinophils% 2.4 % (0-5); Hematocrit 38.2 % (37-47); Hemoglobin 11.3 g/dL (12.0-15.0); Lymphocyte # 1.79 X10^3/ul (0.83-4.51); Lymphocyte % 16.1 % (19-41); Mean Corp Hgb Conc 29.6 g/dL (32-36); Mean Corpuscular Hgb 25.2 pg (27.0-32.0); Mean Corpuscular Volume 85.1 fL (81-99); Mean Platelet Vol. 9.9 fl (6.2-12.0); Monocyte# 0.99 X10^3/uL; Monocyte% 8.9 % (0-10); NRBC Flagged by Analyzer 0 % (0-5); Neutrophil # 7.98 X10^3/uL (2.7-7.7); Neutrophil % 71.8 % (47-70); Platelet Count 301 K/mm3 (150-450); RBC Distribution Width CV 16.2 % (11.6-14.6); RBC Distribution Width SD 50.4 fl (35.1-43.9); Red Blood Count 4.49 M/mm3 (4.2-5.4); White Blood Count 11.1 K/mm3 (4.4-11.0)
[2024-06-23] VITALS (10 sets, daily range): BP systolic 98–142; BP diastolic 59–92; PULSE 70–84; RESP 14–22; TEMP 36.4–37.1; O2SAT 86–100; BMI 42.1
[2024-06-23 00:03] LABS: International Normalized Ratio 1.1; Partial Thromboplast Time 26.6 Seconds (24.1-36.2); Prothrombin Time (Protime)PT. 14.5 SECONDS (11.7-14.9)
[2024-06-23 00:12] LABS: AST(SGOT) 9 U/L (15-37); Alanine Aminotransfer ALT/SGPT 14 U/L (13-56); Albumin, Serum 3.2 g/dL (3.2-5.0); Alkaline Phosphatase 109 U/L (45-117); Anion Gap 9 (5-15); BUN 26 mg/dL (7-18); BUN/Creat Ratio 32.7 RATIO (10-20); Bilirubin, Direct 0.09 mg/dL (0.00-0.30); Calcium,Total 10.5 mg/dL (8.5-10.1); Chloride 102 mmol/L (98-107); EST Glomerular Filtration Rate 77 mL/min (>60); Est Glom Filt Rate - Afr Amer 93 mL/min (>60); Estimated Creatinine Clearance 94.83 ml/min; Globulin 4.3 g/dL (2.2-4.2); Glucose 99 mg/dL (74-106); Potassium 3.8 mmol/L (3.5-5.1); Protein, Total 7.5 g/dL (6.4-8.2); Sodium Level 138 mmol/L (136-145)
[2024-06-23 00:26] LABS: Lactic Acid 1.8 mmol/L (0.4-1.9)
--- NOTE | 2024-06-23 00:53 | PCM.HP.STD ---
HPI - General General Date of Admission: 06/23/24 Date of Service: 06/23/24 Chief Complaint: Left hip pain HPI Narrative JULIANNE CHUNG, is a 64 F who presents to the emergency room with chief complaint of left hip pain. Patient has significant past medical history of hip surgery performed by Dr. Temple in December of this past year. This was complicated by infection and patient underwent [address] Cary with spacers. Patient has had complications with Serratia marcescens infection. She has 2 more days left of her IV antibiotic course that has been managed by Dr. Quiroga. She states her pain is not controlled and she is not able to sleep longer than 15 minutes at a time. She has been increasing oxycodone to 2 tablets every 4 hours however states this is not adequate pain control at this time. She is unable to care for self and at home with her and son due to her immobility and significant pain. She will be admitted for pain control and specialist will be consulted to continue her care. [facility] Home Medications ?Medication ?Instructions ?Recorded ?Last Taken ?Type alprazolam 0.25 mg tablet PO TID PRN anxiety 06/23/24 Unknown History atenolol 25 mg tablet 25 mg PO DAILY 06/23/24 Unknown History celecoxib 200 mg capsule 200 mg PO DAILY 06/23/24 Unknown History cyclobenzaprine 10 mg tablet 10 mg PO QHS 06/23/24 Unknown History eszopiclone 2 mg tablet 2 mg PO QHS 06/23/24 Unknown History ferrous sulfate 325 mg (65 mg 325 mg PO BID 06/23/24 Unknown History iron) tablet folic acid 1 mg tablet 1 mg PO DAILY 06/23/24 Unknown History levothyroxine 137 mcg tablet 137 mcg PO DAILY 06/23/24 Unknown History metformin 500 mg tablet,extended 500 mg PO BID 06/23/24 Unknown History release 24 hr omeprazole 20 mg capsule,delayed 20 mg PO BID 06/23/24 Unknown History release oxycodone 5 mg tablet 10 mg PO Q4H PRN pain 06/23/24 Unknown History sertraline 25 mg tablet 50 mg PO DAILY 06/23/24 Unknown History simvastatin 40 mg tablet 40 mg PO QHS 06/23/24 Unknown History triamterene 37.5 1 cap PO DAILY 06/23/24 Unknown History mg-hydrochlorothiazide 25 mg capsule Allergy/AdvReac Type Severity Reaction Status Date / Time acetaminophen (From Vicodin) Allergy Intermediate Shortness Verified 06/22/24 22:15 of breath hydrocodone (From Vicodin) Allergy Intermediate Shortness Verified 06/22/24 22:15 of breath butorphanol (From Stadol) AdvReac Intermediate Shortness Verified 06/22/24 22:15 of breath Social History Smoking Status: Never smoker ROS Constitutional Constitutional: Denies chills or fever(s) Eyes Eyes: Denies blurry vision ENT HEENT: Denies abnormal hearing Cardiovascular Cardiovascular: Denies chest pain Respiratory/Chest Respiratory/Chest: Denies shortness of breath at rest Genitourinary Genitourinary: Denies dysuria Musculoskeletal Musculoskeletal: Reports extremity pain, joint pain, joint swelling and limited range of motion Integumentary Integumentary: Denies dry skin Neurologic Neurologic: Denies abnormal speech or confusion Psychiatric Psychiatric: Reports anxiety Vital Signs Vital Signs Vital Signs: 06/22/24 22:09 06/22/24 22:14 06/22/24 23:14 Temperature 98.8 F 98.8 F 98.2 F Temperature Source Oral Oral Oral Pulse Rate 79 79 88 Respiratory Rate 18 16 16 Blood Pressure 136/83 H 136/83 H 144/67 H Blood Pressure Mean 100 100 92 Pulse Ox 98 98 98 Oxygen Delivery Method Room Air Room Air 06/23/24 00:00 Temperature 98.3 F Temperature Source Oral Pulse Rate 77 Respiratory Rate 16 Blood Pressure 128/81 H Blood Pressure Mean 96 Pulse Ox 98 Oxygen Delivery Method Room Air Weight Weight: 274 lb 14.663 oz Body Mass Index (BMI) 43.0 Physical Exam Const alert, oriented x3 and no apparent distress General Appearance: cooperative and well developed HEENT normocephalic and head/scalp atraumatic Neck no lymphadenopathy Lymph Lymphatic: no lymphadenopathy noted Cardio regular rate, regular rhythm, S1 normal heart sound and S2 normal heart sound GI normal to inspection, nondistended, normoactive bowel sounds Extremity Extremity Narrative: Left lower extremity swelling, incision site intact Skin General Skin Exam: no breakdown Neuro no focal motor deficits and no sensory deficits noted Psych Attitude: agitated Results Lab / Micro Data 06/22/24 23:43 06/22/24 23:43 Labs: Laboratory Results - last 24 hr 06/22/24 23:43: WBC 11.1 H, RBC 4.49, Hgb 11.3 L, Hct 38.2, MCV 85.1, MCH 25.2 L, MCHC 29.6 L, RDW Std Deviation 50.4 H, RDW Coeff of Tenisha 16.2 H, Plt Count 301, MPV 9.9, Immature Gran % (Auto) 0.400, Neut % (Auto) 71.8 H, Lymph % (Auto) 16.1 L, [place] % (Auto) 8.9, Eos % (Auto) 2.4, Baso % (Auto) 0.4, Absolute Neuts (auto) 8.0 H, Absolute Lymphs (auto) 1.79, Nucleated RBC % 0, PT 14.5, INR 1.1, APTT 26.6, Sodium 138, Potassium 3.8, Chloride 102, Carbon Dioxide 28.0, Anion Gap 9, BUN 26 H, Creatinine 0.80, Estim Creat Clear Calc 94.83, Est GFR (MDRD) Af Amer 93, Est GFR (MDRD) Non-Af 77, BUN/Creatinine Ratio 32.7 H, Glucose 99, Lactic Acid 1.8, Calcium 10.5 H, Total Bilirubin 0.20, Direct Bilirubin 0.09, AST 9 L, ALT 14, Alkaline Phosphatase 109, Total Protein 7.5, Albumin 3.2, Globulin 4.3 H Assessment & Plan Assessment/Plan (1) Left hip prosthetic joint infection: (2) Diabetes mellitus: (3) Acute pain of left hip: (4) Fluid overload: PLAN: Plan 1 left hip prosthetic joint infection?admit patient to general medical floor consult orthopedic surgeon Dr. Hawk as he is covering for Dr. Cary presently. Also consult Dr. Carranza for IV antibiotic management. Repeat CBC BMP in the a.m. 2. Acute pain left hip?will add Dilaudid 1 mg IV every 3 hours as needed pain 3. Diabetes?continue routine home medications 4. DVT prophylaxis?low molecular weight heparin Charges/Coding Visit Charges Inpatient E&M: 34974 Init Hosp L2
[2024-06-23 00:59] LABS: BNP,B-Type NATRIURETIC PEPTIDE 18.3 pg/mL (0-100)
[2024-06-23] MEDS: Furosemide 100 MG/10 ML Vial 60 MG IV (01:11)
[2024-06-23] MEDS: HYDROmorphone 1 MG/ML Syringe IV ×4 (01:58→18:50)
[2024-06-23] MEDS: ALPRAZolam 0.5 MG Tablet PO (01:58)
[2024-06-23] MEDS: cycloBENZAPRine HCl 10 MG Tablet PO ×2 (02:44→21:59)
[2024-06-23] MEDS: Zolpidem Tartrate 5 MG Tablet PO ×2 (02:44→21:59)
--- NOTE | 2024-06-23 02:51 | NURSING ---
When patient arrived on ED cot, demanded pain meds before getting to bed in room 302. Was severely anxious about moving and rating pain 10/10. Nurse explained that we had to receive the orders and pharmacy had to verify the medication before meds could be given. After meds were verified prn Dilaudid given and prn Xanax. Later patient said she hadn't taken her evening dose of Flexeril or her sleeping medication. Patient said those meds haven't been working at home. This RN gave those meds. Patient placed on a pulse ox to monitor SpO2 and heart rate.
[2024-06-23] MEDS: Levothyroxine 137 MCG Tablet PO (06:48)
[2024-06-23 07:03] LABS: Absolute Lymphocyte Count 1.69 X10^3/uL (0.83-4.51); Absolute Neutrophil Count 7.2 X10^3/uL (2.0-7.7); Basophil# 0.06 X10^3/uL; Basophil% 0.6 % (0-1); Eosinophil# 0.22 X10^3/uL; Eosinophils% 2.2 % (0-5); Hematocrit 43.3 % (37-47); Hemoglobin 12.8 g/dL (12.0-15.0); Lymphocyte # 1.69 X10^3/ul (0.83-4.51); Lymphocyte % 16.7 % (19-41); Mean Corp Hgb Conc 29.6 g/dL (32-36); Mean Corpuscular Hgb 25.5 pg (27.0-32.0); Mean Corpuscular Volume 86.4 fL (81-99); Monocyte% 8.9 % (0-10); NRBC Flagged by Analyzer 0 % (0-5); Neutrophil % 71.1 % (47-70); Platelet Count 277 K/mm3 (150-450); RBC Distribution Width CV 16.3 % (11.6-14.6); RBC Distribution Width SD 50.9 fl (35.1-43.9); Red Blood Count 5.01 M/mm3 (4.2-5.4); White Blood Count 10.1 K/mm3 (4.4-11.0)
[2024-06-23 07:12] LABS: Anion Gap 8 (5-15); BUN 22 mg/dL (7-18); BUN/Creat Ratio 25.5 RATIO (10-20); Calcium,Total 10.5 mg/dL (8.5-10.1); Chloride 100 mmol/L (98-107); Creatinine, Serum 0.86 mg/dL (0.55-1.02); EST Glomerular Filtration Rate 70 mL/min (>60); Est Glom Filt Rate - Afr Amer 85 mL/min (>60); Estimated Creatinine Clearance 87.12 ml/min; Glucose 111 mg/dL (74-106); Potassium 3.2 mmol/L (3.5-5.1); Sodium Level 135 mmol/L (136-145)
[2024-06-23] MEDS: metFORMIN (XR) 500 MG Tablet PO ×2 (08:05→17:27)
[2024-06-23] MEDS: Folic Acid 1 MG Tablet PO (08:06)
[2024-06-23] MEDS: Potassium Chloride Oral Tablet 20 MEQ 40 MEQ PO (08:06)
--- NOTE | 2024-06-23 10:38 | PCM.CONS.GEN ---
Assessment & Plan Assessment/Plan (1) Left hip prosthetic joint infection: PLAN: Dx with L hip PJI in spring 2023. Outpt aspiration with MSSA. Started on po doxy as outpt, taken to OR 03/16/[address] Cary for I&D and spacer placement. Surg cx neg at that time. Discharged with picc and 6 weeks iv cefazolin. Course was extended due to ongoing drainage and sinus tracts. Taken back to OR 05/11/[address] Cary for I&D and resection of femoral head. Surg cx x3 with serratia. Discharged on iv ceftriaxone, stop date 06/24/24. Incision has healed well, ESR nearly normalized on last check. Admitted due to muscle spasms, reports mild intermittent chills and low grade temps at home. Currently abx on hold, ortho to see. Pt has a duplicate account which is why her past info cannot be seen in her chart. Will follow, thank you HPI Consult Data Date of Consult: 06/23/24 HPI Narrative Reason for Consultation: PJI HPI Narrative: JULIANNE JULIET, is a 64 F with L hip PJI, spacer was placed and plan was to complete course of ceftriaxone for serratia infection 06/24/24. No issues with picc. C/o 2-3 weeks intermittent chills and muscle spasms. No n/v/d. L hip incision site has healed well. Admitted, abx held, ortho consulted. Full ROS performed and neg except as noted above. PFSH Home Medications ?Medication ?Instructions ?Recorded ?Last Taken ?Type alprazolam 0.25 mg tablet 0.25 mg PO TID PRN anxiety 06/23/24 06/23/24 History atenolol 25 mg tablet 25 mg PO DAILY HTN 06/23/24 06/22/24 History ceftriaxone 2 gram intravenous 2 g IV DAILY antibiotic 06/23/24 06/22/24 History solution celecoxib 200 mg capsule 200 mg PO DAILY Arthritis pain 06/23/24 06/22/24 History cyclobenzaprine 10 mg tablet 10 mg PO QHS Muscle relaxant 06/23/24 06/22/24 History eszopiclone 2 mg tablet 2 mg PO QHS for sleep 06/23/24 06/22/24 History ferrous sulfate 325 mg (65 mg 325 mg PO BID anemia 06/23/24 06/22/24 History iron) tablet folic acid 1 mg tablet 1 mg PO DAILY anemia 06/23/24 06/22/24 History levothyroxine 137 mcg tablet 137 mcg PO DAILY hypothyroidism 06/23/24 06/22/24 History metformin 500 mg tablet,extended 500 mg PO BID diabetes 06/23/24 06/22/24 History release 24 hr omeprazole 20 mg capsule,delayed 20 mg PO BID Acid reflux 06/23/24 06/22/24 History release oxycodone 5 mg tablet 10 mg PO Q4H PRN pain 06/23/24 06/22/24 History sertraline 25 mg tablet 50 mg PO DAILY depression 06/23/24 06/22/24 History simvastatin 40 mg tablet 40 mg PO QHS cholesterol 06/23/24 06/21/24 History triamterene 37.5 1 cap PO DAILY HTN 06/23/24 06/22/24 History mg-hydrochlorothiazide 25 mg capsule Allergy/AdvReac Type Severity Reaction Status Date / Time acetaminophen (From Vicodin) Allergy Intermediate Shortness Verified 06/22/24 22:15 of breath hydrocodone (From Vicodin) Allergy Intermediate Shortness Verified 06/22/24 22:15 of breath butorphanol (From Stadol) AdvReac Intermediate Shortness Verified 06/22/24 22:15 of breath Social History Smoking Status: Never smoker Physical Exam Const alert, oriented x3 and no apparent distress General Appearance: cooperative HEENT normocephalic and head/scalp atraumatic Eyes PERRL and EOMs intact bilaterally Neck supple and No nodes Resp normal air movement and clear to auscultation bilaterally Cardio regular rate and regular rhythm GI soft to palpation, non-tender and non-distended Extremity General Extremity: Negative for edema Skin no rashes or lesions noted Skin Narrative: L hip incision no redness, induration, tenderness Neuro CN's II-XII intact bilaterally Lab / Micro Data Attestation: I reviewed the patient's lab results. 06/23/24 06:11 06/23/24 06:11 Labs: Laboratory Results - last 24 hr 06/22/24 23:43: WBC 11.1 H, RBC 4.49, Hgb 11.3 L, Hct 38.2, MCV 85.1, MCH 25.2 L, MCHC 29.6 L, RDW Std Deviation 50.4 H, RDW Coeff of Tenisha 16.2 H, Plt Count 301, MPV 9.9, Immature Gran % (Auto) 0.400, Neut % (Auto) 71.8 H, Lymph % (Auto) 16.1 L, [place] % (Auto) 8.9, Eos % (Auto) 2.4, Baso % (Auto) 0.4, Absolute Neuts (auto) 8.0 H, Absolute Lymphs (auto) 1.79, Nucleated RBC % 0, PT 14.5, INR 1.1, APTT 26.6, Sodium 138, Potassium 3.8, Chloride 102, Carbon Dioxide 28.0, Anion Gap 9, BUN 26 H, Creatinine 0.80, Estim Creat Clear Calc 94.83, Est GFR (MDRD) Af Amer 93, Est GFR (MDRD) Non-Af 77, BUN/Creatinine Ratio 32.7 H, Glucose 99, Lactic Acid 1.8, Calcium 10.5 H, Total Bilirubin 0.20, Direct Bilirubin 0.09, AST 9 L, ALT 14, Alkaline Phosphatase 109, B-Natriuretic Peptide 18.3, Total Protein 7.5, Albumin 3.2, Globulin 4.3 H 06/23/24 06:11: WBC 10.1, RBC 5.01, Hgb 12.8, Hct 43.3, MCV 86.4, MCH 25.5 L, MCHC 29.6 L, RDW Std Deviation 50.9 H, RDW Coeff of Tenisha 16.3 H, Plt Count 277, MPV 10.0, Immature Gran % (Auto) 0.500, Neut % (Auto) 71.1 H, Lymph % (Auto) 16.7 L, [place] % (Auto) 8.9, Eos % (Auto) 2.2, Baso % (Auto) 0.6, Absolute Neuts (auto) 7.2, Absolute Lymphs (auto) 1.69, Nucleated RBC % 0, Sodium 135 L, Potassium 3.2 L, Chloride 100, Carbon Dioxide 27.0, Anion Gap 8, BUN 22 H, Creatinine 0.86, Estim Creat Clear Calc 87.12, Est GFR (MDRD) Af Amer 85, Est GFR (MDRD) Non-Af 70, BUN/Creatinine Ratio 25.5 H, Glucose 111 H, Calcium 10.5 H
[2024-06-23] MEDS: Celecoxib 200 MG Capsule PO (11:32)
[2024-06-23] MEDS: Ferrous Sulfate 325 MG Tablet PO (11:32)
[2024-06-23] MEDS: Enoxaparin 40 MG/0.4 ML Syringe SC (11:32)
[2024-06-23] MEDS: Menthol/Lanolin/Calamine/Znox 113 GM Tube 1 APPLIC TOPICAL ×2 (11:33→22:15)
[2024-06-23] MEDS: Triamterene 37.5MG/Hctz 25MG Capsule 1 CAP PO (11:33)
[2024-06-23] MEDS: Glucerna Shake 120 ML LIQUID PO ×4 (11:34→22:15)
[2024-06-23] MEDS: Nystatin Powder 15gm Bottle 1 APPLIC TOPICAL ×2 (11:34→22:15)
[2024-06-23] MEDS: Sertraline 50 MG Tablet PO (11:35)
[2024-06-23] MEDS: Atenolol 25 MG Tablet PO (11:35)
[2024-06-23] MEDS: Pantoprazole Sodium 20 MG Tablet PO ×2 (11:35→22:00)
[2024-06-23 12:01] LABS: Bedside Glucose 123 mg/dL (74-106)
--- NOTE | 2024-06-23 12:08 | CASEMGMT ---
PEEWEE AMBRIZ Assessment Face to Face with patient for initial transition planning/care coordination assessment. PEWEEE AMBRIZ introduced self and role at [facility], pt voices understanding. Pt is A&Ox4 and is resting comfortably in bed and is calm. Pt at bedside. Care providers, pharmacy, and demographics verified. Admitting dx: Lt Hip Pain/ Infection LACE Strata: 1 PCP: Palma Bruno Specialists: Raeann (Ortho) Preferred Pharmacy: [facility] Insurance: MMO, MCR A Only Prescription Benefit: Yes LNOK: Lj De Souza (H), Sulma Fulton (Alberto) Living Arrangements: Pt lives with her in a single story home with a ramp to enter. Pt states that the home is handicap accessible. ADLs/IADLs: Pt requires assistance and states that her and her 4 kids provide help. Pt states that one of her sons is an [employer]. Pt states that one of her kids come every day to help. Transportation: Pt stopped driving as of December. Pt and children drive DME: Glucometer and sufficient supplies. W/C. FWW x2. Raised TS. Walk in shower with chair and grab bars. Bp Monitor. SCD's. HHC/SNF: Hx at [facility] [place]. Pt is active with [facility] (SN) and [facility] for home IV ATBs. Wound: Pt reports that the HH nurse and the pt have been tending to this Pt?s goal: Reduce Pain and return to PLOF Plan: TBD. Pt states that she has a PICC line and that staff here is poking her instead of using the PICC. Pt states that she would like to talk to the pt advocate about this. TC to [place] at this time. No answer, VM left. Pt states that she is requiring more assistance than just the help of her and 4 children. 6-click score is 11. Pt states that at time of DC that she would like to go to the here at [facility]. Pt states that I want to go somewhere that doesn't have that senior living feel. Pt educated that they try to have the pt work with therapy 3 times per day at the . Pt states understanding. PT and OT evaluations are pending at this time. SW made aware. Report given to KYLE VIDES CM. Arlyn Patel RN, CM
--- NOTE | 2024-06-23 12:15 | PCM.PN.HOSP ---
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, initial encounter (06/23/24) Objective Data Objective Data Vital Signs: Vital Signs Temp Pulse Resp BP Pulse Ox O2 Del Method O2 Flow Rate 97.5 F L 83 18 98/59 L 100 Room Air 2 06/23/24 06:57 06/23/24 06:57 06/23/24 06:57 06/23/24 06:57 06/23/24 06:57 06/23/24 06:57 06/23/24 06:57 Oxygen Flow Rate (L/min) 2 Oxygen Delivery Method Room Air Weight: 268 lb 15.423 oz Body Mass Index (BMI) 42.1 Intake & Output: Intake and Output for Last 24 Hours 06/21/24 06/22/24 06/23/24 23:59 23:59 23:59 Output Total 300 / 300 Balance -300 / -300 Lab / Micro Data 06/23/24 06:11 06/23/24 06:11 Labs: Laboratory Results - last 24 hr 06/22/24 23:43: WBC 11.1 H, RBC 4.49, Hgb 11.3 L, Hct 38.2, MCV 85.1, MCH 25.2 L, MCHC 29.6 L, RDW Std Deviation 50.4 H, RDW Coeff of Tenisha 16.2 H, Plt Count 301, MPV 9.9, Immature Gran % (Auto) 0.400, Neut % (Auto) 71.8 H, Lymph % (Auto) 16.1 L, Dauphin % (Auto) 8.9, Eos % (Auto) 2.4, Baso % (Auto) 0.4, Absolute Neuts (auto) 8.0 H, Absolute Lymphs (auto) 1.79, Nucleated RBC % 0, PT 14.5, INR 1.1, APTT 26.6, Sodium 138, Potassium 3.8, Chloride 102, Carbon Dioxide 28.0, Anion Gap 9, BUN 26 H, Creatinine 0.80, Estim Creat Clear Calc 94.83, Est GFR (MDRD) Af Amer 93, Est GFR (MDRD) Non-Af 77, BUN/Creatinine Ratio 32.7 H, Glucose 99, Lactic Acid 1.8, Calcium 10.5 H, Total Bilirubin 0.20, Direct Bilirubin 0.09, AST 9 L, ALT 14, Alkaline Phosphatase 109, B-Natriuretic Peptide 18.3, Total Protein 7.5, Albumin 3.2, Globulin 4.3 H 06/23/24 06:11: WBC 10.1, RBC 5.01, Hgb 12.8, Hct 43.3, MCV 86.4, MCH 25.5 L, MCHC 29.6 L, RDW Std Deviation 50.9 H, RDW Coeff of Tenisha 16.3 H, Plt Count 277, MPV 10.0, Immature Gran % (Auto) 0.500, Neut % (Auto) 71.1 H, Lymph % (Auto) 16.7 L, Dauphin % (Auto) 8.9, Eos % (Auto) 2.2, Baso % (Auto) 0.6, Absolute Neuts (auto) 7.2, Absolute Lymphs (auto) 1.69, Nucleated RBC % 0, Sodium 135 L, Potassium 3.2 L, Chloride 100, Carbon Dioxide 27.0, Anion Gap 8, BUN 22 H, Creatinine 0.86, Estim Creat Clear Calc 87.12, Est GFR (MDRD) Af Amer 85, Est GFR (MDRD) Non-Af 70, BUN/Creatinine Ratio 25.5 H, Glucose 111 H, Calcium 10.5 H Physical Exam Narrative Seen and examined. Patient has history of recurrent left hip PJI. She complained of left hip pain, spasm, could not sit on the commode and inability to do ADLs. Mild intermittent chills and low-grade temperature at home Physical exam General: Alert, Oriented x3, Cooperative HEENT: Atraumatic, PERRLA, EOMI, Normocephalic Oral: No Gingival or Mucosal Lesions/ Ulcerations Neck: Supple, No JVD, Negative Carotid Bruits Chest wall/Lungs: Air entry diminished in bilateral lung bases. No crepitation/rhonchi Cardiovascular: Regular rate, Regular Rhythm, Normal S1, Normal S2, No M/G/R Abdomen: Bowel Sounds Present, Soft, Non Tender, Non-Distended : No dysuria. No renal angle tenderness. No suprapubic tenderness. Extremities: No edema, Capillary Refill Less than 3 Seconds Skin: Long surgical scar on posterior lateral left hip well-healed. Musculoskeletal: Tenderness present over left hip greater trochanter, anterior and posterior to hip joint. ROM severely restricted over left hip, left hip due to pain. Neurological: Cranial nerves II-XII grossly intact, DTR 2+/4. No acute focal neurological deficit. Psych/Mental Status: Normal Affect, Appropriate. Assessment & Plan Assessment/Plan (1) Left hip prosthetic joint infection: (2) Diabetes mellitus: (3) Acute pain of left hip: (4) Fluid overload: PLAN: Plan 64-year-old old admitted for progressive worsening of left hip pain, muscle spasm anteriorly to take care of herself after left hip surgery. This was complicated with infection and patient had 2 surgeries with spacers. Patient is receiving antibiotics through the left PICC line. She also felt like swelling with fluid over left hip, not able to sit on the commode, unable to get into the bed therefore hampering her ADL and quality of life 1. Possible left hip prosthetic joint infection: Patient is being admitted to floor. Diagnosed with left hip PJI in the spring 2023 with outpatient aspiration growing MSSA. Was started on outpatient doxycycline and had I&D and spacer placement on 03/16/2024. Surgical culture negative at that time. Patient was discharged on PICC line with 6 weeks of IV cefazolin. Course was extended due to ongoing drainage and sinus tract. Patient was taken back to the OR on 05/11/2024 by Mid-November for IND and resection of femoral head. Surgical culture x 3 grew Serratia. Discharged on IV ceftriaxone stop date 05/25/2024. ESR has nearly normalized. 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 2. Acute on chronic left hip pain with spasm, unable to do ADL: Dilaudid 1 mg IV every 3 hours as needed pain. On Celebrex. On muscle relaxant Flexeril. 3. Diabetes melitis type II?continue routine home medications. Accu-Chek before meals and at bedtime with Humalog sliding scale coverage and hypoglycemia protocol. 4. DVT prophylaxis?low molecular weight heparin
--- NOTE | 2024-06-23 12:42 | CASEMGMT ---
Social Work- SW met with pt and pt spouse to discuss preference at d/c. Pt states that she will only d/c to RU or TCU facilities. A list of rehab and SNF providers including quality and resource use data and consistent with the patient?s preferred geographic region, medical needs, and insurance network were provided from the [employer] Guide. Pt and spouse will look over list and call facilities. SW will remain available to follow. EMMA Albarran
[2024-06-23] MEDS: 0.9 % NaCl (Sterile) Posiflush 10 mL IV ×2 (14:00→18:50)
[2024-06-23] MEDS: Insulin Lispro 100 UNIT/ML INSULN.PEN SC (17:37)
[2024-06-23 17:57] LABS: Bedside Glucose 170 mg/dL (74-106)
--- NOTE | 2024-06-23 19:30 | RAD_ITS ---
INDICATION: POST REPAIR EXAMINATION/TECHNIQUE: X-RAY - LEFT XR Hip Unilateral with Pelvis when performed; 2-3 Views COMPARISON: 05/11/2024. FINDINGS: SOFT TISSUES: No evidence of soft tissue gas. BONES/JOINTS: Left hip arthroplasty hardware appears stable in position. Linear lucency within the lateral cortex distal to the most inferior wire of the femoral internal fixation hardware. No dislocation. RAD/HIP, UNI W/ Pelvis 2-3 Views IMPRESSION: Linear lucency within the lateral cortex of the proximal left femur, distal to the most inferior wire of the femoral internal fixation hardware. This is similar in appearance to the previous exam. Unsure whether this represents a chronic or healing fracture or an infectious process. Electronically Signed: Irwin Castillo DO at 0:04 EDT ,
[2024-06-23] MEDS: Atorvastatin Calcium 20 MG Tablet PO (22:00)
[2024-06-23] MEDS: Polyethylene Glycol 3350 17 GM PACKET PO (22:00)
[2024-06-23] MEDS: 0.9% Saline Lock 10 ML Syringe IV (22:21)
[2024-06-23] MEDS: oxyCODONE 5 MG Tablet 2.5 MG PO (22:26)
[2024-06-23 22:37] LABS: Bedside Glucose 125 mg/dL (74-106)
[2024-06-24] MEDS: ALPRAZolam 0.5 MG Tablet PO (00:38)
[2024-06-24 01:39] VITALS: BP 107/63; PULSE 81; RESP 18; TEMP 36.6; O2SAT 92
[2024-06-24] MEDS: HYDROmorphone 1 MG/ML Syringe IV ×4 (01:51→16:29)
[2024-06-24] MEDS: 0.9 % NaCl (Sterile) Posiflush 10 mL IV ×4 (01:52→16:30)
[2024-06-24 05:34] LABS: Absolute Lymphocyte Count 1.64 X10^3/uL (0.83-4.51); Absolute Neutrophil Count 6.6 X10^3/uL (2.0-7.7); Basophil# 0.05 X10^3/uL; Basophil% 0.5 % (0-1); Eosinophil# 0.35 X10^3/uL; Eosinophils% 3.7 % (0-5); Hematocrit 38.5 % (37-47); Hemoglobin 11.3 g/dL (12.0-15.0); Lymphocyte # 1.64 X10^3/ul (0.83-4.51); Lymphocyte % 17.1 % (19-41); Mean Corp Hgb Conc 29.4 g/dL (32-36); Mean Corpuscular Hgb 25.4 pg (27.0-32.0); Mean Corpuscular Volume 86.5 fL (81-99); Mean Platelet Vol. 9.5 fl (6.2-12.0); Monocyte# 0.88 X10^3/uL; Monocyte% 9.2 % (0-10); NRBC Flagged by Analyzer 0 % (0-5); Neutrophil # 6.64 X10^3/uL (2.7-7.7); Neutrophil % 69.3 % (47-70); Platelet Count 275 K/mm3 (150-450); RBC Distribution Width SD 51.4 fl (35.1-43.9); Red Blood Count 4.45 M/mm3 (4.2-5.4); White Blood Count 9.6 K/mm3 (4.4-11.0)
--- NOTE | 2024-06-24 05:39 | NURSING ---
blood drawn from left picc. Pt told this nurse that her nurse tiffany said she can have Dilaudid every 3hrs as pt is talking she is falling back to sleep.
[2024-06-24 05:53] LABS: Anion Gap 6 (5-15); BUN 21 mg/dL (7-18); BUN/Creat Ratio 26.6 RATIO (10-20); Calcium,Total 10.2 mg/dL (8.5-10.1); Chloride 100 mmol/L (98-107); Creatinine, Serum 0.79 mg/dL (0.55-1.02); EST Glomerular Filtration Rate 77 mL/min (>60); Est Glom Filt Rate - Afr Amer 94 mL/min (>60); Estimated Creatinine Clearance 93.65 ml/min; Glucose 113 mg/dL (74-106); Potassium 4.1 mmol/L (3.5-5.1); Sodium Level 136 mmol/L (136-145)
[2024-06-24] MEDS: oxyCODONE 5 MG Tablet 2.5 MG PO (06:02)
[2024-06-24] MEDS: Levothyroxine 137 MCG Tablet PO (06:04)
[2024-06-24 06:28] LABS: Bedside Glucose 110 mg/dL (74-106)
--- NOTE | 2024-06-24 06:37 | CONS.ORTHO ---
HPI Consult Data Date of Consult: 06/24/24 HPI Narrative Reason for Consultation: Left hip pain HPI Narrative: JULIANNE CHUNG, is a 64 F who presents with left hip pain. Patient has significant history for previous femoral neck fracture with hemiarthroplasty with subsequent draining sinus and infection. Patient taken the operating room in February cultures that time were negative. Preoperative cultures of the draining sinus fluid did yield MSSA. Patient had delayed wound healing and required repeat debridement in April cultures that time were Serratia marcescens x 3. Patient remained on 6-week course of IV antibiotics. Wound this time is healed appropriately. Over the last week she is increased her call to my office for pain medications. She had previously weaned significantly needs pain medications. This was while she was still on IV antibiotics. Patient does not have any increased redness or swelling. She reports pain in the posterior and lateral side of her hip that does sometimes radiate into the groin however, more significantly she reports pain radiates down her leg. She describes it as spasms and aching. She reports that it radiates all the way to her ankle at times. She is poorly mobilized. She is on weightbearing precautions. We have yet to perform an osteotomy at the time of her antibiotic spacer. Patient's vitals are stable without fevers at this time. [facility] Home Medications ?Medication ?Instructions ?Recorded ?Last Taken ?Type alprazolam 0.25 mg tablet 0.25 mg PO TID PRN anxiety 06/23/24 06/23/24 History atenolol 25 mg tablet 25 mg PO DAILY HTN 06/23/24 06/22/24 History ceftriaxone 2 gram intravenous 2 g IV DAILY antibiotic 06/23/24 06/22/24 History solution celecoxib 200 mg capsule 200 mg PO DAILY Arthritis pain 06/23/24 06/22/24 History cyclobenzaprine 10 mg tablet 10 mg PO QHS Muscle relaxant 06/23/24 06/22/24 History eszopiclone 2 mg tablet 2 mg PO QHS for sleep 06/23/24 06/22/24 History ferrous sulfate 325 mg (65 mg 325 mg PO BID anemia 06/23/24 06/22/24 History iron) tablet folic acid 1 mg tablet 1 mg PO DAILY anemia 06/23/24 06/22/24 History levothyroxine 137 mcg tablet 137 mcg PO DAILY hypothyroidism 06/23/24 06/22/24 History metformin 500 mg tablet,extended 500 mg PO BID diabetes 06/23/24 06/22/24 History release 24 hr omeprazole 20 mg capsule,delayed 20 mg PO BID Acid reflux 06/23/24 06/22/24 History release oxycodone 5 mg tablet 10 mg PO Q4H PRN pain 06/23/24 06/22/24 History sertraline 25 mg tablet 50 mg PO DAILY depression 06/23/24 06/22/24 History simvastatin 40 mg tablet 40 mg PO QHS cholesterol 06/23/24 06/21/24 History triamterene 37.5 1 cap PO DAILY HTN 06/23/24 06/22/24 History mg-hydrochlorothiazide 25 mg capsule Allergy/AdvReac Type Severity Reaction Status Date / Time acetaminophen (From Vicodin) Allergy Intermediate Shortness Verified 06/22/24 22:15 of breath hydrocodone (From Vicodin) Allergy Intermediate Shortness Verified 06/22/24 22:15 of breath butorphanol (From Stadol) AdvReac Intermediate Shortness Verified 06/22/24 22:15 of breath Social History Smoking Status: Never smoker Vital Signs Vital Signs Vital Signs: 06/23/24 06:57 06/23/24 07:47 06/23/24 10:00 Temperature 97.5 F L Temperature Source Oral Pulse Rate 83 Pulse Strength Weak (1+) Respiratory Rate 18 Respiratory Effort Blood Pressure 98/59 L Blood Pressure Mean 72 Blood Pressure Source Monitor Blood Pressure Position Semi-Fowlers Blood Pressure Location Left Forearm Pulse Ox 100 Oxygen Delivery Method Room Air Room Air Oxygen Flow Rate (L/min) 2 06/23/24 11:02 06/23/24 11:03 06/23/24 16:30 Temperature 98.7 F 98.3 F Temperature Source Oral Oral Pulse Rate 70 84 Pulse Strength Respiratory Rate 18 18 18 Respiratory Effort Normal Non-Labored Blood Pressure 127/66 H 139/83 H Blood Pressure Mean 86 101 Blood Pressure Source Monitor Monitor Blood Pressure Position Semi-Fowlers Semi-Fowlers Blood Pressure Location Left Forearm Left Arm Pulse Ox 98 98 Oxygen Delivery Method Room Air Room Air Room Air Oxygen Flow Rate (L/min) 06/23/24 17:00 06/23/24 20:09 06/23/24 22:00 Temperature 98.4 F Temperature Source Oral Pulse Rate 76 Pulse Strength Weak (1+) Respiratory Rate 18 16 Respiratory Effort Normal Non-Labored Blood Pressure 105/69 Blood Pressure Mean 81 Blood Pressure Source Monitor Blood Pressure Position Supine Blood Pressure Location Left Forearm Pulse Ox 93 Oxygen Delivery Method Room Air Room Air Oxygen Flow Rate (L/min) 06/24/24 01:39 Temperature 98 F Temperature Source Oral Pulse Rate 81 Pulse Strength Respiratory Rate 18 Respiratory Effort Blood Pressure 107/63 Blood Pressure Mean 77 Blood Pressure Source Monitor Blood Pressure Position Supine Blood Pressure Location Left Forearm Pulse Ox 92 Oxygen Delivery Method Room Air Oxygen Flow Rate (L/min) Weight Weight: 268 lb 15.423 oz Body Mass Index (BMI) 42.1 Physical Exam Const alert and oriented x3 HEENT normocephalic Eyes PERRL Neck no JVD Resp normal respiratory effort Cardio Cardio Narrative: Regular pulse rate palpated GI non-distended GI Narrative: Obese Extremity Extremity Narrative: Left lower extremity: Incision is clean dry and intact no surrounding erythema or excessive swelling. Sensations intact to light touch saphenous, sural, superficial peroneal, deep peroneal, and tibial distributions Motors intact EHL, DF, PF calves are soft and supple Skin Skin Narrative: Previous surgical incision is stable Neuro CN's II-XII intact bilaterally Medical Records Data Attestation: I reviewed the patient's medical records Medical records narrative: Patient has duplicate chart. Both charts reviewed. Lab / Micro Data Attestation: I reviewed the patient's lab results. 06/24/24 05:25 06/24/24 05:25 Labs: Laboratory Results - last 24 hr 06/23/24 06:11: WBC 10.1, RBC 5.01, Hgb 12.8, Hct 43.3, MCV 86.4, MCH 25.5 L, MCHC 29.6 L, RDW Std Deviation 50.9 H, RDW Coeff of Tenisha 16.3 H, Plt Count 277, MPV 10.0, Immature Gran % (Auto) 0.500, Neut % (Auto) 71.1 H, Lymph % (Auto) 16.7 L, Piatt % (Auto) 8.9, Eos % (Auto) 2.2, Baso % (Auto) 0.6, Absolute Neuts (auto) 7.2, Absolute Lymphs (auto) 1.69, Nucleated RBC % 0, Sodium 135 L, Potassium 3.2 L, Chloride 100, Carbon Dioxide 27.0, Anion Gap 8, BUN 22 H, Creatinine 0.86, Estim Creat Clear Calc 87.12, Est GFR (MDRD) Af Amer 85, Est GFR (MDRD) Non-Af 70, BUN/Creatinine Ratio 25.5 H, Glucose 111 H, Calcium 10.5 H 06/23/24 11:26: POC Glucose 123 H 06/23/24 17:25: POC Glucose 170 H 06/23/24 22:16: POC Glucose 125 H 06/24/24 05:25: WBC 9.6, RBC 4.45, Hgb 11.3 L, Hct 38.5, MCV 86.5, MCH 25.4 L, MCHC 29.4 L, RDW Std Deviation 51.4 H, RDW Coeff of Tenisha 16.0 H, Plt Count 275, MPV 9.5, Immature Gran % (Auto) 0.200, Neut % (Auto) 69.3, Lymph % (Auto) 17.1 L, Piatt % (Auto) 9.2, Eos % (Auto) 3.7, Baso % (Auto) 0.5, Absolute Neuts (auto) 6.6, Absolute Lymphs (auto) 1.64, Nucleated RBC % 0, Sodium 136, Potassium 4.1, Chloride 100, Carbon Dioxide 30.0, Anion Gap 6, BUN 21 H, Creatinine 0.79, Estim Creat Clear Calc 93.65, Est GFR (MDRD) Af Amer 94, Est GFR (MDRD) Non-Af 77, BUN/Creatinine Ratio 26.6 H, Glucose 113 H, Calcium 10.2 H 06/24/24 06:07: POC Glucose 110 H Imaging Radiology Impression Hip/Pelvis X-Ray 06/23/24 19:30 IMPRESSION: Linear lucency within the lateral cortex of the proximal left femur, distal to the most inferior wire of the femoral internal fixation hardware. This is similar in appearance to the previous exam. Unsure whether this represents a chronic or healing fracture or an infectious process. Electronically Signed: Irwin Castillo DO at 0:04 EDT , Patient's previous osteotomy is healing well and stable. Implants appear to remain stably fixed Assessment & Plan Assessment/Plan (1) Left hip prosthetic joint infection: PLAN: At this time patient's hardware is stable. Her wound is stable. She does not appear to have continued infectious etiology. She did discontinue antibiotics. Her ESR is stabilized and is near normal. It has been stable over the last 3 checks. I do not feel she at this time requires further surgical intervention for infectious etiology. I am somewhat concerned the patient is starting to have some radiculopathy type nerve pain as it is radiating down to her ankle. I spoke with the patient today about limitations of pain medications. Plan is to be discharged to rehabilitation. Reconstructive plan will begin on going to have my office contact her family however, we will take some time to return to the surgery and patient would benefit from improved mobility and strengthening. She should remain on toe-touch weightbearing restrictions. At this point patient would benefit from proceeding with a revision. Recommend ESR and CRP today with repeat ESR and CRP in 2 weeks as we proceed here with patient's antibiotic holiday. I would recommend a pain management consultation. Patient's pain at this time based on x-rays and examination of limb does not appear to be explained by significant change in the status of the left hip. I do feel she likely has some radiculopathy. She has some history of traumatic spinal anesthetic however, she may benefit from injections or nerve modulating medications. Did have significant conversation about untoward side effects of narcotics including addiction and overdosing. Patient demonstrated understanding. Please contact orthopedics any further questions or concerns. [facility] Office: (2) Closed displaced fracture of left femoral neck with routine healing:
[2024-06-24 07:31] LABS: Erythrocyte Sedimentation Rate 44 mm/hr (0-30)
[2024-06-24] MEDS: Glucerna Shake 120 ML LIQUID PO ×3 (07:57→20:40)
[2024-06-24 08:00] VITALS: BP 123/65; PULSE 85; RESP 16; TEMP 36.9; O2SAT 95
[2024-06-24] MEDS: Folic Acid 1 MG Tablet PO (08:01)
[2024-06-24] MEDS: Celecoxib 200 MG Capsule PO (08:01)
[2024-06-24] MEDS: Pantoprazole Sodium 20 MG Tablet PO ×2 (08:01→20:41)
[2024-06-24] MEDS: Sertraline 50 MG Tablet PO (08:01)
[2024-06-24] MEDS: Atenolol 25 MG Tablet PO (08:01)
[2024-06-24] MEDS: Enoxaparin 40 MG/0.4 ML Syringe SC (08:02)
[2024-06-24] MEDS: Menthol/Lanolin/Calamine/Znox 113 GM Tube 1 APPLIC TOPICAL ×2 (08:02→20:38)
[2024-06-24] MEDS: Triamterene 37.5MG/Hctz 25MG Capsule 1 CAP PO (08:02)
[2024-06-24] MEDS: metFORMIN (XR) 500 MG Tablet PO ×2 (08:02→16:30)
[2024-06-24] MEDS: Nystatin Powder 15gm Bottle 1 APPLIC TOPICAL ×2 (08:02→20:38)
[2024-06-24 08:26] VITALS: O2SAT 96
--- NOTE | 2024-06-24 10:10 | CASEMGMT ---
Discharge Planning A list of SNF providers including quality and resource use data and consistent with the patient's preferred geographic region, medical needs, and insurance network was created in [employer] Guide.? This list was provided to the SW. Jaqui Stephens Discharge Planning Asst.
--- NOTE | 2024-06-24 10:49 | CASEMGMT ---
Social Work SW spoke with Sherita in RU/TCU. No beds available for pt. SW met with pt and pt's and discussed discharge plan. SW explained that post acute care at [facility] is not available and requested other choices. Pt adamant that she will not go to a traditional SNF. SW reviewed list of options with pt and discussed different facilities. Pt's spouse stating that he is unable to care for pt at home at this time and pt will need placement. After discussion, pt agreeable for referrals to be sent to [facility], [facility] and [facility]. Pt is not committing to any of these facilities, but agreeable to referrals. Pt will look into facilities to determine if they will be acceptable to her. DC medical billing assistant updated and to send referrals. EMMA Cloud
--- NOTE | 2024-06-24 10:55 | CT_ITS ---
STUDY: CT LEFT HIP REASON FOR EXAM: Female, 64 years old. Left hip pain CONTRAST: Comparison is made with prior radiographs dated June 23, 2024. TECHNIQUE: Transaxial imaging of the hip was performed with reformatted sagittal and coronal images. The protocol utilizes one or more of the following dose reduction techniques: automated exposure control, adjustment of mA and/or kV according to patient size,and/or use of iterative reconstruction technique. COMPARISON: Prior study dated: Comparison is made with prior radiographs of the left hip dated June 23, 2024. FINDINGS: HIP The patient is status post left total hip replacement. There is a long stem femoral component. Distal to the most inferior metallic wire, a faint lucency is seen along the lateral femoral cortex. I suspect this to be a healed nondisplaced fracture. Normal acetabulum. VISUALIZED OSSEOUS PELVIS Normal superior and inferior pubic rami. There is narrowing of the pubic symphysis. Normal bilateral ischial tuberosity. Persistent soft tissue changes in the subcutaneous tissues overlying the site of the left hip replacement. CT/Extremity Lower without Contra IMPRESSION: Findings suggestive of a healed fracture distal to the most inferior metallic wire of the femoral component of the total hip replacement. Electronically Signed: Jeff Coleman MD at 12:44 EDT ,
--- NOTE | 2024-06-24 11:09 | CASEMGMT ---
Addendum entered by Jaqui Stephens 06/26/24 14:06: Precert remains pending. [facility] given unit phone number. Jaqui Stephens DC Planning Asst. Addendum entered by Jaqui Stephens 06/25/24 11:59: [facility] declined. [facility] accepted and will begin precert. Haley asked to cancel referral. SW updated. Jaqui Stephens DC Planning Asst. Original Note: Discharge Planning Referral sent to [facility] (by fax), and [facility]. Jaqui Stephens DC Planning Asst.
[2024-06-24] MEDS: Senna/Docusate Sodium 1 Tablet 2 TABLET PO ×2 (11:59→20:41)
[2024-06-24] MEDS: Ferrous Sulfate 325 MG Tablet PO (11:59)
[2024-06-24] MEDS: Insulin Lispro 100 UNIT/ML INSULN.PEN SC (12:00)
[2024-06-24 12:24] LABS: Bedside Glucose 157 mg/dL (74-106)
--- NOTE | 2024-06-24 13:25 | PCM.PN.ID ---
Physical Exam Narrative Feeling ok, pain is a little better, no fever Const alert and no apparent distress General Appearance: cooperative Resp normal air movement and clear to auscultation bilaterally Cardio regular rate and regular rhythm GI soft to palpation, non-tender and non-distended Skin no rashes or lesions noted ID ID: Route of nutrition/ use of supplements: [] Nutritional Intake: [] IV Site: [] Zamora Catheter: [] Assessment & Plan Assessment/Plan (1) Left hip prosthetic joint infection: PLAN: Dx with L hip PJI in spring 2023. Outpt aspiration with MSSA. Started on po doxy as outpt, taken to OR 03/16/[address] Cary for I&D and spacer placement. Surg cx neg at that time. Discharged with picc and 6 weeks iv cefazolin. Course was extended due to ongoing drainage and sinus tracts. Taken back to OR 05/11/[address] Cary for I&D and resection of femoral head. Surg cx x3 with serratia. Discharged on iv ceftriaxone, stop date 06/24/24. Incision has healed well, ESR nearly normalized on last check. Admitted due to muscle spasms, reports mild intermittent chills and low grade temps at home. Currently abx on hold, ortho following. CT showed no abscess. Recommend picc removal at discharge. Pt has a duplicate account which is why her past info cannot be seen in her chart. Will follow
--- NOTE | 2024-06-24 13:28 | PN.HOSP_ITS ---
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, initial encounter (06/23/24) Objective Data Objective Data Vital Signs: Vital Signs Temp Pulse Resp BP Pulse Ox O2 Del Method O2 Flow Rate 98.4 F 85 16 123/65 H 96 Room Air 2 06/24/24 08:00 06/24/24 08:00 06/24/24 08:00 06/24/24 08:00 06/24/24 08:26 06/24/24 08:26 06/23/24 06:57 Oxygen Flow Rate (L/min) 2 Oxygen Delivery Method Room Air Weight: 268 lb 15.423 oz Body Mass Index (BMI) 42.1 Intake & Output: Intake and Output for Last 24 Hours 06/22/24 06/23/24 06/24/24 23:59 23:59 23:59 Intake Total 2050 / 2050 200 / 200 Output Total 1100 / 1100 800 / 800 Balance 950 / 950 -600 / -600 Lab / Micro Data 06/24/24 05:25 06/24/24 05:25 Labs: Laboratory Results - last 24 hr 06/23/24 17:25: POC Glucose 170 H 06/23/24 22:16: POC Glucose 125 H 06/24/24 05:25: WBC 9.6, RBC 4.45, Hgb 11.3 L, Hct 38.5, MCV 86.5, MCH 25.4 L, M CHC 29.4 L, RDW Std Deviation 51.4 H, RDW Coeff of Tenisha 16.0 H, Plt Count 275, MPV 9.5, Immature Gran % (Auto) 0.200, Neut % (Auto) 69.3, Lymph % (Auto) 17.1 L , Putnam % (Auto) 9.2, Eos % (Auto) 3.7, Baso % (Auto) 0.5, Absolute Neuts (auto) 6.6, Absolute Lymphs (auto) 1.64, Nucleated RBC % 0, ESR 44 H, Sodium 136, Potassium 4.1, Chloride 100, Carbon Dioxide 30.0, Anion Gap 6, BUN 21 H, Creatinine 0.79, Estim Creat Clear Calc 93.65, Est GFR (MDRD) Af Amer 94, Est GFR (MDRD) Non-Af 77, BUN/Creatinine Ratio 26.6 H, Glucose 113 H, Calcium 10.2 H , C-React Prot Ext Range 47.50 H 06/24/24 06:07: POC Glucose 110 H 06/24/24 11:55: POC Glucose 157 H Radiography Diagnostic Testing: Radiology Impression Hip/Pelvis X-Ray 06/23/24 19:30 IMPRESSION: Linear lucency within the lateral cortex of the proximal left femur, distal to the most inferior wire of the femoral internal fixation hardware. This is similar in appearance to the previous exam. Unsure whether this represents a chronic or healing fracture or an infectious process. Electronically Signed: Irwin Castillo DO at 0:04 EDT , Lower Extremity CT 06/24/24 10:55 IMPRESSION: Findings suggestive of a healed fracture distal to the most inferior metallic wire of the femoral component of the total hip replacement. Electronically Signed: Jeff Coleman MD at 12:44 EDT , Physical Exam Narrative Seen and examined. Patient has history of recurrent left hip PJI. She complained of left hip pain, spasm, could not sit on the commode and inability to do ADLs. She complained of severe pain from and around left hip buttock area with radiation to just below knee, neuropathy pain. No fever here. Physical exam General: Alert, Oriented x3, Cooperative HEENT: Atraumatic, PERRLA, EOMI, Normocephalic Oral: No Gingival or Mucosal Lesions/ Ulcerations Neck: Supple, No JVD, Negative Carotid Bruits Chest wall/Lungs: Air entry diminished in bilateral lung bases. No crepitation/rhonchi Cardiovascular: Regular rate, Regular Rhythm, Normal S1, Normal S2, No M/G/R Abdomen: Bowel Sounds Present, Soft, Non Tender, Non-Distended : No dysuria. No renal angle tenderness. No suprapubic tenderness. Extremities: No edema, Capillary Refill Less than 3 Seconds Skin: Long surgical scar on posterior lateral left hip well-healed. Musculoskeletal: Mild tenderness present over left hip greater trochanter, anterior and posterior to hip joint. ROM severely restricted over left hip, left hip due to pain. Neurological: Cranial nerves II-XII grossly intact, DTR 2+/4. No acute focal neurological deficit. Psych/Mental Status: Normal Affect, Appropriate. Assessment & Plan Assessment/Plan (1) Left hip prosthetic joint infection: (2) Diabetes mellitus: (3) Acute pain of left hip: (4) Fluid overload: PLAN: Plan 64-year-old old admitted for progressive worsening of left hip pain, muscle spasm anteriorly to take care of herself after left hip surgery. This was complicated with infection and patient had 2 surgeries with spacers. Patient is receiving antibiotics through the left PICC line. She also felt like swelling with fluid over left hip, not able to sit on the commode, unable to get into the bed therefore hampering her ADL and quality of life 1. Chronic left hip pain with radiation to knee with history of left hip prosthetic joint infection: Patient is being admitted to floor. Diagnosed with left hip PJI in the spring 2023 with outpatient aspiration growing MSSA. Was started on outpatient doxycycline and had I&D and spacer placement on 03/16/2024. Surgical culture negative at that time. Patient was discharged on PICC line with 6 weeks of IV cefazolin. Course was extended due to ongoing drainage and sinus tract. Patient was taken back to the OR on 05/11/[address] Cary and resection of femoral head. Surgical culture x 3 grew Serratia. Discharged on IV ceftriaxone stop date 05/25/2024. ESR has nearly normalized. 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 06/24: Pain management consulted. This time it seems patient does not have infection on the left hip joint but has chronic pain with radiation to left knee most likely neuropathy pain. Patient demands opioid medication every 3-4 hours. When option was given for rehab to skilled nursing she said skilled nursing does not give pain medication and she has to wait for it. She also did not want local pain injection as she said she was traumatized by right sided local injection during . 2. Acute on chronic left hip pain with spasm, unable to do ADL: Dilaudid 1 mg IV every 3 hours as needed pain. On Celebrex. On muscle relaxant Flexeril. 3. Diabetes melitis type II?continue routine home medications. Accu-Chek before meals and at bedtime with Humalog sliding scale coverage and hypoglycemia protocol. 4. DVT prophylaxis?low molecular weight heparin Charges/Coding Visit Charges Inpatient E&M: 34785 Subs Hosp L2
[2024-06-24 14:30] VITALS: BP 117/67; PULSE 78; RESP 18; TEMP 36.9; O2SAT 96
--- NOTE | 2024-06-24 15:39 | CASEMGMT ---
Spoke with Eleonora at [facility], she is aware plan currently is for pt not to return home after this hospital stay but pain mgmt is pending eval.
[2024-06-24] MEDS: Polyethylene Glycol 3350 17 GM PACKET PO ×2 (16:55→20:41)
[2024-06-24 17:03] LABS: Bedside Glucose 140 mg/dL (74-106)
[2024-06-24] MEDS: morphine SR 15 MG Tablet PO (18:17)
[2024-06-24] MEDS: Gabapentin 100 MG Capsule PO (18:17)
[2024-06-24 20:16] VITALS: BP 109/67; PULSE 79; PULSE 80; RESP 18; TEMP 37.2; O2SAT 95; O2SAT 96
[2024-06-24] MEDS: Zolpidem Tartrate 5 MG Tablet PO (20:38)
[2024-06-24] MEDS: 0.9% Saline Lock 10 ML Syringe IV (20:39)
[2024-06-24] MEDS: cycloBENZAPRine HCl 10 MG Tablet PO (20:40)
[2024-06-24] MEDS: Atorvastatin Calcium 20 MG Tablet PO (20:41)
[2024-06-24 21:55] LABS: Bedside Glucose 110 mg/dL (74-106)
[2024-06-25 02:36] VITALS: BP 112/65; PULSE 88; RESP 18; TEMP 37.4; O2SAT 95
[2024-06-25] MEDS: oxyCODONE 5 MG Tablet PO ×3 (02:56→18:16)
[2024-06-25] MEDS: Levothyroxine 137 MCG Tablet PO (05:54)
[2024-06-25 06:50] LABS: Absolute Neutrophil Count 7.1 X10^3/uL (2.0-7.7); Basophil# 0.05 X10^3/uL; Basophil% 0.5 % (0-1); Eosinophil# 0.29 X10^3/uL; Eosinophils% 2.9 % (0-5); Hematocrit 38.3 % (37-47); Hemoglobin 11.2 g/dL (12.0-15.0); Mean Corp Hgb Conc 29.2 g/dL (32-36); Mean Corpuscular Hgb 25.1 pg (27.0-32.0); Mean Corpuscular Volume 85.7 fL (81-99); Mean Platelet Vol. 9.6 fl (6.2-12.0); NRBC Flagged by Analyzer 0 % (0-5); Neutrophil # 7.12 X10^3/uL (2.7-7.7); Neutrophil % 71.1 % (47-70); Platelet Count 282 K/mm3 (150-450); RBC Distribution Width CV 15.9 % (11.6-14.6); RBC Distribution Width SD 49.9 fl (35.1-43.9); Red Blood Count 4.47 M/mm3 (4.2-5.4)
[2024-06-25 06:56] LABS: Bedside Glucose 118 mg/dL (74-106)
[2024-06-25 07:19] LABS: Anion Gap 5 (5-15); BUN 19 mg/dL (7-18); BUN/Creat Ratio 24.4 RATIO (10-20); Calcium,Total 9.9 mg/dL (8.5-10.1); Chloride 100 mmol/L (98-107); Creatinine, Serum 0.78 mg/dL (0.55-1.02); EST Glomerular Filtration Rate 79 mL/min (>60); Est Glom Filt Rate - Afr Amer 95 mL/min (>60); Estimated Creatinine Clearance 93.65 ml/min; Glucose 123 mg/dL (74-106); Potassium 3.9 mmol/L (3.5-5.1); Sodium Level 135 mmol/L (136-145)
[2024-06-25 08:30] VITALS: BP 115/62; PULSE 73; RESP 12; TEMP 36.8; O2SAT 96
[2024-06-25] MEDS: Gabapentin 100 MG Capsule PO ×3 (09:14→18:56)
[2024-06-25] MEDS: Folic Acid 1 MG Tablet PO (09:14)
[2024-06-25] MEDS: Menthol/Lanolin/Calamine/Znox 113 GM Tube 1 APPLIC TOPICAL ×2 (09:14→21:29)
[2024-06-25] MEDS: metFORMIN (XR) 500 MG Tablet PO ×2 (09:14→18:08)
[2024-06-25] MEDS: Celecoxib 200 MG Capsule PO (09:15)
[2024-06-25] MEDS: Enoxaparin 40 MG/0.4 ML Syringe SC (09:16)
[2024-06-25] MEDS: Polyethylene Glycol 3350 17 GM PACKET PO ×2 (09:16→21:28)
[2024-06-25] MEDS: morphine SR 15 MG Tablet PO ×2 (09:17→21:26)
[2024-06-25] MEDS: Nystatin Powder 15gm Bottle 1 APPLIC TOPICAL ×2 (09:18→21:30)
[2024-06-25] MEDS: Triamterene 37.5MG/Hctz 25MG Capsule 1 CAP PO (09:19)
[2024-06-25] MEDS: Senna/Docusate Sodium 1 Tablet 2 TABLET PO ×2 (09:19→21:26)
[2024-06-25] MEDS: Pantoprazole Sodium 20 MG Tablet PO ×2 (09:19→21:27)
[2024-06-25] MEDS: Atenolol 25 MG Tablet PO (09:20)
[2024-06-25] MEDS: Sertraline 50 MG Tablet PO (09:20)
[2024-06-25] MEDS: Ferrous Sulfate 325 MG Tablet PO (11:54)
[2024-06-25] MEDS: Glucerna Shake 120 ML LIQUID PO ×2 (12:00→18:15)
--- NOTE | 2024-06-25 12:42 | PCM.PN.ORT ---
Objective Data Objective Data Vital Signs: Vital Signs Temp Pulse Resp BP Pulse Ox O2 Del Method O2 Flow Rate 98.3 F 73 12 115/62 96 Room Air 2 06/25/24 08:30 06/25/24 08:30 06/25/24 08:30 06/25/24 08:30 06/25/24 08:30 06/25/24 09:41 06/23/24 06:57 Oxygen Flow Rate (L/min) 2 Oxygen Delivery Method Room Air Weight: 268 lb 15.423 oz Body Mass Index (BMI) 42.1 Intake & Output: Intake and Output for Last 24 Hours 06/23/24 06/24/24 06/25/24 23:59 23:59 23:59 Intake Total 2050 / 2050 1300 / 1600 300 / 300 Output Total 1100 / 1100 2350 / 3050 700 / 700 Balance 950 / 950 -1050 / -1450 -400 / -400 Lab / Micro Data 06/25/24 06:20 06/25/24 06:20 Labs: Laboratory Results - last 24 hr 06/24/24 16:33: POC Glucose 140 H 06/24/24 20:18: POC Glucose 110 H 06/25/24 05:58: POC Glucose 118 H 06/25/24 06:20: WBC 10.0, RBC 4.47, Hgb 11.2 L, Hct 38.3, MCV 85.7, MCH 25.1 L, MCHC 29.2 L, RDW Std Deviation 49.9 H, RDW Coeff of Tenisha 15.9 H, Plt Count 282, MPV 9.6, Immature Gran % (Auto) 0.500, Neut % (Auto) 71.1 H, Lymph % (Auto) 15.0 L, Marshall % (Auto) 10.0, Eos % (Auto) 2.9, Baso % (Auto) 0.5, Absolute Neuts (auto) 7.1, Absolute Lymphs (auto) 1.50, Nucleated RBC % 0, Sodium 135 L, Potassium 3.9, Chloride 100, Carbon Dioxide 30.0, Anion Gap 5, BUN 19 H, Creatinine 0.78, Estim Creat Clear Calc 93.65, Est GFR (MDRD) Af Amer 95, Est GFR (MDRD) Non-Af 79, BUN/Creatinine Ratio 24.4 H, Glucose 123 H, Calcium 9.9 Radiography Diagnostic Testing: Radiology Impression Lower Extremity CT 06/24/24 10:55 IMPRESSION: Findings suggestive of a healed fracture distal to the most inferior metallic wire of the femoral component of the total hip replacement. Electronically Signed: Jeff Coleman MD at 12:44 EDT Reading Location ID and State: [facility] / [place] , Service support , Assessment & Plan Assessment/Plan (1) Left hip prosthetic joint infection: PLAN: CT scan images reviewed. no significant recurrence of seroma or noted fluid collection osteotomy healing stably. recommend begin with rehab and move forward with planning for revision to total hip replacement on an outpatient bases from home or more likely from nursing or rehab facility.
[2024-06-25 13:46] LABS: Bedside Glucose 106 mg/dL (74-106)
--- NOTE | 2024-06-25 13:50 | CASEMGMT ---
Social Work SW met with Pt and and explained that [facility] and that [facility] has no beds available but that [facility] has accepted. After weighing options and answering questions, pt is agreeable to placement at [facility]. Precert started. Plan: [facility] Swing bed unit, pending precert [facility]
--- NOTE | 2024-06-25 16:34 | PN.HOSP_ITS ---
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, initial encounter (06/23/24) Objective Data Objective Data Vital Signs: Vital Signs Temp Pulse Resp BP Pulse Ox O2 Del Method O2 Flow Rate 98.3 F 73 12 115/62 96 Room Air 2 06/25/24 08:30 06/25/24 08:30 06/25/24 08:30 06/25/24 08:30 06/25/24 08:30 06/25/24 09:41 06/23/24 06:57 Oxygen Flow Rate (L/min) 2 Oxygen Delivery Method Room Air Weight: 268 lb 15.423 oz Body Mass Index (BMI) 42.1 Intake & Output: Intake and Output for Last 24 Hours 06/23/24 06/24/24 06/25/24 23:59 23:59 23:59 Intake Total 2050 / 2050 1300 / 1600 300 / 300 Output Total 1100 / 1100 2350 / 3050 700 / 700 Balance 950 / 950 -1050 / -1450 -400 / -400 Lab / Micro Data 06/25/24 06:20 06/25/24 06:20 Labs: Laboratory Results - last 24 hr 06/24/24 16:33: POC Glucose 140 H 06/24/24 20:18: POC Glucose 110 H 06/25/24 05:58: POC Glucose 118 H 06/25/24 06:20: WBC 10.0, RBC 4.47, Hgb 11.2 L, Hct 38.3, MCV 85.7, MCH 25.1 L, MCHC 29.2 L, RDW Std Deviation 49.9 H, RDW Coeff of Tenisha 15.9 H, Plt Count 282, MPV 9.6, Immature Gran % (Auto) 0.500, Neut % (Auto) 71.1 H, Lymph % (Auto) 15.0 L, Mcdonough % (Auto) 10.0, Eos % (Auto) 2.9, Baso % (Auto) 0.5, Absolute Neuts (auto) 7.1, Absolute Lymphs (auto) 1.50, Nucleated RBC % 0, Sodium 135 L, Potassium 3.9, Chloride 100, Carbon Dioxide 30.0, Anion Gap 5, B UN 19 H, Creatinine 0.78, Estim Creat Clear Calc 93.65, Est GFR (MDRD) Af Amer 95, Est GFR (MDRD) Non-Af 79, BUN/Creatinine Ratio 24.4 H, Glucose 123 H, Calcium 9.9 06/25/24 11:57: POC Glucose 106 Physical Exam Narrative Seen and examined. Patient has history of recurrent left hip PJI. Patient was started on MS Contin yesterday. Her pain and spasm feels better. She wanted rehab in TCU. Discussed with the patient's near the bedside. She has left hip pain from and around left hip buttock area with radiation to just below knee, neuropathy pain. No fever here. Physical exam General: Alert, Oriented x3, Cooperative HEENT: Atraumatic, PERRLA, EOMI, Normocephalic Oral: No Gingival or Mucosal Lesions/ Ulcerations Neck: Supple, No JVD, Negative Carotid Bruits Chest wall/Lungs: Air entry diminished in bilateral lung bases. No crepitation/rhonchi Cardiovascular: Regular rate, Regular Rhythm, Normal S1, Normal S2, No M/G/R Abdomen: Bowel Sounds Present, Soft, Non Tender, Non-Distended : No dysuria. No renal angle tenderness. No suprapubic tenderness. Extremities: No edema, Capillary Refill Less than 3 Seconds Skin: Long surgical scar on posterior lateral left hip well-healed. Musculoskeletal: Mild tenderness present over left hip greater trochanter, anterior and posterior to hip joint. ROM severely restricted over left hip, left hip due to pain. Neurological: Cranial nerves II-XII grossly intact, DTR 2+/4. No acute focal neurological deficit. Psych/Mental Status: Normal Affect, Appropriate. Assessment & Plan Assessment/Plan (1) Left hip prosthetic joint infection: (2) Diabetes mellitus: (3) Acute pain of left hip: (4) Fluid overload: PLAN: Plan 64-year-old old admitted for progressive worsening of left hip pain, muscle spasm anteriorly to take care of herself after left hip surgery. This was complicated with infection and patient had 2 surgeries with spacers. Patient is receiving antibiotics through the left PICC line. She also felt like swelling with fluid over left hip, not able to sit on the commode, unable to get into the bed therefore hampering her ADL and quality of life 1. Chronic left hip pain with radiation to knee with history of left hip prosthetic joint infection: Patient is being admitted to floor. Diagnosed with left hip PJI in the spring 2023 with outpatient aspiration growing MSSA. Was started on outpatient doxycycline and had I&D and spacer placement on 03/16/2024. Surgical culture negative at that time. Patient was discharged on PICC line with 6 weeks of IV cefazolin. Course was extended due to ongoing drainage and sinus tract. Patient was taken back to the OR on 05/11/[address] Cary and resection of femoral head. Surgical culture x 3 grew Serratia. Discharged on IV ceftriaxone stop date 05/25/2024. ESR has nearly normalized. 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 06/24: Pain management consulted. This time it seems patient does not have infection on the left hip joint but has chronic pain with radiation to left knee most likely neuropathy pain. 06/25: Patient was started on MS Contin 50 mg twice daily and oxycodone 5 mg Q6 hourly as needed as suggested by pain management Dr. Walker. Discussed with the special education case manager and social group worker. Discussion with patient's at the bedside. 2. Acute on chronic left hip pain with spasm, unable to do ADL: Dilaudid 1 mg IV every 3 hours as needed pain. On Celebrex. On muscle relaxant Flexeril. 06/25: Dilaudid was discontinued. 3. Diabetes melitis type II?continue routine home medications. Accu-Chek before meals and at bedtime with Humalog sliding scale coverage and hypoglycemia protocol. 4. DVT prophylaxis?low molecular weight heparin Charges/Coding Visit Charges Inpatient E&M: 79616 Subs Hosp L2
[2024-06-25] MEDS: Insulin Lispro 100 UNIT/ML INSULN.PEN SC (18:03)
[2024-06-25 18:53] LABS: Bedside Glucose 155 mg/dL (74-106)
[2024-06-25 19:33] VITALS: BP 128/94; PULSE 80; RESP 17; TEMP 37.1; O2SAT 96
[2024-06-25] MEDS: Zolpidem Tartrate 5 MG Tablet PO (21:25)
[2024-06-25] MEDS: cycloBENZAPRine HCl 10 MG Tablet PO (21:26)
[2024-06-25] MEDS: Atorvastatin Calcium 20 MG Tablet PO (21:28)
[2024-06-25 22:11] LABS: Bedside Glucose 111 mg/dL (74-106)
[2024-06-26] MEDS: Levothyroxine 137 MCG Tablet PO (06:22)
[2024-06-26 06:24] VITALS: BP 130/73; PULSE 73; RESP 17; TEMP 36.9; O2SAT 92
[2024-06-26] MEDS: 0.9 % NaCl (Sterile) Posiflush 10 mL IV (06:28)
[2024-06-26 07:10] LABS: Bedside Glucose 123 mg/dL (74-106)
[2024-06-26] MEDS: Gabapentin 100 MG Capsule PO ×3 (09:10→18:23)
[2024-06-26] MEDS: metFORMIN (XR) 500 MG Tablet PO ×2 (09:11→16:25)
[2024-06-26] MEDS: Pantoprazole Sodium 20 MG Tablet PO ×2 (09:11→21:29)
[2024-06-26] MEDS: Menthol/Lanolin/Calamine/Znox 113 GM Tube 1 APPLIC TOPICAL (09:11)
[2024-06-26] MEDS: Nystatin Powder 15gm Bottle 1 APPLIC TOPICAL ×2 (09:11→21:29)
[2024-06-26] MEDS: Sertraline 50 MG Tablet PO (09:11)
[2024-06-26] MEDS: Celecoxib 200 MG Capsule PO (09:12)
[2024-06-26] MEDS: Atenolol 25 MG Tablet PO (09:12)
[2024-06-26] MEDS: Senna/Docusate Sodium 1 Tablet 2 TABLET PO ×2 (09:12→21:28)
[2024-06-26] MEDS: Folic Acid 1 MG Tablet PO (09:12)
[2024-06-26] MEDS: Polyethylene Glycol 3350 17 GM PACKET PO ×2 (09:14→21:29)
[2024-06-26] MEDS: Triamterene 37.5MG/Hctz 25MG Capsule 1 CAP PO (09:14)
[2024-06-26] MEDS: Enoxaparin 40 MG/0.4 ML Syringe SC (09:15)
[2024-06-26] MEDS: morphine SR 15 MG Tablet PO ×2 (09:15→21:28)
[2024-06-26 09:27] VITALS: BP 102/54; PULSE 74; RESP 16; TEMP 36.9; O2SAT 95
[2024-06-26] MEDS: oxyCODONE 5 MG Tablet PO ×2 (10:28→16:23)
[2024-06-26] MEDS: Glucerna Shake 120 ML LIQUID PO ×2 (10:54→15:54)
--- NOTE | 2024-06-26 12:00 | PN.HOSP_ITS ---
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, initial encounter (06/23/24) Objective Data Objective Data Vital Signs: Vital Signs Temp Pulse Resp BP Pulse Ox O2 Del Method O2 Flow Rate 98.5 F 74 16 102/54 L 95 Room Air 2 06/26/24 09:27 06/26/24 09:27 06/26/24 09:27 06/26/24 09:27 06/26/24 09:27 06/26/24 09:27 06/23/24 06:57 Oxygen Flow Rate (L/min) 2 Oxygen Delivery Method Room Air Weight: 268 lb 15.423 oz Body Mass Index (BMI) 42.1 Intake & Output: Intake and Output for Last 24 Hours 06/24/24 06/25/24 06/26/24 23:59 23:59 23:59 Intake Total 1300 / 1600 900 / 900 Output Total 2350 / 3050 1400 / 1400 400 / 400 Balance -1050 / -1450 -500 / -500 -400 / -400 Lab / Micro Data 06/25/24 06:20 06/25/24 06:20 Labs: Laboratory Results - last 24 hr 06/25/24 11:57: POC Glucose 106 06/25/24 18:03: POC Glucose 155 H 06/25/24 21:22: POC Glucose 111 H 06/26/24 06:20: POC Glucose 123 H Physical Exam Narrative Seen and examined. Patient states her left hip pain is better. Patient being assisted for ADL like shower On MS Contin and as needed oxycodone IR. She has left hip pain from and around left hip buttock area with radiation to just below knee, neuropathy pain. No fever here. Physical exam General: Alert, Oriented x3, Cooperative HEENT: Atraumatic, PERRLA, EOMI, Normocephalic Oral: No Gingival or Mucosal Lesions/ Ulcerations Neck: Supple, No JVD, Negative Carotid Bruits Chest wall/Lungs: Air entry diminished in bilateral lung bases. No crepitation/rhonchi Cardiovascular: Regular rate, Regular Rhythm, Normal S1, Normal S2, No M/G/R Abdomen: Bowel Sounds Present, Soft, Non Tender, Non-Distended : No dysuria. No renal angle tenderness. No suprapubic tenderness. Extremities: No edema, Capillary Refill Less than 3 Seconds Skin: Long surgical scar on posterior lateral left hip well-healed. Musculoskeletal: Mild tenderness present over left hip greater trochanter, anterior and posterior to hip joint. ROM restricted over left hip, left hip due to pain. Neurological: Cranial nerves II-XII grossly intact, DTR 2+/4. No acute focal neurological deficit. Psych/Mental Status: Normal Affect, Appropriate. Assessment & Plan Assessment/Plan (1) Left hip prosthetic joint infection: (2) Diabetes mellitus: (3) Acute pain of left hip: (4) Fluid overload: PLAN: Plan 64-year-old old admitted for progressive worsening of left hip pain, muscle spasm anteriorly to take care of herself after left hip surgery. This was complicated with infection and patient had 2 surgeries with spacers. Patient is receiving antibiotics through the left PICC line. She also felt like swelling with fluid over left hip, not able to sit on the commode, unable to get into the bed therefore hampering her ADL and quality of life 1. Chronic left hip pain with radiation to knee with history of left hip prosthetic joint infection: Patient is being admitted to floor. Diagnosed with left hip PJI in the spring 2023 with outpatient aspiration growing MSSA. Was started on outpatient doxycycline and had I&D and spacer placement on 03/16/2024. Surgical culture negative at that time. Patient was discharged on PICC line with 6 weeks of IV cefazolin. Course was extended due to ongoing drainage and sinus tract. Patient was taken back to the OR on 05/11/[address] Cary and resection of femoral head. Surgical culture x 3 grew Serratia. Discharged on IV ceftriaxone stop date 05/25/2024. ESR has nearly normalized. 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 06/24: Pain management consulted. This time it seems patient does not have infection on the left hip joint but has chronic pain with radiation to left knee most likely neuropathy pain. 06/25: Patient was started on MS Contin 15 mg twice daily and oxycodone 5 mg Q6 hourly as needed as suggested by pain management Dr. Walker. Discussed with the case management director and manager social responsibility. Discussion with patient's at the bedside. 06/26: Patient states her pain is better. Pending pre-CERT. Medically stable for discharge. 2. Acute on chronic left hip pain with spasm, unable to do ADL: Dilaudid 1 mg IV every 3 hours as needed pain. On Celebrex. On muscle relaxant Flexeril. 06/25: Dilaudid was discontinued. 3. Diabetes melitis type II?continue routine home medications. Accu-Chek before meals and at bedtime with Humalog sliding scale coverage and hypoglycemia protocol. 4. DVT prophylaxis?low molecular weight heparin Charges/Coding Visit Charges Inpatient E&M: 23772 Subs Hosp L2
[2024-06-26] MEDS: Insulin Lispro 100 UNIT/ML INSULN.PEN SC ×2 (12:26→21:29)
[2024-06-26] MEDS: Ferrous Sulfate 325 MG Tablet PO (12:28)
[2024-06-26 12:35] LABS: Bedside Glucose 189 mg/dL (74-106)
[2024-06-26 15:28] VITALS: BP 121/67; PULSE 77; RESP 16; TEMP 36.4; O2SAT 96
[2024-06-26 16:52] LABS: Bedside Glucose 109 mg/dL (74-106)
--- NOTE | 2024-06-26 16:58 | CASEMGMT ---
Social Work Phone call to [facility] and precert has not yet been received. Judith to call the nursing unit if precert is obtained over the weekend. Green sheet on chart. Pt and spouse updated. Plan: [facility], pending precert [facility]
[2024-06-26 21:10] VITALS: BP 146/99; PULSE 78; RESP 18; TEMP 36.8; O2SAT 94
[2024-06-26] MEDS: Zolpidem Tartrate 5 MG Tablet PO (21:28)
[2024-06-26] MEDS: Atorvastatin Calcium 20 MG Tablet PO (21:29)
[2024-06-26] MEDS: cycloBENZAPRine HCl 10 MG Tablet PO (21:29)
[2024-06-26 21:55] LABS: Bedside Glucose 153 mg/dL (74-106)
[2024-06-26] MEDS: ALPRAZolam 0.5 MG Tablet PO (22:53)
[2024-06-27 03:10] VITALS: BP 126/63; PULSE 83; RESP 16; TEMP 36.8; O2SAT 92
[2024-06-27] MEDS: Levothyroxine 137 MCG Tablet PO (06:08)
[2024-06-27 06:29] LABS: Bedside Glucose 117 mg/dL (74-106)
[2024-06-27 08:00] VITALS: RESP 18
[2024-06-27] MEDS: Gabapentin 100 MG Capsule PO ×3 (08:49→16:57)
[2024-06-27] MEDS: Triamterene 37.5MG/Hctz 25MG Capsule 1 CAP PO (08:50)
[2024-06-27] MEDS: metFORMIN (XR) 500 MG Tablet PO ×2 (08:50→16:57)
[2024-06-27] MEDS: Pantoprazole Sodium 20 MG Tablet PO ×2 (08:50→22:53)
[2024-06-27] MEDS: Folic Acid 1 MG Tablet PO (08:51)
[2024-06-27] MEDS: Menthol/Lanolin/Calamine/Znox 113 GM Tube 1 APPLIC TOPICAL (08:51)
[2024-06-27 09:10] VITALS: BP 121/68; PULSE 70; RESP 18; TEMP 36.8; O2SAT 94
[2024-06-27] MEDS: Enoxaparin 40 MG/0.4 ML Syringe SC (10:40)
[2024-06-27] MEDS: morphine SR 15 MG Tablet PO ×2 (10:40→22:52)
[2024-06-27] MEDS: Senna/Docusate Sodium 1 Tablet 2 TABLET PO (10:41)
[2024-06-27] MEDS: Nystatin Powder 15gm Bottle 1 APPLIC TOPICAL ×2 (10:41→22:52)
[2024-06-27] MEDS: Polyethylene Glycol 3350 17 GM PACKET PO (10:41)
[2024-06-27] MEDS: Sertraline 50 MG Tablet PO (10:42)
[2024-06-27] MEDS: Celecoxib 200 MG Capsule PO (10:42)
[2024-06-27] MEDS: Atenolol 25 MG Tablet PO (10:43)
[2024-06-27 11:45] LABS: Bedside Glucose 137 mg/dL (74-106)
[2024-06-27] MEDS: ALPRAZolam 0.5 MG Tablet PO ×2 (11:52→20:29)
[2024-06-27] MEDS: Ferrous Sulfate 325 MG Tablet PO (11:52)
--- NOTE | 2024-06-27 12:36 | PN.HOSP_ITS ---
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, initial encounter (06/23/24) Objective Data Objective Data Vital Signs: Vital Signs Temp Pulse Resp BP Pulse Ox O2 Del Method O2 Flow Rate 98.2 F 70 18 121/68 H 94 Room Air 2 06/27/24 09:10 06/27/24 09:10 06/27/24 09:10 06/27/24 09:10 06/27/24 09:10 06/27/24 09:10 06/23/24 06:57 Oxygen Flow Rate (L/min) 2 Oxygen Delivery Method Room Air Weight: 268 lb 15.423 oz Body Mass Index (BMI) 42.1 Intake & Output: Intake and Output for Last 24 Hours 06/25/24 06/26/24 06/27/24 23:59 23:59 23:59 Intake Total 900 / 900 710 / 1110 550 / 550 Output Total 1400 / 1400 400 / 750 600 / 600 Balance -500 / -500 310 / 360 -50 / -50 Lab / Micro Data 06/25/24 06:20 06/25/24 06:20 Labs: Laboratory Results - last 24 hr 06/26/24 16:21: POC Glucose 109 H 06/26/24 21:08: POC Glucose 153 H 06/27/24 06:05: POC Glucose 117 H 06/27/24 11:24: POC Glucose 137 H Physical Exam Narrative Seen and examined. Patient states her left hip pain is better. Has peripheral neuropathy pain from left hip to knee. Waiting for pre-CERT. On MS Contin and as needed oxycodone IR. No fever Physical exam General: Alert, Oriented x3, Cooperative HEENT: Atraumatic, PERRLA, EOMI, Normocephalic Oral: No Gingival or Mucosal Lesions/ Ulcerations Neck: Supple, No JVD, Negative Carotid Bruits Chest wall/Lungs: Air entry diminished in bilateral lung bases. No crepitation/rhonchi Cardiovascular: Regular rate, Regular Rhythm, Normal S1, Normal S2, No M/G/R Abdomen: Bowel Sounds Present, Soft, Non Tender, Non-Distended : No dysuria. No renal angle tenderness. No suprapubic tenderness. Extremities: No edema, Capillary Refill Less than 3 Seconds Skin: Long surgical scar on posterior lateral left hip well-healed. Musculoskeletal: Mild tenderness present over left hip greater trochanter, anterior and posterior to hip joint. ROM restricted over left hip. Neurological: Cranial nerves II-XII grossly intact, DTR 2+/4. No acute focal neurological deficit. Psych/Mental Status: Normal Affect, Appropriate. Assessment & Plan Assessment/Plan (1) Left hip prosthetic joint infection: (2) Diabetes mellitus: (3) Acute pain of left hip: (4) Fluid overload: PLAN: Plan 64-year-old old admitted for progressive worsening of left hip pain, muscle spasm anteriorly to take care of herself after left hip surgery. This was complicated with infection and patient had 2 surgeries with spacers. Patient is receiving antibiotics through the left PICC line. She also felt like swelling with fluid over left hip, not able to sit on the commode, unable to get into the bed therefore hampering her ADL and quality of life 1. Chronic left hip pain with radiation to knee with history of left hip prosthetic joint infection: Patient is being admitted to floor. Diagnosed with left hip PJI in the spring 2023 with outpatient aspiration growing MSSA. Was started on outpatient doxycycline and had I&D and spacer placement on 03/16/2024. Surgical culture negative at that time. Patient was discharged on PICC line with 6 weeks of IV cefazolin. Course was extended due to ongoing drainage and sinus tract. Patient was taken back to the OR on 05/11/[address] Cary and resection of femoral head. Surgical culture x 3 grew Serratia. Discharged on IV ceftriaxone stop date 05/25/2024. ESR has nearly normalized. 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 06/24: Pain management consulted. This time it seems patient does not have infection on the left hip joint but has chronic pain with radiation to left knee most likely neuropathy pain. 06/25: Patient was started on MS Contin 15 mg twice daily and oxycodone 5 mg Q6 hourly as needed as suggested by pain management Dr. Walker. Discussed with the counter caser and web content & social media manager. Discussion with patient's at the bedside. 06/26: Patient states her pain is better. Pending pre-CERT. Medically stable for discharge. 06/27: No acute issues. Blood pressure and heart rate normal. Waiting for pre- CERT. 2. Acute on chronic left hip pain with spasm, unable to do ADL: Dilaudid 1 mg IV every 3 hours as needed pain. On Celebrex. On muscle relaxant Flexeril. 06/25: Dilaudid was discontinued. 3. Diabetes melitis type II?continue routine home medications. Accu-Chek before meals and at bedtime with Humalog sliding scale coverage and hypoglycemia protocol. 4. DVT prophylaxis?low molecular weight heparin Charges/Coding Visit Charges Inpatient E&M: 50458 Subs Hosp L2
[2024-06-27 16:50] VITALS: BP 124/67; PULSE 71; RESP 18; TEMP 36.3; O2SAT 93
[2024-06-27] MEDS: Insulin Lispro 100 UNIT/ML INSULN.PEN SC ×2 (16:57→22:51)
[2024-06-27 17:22] LABS: Bedside Glucose 157 mg/dL (74-106)
[2024-06-27 20:22] VITALS: BP 130/61; PULSE 71; RESP 18; TEMP 36.9; O2SAT 97
[2024-06-27] MEDS: cycloBENZAPRine HCl 10 MG Tablet PO (20:29)
[2024-06-27 22:48] VITALS: BP 134/74; PULSE 67; RESP 18; TEMP 36.9; O2SAT 97
[2024-06-27] MEDS: Zolpidem Tartrate 5 MG Tablet PO (22:50)
[2024-06-27] MEDS: Atorvastatin Calcium 20 MG Tablet PO (22:52)
[2024-06-27] MEDS: 0.9% Saline Lock 10 ML Syringe IV (22:55)
[2024-06-28 00:54] LABS: Bedside Glucose 167 mg/dL (74-106)
[2024-06-28 04:55] VITALS: BP 137/66; PULSE 77; RESP 18; TEMP 36.9; O2SAT 93
[2024-06-28] MEDS: Levothyroxine 137 MCG Tablet PO (06:49)
[2024-06-28 07:10] LABS: Bedside Glucose 134 mg/dL (74-106)
[2024-06-28 08:34] VITALS: BP 126/66; PULSE 81; RESP 18; TEMP 36.4; O2SAT 93
[2024-06-28] MEDS: Atenolol 25 MG Tablet PO (08:39)
[2024-06-28] MEDS: Pantoprazole Sodium 20 MG Tablet PO (08:39)
[2024-06-28] MEDS: metFORMIN (XR) 500 MG Tablet PO (08:39)
[2024-06-28] MEDS: Celecoxib 200 MG Capsule PO (08:39)
[2024-06-28] MEDS: Sertraline 50 MG Tablet PO (08:40)
[2024-06-28] MEDS: Triamterene 37.5MG/Hctz 25MG Capsule 1 CAP PO (08:40)
[2024-06-28] MEDS: Folic Acid 1 MG Tablet PO (08:41)
[2024-06-28] MEDS: Polyethylene Glycol 3350 17 GM PACKET PO (08:41)
[2024-06-28] MEDS: Enoxaparin 40 MG/0.4 ML Syringe SC (08:41)
[2024-06-28] MEDS: Menthol/Lanolin/Calamine/Znox 113 GM Tube 1 APPLIC TOPICAL (08:42)
[2024-06-28] MEDS: Nystatin Powder 15gm Bottle 1 APPLIC TOPICAL (08:43)
[2024-06-28] MEDS: morphine SR 15 MG Tablet PO (08:50)
[2024-06-28] MEDS: Gabapentin 100 MG Capsule PO ×2 (08:50→12:00)
[2024-06-28] MEDS: Glucerna Shake 120 ML LIQUID PO ×2 (08:50→15:09)
[2024-06-28] MEDS: Senna/Docusate Sodium 1 Tablet 2 TABLET PO (08:53)
--- NOTE | 2024-06-28 09:59 | PCA ---
precert obtained, room 239, per facility request arrange transport for 4pm or after. nurse to nurse [phone] fax orders [phone]
--- NOTE | 2024-06-28 10:43 | DS.PCM_ITS ---
Providers Date of Admission: 06/23/24 Date of Discharge: 06/28/24 Primary Care Physician: Dr. Palma Bruno MD Consultations 06/23/24 01:40 Consult: Infectious Disease Routine Consulting Provider: Lj Quiroga Reason for Consult: continued management EMERGENT Consult: Yes MD Notified: Yes Date Notified: 06/23/24 Time Notified: 01:04 Method of Notification: ED Physician Initiated Consult: Orthopedics Routine Consulting Provider: He Hawk Reason for Consult: orthopedic management EMERGENT Consult: Yes MD Notified: Yes Date Notified: 06/23/24 Time Notified: 01:03 Method of Notification: ED Physician Initiated 06/24/24 14:35 Consult: Pain Management Routine Consulting Provider: Sajan Chavez Reason for Consult: LEFT HIP chr pain with radiation to knee EMERGENT Consult: No MD Notified: Yes Date Notified: 06/24/24 Time Notified: 14:35 Method of Notification: Text Reason For Visit: LEFT HIP PAIN INFECTION Diagnosis Discharge Diagnosis (1) Left hip prosthetic joint infection: Status: Acute Code(s): T84.52XA - Infection and inflammatory reaction due to internal left hip prosthesis, initial encounter (2) Diabetes mellitus: Status: Acute Code(s): E11.9 - Type 2 diabetes mellitus without complications (3) Acute pain of left hip: Status: Acute Code(s): M25.552 - Pain in left hip (4) Fluid overload: Status: Acute Code(s): E87.70 - Fluid overload, unspecified Plan 64-year-old old admitted for progressive worsening of left hip pain, muscle spasm anteriorly to take care of herself after left hip surgery. This was complicated with infection and patient had 2 surgeries with spacers. Patient is receiving antibiotics through the left PICC line. She also felt like swelling with fluid over left hip, not able to sit on the commode, unable to get into the bed therefore hampering her ADL and quality of life 1. Chronic left hip pain with radiation to knee with history of left hip prosthetic joint infection: Patient is being admitted to floor. Diagnosed with left hip PJI in the spring 2023 with outpatient aspiration growing MSSA. Was started on outpatient doxycycline and had I&D and spacer placement on 03/16/2024. Surgical culture negative at that time. Patient was discharged on PICC line with 6 weeks of IV cefazolin. Course was extended due to ongoing drainage and sinus tract. Patient was taken back to the OR on 05/11/[address] Cary and resection of femoral head. Surgical culture x 3 grew Serratia. Discharged on IV ceftriaxone stop date 05/25/2024. ESR has nearly normalized. 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 06/24: Pain management consulted. This time it seems patient does not have infection on the left hip joint but has chronic pain with radiation to left knee most likely neuropathy pain. 06/25: Patient was started on MS Contin 15 mg twice daily and oxycodone 5 mg Q6 hourly as needed as suggested by pain management Dr. Walker. Discussed with the porter sample case and manager social work. Discussion with patient's at the bedside. 06/26: Patient states her pain is better. Pending pre-CERT. Medically stable for discharge. 06/27: No acute issues. Blood pressure and heart rate normal. Waiting for pre- CERT. 06/28: Pain is well-controlled. Heart rate and blood pressure normal. Received the patient and her patient is going to discharge to [facility]. 2. Acute on chronic left hip pain with spasm, unable to do ADL: Dilaudid 1 mg IV every 3 hours as needed pain. On Celebrex. On muscle relaxant Flexeril. 06/25: Dilaudid was discontinued. 06/26: Prescription for OxyContin, extended release 15 mg twice daily. Patient already on oxycodone 10 mg therefore dose decreased to 5 mg every 6 hours as needed. This was recommended by pain management Dr. Walker. Follow-up in his office in 2 weeks 3. Diabetes melitis type II?continue routine home medications. Accu-Chek before meals and at bedtime with Humalog sliding scale coverage and hypoglycemia protocol. 4. DVT prophylaxis?low molecular weight heparin Discharge medication reconciliation done. Discharge follow-up instructions completed. Discharge process discussed with the patient and all questions were answered to patient's satisfaction. Follow with PCP in 1 to 2 weeks Total time spent, exact 35 minutes on discharge meds reconciliation, examination, coordination of care with nurses and ancillary staff, review of imaging and blood test and discussion with the patient on follow-up instructions. Medications at Discharge Home Medications alprazolam 0.25 mg tablet 0.25 mg PO TID PRN anxiety 06/23/24 atenolol 25 mg tablet 25 mg PO DAILY HTN 06/23/24 celecoxib 200 mg capsule 200 mg PO DAILY Arthritis pain 06/23/24 cyclobenzaprine 10 mg tablet 10 mg PO QHS Muscle relaxant 06/23/24 eszopiclone 2 mg tablet 2 mg PO QHS for sleep 06/23/24 ferrous sulfate 325 mg (65 mg iron) tablet 325 mg PO BID anemia 06/23/24 folic acid 1 mg tablet 1 mg PO DAILY anemia 06/23/24 levothyroxine 137 mcg tablet 137 mcg PO DAILY hypothyroidism 06/23/24 metformin 500 mg tablet,extended release 24 hr 500 mg PO BID diabetes 06/23/24 omeprazole 20 mg capsule,delayed release 20 mg PO BID Acid reflux 06/23/24 sertraline 25 mg tablet 50 mg PO DAILY depression 06/23/24 simvastatin 40 mg tablet 40 mg PO QHS cholesterol 06/23/24 triamterene 37.5 mg-hydrochlorothiazide 25 mg capsule 1 cap PO DAILY HTN 06/23/24 oxycodone 15 mg tablet,crush resistant,extended release 12 hr (OxyContin) 15 mg PO BID 3 days #6 tabs 06/28/24 oxycodone 5 mg tablet 5 mg PO Q6H PRN PRN pain 3 days #7 tabs 06/28/24 sennosides 8.6 mg-docusate sodium 50 mg tablet (Stimulant Laxative Plus) 2 tab PO BID #0 tabs 06/28/24 Physical Exam Narrative Seen and examined. Patient is moving bowels. Her left hip pain is well-controlled. No fever Physical exam General: Alert, Oriented x3, Cooperative HEENT: Atraumatic, PERRLA, EOMI, Normocephalic Oral: No Gingival or Mucosal Lesions/ Ulcerations Neck: Supple, No JVD, Negative Carotid Bruits Chest wall/Lungs: Air entry diminished in bilateral lung bases. No crepitation/rhonchi Cardiovascular: Regular rate, Regular Rhythm, Normal S1, Normal S2, No M/G/R Abdomen: Bowel Sounds Present, Soft, Non Tender, Non-Distended : No dysuria. No renal angle tenderness. No suprapubic tenderness. Extremities: No edema, Capillary Refill Less than 3 Seconds Skin: Long surgical scar on posterior lateral left hip well-healed. Musculoskeletal: Mild tenderness present over left hip region. ROM restricted over left hip. Neurological: Cranial nerves II-XII grossly intact, DTR 2+/4. No acute focal neurological deficit. Psych/Mental Status: Normal Affect, Appropriate. Weight / BMI Weight Weight: 268 lb 15.423 oz Body Mass Index (BMI) 42.1 ABG / Lab / Microbiology Data 06/25/24 06:20 06/25/24 06:20 Laboratory: Laboratory Results - last 24 hr 06/27/24 11:24: POC Glucose 137 H 06/27/24 16:56: POC Glucose 157 H 06/27/24 22:46: POC Glucose 167 H 06/28/24 06:48: POC Glucose 134 H Meaningful Use Info Meaningful Use Meaningful Use Diagnoses (Choose all that apply): None applicable Ischemic Stroke Statin Dosing Therapy Reference: STATIN DOSE THERAPY REFERENCE: * Patients > 75 years receive moderate or high dose statin therapy. * Patients 75 years or YOUNGER should receive HIGH intensity statin dose unless contraindicated. You will be required to document reason for non-treatment if statin daily dose does not meet guidelines. HIGH DOSE STATIN THERAPY DAILY Atorvastatin > than or = to 40 mg Rosuvastatin > than or = to 20 mg Amlodipine + Atorvastatin > than or = to 2.5/40 mg Ezetimibe + Simvastatin 10/80 mg Simvastatin 80mg Discharge Plan Admission Admit Date/Time: 06/23/24 00:59 Primary Reason for Your Visit: Acute on chronic left hip pain Attending Provider: Nemesio Saravia Primary Care Provider: Palma Bruno Consulting Providers: Lj Quiroga; He Hawk; Castro Elkins; Sajan Chavez Discharge Orders/Prescriptions Prescriptions: New sennosides-docusate sodium [Stimulant Laxative Plus] 8.6-50 mg Tablet 2 tab PO BID Qty: 0 0RF oxycodone [OxyContin] 15 mg tablet,oral only,ext.rel.12 hr 15 mg PO BID 3 Days Qty: 6 0RF Continued atenolol 25 mg tablet 25 mg PO DAILY alprazolam 0.25 mg tablet 0.25 mg PO TID PRN (Reason: anxiety) celecoxib 200 mg capsule 200 mg PO DAILY cyclobenzaprine 10 mg tablet 10 mg PO QHS levothyroxine 137 mcg tablet 137 mcg PO DAILY ferrous sulfate 325 mg (65 mg iron) tablet 325 mg PO BID omeprazole 20 mg capsule,delayed release(DR/EC) 20 mg PO BID folic acid 1 mg tablet 1 mg PO DAILY metformin 500 mg tablet extended release 24 hr 500 mg PO BID eszopiclone 2 mg tablet 2 mg PO QHS sertraline 25 mg tablet 50 mg PO DAILY triamterene-hydrochlorothiazid 37.5-25 mg capsule 1 cap PO DAILY simvastatin 40 mg tablet 40 mg PO QHS Changed oxycodone 5 mg tablet 5 mg PO Q6H PRN PRN (Reason: pain) 3 Days Qty: 7 0RF Discontinued ceftriaxone 2 gram recon soln 2 g IV DAILY Patient Comments: Managed by Junaid at home Referrals / Follow Up: Sajan Chavez MD [Med Staff - Active Staff] - Within 2 Weeks Palma Bruno MD [Primary Care Provider] - Within 2 Weeks Disposition Disposition (needs filled in before D/C Order can be placed): Detention Facility Charges/Coding Visit Charges Inpatient E&M: 56815 Disch Hosp >30min
--- NOTE | 2024-06-28 10:43 | PCM.TXEXTCAR ---
Diet Diet Order/Speech Therapy: 06/23/24 11:48 Diet: Carbohydrate Controlled Type of Dietary Supplement:: Williams Diet Comments: Williams w/breakfast and dinner Routine Orders/Code Status Suppository Type: Dulcolax 10mg Suppository Frequency: Daily PRN Wound(s) buttocks: Wound Type: Pressure Injury Therapies Extremity Affected:: Bilateral Lower Physical Therapy: Eval and Treat Occupational Therapy: Eval and Treat Speech Therapy: Eval and Treat Problem/Diagnosis (1) Left hip prosthetic joint infection: Status: Acute Code(s): T84.52XA - Infection and inflammatory reaction due to internal left hip prosthesis, initial encounter (2) Diabetes mellitus: Status: Acute Code(s): E11.9 - Type 2 diabetes mellitus without complications (3) Acute pain of left hip: Status: Acute Code(s): M25.552 - Pain in left hip (4) Fluid overload: Status: Acute Code(s): E87.70 - Fluid overload, unspecified Plan 64-year-old old admitted for progressive worsening of left hip pain, muscle spasm anteriorly to take care of herself after left hip surgery. This was complicated with infection and patient had 2 surgeries with spacers. Patient is receiving antibiotics through the left PICC line. She also felt like swelling with fluid over left hip, not able to sit on the commode, unable to get into the bed therefore hampering her ADL and quality of life 1. Chronic left hip pain with radiation to knee with history of left hip prosthetic joint infection: Patient is being admitted to floor. Diagnosed with left hip PJI in the spring 2023 with outpatient aspiration growing MSSA. Was started on outpatient doxycycline and had I&D and spacer placement on 03/16/2024. Surgical culture negative at that time. Patient was discharged on PICC line with 6 weeks of IV cefazolin. Course was extended due to ongoing drainage and sinus tract. Patient was taken back to the OR on 05/11/[address] Cary and resection of femoral head. Surgical culture x 3 grew Serratia. Discharged on IV ceftriaxone stop date 05/25/2024. ESR has nearly normalized. 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 06/24: Pain management consulted. This time it seems patient does not have infection on the left hip joint but has chronic pain with radiation to left knee most likely neuropathy pain. 06/25: Patient was started on MS Contin 15 mg twice daily and oxycodone 5 mg Q6 hourly as needed as suggested by pain management Dr. Walker. Discussed with the telephonic case manager and social worker clinical. Discussion with patient's at the bedside. 06/26: Patient states her pain is better. Pending pre-CERT. Medically stable for discharge. 06/27: No acute issues. Blood pressure and heart rate normal. Waiting for pre-CERT. 2. Acute on chronic left hip pain with spasm, unable to do ADL: Dilaudid 1 mg IV every 3 hours as needed pain. On Celebrex. On muscle relaxant Flexeril. 06/25: Dilaudid was discontinued. 3. Diabetes melitis type II?continue routine home medications. Accu-Chek before meals and at bedtime with Humalog sliding scale coverage and hypoglycemia protocol. 4. DVT prophylaxis?low molecular weight heparin Allergies/Procedures Done in Hospital Allergies acetaminophen (From Vicodin) Allergy (Intermediate, Verified 06/22/24 22:15) Shortness of breath hydrocodone (From Vicodin) Allergy (Intermediate, Verified 06/22/24 22:15) Shortness of breath butorphanol (From Stadol) Adverse Reaction (Intermediate, Verified 06/22/24 22:15) Shortness of breath Type of Care/Length of Stay Estimated LOS: Convalescent Care Less Than 30 days Type of Care Needed: Skilled Rehab Potential: Good Prognosis: Good Additional Orders/Day of Discharge Day of Discharge: 06/28/24 Dietary and Speech Recommendations Dietitian Recommendations/Changes: Continue consistent carbohydrate diet to mange current medical condition. Continue 120ml glucerna 4x daily with medpass, prefers vanilla. Consider appetite stimulant to help w/ improved po intake at meals Continue 1 packet of williams BID with breakfast and dinner to promote wound healing. Will adjust ONS, as appetite improves. Will monitor weight, as available. Discharge Plan Admission Admit Date/Time: 06/23/24 00:59 Primary Reason for Your Visit: Acute on chronic left hip pain Attending Provider: Nemesio Saravia Primary Care Provider: Palma Bruno Consulting Providers: Lj Quiroga; He Hawk; Castro Elkins; Sajan Chavez Discharge Orders/Prescriptions Prescriptions: New sennosides-docusate sodium [Stimulant Laxative Plus] 8.6-50 mg Tablet 2 tab PO BID Qty: 0 0RF oxycodone [OxyContin] 15 mg tablet,oral only,ext.rel.12 hr 15 mg PO BID 3 Days Qty: 6 0RF Continued atenolol 25 mg tablet 25 mg PO DAILY alprazolam 0.25 mg tablet 0.25 mg PO TID PRN (Reason: anxiety) celecoxib 200 mg capsule 200 mg PO DAILY cyclobenzaprine 10 mg tablet 10 mg PO QHS levothyroxine 137 mcg tablet 137 mcg PO DAILY ferrous sulfate 325 mg (65 mg iron) tablet 325 mg PO BID omeprazole 20 mg capsule,delayed release(DR/EC) 20 mg PO BID folic acid 1 mg tablet 1 mg PO DAILY metformin 500 mg tablet extended release 24 hr 500 mg PO BID eszopiclone 2 mg tablet 2 mg PO QHS sertraline 25 mg tablet 50 mg PO DAILY triamterene-hydrochlorothiazid 37.5-25 mg capsule 1 cap PO DAILY simvastatin 40 mg tablet 40 mg PO QHS Changed oxycodone 5 mg tablet 5 mg PO Q6H PRN PRN (Reason: pain) 3 Days Qty: 7 0RF Discontinued ceftriaxone 2 gram recon soln 2 g IV DAILY Patient Comments: Managed by Junaid at home Referrals / Follow Up: Sajan Chavez MD [Med Staff - Active Staff] - Within 2 Weeks Palma Bruno MD [Primary Care Provider] - Within 2 Weeks Disposition Disposition (needs filled in before D/C Order can be placed): [facility]
[2024-06-28] MEDS: Ferrous Sulfate 325 MG Tablet PO (12:00)
[2024-06-28 12:50] LABS: Bedside Glucose 148 mg/dL (74-106)
[2024-06-28 14:00] VITALS: BP 124/71; PULSE 79; TEMP 36.6
--- NOTE | 2024-06-28 14:38 | NURSING ---
Nurse to nurse report given to Terri Vincent AO.
[2024-06-28] MEDS: oxyCODONE 5 MG Tablet PO (15:08)
[2024-06-28] MEDS: ALPRAZolam 0.5 MG Tablet PO (15:08)
== END 2024-06-28 16:23 | disposition skilled nursing facility (03) | DRG 556 ==
LOC: ED 06-23 00:51 → MS3 06-23 05:17
PROVIDERS: Specialist; Admitting Provider Family Medicine; Emergency Provider Emergency Medicine; PCP Internal Medicine; Referring Provider Family Medicine; Visit Provider Internal Medicine
DX: M25.552 Pain in left hip (principal); Z68.41 Body mass index [BMI] 40.0-44.9, adult; E11.42 Type 2 diabetes mellitus with diabetic polyneuropathy; E66.01 Morbid (severe) obesity due to excess calories; M62.838 Other muscle spasm; G89.29 Other chronic pain; Z74.09 Other reduced mobility; Z96.642 Presence of left artificial hip joint; Z79.84 Long term (current) use of oral hypoglycemic drugs; Z79.899 Other long term (current) drug therapy; Z86.14 Personal history of Methicillin resistant Staphylococcus aureus infection
CPT/HCPCS: 36592; 73502; 73700; 80048; 80076; 82962; 83605; 83880; 85025; 85610; 85652; 85730; 86140; 97116; 97162; 97166; 97530; 97535; 97802; 99284; A4216; J1940; J2405

== ENCOUNTER 2024-07-21 17:19 | Inpatient (IN) | payer OTHER, MEDICARE, SELFPAY ==
[2024-07-21] VITALS (17 sets, daily range): BP systolic 74–126; BP diastolic 42–80; PULSE 70–113; RESP 14–18; TEMP 36.4–37.4; O2SAT 92–99; BMI 37.5; BMI 41.4
[2024-07-21] MEDS: Lactated Ringers 1,000 ML 15 ML IV (11:34)
[2024-07-21] MEDS: Magnesium 2 GM for ERAS IV (11:34)
[2024-07-21] MEDS: Gabapentin 600 MG Tablet PO (11:56)
[2024-07-21] MEDS: Acetaminophen 500 MG Tablet 1000 MG PO ×2 (11:56→21:02)
[2024-07-21] MEDS: Vancomycin HCl 1,750 MG in 0.9% Normal Saline (500mL Bag) 500 ML 250 MG IV (11:59)
[2024-07-21] MEDS: Cefazolin 3 GM in Syringe 1 EACH IV (13:18)
[2024-07-21 13:35] LABS: Bedside Glucose 151 mg/dL (74-106)
[2024-07-21] MEDS: TRANEXAMIC ACID 2,000 MG, 0.9% Normal Saline (100mL Bag) 100 ML OPERA.SITE (16:16)
[2024-07-21] MEDS: JPS (Morphine 10mg/ml) OPERA.SITE (16:53)
[2024-07-21 18:54] LABS: Absolute Lymphocyte Count 1.71 X10^3/uL (0.83-4.51); Absolute Neutrophil Count 28.3 X10^3/uL (2.0-7.7); Basophil# 0.08 X10^3/uL; Basophil% 0.3 % (0-1); Eosinophil# 0.02 X10^3/uL; Eosinophils% 0.1 % (0-5); Lymphocyte # 1.71 X10^3/ul (0.83-4.51); Lymphocyte % 5.4 % (19-41); Mean Corp Hgb Conc 30.3 g/dL (32-36); Mean Corpuscular Hgb 25.2 pg (27.0-32.0); Mean Corpuscular Volume 83.1 fL (81-99); Mean Platelet Vol. 10.3 fl (6.2-12.0); Monocyte# 1.49 X10^3/uL; Monocyte% 4.7 % (0-10); NRBC Flagged by Analyzer 0 % (0-5); Neutrophil # 28.27 X10^3/uL (2.7-7.7); Neutrophil % 88.3 % (47-70); POSITIVE COUNT YES; POSITIVE DIFFERENTIAL YES; Platelet Count 471 K/mm3 (150-450); RBC Distribution Width CV 14.8 % (11.6-14.6); Red Blood Count 3.97 M/mm3 (4.2-5.4)
[2024-07-21 18:57] LABS: Differential Indicated SCAN CRITERIA MET; White Blood Count 31.9 K/mm3 (4.4-11.0)
[2024-07-21] MEDS: Ketorolac 15 MG/ML Vial IV (18:58)
[2024-07-21 19:33] LABS: Differential Comment SCANNED
[2024-07-21] MEDS: Senna/Docusate Sodium 1 Tablet 2 TABLET PO (21:01)
[2024-07-21] MEDS: Atorvastatin Calcium 20 MG Tablet PO (21:01)
[2024-07-21] MEDS: Pantoprazole Sodium 20 MG Tablet PO (21:01)
[2024-07-21] MEDS: oxyCODONE CR 15 MG Tablet PO (21:01)
[2024-07-21] MEDS: Ondansetron 4 MG/2 ML Vial IV (21:02)
[2024-07-21] MEDS: Cefazolin 1 GM/50 ML BAG IV (23:49)
[2024-07-22] VITALS (8 sets, daily range): BP systolic 96–159; BP diastolic 66–107; PULSE 77–89; RESP 14–18; TEMP 36.3–37.3; O2SAT 96–98
[2024-07-22] MEDS: Vancomycin HCl 1,750 MG in 0.9% Normal Saline (500mL Bag) 500 ML 250 MG IV (00:28)
[2024-07-22] MEDS: Ondansetron 4 MG/2 ML Vial IV (05:02)
[2024-07-22] MEDS: 0.9 % NaCl (Sterile) Posiflush 10 mL IV (05:18)
[2024-07-22] MEDS: Levothyroxine 137 MCG Tablet PO (05:18)
[2024-07-22] MEDS: Rivaroxaban 10 MG Tablet PO (05:19)
[2024-07-22] MEDS: Acetaminophen 500 MG Tablet 1000 MG PO ×3 (05:19→21:36)
[2024-07-22 05:42] LABS: Hematocrit 29.5 % (37-47); Mean Corp Hgb Conc 30.5 g/dL (32-36); Mean Corpuscular Hgb 25.4 pg (27.0-32.0); Mean Corpuscular Volume 83.3 fL (81-99); Mean Platelet Vol. 10.5 fl (6.2-12.0); Platelet Count 421 K/mm3 (150-450); RBC Distribution Width CV 15.1 % (11.6-14.6); Red Blood Count 3.54 M/mm3 (4.2-5.4); White Blood Count 23.8 K/mm3 (4.4-11.0)
[2024-07-22 06:11] LABS: Anion Gap 7 (5-15); BUN 29 mg/dL (7-18); Chloride 105 mmol/L (98-107); Creatinine, Serum 1.26 mg/dL (0.55-1.02); EST Glomerular Filtration Rate 45 mL/min (>60); Est Glom Filt Rate - Afr Amer 55 mL/min (>60); Estimated Creatinine Clearance 58.93 ml/min; Glucose 204 mg/dL (74-106); Potassium 4.8 mmol/L (3.5-5.1); Sodium Level 136 mmol/L (136-145)
[2024-07-22] MEDS: Cefazolin 1 GM/50 ML BAG IV (08:36)
[2024-07-22] MEDS: Folic Acid 1 MG Tablet PO (08:39)
[2024-07-22] MEDS: metFORMIN (XR) 500 MG Tablet PO ×2 (08:40→16:32)
[2024-07-22] MEDS: oxyCODONE CR 15 MG Tablet PO ×2 (10:48→21:37)
[2024-07-22] MEDS: Sertraline 50 MG Tablet PO (10:49)
[2024-07-22] MEDS: Senna Tablet 1 TABLET PO (10:49)
[2024-07-22] MEDS: Atenolol 25 MG Tablet PO (10:49)
[2024-07-22] MEDS: Celecoxib 200 MG Capsule PO (10:50)
[2024-07-22] MEDS: Pantoprazole Sodium 20 MG Tablet PO ×2 (10:50→21:37)
[2024-07-22] MEDS: Senna/Docusate Sodium 1 Tablet 2 TABLET PO ×2 (10:50→21:36)
[2024-07-22] MEDS: Ferrous Sulfate 325 MG Tablet PO ×2 (12:57→16:32)
[2024-07-22 13:15] LABS: Pathologist Review Reviewed
[2024-07-22] MEDS: oxyCODONE 5 MG Tablet PO (15:01)
[2024-07-22] MEDS: Ketorolac 15 MG/ML Vial IV (15:02)
[2024-07-22] MEDS: Ceftriaxone 2 GM in 0.9% Normal Saline (50mL MB+) 50 ML IV (15:11)
[2024-07-22] MEDS: Zolpidem Tartrate 5 MG Tablet PO (21:37)
[2024-07-22] MEDS: Atorvastatin Calcium 20 MG Tablet PO (21:37)
[2024-07-22] MEDS: Insulin Lispro 100 UNIT/ML INSULN.PEN SC (21:37)
[2024-07-22] MEDS: ALPRAZolam 0.25 MG Tablet PO (23:00)
[2024-07-23] VITALS (13 sets, daily range): BP systolic 93–143; BP diastolic 48–67; PULSE 67–108; RESP 18–19; TEMP 36.7–37.4; O2SAT 94–100
[2024-07-23 00:21] LABS: Bedside Glucose 333 mg/dL (74-106)
[2024-07-23] MEDS: Ketorolac 15 MG/ML Vial IV (00:21)
[2024-07-23] MEDS: 0.9% Saline Lock 10 ML Syringe IV ×2 (00:22→08:57)
[2024-07-23 05:48] LABS: Hematocrit 20.9 % (37-47); Hemoglobin 6.3 g/dL (12.0-15.0); Mean Corp Hgb Conc 30.1 g/dL (32-36); Mean Corpuscular Hgb 24.9 pg (27.0-32.0); Mean Corpuscular Volume 82.6 fL (81-99); Platelet Count 253 K/mm3 (150-450); RBC Distribution Width CV 15.3 % (11.6-14.6); Red Blood Count 2.53 M/mm3 (4.2-5.4); White Blood Count 14.1 K/mm3 (4.4-11.0)
[2024-07-23 06:06] LABS: Anion Gap 4 (5-15); BUN 35 mg/dL (7-18); BUN/Creat Ratio 41.4 RATIO (10-20); Calcium,Total 8.6 mg/dL (8.5-10.1); Chloride 105 mmol/L (98-107); Creatinine, Serum 0.84 mg/dL (0.55-1.02); EST Glomerular Filtration Rate 72 mL/min (>60); Est Glom Filt Rate - Afr Amer 87 mL/min (>60); Glucose 151 mg/dL (74-106); Potassium 3.8 mmol/L (3.5-5.1); Sodium Level 138 mmol/L (136-145)
[2024-07-23] MEDS: Levothyroxine 137 MCG Tablet PO (06:37)
[2024-07-23] MEDS: Insulin Lispro 100 UNIT/ML INSULN.PEN SC ×4 (06:37→21:41)
[2024-07-23] MEDS: Rivaroxaban 10 MG Tablet PO (06:37)
[2024-07-23] MEDS: Acetaminophen 500 MG Tablet 1000 MG PO ×3 (06:37→21:46)
[2024-07-23 06:59] LABS: Bedside Glucose 163 mg/dL (74-106)
[2024-07-23] MEDS: Senna/Docusate Sodium 1 Tablet 2 TABLET PO ×2 (08:45→21:46)
[2024-07-23] MEDS: Pantoprazole Sodium 20 MG Tablet PO ×2 (08:46→21:46)
[2024-07-23] MEDS: Folic Acid 1 MG Tablet PO (08:46)
[2024-07-23] MEDS: Senna Tablet 1 TABLET PO ×2 (08:47→21:46)
[2024-07-23] MEDS: metFORMIN (XR) 500 MG Tablet PO ×2 (08:47→16:49)
[2024-07-23] MEDS: Sertraline 50 MG Tablet PO (08:48)
[2024-07-23] MEDS: oxyCODONE CR 15 MG Tablet PO ×2 (08:51→21:44)
[2024-07-23] MEDS: Ceftriaxone 2 GM in 0.9% Normal Saline (50mL MB+) 50 ML IV (08:51)
[2024-07-23] MEDS: Ferrous Sulfate 325 MG Tablet PO ×2 (11:18→16:49)
[2024-07-23 12:19] LABS: Bedside Glucose 164 mg/dL (74-106)
[2024-07-23] MEDS: Vancomycin HCl 2,000 MG in 0.9% Normal Saline (500mL Bag) 500 ML 250 MG IV ×2 (12:49→23:43)
[2024-07-23] MEDS: oxyCODONE 5 MG Tablet 10 MG PO ×2 (13:06→17:15)
[2024-07-23] MEDS: ALPRAZolam 0.25 MG Tablet PO ×2 (13:06→22:20)
[2024-07-23 18:19] LABS: Bedside Glucose 177 mg/dL (74-106)
[2024-07-23] MEDS: Alteplase 2 MG/2 ML Vial IV (19:51)
[2024-07-23 21:40] LABS: Absolute Lymphocyte Count 1.28 X10^3/uL (0.83-4.51); Absolute Neutrophil Count 11.2 X10^3/uL (2.0-7.7); Basophil# 0.03 X10^3/uL; Basophil% 0.2 % (0-1); Eosinophil# 0.23 X10^3/uL; Eosinophils% 1.7 % (0-5); Hematocrit 24.1 % (37-47); Hemoglobin 7.5 g/dL (12.0-15.0); Lymphocyte # 1.28 X10^3/ul (0.83-4.51); Lymphocyte % 9.2 % (19-41); Mean Corp Hgb Conc 31.1 g/dL (32-36); Mean Corpuscular Hgb 26.3 pg (27.0-32.0); Mean Corpuscular Volume 84.6 fL (81-99); Mean Platelet Vol. 9.9 fl (6.2-12.0); Monocyte# 1.13 X10^3/uL; Monocyte% 8.1 % (0-10); NRBC Flagged by Analyzer 0 % (0-5); Neutrophil # 11.15 X10^3/uL (2.7-7.7); Neutrophil % 80.1 % (47-70); Platelet Count 257 K/mm3 (150-450); RBC Distribution Width CV 15.1 % (11.6-14.6); RBC Distribution Width SD 46.5 fl (35.1-43.9); Red Blood Count 2.85 M/mm3 (4.2-5.4); White Blood Count 13.9 K/mm3 (4.4-11.0)
[2024-07-23] MEDS: Atorvastatin Calcium 20 MG Tablet PO (21:45)
[2024-07-23 21:54] LABS: Anion Gap 6 (5-15); BUN 24 mg/dL (7-18); BUN/Creat Ratio 31.4 RATIO (10-20); Calcium,Total 8.3 mg/dL (8.5-10.1); Chloride 106 mmol/L (98-107); Creatinine, Serum 0.76 mg/dL (0.55-1.02); EST Glomerular Filtration Rate 80 mL/min (>60); Est Glom Filt Rate - Afr Amer 97 mL/min (>60); Estimated Creatinine Clearance 92.82 ml/min; Glucose 205 mg/dL (74-106); Potassium 3.9 mmol/L (3.5-5.1); Sodium Level 139 mmol/L (136-145)
[2024-07-24 01:46] LABS: Bedside Glucose 192 mg/dL (74-106)
[2024-07-24 03:30] VITALS: BP 137/60; PULSE 99; RESP 16; TEMP 37.1; O2SAT 95
[2024-07-24] MEDS: Rivaroxaban 10 MG Tablet PO (05:54)
[2024-07-24] MEDS: Levothyroxine 137 MCG Tablet PO (05:54)
[2024-07-24] MEDS: Acetaminophen 500 MG Tablet 1000 MG PO ×3 (05:54→21:07)
[2024-07-24 06:45] LABS: Absolute Lymphocyte Count 1.39 X10^3/uL (0.83-4.51); Absolute Neutrophil Count 8.6 X10^3/uL (2.0-7.7); Basophil# 0.03 X10^3/uL; Basophil% 0.3 % (0-1); Eosinophil# 0.28 X10^3/uL; Eosinophils% 2.5 % (0-5); Hematocrit 25.6 % (37-47); Hemoglobin 7.9 g/dL (12.0-15.0); Lymphocyte # 1.39 X10^3/ul (0.83-4.51); Lymphocyte % 12.2 % (19-41); Mean Corp Hgb Conc 30.9 g/dL (32-36); Mean Corpuscular Volume 84.2 fL (81-99); Mean Platelet Vol. 9.6 fl (6.2-12.0); Monocyte# 0.98 X10^3/uL; Monocyte% 8.6 % (0-10); NRBC Flagged by Analyzer 0 % (0-5); Neutrophil # 8.62 X10^3/uL (2.7-7.7); Neutrophil % 75.5 % (47-70); Platelet Count 231 K/mm3 (150-450); RBC Distribution Width CV 15.1 % (11.6-14.6); RBC Distribution Width SD 45.7 fl (35.1-43.9); Red Blood Count 3.04 M/mm3 (4.2-5.4); White Blood Count 11.4 K/mm3 (4.4-11.0)
[2024-07-24 07:25] VITALS: O2SAT 95
[2024-07-24] MEDS: Folic Acid 1 MG Tablet PO (08:44)
[2024-07-24] MEDS: Senna/Docusate Sodium 1 Tablet 2 TABLET PO ×2 (08:44→21:07)
[2024-07-24] MEDS: Sertraline 50 MG Tablet PO (08:45)
[2024-07-24] MEDS: Senna Tablet 1 TABLET PO ×2 (08:45→21:08)
[2024-07-24] MEDS: metFORMIN (XR) 500 MG Tablet PO ×2 (08:45→16:37)
[2024-07-24] MEDS: Pantoprazole Sodium 20 MG Tablet PO ×2 (08:46→21:07)
[2024-07-24] MEDS: oxyCODONE CR 15 MG Tablet PO ×2 (08:49→21:06)
[2024-07-24] MEDS: Ceftriaxone 2 GM in 0.9% Normal Saline (50mL MB+) 50 ML IV (08:49)
[2024-07-24] MEDS: Atenolol 25 MG Tablet PO (09:19)
[2024-07-24 09:26] VITALS: BP 147/80; PULSE 88; RESP 18; TEMP 37.1; O2SAT 98
[2024-07-24 11:25] LABS: Bedside Glucose 141 mg/dL (74-106)
[2024-07-24] MEDS: Ferrous Sulfate 325 MG Tablet PO ×2 (12:18→16:36)
[2024-07-24] MEDS: oxyCODONE 5 MG Tablet 10 MG PO ×2 (12:18→16:35)
[2024-07-24] MEDS: Insulin Lispro 100 UNIT/ML INSULN.PEN SC ×3 (12:22→21:11)
[2024-07-24 13:20] LABS: Bedside Glucose 227 mg/dL (74-106)
[2024-07-24] MEDS: Vancomycin HCl 2,000 MG in 0.9% Normal Saline (500mL Bag) 500 ML 250 MG IV (14:34)
[2024-07-24 14:36] VITALS: BP 115/65; PULSE 77; RESP 17; TEMP 36.4; O2SAT 96
[2024-07-24 16:56] LABS: Bedside Glucose 172 mg/dL (74-106)
[2024-07-24 20:56] VITALS: BP 140/66; PULSE 90; RESP 16; TEMP 36.6; O2SAT 100
[2024-07-24] MEDS: Atorvastatin Calcium 20 MG Tablet PO (21:07)
[2024-07-24 21:35] LABS: Bedside Glucose 219 mg/dL (74-106)
[2024-07-24] MEDS: Zolpidem Tartrate 5 MG Tablet PO (23:47)
[2024-07-24] MEDS: ALPRAZolam 0.25 MG Tablet PO (23:47)
[2024-07-24 23:48] VITALS: BP 128/66; PULSE 73; RESP 16; TEMP 37.1; O2SAT 97
[2024-07-25] VITALS (13 sets, daily range): BP systolic 129–147; BP diastolic 65–84; PULSE 69–94; RESP 16–18; TEMP 36.4–37.3; O2SAT 94–98
[2024-07-25 00:49] LABS: Vancomycin, Trough Level 13.1 ug/mL (5.0-15.0)
[2024-07-25] MEDS: Vancomycin HCl 2,000 MG in 0.9% Normal Saline (500mL Bag) 500 ML 250 MG IV (01:04)
[2024-07-25 05:14] LABS: Hematocrit 20.1 % (37-47); Hemoglobin 6.2 g/dL (12.0-15.0); Mean Corp Hgb Conc 30.8 g/dL (32-36); Mean Corpuscular Hgb 26.2 pg (27.0-32.0); Mean Corpuscular Volume 84.8 fL (81-99); Mean Platelet Vol. 9.5 fl (6.2-12.0); Platelet Count 190 K/mm3 (150-450); RBC Distribution Width CV 15.5 % (11.6-14.6); Red Blood Count 2.37 M/mm3 (4.2-5.4); White Blood Count 9.8 K/mm3 (4.4-11.0)
[2024-07-25 05:43] LABS: Anion Gap 4 (5-15); BUN 11 mg/dL (7-18); Calcium,Total 8.6 mg/dL (8.5-10.1); Chloride 109 mmol/L (98-107); Creatinine, Serum 0.48 mg/dL (0.55-1.02); EST Glomerular Filtration Rate 138 mL/min (>60); Est Glom Filt Rate - Afr Amer 167 mL/min (>60); Estimated Creatinine Clearance 92.82 ml/min; Glucose 132 mg/dL (74-106); Potassium 3.6 mmol/L (3.5-5.1); Sodium Level 140 mmol/L (136-145)
[2024-07-25] MEDS: Acetaminophen 500 MG Tablet 1000 MG PO ×3 (06:18→22:23)
[2024-07-25] MEDS: Levothyroxine 137 MCG Tablet PO (06:18)
[2024-07-25] MEDS: Rivaroxaban 10 MG Tablet PO (06:18)
[2024-07-25] MEDS: oxyCODONE 5 MG Tablet PO (06:30)
[2024-07-25] MEDS: Insulin Lispro 100 UNIT/ML INSULN.PEN SC ×4 (06:30→22:21)
[2024-07-25 07:13] LABS: Bedside Glucose 151 mg/dL (74-106)
[2024-07-25] MEDS: oxyCODONE CR 15 MG Tablet PO ×2 (09:51→22:22)
[2024-07-25] MEDS: Sertraline 50 MG Tablet PO (09:52)
[2024-07-25] MEDS: Pantoprazole Sodium 20 MG Tablet PO ×2 (09:52→22:23)
[2024-07-25] MEDS: metFORMIN (XR) 500 MG Tablet PO ×2 (09:53→16:53)
[2024-07-25] MEDS: Folic Acid 1 MG Tablet PO (09:53)
[2024-07-25] MEDS: Atenolol 25 MG Tablet PO (09:55)
[2024-07-25] MEDS: Vancomycin HCl 1,250 MG in 0.9% Normal Saline (250mL Bag) 250 ML 167 MG IV ×2 (12:07→17:30)
[2024-07-25 12:33] LABS: Bedside Glucose 184 mg/dL (74-106)
[2024-07-25] MEDS: Ferrous Sulfate 325 MG Tablet PO ×2 (13:04→16:54)
[2024-07-25 16:34] LABS: Bedside Glucose 203 mg/dL (74-106)
[2024-07-25] MEDS: oxyCODONE 5 MG Tablet 10 MG PO (16:48)
[2024-07-25] MEDS: ALPRAZolam 0.25 MG Tablet PO ×2 (16:48→23:48)
[2024-07-25] MEDS: Ceftriaxone 2 GM in 0.9% Normal Saline (50mL MB+) 50 ML IV (16:57)
[2024-07-25] MEDS: Ondansetron 4 MG/2 ML Vial IV (19:03)
[2024-07-25] MEDS: 0.9 % NaCl (Sterile) Posiflush 10 mL IV (19:03)
[2024-07-25 19:58] LABS: Absolute Lymphocyte Count 2.06 X10^3/uL (0.83-4.51); Absolute Neutrophil Count 9.4 X10^3/uL (2.0-7.7); Basophil# 0.05 X10^3/uL; Basophil% 0.4 % (0-1); Eosinophil# 0.46 X10^3/uL; Eosinophils% 3.5 % (0-5); Hematocrit 30.8 % (37-47); Hemoglobin 9.9 g/dL (12.0-15.0); Lymphocyte # 2.06 X10^3/ul (0.83-4.51); Lymphocyte % 15.5 % (19-41); Mean Corp Hgb Conc 32.1 g/dL (32-36); Mean Corpuscular Volume 83.9 fL (81-99); Mean Platelet Vol. 9.6 fl (6.2-12.0); Monocyte# 1.19 X10^3/uL; NRBC Flagged by Analyzer 0 % (0-5); Neutrophil # 9.42 X10^3/uL (2.7-7.7); Neutrophil % 70.8 % (47-70); Platelet Count 294 K/mm3 (150-450); RBC Distribution Width CV 15.6 % (11.6-14.6); RBC Distribution Width SD 46.5 fl (35.1-43.9); Red Blood Count 3.67 M/mm3 (4.2-5.4); White Blood Count 13.3 K/mm3 (4.4-11.0)
[2024-07-25] MEDS: Atorvastatin Calcium 20 MG Tablet PO (22:25)
[2024-07-25 22:46] LABS: Bedside Glucose 217 mg/dL (74-106)
[2024-07-25] MEDS: Zolpidem Tartrate 5 MG Tablet PO (23:48)
[2024-07-26] MEDS: Vancomycin HCl 1,250 MG in 0.9% Normal Saline (250mL Bag) 250 ML 167 MG IV (01:39)
[2024-07-26 04:24] VITALS: BP 128/70; PULSE 82; RESP 18; TEMP 36.6; O2SAT 96
[2024-07-26] MEDS: Acetaminophen 500 MG Tablet 1000 MG PO ×2 (06:32→14:11)
[2024-07-26] MEDS: Rivaroxaban 10 MG Tablet PO (06:32)
[2024-07-26] MEDS: Levothyroxine 137 MCG Tablet PO (06:33)
[2024-07-26 06:52] LABS: Bedside Glucose 122 mg/dL (74-106)
[2024-07-26 08:00] VITALS: BP 124/76; PULSE 78; RESP 18; TEMP 36.6; O2SAT 95
[2024-07-26] MEDS: metFORMIN (XR) 500 MG Tablet PO (08:04)
[2024-07-26] MEDS: oxyCODONE 5 MG Tablet 10 MG PO ×2 (08:04→15:01)
[2024-07-26] MEDS: Folic Acid 1 MG Tablet PO (08:04)
[2024-07-26 08:41] LABS: Hematocrit 30.6 % (37-47); Hemoglobin 9.3 g/dL (12.0-15.0); Mean Corp Hgb Conc 30.4 g/dL (32-36); Mean Corpuscular Volume 85.5 fL (81-99); Mean Platelet Vol. 9.8 fl (6.2-12.0); Platelet Count 270 K/mm3 (150-450); RBC Distribution Width CV 15.9 % (11.6-14.6); RBC Distribution Width SD 47.9 fl (35.1-43.9); Red Blood Count 3.58 M/mm3 (4.2-5.4)
[2024-07-26 08:56] LABS: Anion Gap 7 (5-15); BUN 12 mg/dL (7-18); BUN/Creat Ratio 20.5 RATIO (10-20); Calcium,Total 8.9 mg/dL (8.5-10.1); Chloride 108 mmol/L (98-107); Creatinine, Serum 0.58 mg/dL (0.55-1.02); EST Glomerular Filtration Rate 110 mL/min (>60); Est Glom Filt Rate - Afr Amer 133 mL/min (>60); Estimated Creatinine Clearance 92.82 ml/min; Glucose 173 mg/dL (74-106); Potassium 3.7 mmol/L (3.5-5.1); Sodium Level 140 mmol/L (136-145)
[2024-07-26 08:57] LABS: Vancomycin, Trough Level 20.6 ug/mL (5.0-15.0)
[2024-07-26] MEDS: Sertraline 50 MG Tablet PO (10:09)
[2024-07-26] MEDS: Ceftriaxone 2 GM in 0.9% Normal Saline (50mL MB+) 50 ML IV (10:09)
[2024-07-26] MEDS: Pantoprazole Sodium 20 MG Tablet PO (10:09)
[2024-07-26] MEDS: oxyCODONE CR 15 MG Tablet PO (10:09)
[2024-07-26] MEDS: Atenolol 25 MG Tablet PO (10:09)
[2024-07-26] MEDS: Insulin Lispro 100 UNIT/ML INSULN.PEN SC (11:28)
[2024-07-26] MEDS: Ferrous Sulfate 325 MG Tablet PO (11:28)
[2024-07-26 11:51] LABS: Bedside Glucose 196 mg/dL (74-106)
[2024-07-26] MEDS: Vancomycin IV 1,000 MG/200 ML BAG 200 MG IV (11:52)
[2024-07-26] MEDS: Ondansetron 4 MG/2 ML Vial IV (14:11)
[2024-07-26] MEDS: 0.9% Saline Lock 10 ML Syringe IV (14:11)
[2024-07-26 14:22] VITALS: BP 132/86; PULSE 75; RESP 18; TEMP 36.8; O2SAT 98
== END 2024-07-26 15:14 | DRG 561 ==
LOC: SDC 17:58 → MS3 17:58
PROVIDERS: Anesthesiology; Internal Medicine; Internal Medicine Infectious Disease; Physician Assistant Surgical; Admitting Provider Specialist; PCP Internal Medicine; Referring Provider Specialist; Visit Provider Specialist
PROC: (CPT 27134; principal; 2024-07-21 12:35)
DX: T84.52XA Infection and inflammatory reaction due to internal left hip prosthesis, initial encounter (principal); E11.9 Type 2 diabetes mellitus without complications; E66.01 Morbid (severe) obesity due to excess calories; E89.0 Postprocedural hypothyroidism; I10 Essential (primary) hypertension; F32.A Depression, unspecified; E78.00 Pure hypercholesterolemia, unspecified; E78.5 Hyperlipidemia, unspecified; Z79.4 Long term (current) use of insulin; Z79.01 Long term (current) use of anticoagulants; Z79.84 Long term (current) use of oral hypoglycemic drugs; Z79.1 Long term (current) use of non-steroidal anti-inflammatories (NSAID); Z79.2 Long term (current) use of antibiotics; Z87.891 Personal history of nicotine dependence; Z96.642 Presence of left artificial hip joint; G89.18 Other acute postprocedural pain
CPT/HCPCS: 73502; 80048; 80202; 82962; 85025; 85027; 86850; 86900; 86901; 86920; 86922; 87015; 87070; 87075; 87077; 87102; 87116; 87176; 87205; 87206; 94668; 97110; 97116; 97162; 97166; 97530; 97535; 99252; C1713; C1776; J2997; J7040; J7050; P9016; A4216; G0463; J0696; J2405